=== PATIENT | female | born 1955 | race Caucasian/White ===

== ENCOUNTER 2020-08-28 09:48 | Outpatient (CLI) | payer MEDICARE, OTHER, SELFPAY ==
--- NOTE | ~2020-08-28 | MM_ITS ---
EXAMINATION: MM screening jodie BI w mary HISTORY: Screening mammogram TECHNIQUE: Craniocaudal and mediolateral oblique 3-D tomosynthesis images were obtained and synthetic 2-D images were generated. CAD analysis was submitted and interpreted. COMPARISON: 08/08/2019, 04/26/2018, 01/25/2017, 10/18/2015 BREAST PARENCHYMAL COMPOSITION: There are scattered areas of fibroglandular density. FINDINGS: RIGHT BREAST: There is possible architectural distortion in the middle third of the breast best appre ciated 4.5 cm from the nipple on the mediolateral oblique view. LEFT BREAST: There is no evidence of suspicious mass, calcification, or architectural distortion to s uggest malignancy. There has been no significant interval change. IMPRESSION: 1. Possible right breast architectural distortion. 2. Additional mammographic views and possible breast ultrasound are recommended. BI-RADS Category 0: Incomplete: Needs additional imaging evaluation. Reviewed, dictated and finalized at location A. VOLTAGE ELECTRICIAN IMPRESSION: 1. Possible right breast architectural distortion. 2. Additional mammographic views and possible breast ultrasound are recommended . BI-RADS Category 0: Incomplete: Needs additional imaging evaluation.
== END 2020-08-28 09:49 | disposition home or self-care (01) ==
LOC: ANHIMG 09:56
PROVIDERS: PCP Family Medicine; Visit Provider Obstetrics & Gynecology Gynecology
DX: Z12.31 Encounter for screening mammogram for malignant neoplasm of breast (principal); R92.8 Other abnormal and inconclusive findings on diagnostic imaging of breast
CPT/HCPCS: 77063; 77067

== ENCOUNTER → 2020-09-30 14:22 | Outpatient (CLI) | payer MEDICARE, OTHER, SELFPAY ==
--- NOTE | ~2020-09-30 | MMUS_ITS ---
EXAMINATION: MM diagnostic jodie RT w mary, US breast RT complete HISTORY: Possible right breast architectural distortion reported on 08/28/2020 screening mammogram TECHNIQUE: Additional 3-D tomosynthesis images of the right breast were performed and synthetic 2-D i mages were generated. CAD analysis was submitted and interpreted. Complete right breast ultrasound ex amination was performed. COMPARISON: 08/28/2020 bilateral digital screening mammogram FINDINGS: Diagnostic right mammogram: No reproducible mass or architectural distortion is evident. Occasional b enign calcifications are noted. Complete right breast ultrasound: No suspicious mass, architectural distortion or other significant s onographic abnormality is noted. IMPRESSION: 1. No mammographic or sonographic evidence of malignancy 2. Routine annual mammographic screening is recommended. BI-RADS Category 1: Negative Reviewed, dictated and finalized at location A. O ACCOMPANIST IMPRESSION: 1. No mammographic or sonographic evidence of malignancy 2. Routine annual mammographic screening is recommended. BI-RADS Category 1: Negative
== END ==
PROVIDERS: PCP Family Medicine; Visit Provider Obstetrics & Gynecology
DX: R92.8 Other abnormal and inconclusive findings on diagnostic imaging of breast (principal)
CPT/HCPCS: 76641; 77061; 77065; G0279

== ENCOUNTER 2020-11-18 17:04 | Outpatient (CLI) | payer MEDICARE, SELFPAY | END 2020-11-18 17:05 | disposition home or self-care (01) | LOC: CHSLAB 17:08 | PROVIDERS: PCP Family Medicine; Visit Provider Nurse Practitioner Family | DX: R19.7 Diarrhea, unspecified (principal) | CPT/HCPCS: 87324 ==

== ENCOUNTER → 2021-10-21 10:08 | Outpatient (CLI) | payer MEDICARE, SELFPAY ==
--- NOTE | ~2021-10-21 | MMUS_ITS ---
EXAMINATION: MM diagnostic jodie BI w mary, US breast RT limited HISTORY: Palpable right breast abnormality. TECHNIQUE: Additional 3-D tomosynthesis images of the breasts were performed and synthetic 2-D images were generated. CAD analysis was submitted and interpreted. High resolution Limited right breast ult rasound was performed. COMPARISON: Comparison to multiple prior studies sequentially, with oldest reviewed study dated 01/2016. BREAST PARENCHYMAL COMPOSITION: Breast composed of scattered areas of fibroglandular density. FINDINGS: MAMMOGRAPHIC FINDINGS: The breasts are stable. No new masses, calcifications or architectural distortion in either breast to suggest malignancy. ULTRASOUND: Limited right breast ultrasound: Normal heterogeneous echotexture without focal solid or cystic mass. IMPRESSION: 1. No evidence for malignancy in either breast. 2. Routine yearly screening mammogram and regular clinical breast examination are recommended. BI-RADS Category 1: Negative Reviewed, dictated and finalized at location A. CTOR OF ACCREDITATION IMPRESSION: 1. No evidence for malignancy in either breast. 2. Routine yearly screening mammogram and regular clinical breast examination a re recommended. BI-RADS Category 1: Negative
== END ==
PROVIDERS: PCP Family Medicine; Visit Provider Nurse Practitioner
DX: N64.4 Mastodynia (principal)
CPT/HCPCS: 76642; 77062; 77066; G0279

== ENCOUNTER 2022-03-11 11:17 | Outpatient (CLI) | payer MEDICARE, SELFPAY ==
--- NOTE | ~2022-03-11 | XR_ITS ---
EXAMINATION: XR chest 2V 03/11/2022 12:12 INDICATION: Shortness of breath. PROCEDURE: 2 view chest COMPARISON: No prior studies for comparison. FINDINGS: The lungs are clear. The cardiomediastinal silhouette is within normal limits. There are no pleural effusions. There is no pneumothorax suspected. IMPRESSION: 1: NO ACUTE CARDIOPULMONARY DISEASE. Reviewed, dictated and finalized at location A.
--- NOTE | ~2022-03-11 | DEXA_ITS ---
Bone Density Report Name: ALLAN SCHULZ Age: 66 Sex: Female Ethnicity: White Date of : 1955 Indication: postmenopausal; screening for osteoporosis; height loss; prior fracture; cancer; Referring Provider: BILLY CONDE Study: Bone densitometry was performed. Exam Date: March 11, 2022 Accession number: [id number] Bone Density: Region BMD T-score Z-score Classification AP Spine(L1-L4) 1.256 1.9 3.7 Normal Femoral Neck (Right) 0.918 0.6 2.2 Normal Total Hip (Right) 1.010 0.6 1.8 Normal World Health Organization criteria for BMD impression classify patients as: Normal (T-score at or above -1.0), Osteopenia (T-score between -1.0 and -2.5), or Osteoporosis (T-score at or below -2.5). 10-year Fracture Risk: FRAX not reported because: All T-scores for Spine Total, Hip Total, Femoral Neck at or above -1.0 Prior hip or vertebral fracture Clinical Information Provided by Patient: Have had a previous hip or vertebral fracture Has had a low trauma fracture Has used the following medications: Vitamin D, Calcium Has the following medical conditions: Cancer Patient maximum height was 67 Menopause Age: 51 No regular weight bearing exercise Drinks caffeinated beverages Onset of menses at age 12 Number of children 1 Impression: The patient has normal bone mass. The patient has risk factors, including: previous fracture. Discussion: INCREASED RISK OF FRACTURE DUE TO HISTORY OF FRACTURE. The patient's previous fracture puts the patient at high risk of a future fracture. In untreated patients, the risk of osteoporotic fracture increases approximately two-fold for each 1.0 SD decrease in T-score. Low bone density is not the only risk factor for fracture; also consider factors such as patient's age, frailty or poor health, risk of falling, risk of injury, previous osteoporotic fracture, family history of osteoporosis, cigarette smoking, low body weight, etc. Not everyone with a low trauma fracture has osteoporosis; osteomalacia and other metabolic bone disorders should also be considered. Patients who have osteoporosis should be evaluated for specific diseases and conditions (secondary causes) that may cause or contribute to bone loss and fracture risk. National Osteoporosis Foundation (NOF) recommends pharmacologic intervention for patients with a prior hip or vertebral fracture regardless of BMD T-score. The patient should follow a healthful lifestyle (good nutrition with adequate calcium and vitamin D, and appropriate weight-bearing exercise). Follow-Up: Consider a repeat BMD and Vertebral Fracture Assessment (VFA) exam in 2 years or sooner if medically necessary, to reassess this patient's status. Reported by: Dr. Hitesh Kent on 03/11/2022 12:11:00 PM. Reviewed, dictated and finalized at [facility]
[2022-03-11 11:47] LABS: Basophils Absolute Auto 0.04 K/mm3 (0.00-0.10); Basophils Percent Auto 0.9 % (0.0-1.0); Eosinophils Absolute Auto 0.17 K/mm3 (0.02-0.50); Eosinophils Percent Auto 3.7 % (1.0-6.0); Hemoglobin 12.2 g/dL (11.7-13.8); Immature Granulocyte Absolute 0.01 K/mm3 (0.00-0.00); Immature Granulocyte Percent A 0.2 % (0.0-0.0); Lymphocytes Absolute Auto 2.05 K/mm3 (1.10-4.50); Lymphocytes Percent Auto 44.4 % (18.0-42.0); Mean Corpuscular Hemoglobin 30.2 pg (27.0-31.0); Mean Corpuscular Volume 91.6 fL (78.0-102.0); Mean Platelet Volume 10.1 fl (9.2-11.8); Monocytes Absolute Auto 0.36 K/mm3 (0.10-0.90); Monocytes Percent Auto 7.8 % (2.0-11.0); Platelet Count Result 227 K/mm3 (150-420); Red Blood Count 4.04 M/mm3 (4.20-5.40); Red Cell Distribution Width 12.8 % (11.6-14.4); White Blood Count 4.6 K/mm3 (4.8-10.8)
--- NOTE | 2022-03-11 12:20 | ECG_ITS ---
Measurements Intervals [place] Rate: 66 P: 14 LA: 170 QRS: 61 QRSD: 94 T: 51 QT: 405 QTc: 425 Interpretive Statements SINUS RHYTHM NO PREVIOUS ECG AVAILABLE FOR COMPARISON Electronically Signed On 03-11-2022 12:55:17 CDT by Jennifer Patel M.D.
[2022-03-11 12:25] LABS: Alanine Aminotransferase 23 U/L (14-59); Albumin Level 3.8 g/dL (3.4-5.0); Alkaline Phosphatase 106 U/L (46-116); Anion Gap 5 mmol/L (8-16); Aspartate Amino Transferase 23 U/L (15-37); Bilirubin,Total 0.4 mg/dL (0.00-1.00); Blood Urea Nitrogen 10 mg/dL (7-18); Calcium 9.1 mg/dL (8.5-10.1); Carbon Dioxide 29 mmol/L (21-32); Chloride 109 mmol/L (98-108); Cholesterol 185 mg/dL (0-200); Estimated Glomerular Filt Rate > 60; Glucose 104 mg/dL (70-99); HDL Direct 82 mg/dL (40-60); LDL Cholesterol Calculated 87 mg/dL (<130); Osmolality Calculated 295 mOsm/kg (285-295); Potassium 4.1 mmol/L (3.5-5.1); Sodium 143 mmol/L (136-145); Thyroid Stimulating Hormone 2.35 uIU/mL (0.36-3.74); Total Protein 6.9 g/dL (6.4-8.2); Triglycerides 79 mg/dL (0-150)
[2022-03-15 14:16] LABS: Vitamin D 25 Hydroxy 60 ng/mL (30-100)
== END 2022-03-11 11:18 | disposition home or self-care (01) ==
LOC: CHSIMG 11:19
PROVIDERS: PCP Family Medicine; Visit Provider Nurse Practitioner Family
DX: E55.9 Vitamin D deficiency, unspecified (principal); R10.9 Unspecified abdominal pain; Z13.1 Encounter for screening for diabetes mellitus; Z13.220 Encounter for screening for lipoid disorders; Z13.29 Encounter for screening for other suspected endocrine disorder; Z68.30 Body mass index [BMI] 30.0-30.9, adult; Z78.0 Asymptomatic menopausal state; Z91.89 Other specified personal risk factors, not elsewhere classified; Z77.090 Contact with and (suspected) exposure to asbestos; R07.9 Chest pain, unspecified; L65.9 Nonscarring hair loss, unspecified; Z13.6 Encounter for screening for cardiovascular disorders
CPT/HCPCS: 36415; 71046; 77080; 80053; 80061; 82306; 84443; 85025; 93005

== ENCOUNTER 2022-05-13 00:51 | Day surgery (SDC) | payer MEDICARE, SELFPAY ==
[2022-05-01 13:52] VITALS: BMI 29.9
--- NOTE | 2022-05-13 07:52 | P.PNAN_ITS ---
Anes - Initial Pre Proc Eval Procedure: Operation Date: 05/13/22 09:15 Proposed Procedures p Screening Colonoscopy - Saman Blanca MD Date/Time: 05/13/22 07:52 Surgeon: Saman Blanca MD Pre Op Diagnosis: neoplasm screening Patient Data Age: 67 Gender: F Height: 1.68 m Weight: 84.2 kg Allergies Allergy/AdvReac Type Severity Reaction Status Date / Time No Known Allergies Allergy Verified 05/13/22 08:06 Home Medications Medication Instructions Recorded Confirmed Type ibuprofen 200 mg capsule 200 mg PO BID 05/01/22 05/01/22 History multivitamin 1 tablet PO DAILY 05/01/22 05/01/22 History Patient hx anesthesia problems: none Family hx anesthesia problems: none Results Review: All pre-operative results and documents have been reviewed as part of the pre- operative evaluation. FORMERLY [facility], [facility] Past Medical History Medical History Bilateral leg cramps BMI 29.0-29.9,adult BMI 30.0-30.9,adult Dietary counseling and surveillance (02/28/18) Dizziness Ear itching Encounter for screening for lipoid disorders Neck fullness Palpitations Poison herminio Surgical History Surgical History History of knee surgery Family History Family History Father No problems noted. Mother Diabetes mellitus Sibling Diabetes mellitus Other Carcinoma of colon Family history of lung cancer Social History Social History Smoking status: Never smoker Second hand tobacco smoke exposure: Yes Alcohol intake: current Alcohol use details: seldom Substance use: current Substance use type: marijuana Other substance usage details: once monthly Living arrangements: with friend(s) Additional occupation/education comments: [employer] Gender identity (if verbalized by the patient): Female Spiritual care concerns: No Anes - Eval Final PreProcedure Day of Procedure 05/13/22 07:52 Patient weight: obese Heart: regular rate and rhythm Lungs: clear to auscultation and normal air movement Airway: Mallampati scale class II Neurological: alert and oriented Last oral intake: >/= 8 hours ASA classification: II Emergent: no Anesthetic plan: proceed Anesthesia type and monitoring: general GIVS Results Review: All pre-operative results and documents have been reviewed as part of the pre-operative evaluation. Informed Consent: The patient's anesthetic plan and its attendant risks and benefits were discussed with the patient/family/POA. Questions were solicited and answers provided to the satisfaction of the patient/family/POA.
[2022-05-13 08:07] VITALS: BP 142/78; PULSE 74; RESP 18; TEMP 36.6; O2SAT 100; BMI 28.8
[2022-05-13] MEDS: LACTATED RINGERS 1,000 ML 150 ML IV CONT (08:19)
--- NOTE | 2022-05-13 08:53 | PM.HPGS ---
History of Present Illness History of Present Illness Consent: Risks, benefits, and alternatives have been discussed and questions answered. Patient agrees to proceed with procedure. Chief complaint: neoplasm screening Narrative: Lori Godoy is a 67 year old female here for screening colonoscopy, last one over 10 years ago Review of Systems Constitutional: Constitutional: Denies headache(s) and Denies weakness Eyes: Eyes: Denies blurry vision ENT: Reports Normal hearing present, Denies headache(s) and Denies neck pain Cardiovascular: Cardiovascular: Denies chest pain and Denies dyspnea Respiratory: Respiratory: Denies dyspnea Gastrointestinal: Gastrointestinal: Reports no additional gastrointestinal complaints Genitourinary: Genitourinary: Denies dysuria Musculoskeletal: Musculoskeletal: Denies neck pain Integumentary/Breasts: Skin/Breast: Denies dry skin Neurologic: Reports Normal hearing present, Denies headache(s) and Denies weakness Psychiatric: Psychiatric: Denies anxiety Endocrine: Endocrine: Denies change in body appearance Hematologic/Lymphatic: Hematologic/Lymphatic: Denies easy bleeding Allergic/Immunologic: Allergic/Immunologic: Denies urticaria PMFSH Past Medical History Medical History Bilateral leg cramps BMI 29.0-29.9,adult BMI 30.0-30.9,adult Dietary counseling and surveillance (02/28/18) Dizziness Ear itching Encounter for screening for lipoid disorders Neck fullness Palpitations Poison herminio Surgical History Surgical History History of knee surgery Family History Family History Father No problems noted. Mother Diabetes mellitus Sibling Diabetes mellitus Other Carcinoma of colon Family history of lung cancer Social History Social History Smoking status: Never smoker Second hand tobacco smoke exposure: Yes Alcohol intake: current Alcohol use details: seldom Substance use: current Substance use type: marijuana Other substance usage details: once monthly Living arrangements: with friend(s) Additional occupation/education comments: [email or web address] Gender identity (if verbalized by the patient): Female Spiritual care concerns: No Meds Home Medications and Allergies Home Medications Medication Instructions Recorded Confirmed Type ibuprofen 200 mg capsule 200 mg PO BID 05/01/22 05/01/22 History multivitamin 1 tablet PO DAILY 05/01/22 05/01/22 History Allergies Allergy/AdvReac Type Severity Reaction Status Date / Time No Known Allergies Allergy Verified 05/13/22 08:06 Vital Signs Vital Signs - 24 hr 05/13/22 08:07 Temperature 97.9 F Pulse Rate 74 Respiratory Rate 18 Blood Pressure 142/78 H Pulse Oximetry 100 Oxygen Delivery Room Air Exam Const: General: comfortable and no acute distress HENMT: General nose exam: Normal nares present Eyes: General: appearance normal, both eyes and all related structures Neck: Neck: no JVD Resp: Auscultation: clear to auscultation bilaterally Cardio: Rate: regular rate Rhythm: regular rhythm GI: Inspection: non-distended GI Palp: Yes Soft to palpation Skin: General skin exam: normal color Neuro: General: gait normal Speech: normal speech Extrem: General: normal to inspection Psych: Mental Status: mental status grossly normal Assessment and Plan Assessment and plan (1) Screening for malignant neoplasm of colon: Code(s): Z12.11 - Encounter for screening for malignant neoplasm of colon Status: Acute Assessment and Plan: colonoscopy
[2022-05-13 09:14] VITALS: BP 106/61; PULSE 68; RESP 16; O2SAT 100
[2022-05-13 09:24] VITALS: BP 109/66; PULSE 61; RESP 14; O2SAT 100
[2022-05-13 09:34] VITALS: BP 111/69; PULSE 61; RESP 20; O2SAT 100
== END 2022-05-13 09:47 | disposition home or self-care (01) ==
PROVIDERS: PCP Family Medicine; Visit Provider Internal Medicine Gastroenterology
PROC: 0DJD8ZZ Inspection of Lower Intestinal Tract, Via Natural or Artificial Opening Endoscopic (ICD-10-PCS; CPT 45378; principal; 2022-05-13 09:15)
DX: Z12.11 Encounter for screening for malignant neoplasm of colon (principal); K57.30 Diverticulosis of large intestine without perforation or abscess without bleeding; K64.8 Other hemorrhoids; R00.2 Palpitations; F12.90 Cannabis use, unspecified, uncomplicated
CPT/HCPCS: G0121; J2704; J7120

== ENCOUNTER 2022-08-04 12:42 | Outpatient (CLI) | payer MEDICARE, SELFPAY ==
--- NOTE | ~2022-08-04 | XR_ITS ---
XR_[id number]_CR DATE: 08/04/2022 13:13 INDICATION: Right arm pain, numbness. Facial flushing, tingling. TECHNIQUE: AP, open-mouth, lateral views COMPARISON: None FINDINGS: There is extensive postoperative change of the cervical spine including interbody spinal fu tanya at C3-4, C5 anterior column bone graft, interbody spinal fusion at C6-7 and anterior plates and screws extending from C4-C7. C1 and C2 are normally aligned. C2-3 interspace is well preserved. There is approximately 3-4 mm anterolisthesis at C7-T1 and approximately 3 mm anterolisthesis at T1-2 . No fracture or dislocation or locked facet or prevertebral soft tissue swelling is detected. IMPRESSION: Extensive postoperative changes from anterior cervical spine fusion from C2-C7 Anterolisthesis at C7-T1 and T1-T2 Reviewed, dictated and finalized at [facility]. Reviewed, dictated and finalized at [facility]. TH NURSE
--- NOTE | ~2022-08-04 | US_ITS ---
EXAMINATION: US carotid duplex BI DATE: 08/04/2022 14:02 INDICATION: Paresthesias. Headaches. TECHNIQUE: Grayscale, color Doppler, and pulsed Doppler images of the cervical carotid arteries were obtained. The degree of vessel stenosis is placed in one of the following categories: normal, <50%, 5 0-69%, >=70% but less than near-occlusion, near-occlusion, or total occlusion. Note that percent sten osis relative to normal distal artery lumen diameter is indirectly measured from velocity measurement s as described by Joe, et al. Radiology 2003; [id number]. Notes: Normal: Peak systolic velocity <125 centimeters/sec and no plaque <50%. Peak systolic velocity <125 ( EDV <40; ICA/CCA PSV ratio <2.0; used these factors only a tandem lesions or low cardiac output or co ntralateral disease) 50-69 %: PSV 125-230 (EDV 40-100; ratio 2-4) >= 70% but less than near occlusion: PSV greater than 230 (EDV > 100; ratio> 4.0) Near Occlusion: PSV that is variable; markedly narrowed lumen Occlusion: Absent flow on color/spectral Doppler and no lumen on singer scale. COMPARISON: None. FINDINGS: RIGHT: The right common carotid artery (CCA) peak systolic velocity (PSV) is 89 cm/s. The right internal car otid artery (ICA) PSV is 74 cm/s. The right ICA end-diastolic velocity (EDV) is 33 cm/s. The right IC A/CCA PSV ratio is 0.8. The external carotid artery (ECA) PSV is 85 cm/s. There is antegrade flow in the right vertebral artery. LEFT: The left CCA PSV is 83 cm/s. The left ICA PSV is 79 cm/s. The left ICA EDV is 32 cm/s. The left ICA/C CA PSV ratio is 1.0. The ECA PSV is 72 cm/s. There is antegrade flow in the left vertebral artery. IMPRESSION: 1. Less than 50% stenosis in the right internal carotid artery by sonographic criteria. 2. Less than 50% stenosis in the left internal carotid artery by sonographic criteria. Reviewed, dictated and finalized at [facility]. [employer]OUNTANT IMPRESSION: 1. Less than 50% stenosis in the right internal carotid artery by sonographic c bobby. 2. Less than 50% stenosis in the left internal carotid artery by sonographic irineo wynn.
== END 2022-08-04 12:43 | disposition home or self-care (01) ==
LOC: CHSIMG 12:43
PROVIDERS: PCP Family Medicine; Visit Provider Family Medicine
DX: R51.9 Headache, unspecified (principal); R20.2 Paresthesia of skin; Z98.890 Other specified postprocedural states
CPT/HCPCS: 72040; 93880

== ENCOUNTER 2022-10-12 10:56 | Outpatient (RCR) | payer MEDICARE, SELFPAY ==
--- NOTE | 2022-10-12 13:17 | PTOPEVAL1 ---
Assessment and note entered by Sp Moore Evaluation Information Assessment Status Evaluation Diagnosis right partial knee replacement Onset 08/14/22 Subjective Information Pt. reports she underwent right partial knee replacment of 08/14/22. She reports that she has been doing HH therapy until last week. She states that she is currently using a cane. She has recently returned to driving. She reports that getting on/off the toilet is still difficult. She reports she also notices difficulty with walking. She reports that she cannot shop. She reports that if she walks any signficant difference she gets pain into the knee, buttock and negron. She reports that she has not noticed any relief since surgery. She reports that her goal for therapy is to walk pain free and ride her bike, like she did prior to surgery. Reported Pain Level Pain Score 5,4: Self Report Assessment PT Clinical Summary Pt. is a 67 year old female who enters the clinic 8 weeks post right partial knee replacement. She presents with pain, impaired strength, impaired right knee ROM and impaired gait. Continued PT is indicated in order to improve these areas to allow the pt. to be able to return to normal activity without limitation and improved comfort. Plan of Care Interventions Electrical Stimulation,Gait Training,Hot Pack/Cold Pack,Manual Therapy,Neuro Re-education, Therapeutic Activities,Therapeutic Exercise PT Services Indicated Yes Treatment Frequency and 3x/week x 12 visits Duration These treatments will address the objective and functional deficits as defined above. The patient will be advanced safely and appropriately in order for the patient to progress towards his/her prior level of function. Additional exercises will be introduced and as well as a comprehensive home exercise program upon discharge, if needed, ?to ensure carryover of functional gains achieved in the clinic. This treatment plan has been reviewed and agreement upon by the patient.
--- NOTE | 2022-10-30 13:03 | PTOPPROG ---
Assessment and note entered by Carole Nicolas DPT Evaluation Information Assessment Status Progress Diagnosis right partial knee replacement Onset 08/14/22 Subjective Information patient reports she has been able to walk better and navigate stairs with less pain. She is able to ambulate house hold and short distances without AD but if she is ambulating longer distances she uses a STC. She reports cotninued difficulty with getting up off the toilet. Her R hip has also been causing her discomfort. RTMD 11/05 Assessment PT Clinical Summary Patient has been seen from 10/12/22-10/30/22 and is making good progress towards goals. She demonstrates improved strength and ROM as well as improved ambulation. She continues to have difficulty with getting off of the toilet and has hip pain with prolonged ambulation. She would benefit from continued skilled PT to address impairments and return to PLOF. Plan of Care Interventions Electrical Stimulation,Gait Training,Hot Pack/Cold Pack,Manual Therapy,Neuro Re-education, Therapeutic Activities,Therapeutic Exercise PT Services Indicated Yes Treatment Frequency and continue with current POC Duration These treatments will address the objective and functional deficits as defined above. The patient will be advanced safely and appropriately in order for the patient to progress towards his/her prior level of function. Additional exercises will be introduced and as well as a comprehensive home exercise program upon discharge, if needed, ?to ensure carryover of functional gains achieved in the clinic. This treatment plan has been reviewed and agreement upon by the patient.
--- NOTE | 2022-11-17 08:46 | BUPTOPEVAL1 ---
Assessment and note entered by JT File, PT Evaluation Information Assessment Status Re-evaluation Diagnosis right partial knee replacement Onset 08/14/22 Subjective Information patient reports she continues to have pain in the buttock of the R hip. she reports she has increased pain in the R buttock with walking. she reports this pain is reduced with sitting. she reports she feels the R LE does not want to get stronger. she reports she has difficulty getting up and down off the toilet, and going up steps. Assessment PT Clinical Summary patient presents to skilled PT services for her 12th skilled PT visit for post op care of the R partial knee replacement. she presents this date with improved rom of the R knee and improved strength of the R LE. however, she continues to ambulate with antalgia, display a lack of normal R knee rom, and displays weakness of the R LE. she presents with signs and symptoms of possivel R hip OA in addition to her post op care of the R knee. she would benefit from continued skilled PT to address her remaining goals not met (only met got for HEP completely), and to work on improved strength and stability of the R hip to improve gait mechanics. Plan of Care Interventions Gait Training,Manual Therapy,Neuro Re-education, Therapeutic Activities,Therapeutic Exercise PT Services Indicated Yes Treatment Frequency and 2x weekly for 6 more visits Duration These treatments will address the objective and functional deficits as defined above. The patient will be advanced safely and appropriately in order for the patient to progress towards his/her prior level of function. Additional exercises will be introduced and as well as a comprehensive home exercise program upon discharge, if needed, ?to ensure carryover of functional gains achieved in the clinic. This treatment plan has been reviewed and agreement upon by the patient.
--- NOTE | 2022-12-09 14:06 | PTOPDC ---
Assessment and note entered by JT File, PT Evaluation Information Assessment Status Discharge Diagnosis right partial knee replacement Onset 08/14/22 Subjective Information patient report she is doing much better overall. she reports she is up to riding her bike 3 miles per day. she reports she has been compliant with her hip and knee stretching 2x daily. Reported Pain Level Pain Score 1,1: Self Report Assessment PT Clinical Summary mrs. hernandez presents to skilled PT services for her 18th skilled therapy visit. as of this date, she has met all goals for skilled PT except for R knee flexion rom. she is back to riding her bike daily and is compliant with her HEP at home daily. she is ready to DC therapy at this time, and continue with exercises/HEP independently. Plan of Care Interventions Gait Training,Manual Therapy,Neuro Re-education, Therapeutic Activities,Therapeutic Exercise PT Services Indicated Yes Treatment Frequency and DC to independent HEP Duration
== END 2022-12-09 16:25 | disposition home or self-care (01) ==
LOC: CHSPT 10:56
PROVIDERS: PCP Family Medicine
DX: Z47.1 Aftercare following joint replacement surgery (principal); Z96.651 Presence of right artificial knee joint
CPT/HCPCS: 97014; 97016; 97110; 97140; 97161; G0283

== ENCOUNTER → 2023-01-13 13:23 | Outpatient (CLI) | payer MEDICARE, SELFPAY ==
--- NOTE | ~2023-01-13 | MM_ITS ---
EXAMINATION: MM screening [facility] BI w mary HISTORY: Screening mammogram TECHNIQUE: Craniocaudal and mediolateral oblique 3-D tomosynthesis images were obtained and synthetic 2-D images were generated. CAD analysis was submitted and interpreted. COMPARISON: 10/21/2021, 09/30/2020, 08/28/2020 BREAST PARENCHYMAL COMPOSITION: There are scattered areas of fibroglandular density. FINDINGS: No suspicious mass, calcification, or architectural distortion are identified in either heather ast to suggest malignancy. There has been no suspicious interval change. IMPRESSION: 1. No mammographic evidence of malignancy. 2. Recommend routine screening mammography in one year. BI-RADS Category 1: Negative Reviewed, dictated and finalized at location A.
== END ==
PROVIDERS: PCP Obstetrics & Gynecology Gynecology; Visit Provider Obstetrics & Gynecology Gynecology
DX: Z12.31 Encounter for screening mammogram for malignant neoplasm of breast (principal)
CPT/HCPCS: 77063; 77067

== ENCOUNTER → 2023-02-02 14:33 | Outpatient (CLI) | payer MEDICARE, SELFPAY ==
--- NOTE | ~2023-02-02 | XR_ITS ---
XR hip BI 2V w AP pelvis 02/02/2023 15:13 Indication: Right hip pain Procedure: AP pelvis and 2 views each hip Comparison: No prior studies for comparison. Findings: Pelvic rings are intact. There is left total hip arthroplasty. Sacral foramen are symmetric . There is mild osteoarthritis of the right hip. There is heterotopic ossification surrounding the le ft hip. Left hip arthroplasty is well seated. Impression: 1: Mild osteoarthritis of the right hip. Reviewed, dictated and finalized at location B. Impression: 1: Mild osteoarthritis of the right hip.
--- NOTE | ~2023-02-02 | XR_ITS ---
XR lumbar spine 2-3V 02/02/2023 15:13 Indication: Low back pain Procedure: 3 views lumbar spine Comparison: No prior studies for comparison. Findings: There is mild multilevel disc narrowing. Prominent ventral osteophytes at most lumbar level s. There is moderate multilevel facet hypertrophy with grade 1 degenerative spondylolisthesis at L4-5 . No fracture or traumatic malalignment. Pedicles intact. Sacral foramen are symmetric. There is mild dextrocurvature of the lumbar spine. Impression: 1: Moderate-severe lumbar spondylosis. Reviewed, dictated and finalized at location B. Impression: 1: Moderate-severe lumbar spondylosis.
== END ==
PROVIDERS: PCP Family Medicine; Visit Provider Physician Assistant Medical
DX: M25.552 Pain in left hip (principal); M47.896 Other spondylosis, lumbar region; M16.11 Unilateral primary osteoarthritis, right hip
CPT/HCPCS: 72100; 73521

== ENCOUNTER 2023-09-14 12:27 | Outpatient (CLI) | payer MEDICARE, SELFPAY ==
[2023-09-14 12:49] LABS: Basophils Absolute Auto 0.03 K/mm3 (0.00-0.10); Basophils Percent Auto 0.5 % (0.0-1.0); Eosinophils Absolute Auto 0.09 K/mm3 (0.02-0.50); Eosinophils Percent Auto 1.6 % (1.0-6.0); Hematocrit 35.7 % (35.0-42.0); Hemoglobin 11.7 g/dL (11.7-13.8); Immature Granulocyte Absolute 0.01 K/mm3 (0.00-0.00); Immature Granulocyte Percent A 0.2 % (0.0-0.0); Lymphocytes Absolute Auto 2.44 K/mm3 (1.10-4.50); Lymphocytes Percent Auto 42.6 % (18.0-42.0); Mean Corpuscular HGB Conc 32.8 g/dL (32.0-36.0); Mean Corpuscular Hemoglobin 30.2 pg (27.0-31.0); Mean Corpuscular Volume 92.2 fL (78.0-102.0); Mean Platelet Volume 9.2 fl (9.2-11.8); Monocytes Absolute Auto 0.47 K/mm3 (0.10-0.90); Monocytes Percent Auto 8.2 % (2.0-11.0); Neutrophils Absolute Auto 2.7 K/mm3 (1.7-7.2); Neutrophils Percent Auto 46.9 % (50.0-70.0); Platelet Count Result 223 K/mm3 (150-420); Red Blood Count 3.87 M/mm3 (4.20-5.40); Red Cell Distribution Width 12.6 % (11.6-14.4); White Blood Count 5.7 K/mm3 (4.8-10.8)
[2023-09-14 13:54] LABS: Alanine Aminotransferase 25 U/L (14-59); Albumin Level 3.8 g/dL (3.4-5.0); Alkaline Phosphatase 107 U/L (46-116); Anion Gap 5 mmol/L (8-16); Aspartate Amino Transferase 20 U/L (15-37); Bilirubin,Total 0.4 mg/dL (0.00-1.00); Blood Urea Nitrogen 15 mg/dL (7-18); Calcium 9.4 mg/dL (8.5-10.1); Carbon Dioxide 32 mmol/L (21-32); Chloride 105 mmol/L (98-108); Cholesterol 230 mg/dL (0-200); Estimated Glomerular Filt Rate > 60; Glucose 92 mg/dL (70-99); HDL Direct 81 mg/dL (40-60); LDL Cholesterol Calculated 118 mg/dL (<130); Osmolality Calculated 294 mOsm/kg (285-295); Sodium 142 mmol/L (136-145); Thyroid Stimulating Hormone 2.04 uIU/mL (0.36-3.74); Total Protein 6.7 g/dL (6.4-8.2); Triglycerides 155 mg/dL (0-150)
[2023-09-14 14:32] LABS: Vitamin B12 1284 pg/mL (193-986)
[2023-09-17 12:25] LABS: Vitamin D 25 Hydroxy 44 ng/mL (30-100)
== END 2023-09-14 12:28 | disposition home or self-care (01) ==
LOC: CHSLAB 12:29
PROVIDERS: PCP Family Medicine; Visit Provider Physician Assistant Medical
DX: E78.5 Hyperlipidemia, unspecified (principal); Z13.220 Encounter for screening for lipoid disorders; R51.9 Headache, unspecified; E55.9 Vitamin D deficiency, unspecified; R42 Dizziness and giddiness
CPT/HCPCS: 36415; 80053; 80061; 82306; 82607; 83735; 84443; 85025

== ENCOUNTER 2023-09-16 12:36 | Outpatient (CLI) | payer MEDICARE, SELFPAY ==
--- NOTE | ~2023-09-16 | US_ITS ---
EXAMINATION: US thyroid DATE: 09/16/2023 12:54 INDICATION: Localized swelling, mass and lump, neck. TECHNIQUE: Multiple ultrasound images of the thyroid were obtained. COMPARISON: None. FINDINGS: The right thyroid lobe measures 4.0 x 1.6 x 1.2 cm. The left thyroid lobe measures 3.4 x 1.4 x 1.0 c m. There is normal echotexture and echogenicity throughout the thyroid gland. No discrete nodules id entified. Normal vascular flow is present. IMPRESSION: 1. Normal thyroid. Reviewed, dictated and finalized at location E. 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 Normal thyroid.
== END 2023-09-16 12:37 | disposition home or self-care (01) ==
PROVIDERS: PCP Family Medicine; Visit Provider Physician Assistant Medical
DX: R22.1 Localized swelling, mass and lump, neck (principal)
CPT/HCPCS: 76536

== ENCOUNTER 2023-09-20 14:13 | Outpatient (RCR) | payer MEDICARE, SELFPAY ==
--- NOTE | 2023-09-20 16:03 | PTOPEVAL1 ---
Assessment and note entered by Sp Moore Evaluation Information Assessment Status Evaluation Diagnosis dizziness, giddiness Onset 06/20/23 Subjective Information Pt. reports that she developed some dizziness and light headiness several months ago. She reports that she has hx of neck fusion and neck pain. She states that that she is experinecing pain in her neck at night. She reports having pain also radiating down the shoulder blades. She states that the dizziness sometimes will associate with her neck pain. She reports that the light headiness and dizziness used to be a dailiy occurance, but has recently decreased to about 4x/ week. She reports that she continual has a sense of her ears feeling full. She states that she has occasional ear ringing. She reports that her goal is to reduce her neck pain and reduce her dizziness. Reported Pain Level Pain Score 4: Self Report Assessment PT Clinical Summary Pt. is a 68 year old female who enters the clinic with dizziness. She demonstrates no indication of BPPV, and does present with impaired postural awareness, neck pain, impaired cervical ROM, impaired proximal u.e. strength. Dizziness is likely the result of desensitization resulting from impaired cervical spine mobility and impareid postural awareness. Continued skilled PT is indicated in order to improve these areas to allow for improve comfort and efficiency with all IADL' s. Plan of Care Interventions Electrical Stimulation,Hot Pack/Cold Pack,Manual Therapy,Neuro Re-education,Patient/Caregiver Educati,Therapeutic Activities,Therapeutic Exercise PT Services Indicated Yes Treatment Frequency and 2x/week x 12 visits Duration These treatments will address the objective and functional deficits as defined above. The patient will be advanced safely and appropriately in order for the patient to progress towards his/her prior level of function. Additional exercises will be introduced and as well as a comprehensive home exercise program upon discharge, if needed, ?to ensure carryover of functional gains achieved in the clinic. This treatment plan has been reviewed and agreement upon by the patient.
--- NOTE | 2023-09-20 16:04 | OPREHPOC ---
Outpatient Therapy Plan of Care This is a Multidisciplinary Plan of Care that may contain components documented by all disciplines (PT, OT, and ST.) PT Problem 1 PT Problem #1 Knowledge Deficit PT Goal 1 Goal Independent with a HEP addressing postural awareness and c-spine mobility Target Visit 2 PT Problem 2 PT Problem #2 Impaired Range of Motion PT Goal 1 Goal Pt. will demonstrates 65 degrees bilateral c-spine rotation or greater. Target Visit 12 PT Problem 3 PT Problem #3 Impaired Strength PT Goal 1 Goal Pt. will improve gross proximal u.e. strength to 4 +/5 to assist with improved postural awareness Target Visit 12 PT Problem 4 PT Problem #4 Impaired Functional Mobil PT Goal 1 Goal Pt. will report less than 10% limitation on the DHI indicating improved overall function. Target Visit 12
--- NOTE | 2023-10-21 14:45 | OPREHPOC ---
Outpatient Therapy Plan of Care This is a Multidisciplinary Plan of Care that may contain components documented by all disciplines (PT, OT, and ST.) PT Problem 1 PT Problem #1 Knowledge Deficit PT Goal 1 Goal Independent with a HEP addressing postural awareness and c-spine mobility Target Visit 2 Progress Met PT Problem 2 PT Problem #2 Impaired Range of Motion PT Goal 1 Goal Pt. will demonstrates 65 degrees bilateral c-spine rotation or greater. Target Visit 12 Comment continue PT Problem 3 PT Problem #3 Impaired Strength PT Goal 1 Goal Pt. will improve gross proximal u.e. strength to 4 +/5 to assist with improved postural awareness Target Visit 12 Progress Partially Met PT Problem 4 PT Problem #4 Impaired Functional Mobil PT Goal 1 Goal Pt. will report less than 10% limitation on the DHI indicating improved overall function. Target Visit 12 Comment continue
--- NOTE | 2023-10-21 14:45 | PTOPPROG ---
Assessment and note entered by Carole Nicolas DPT Evaluation Information Assessment Status Progress Diagnosis dizziness, giddiness Onset 06/20/23 Subjective Information patient reports her dizziness is 80-90% improved. she reports she continues to have fullness of the ears but has not seen an ENT yet. she reports sleeping has improved as well. she reports she is compliant with HEP Assessment PT Clinical Summary Lori Godoy has been seen for 10 visits of PT with good improvements towards goals. She demonstrates improved UE strength and has reports of significant decrease in dizziness. She has improved sleeping as well. She continues to report pain with prolonged positioning and postural limitations leading to increased tightness of the back and paraspinals. She would benefit from continued skilled PT to address impairments and return to PLOF. Plan of Care Interventions Electrical Stimulation,Hot Pack/Cold Pack,Manual Therapy,Neuro Re-education,Patient/Caregiver Educati,Therapeutic Activities,Therapeutic Exercise PT Services Indicated Yes Treatment Frequency and continue with remaining 2 visits Duration These treatments will address the objective and functional deficits as defined above. The patient will be advanced safely and appropriately in order for the patient to progress towards his/her prior level of function. Additional exercises will be introduced and as well as a comprehensive home exercise program upon discharge, if needed, ?to ensure carryover of functional gains achieved in the clinic. This treatment plan has been reviewed and agreement upon by the patient.
--- NOTE | 2023-10-28 15:36 | OPREHPOC ---
Outpatient Therapy Plan of Care This is a Multidisciplinary Plan of Care that may contain components documented by all disciplines (PT, OT, and ST.) PT Problem 1 PT Problem #1 Knowledge Deficit PT Goal 1 Goal Independent with a HEP addressing postural awareness and c-spine mobility Target Visit 2 Progress Met PT Problem 2 PT Problem #2 Impaired Range of Motion PT Goal 1 Goal Pt. will demonstrates 65 degrees bilateral c-spine rotation or greater. Target Visit 12 Progress Not Met Comment continue PT Problem 3 PT Problem #3 Impaired Strength PT Goal 1 Goal Pt. will improve gross proximal u.e. strength to 4 +/5 to assist with improved postural awareness Target Visit 12 Progress Met PT Problem 4 PT Problem #4 Impaired Functional Mobil PT Goal 1 Goal Pt. will report less than 10% limitation on the DHI indicating improved overall function. Target Visit 12 Progress Met
--- NOTE | 2023-10-28 15:36 | PTOPDC ---
Assessment and note entered by Carole Nicolas DPT Evaluation Information Assessment Status Discharge Diagnosis dizziness, giddiness Onset 06/20/23 Subjective Information patient reports her dizziness has resolved. she does reports she has some difficulty with laying on her back to sleep. she reports she is independent with HEP and is ready for DC. Reported Pain Level Pain Score 1: Self Report Assessment PT Clinical Summary Ms. Godoy has been seen for 12 visits of skilled PT with great progress towards goals. She met all goals besides cervical rotation. She demonstrates 5/5 strength of B UE's, independence with HEP and resolvement of dizziness. She is independent with HEP and is appropriate for DC at this time. Plan of Care PT Services Indicated No
== END 2023-10-28 15:48 | disposition home or self-care (01) ==
LOC: CHSPT 14:13
PROVIDERS: PCP Physician Assistant Medical; Visit Provider Physician Assistant Medical
DX: R42 Dizziness and giddiness (principal); M54.2 Cervicalgia
CPT/HCPCS: 97014; 97110; 97140; 97161; G0283

== ENCOUNTER 2024-01-17 13:06 | Outpatient (CLI) | payer MEDICARE, SELFPAY ==
--- NOTE | ~2024-01-17 | MM_ITS ---
EXAMINATION: MM screening jodie BI w mary HISTORY: Screening mammogram TECHNIQUE: Craniocaudal and mediolateral oblique 3-D tomosynthesis images were obtained and synthetic 2-D images were generated. CAD analysis was submitted and interpreted. COMPARISON: 01/13/2023 bilateral screening mammogram 10/21/2021 bilateral diagnostic mammogram and Limited right breast ultrasound, reported negative BREAST PARENCHYMAL COMPOSITION: There are scattered areas of fibroglandular density. FINDINGS: There is no evidence of suspicious mass, calcification, or architectural distortion to sugg est malignancy in either breast. There has been no suspicious interval change. IMPRESSION: 1. No mammographic evidence of malignancy. 2. Recommend routine screening mammography in one year. BI-RADS Category 1: Negative Reviewed, dictated and finalized at location B.
== END 2024-01-17 13:07 | disposition home or self-care (01) ==
LOC: CHSIMG 13:07
PROVIDERS: Visit Provider Obstetrics & Gynecology Gynecology
DX: Z12.31 Encounter for screening mammogram for malignant neoplasm of breast (principal)
CPT/HCPCS: 77063; 77067

== ENCOUNTER 2024-08-23 13:58 | Outpatient (CLI) | payer MEDICARE, SELFPAY ==
--- NOTE | ~2024-08-23 | US_ITS ---
EXAMINATION: US transvaginal DATE: 08/23/2024 14:32 INDICATION: Pelvic pain. TECHNIQUE: Multiple transvaginal sonographic images of the pelvis were obtained. COMPARISON: Ultrasound 02/26/2016 FINDINGS: The uterus measures 5.7 x 4.0 x 2.6 cm. There is no free fluid in the pelvis. The endometrial complex measures 1 mm in thickness. There is a 16 mm intramural fibroid. There is 9 mm intramural fibroid. T he ovaries are not visualized. IMPRESSION: 1. Uterine fibroids. 2. Ovaries not visualized. Reviewed, dictated and finalized at location A. TALLOGRAPHER
--- NOTE | ~2024-08-23 | DEXA_ITS ---
Bone Density Report Name: ALLAN SCHULZ Age: 69 Sex: Female Ethnicity: White Date of : 1955 Indication: postmenopausal; screening for osteoporosis; height loss; prior fracture; cancer; Referring Provider: Penny Thayer Study: Bone densitometry was performed. Exam Date: August 23, 2024 Accession number: [id number] Bone Density: Region BMD T-score Z-score Classification AP Spine(L1-L4) 1.248 1.8 3.8 Normal Femoral Neck (Right) 0.905 0.5 2.2 Normal Total Hip (Right) 0.982 0.3 1.7 Normal World Health Organization criteria for BMD impression classify patients as: Normal (T-score at or above -1.0), Osteopenia (T-score between -1.0 and -2.5), or Osteoporosis (T-score at or below -2.5). 10-year Fracture Risk: FRAX not reported because: All T-scores for Spine Total, Hip Total, Femoral Neck at or above -1.0 Prior hip or vertebral fracture Clinical Information Provided by Patient: Have had a previous hip or vertebral fracture Has had a low trauma fracture Has used the following medications: Vitamin D, Calcium Has the following medical conditions: Cancer Patient maximum height was 66 Menopause Age: 58 No regular weight bearing exercise Does not regularly consume dairy products Drinks caffeinated beverages Onset of menses at age 13 Number of children 1 Impression: The patient has normal bone mass. The patient has risk factors, including: previous fracture. Discussion: INCREASED RISK OF FRACTURE DUE TO HISTORY OF FRACTURE. The patient's previous fracture puts the patient at high risk of a future fracture. In untreated patients, the risk of osteoporotic fracture increases approximately two-fold for each 1.0 SD decrease in T-score. Low bone density is not the only risk factor for fracture; also consider factors such as patient's age, frailty or poor health, risk of falling, risk of injury, previous osteoporotic fracture, family history of osteoporosis, cigarette smoking, low body weight, etc. Not everyone with a low trauma fracture has osteoporosis; osteomalacia and other metabolic bone disorders should also be considered. Patients who have osteoporosis should be evaluated for specific diseases and conditions (secondary causes) that may cause or contribute to bone loss and fracture risk. National Osteoporosis Foundation (NOF) recommends pharmacologic intervention for patients with a prior hip or vertebral fracture regardless of BMD T-score. The patient should follow a healthful lifestyle (good nutrition with adequate calcium and vitamin D, and appropriate weight-bearing exercise). Follow-Up: Consider a repeat BMD and Vertebral Fracture Assessment (VFA) exam in 2 years or sooner if medically necessary, to reassess this patient's status. Reported by: BALWINDER on 08/23/2024 2:35:00 PM. Reviewed, dictated and finalized at location A.
== END 2024-08-23 13:59 | disposition home or self-care (01) ==
LOC: CHSIMG 14:00
PROVIDERS: PCP Family Medicine; Visit Provider Obstetrics & Gynecology Gynecology
DX: R10.2 Pelvic and perineal pain (principal); Z78.0 Asymptomatic menopausal state; D25.9 Leiomyoma of uterus, unspecified
CPT/HCPCS: 76830; 77080

== ENCOUNTER 2024-10-24 13:03 | Outpatient (CLI) | payer MEDICARE, SELFPAY ==
[2024-10-24 13:33] LABS: Basophils Absolute Auto 0.03 K/mm3 (0.00-0.10); Basophils Percent Auto 0.6 % (0.0-1.0); Eosinophils Absolute Auto 0.14 K/mm3 (0.02-0.50); Eosinophils Percent Auto 2.7 % (1.0-6.0); Hematocrit 37.2 % (35.0-42.0); Hemoglobin 12.2 g/dL (11.7-13.8); Immature Granulocyte Absolute 0.01 K/mm3 (0.00-0.00); Immature Granulocyte Percent A 0.2 % (0.0-0.0); Lymphocytes Absolute Auto 2.47 K/mm3 (1.10-4.50); Lymphocytes Percent Auto 47.2 % (18.0-42.0); Mean Corpuscular HGB Conc 32.8 g/dL (32-36); Mean Corpuscular Hemoglobin 29.8 pg (27.0-31.0); Mean Corpuscular Volume 90.7 fL (78.0-102.0); Mean Platelet Volume 9.5 fl (9.2-11.8); Monocytes Absolute Auto 0.37 K/mm3 (0.10-0.90); Monocytes Percent Auto 7.1 % (2.0-11.0); Neutrophils Absolute Auto 2.21 K/mm3 (1.70-7.20); Neutrophils Percent Auto 42.2 % (50.0-70.0); Platelet Count Result 226 K/mm3 (150-420); Red Cell Distribution Width 12.4 % (11.6-14.4); White Blood Count 5.2 K/mm3 (4.8-10.8)
--- OUTSIDE RECORDS SUMMARY | 2024-10-24 13:53 | XMS_ITS | Encounter Summary ---
Author Organization [facility] Address [address] [place] [address] Care Team Providers Care Gasket Inspector Name Role Phone Unavailable Primary Care Provider Unavailabl e Encounter Details Date Type Department Care Team (Late st Contact Info) Description 06/09/2018 Lab Requisition [facility] DermPath Lab [address] [facility] [address] [facility] [place] [id number] Liseth Mckeon MD [address] [place] [address] Social History Tobacco Use Types Packs/Day Years Used Date Smoking Tobacco: Never Assessed Sex and Gender Information Value Date Recorded Sex Assigned at Not on file Gender Identity Not on file Sexual Orientation Not on file documented as of this encounter Plan of Treatment Not on file documented as of this encounter Procedures Procedure Name Priority Date/Time Associated Diagnosis Comments DERMATOPATH TECHNICAL REPORT Routine 06/08/2018 12:00 AM CDT documented in this encounter Results * DERMATOPATH TECHNICAL REPORT (06/08/2018 12:00 AM CDT) Case Report Dermatopathology Report Case: [id number] Authorizing Provider: Liseth Mckeon MD Collected: 06/08/2018 12:00 AM Pathologist: Wil Garcia MD Received: 06/09/2018 06:34 AM Specimen: Skin, right lower eyelid 10:14 AM CDT DERMATOPATHOLOGY LABORATORY Clinical History R/O atypia. Non-healing. 10:14 AM CDT DERMATOPATHOLOGY LABORATORY Gross Description Specimen A: Received is one formalin filled container labeled with the patient's name and designated right lower eyelid. The specimen consists of a shave measuring 3h4w1in. Jar 0. [facility] Dermatopathology Laboratory performed the technical component only. 10:14 AM CDT DERMATOPATHOLOGY LABORATORY Embedded Images 10:14 AM T DERMATOPATHOLOGY LABORATORY DISCLAIMER An external and internal positive and negative controls are appropriate for the histochemical, immunohistochemical and immunofluorescence stain(s) in this case (if any), except where stated explicitly. The performance characteristics of the stain(s) cited in this report were developed and its performance characteristic determined by the Dermatopathology Laboratory at [facility]. These tests need not be, and therefore are not, approved by the [place] Food and Drug Administration. The tests are used for clinical purposes. 10:14 AM [facility] DERMATOPATHOLOGY LABORATORY Pathology/Cytolog y TISSUE SPECIMEN FROM SKIN / Unknown 06/08/2018 06/09/2018 6:34 AM CDT Liseth Mckeon MD LAB - PATHOLOGY/CYTO LOGY ORDERABLES DERMATOPATHOLOGY LABORATORY [facility] - Department of Dermatology [address] [place] [address], [address] [place] [address], [facility] [phone] documented in this encounter Visit Diagnoses Not on filedocumented in this encounter
--- OUTSIDE RECORDS SUMMARY | 2024-10-24 13:53 | XMS_ITS | Encounter Summary ---
Author Organization [facility] Healthcare Address [address] [place] [address] Care Team Providers Care Creative Developer Name Role Phone Unavailable Primary Care Provider Unavailabl e Reason for Visit * Diagnostic Imaging (Routine) - Closed Specialty Diagnoses / Procedures Referred By Neil t Referred To Contact Procedures Breast Imaging Diagnostic Outside Reference Jing Cain NP Phone: tel: fax: Referral ID Status Reason Start Date Expiration Date Visits Re quested Visits Authorized [id number] Closed 11/20/2021 12/20/2022 1 1 Encounter Details Date Type Department Care Team (Late st Contact Info) Description 09/30/2020 12:05 AM COLLAR CUTTER Hospital Encounter [facility] [address] [place] [id number] Social History Tobacco Use Types Packs/Day Years [...] on file Legal Sex Female 4:17 AM COLLAR CUTTER Gender Identity Not on file Sexual Orientation Not on file documented as of this encounter Plan of Treatment Not on file documented as of this encounter Procedures Procedure Name Priority Date/Time Associated Diagnosis Comments BREAST IMAGING MG DIAGNOSTIC OUTSIDE REFERENCE Routine 09/30/2020 12:05 AM COLLAR CUTTER documented in this encounter Results * Breast Imaging Diagnostic Outside Reference (09/30/2020 12:05 AM COLLAR CUTTER) Impressions [facility] - 11/20/2021 2:32 PM COLLAR CUTTER These images are for Reference purposes only and have not been reviewed by [facility]iology. There will be no report generated by a [facility] Radiologist. Narrative RAD_MAMMO[facility] - 11/20/2021 2:32 PM COLLAR CUTTER EXAMINATION: Images For Reference Purposes Only us Jing Cain NP IMG MAMMO PROCEDURES Fin al Result [facility] documented in this encounter Visit Diagnoses Not on filedocumented in this encounter
--- OUTSIDE RECORDS SUMMARY | 2024-10-24 13:53 | XMS_ITS | Encounter Summary ---
Author Organization [facility] Address [address] [facility] [place] [address] Care Team Providers Care Dat Instructor Name Role Phone Unavailable Primary Care Provider Unavailabl e Encounter Details Date Type Department Care Team (Late st Contact Info) Description 02/29/2024 Lab Requisition [facility] - DermPath Lab [address] [place] [address] Liseth Mckeon MD [address] [facility] [address] [place] [address] Social History Tobacco Use Types Packs/Day Years Used Date Smoking Tobacco: Never Assessed Sex and Gender Information Value Date Recorded Sex Assigned at Not on file Gender Identity Not on file Sexual Orientation Not on file documented as of this encounter Plan of Treatment Not on file documented as of this encounter Procedures Procedure Name Priority Date/Time Associated Diagnosis Comments DERMATOPATHOLOGY Routine 02/29/2024 1:23 PM CDT documented in this encounter Results * DERMATOPATHOLOGY (02/29/2024 1:23 PM CDT) Case Report Dermatopathology Report Case: [id number] Authorizing Provider: Liseth Mckeon MD Collected: 02/29/2024 01:23 PM Ordering Location: [facility]ician [facility] - Received: 03/02/2024 05:38 AM DermPath Lab Pathologist: Belem Yao MD Specimen: Skin, lower back 4 2:18 PM CDT DERMATOPATHOLOGY LABORATORY Final Diagnosis Specimen A. SKIN, lower back: BASAL CELL CARCINOMA, NODULAR TYPE, WITH INFUNDIBULOCYSTIC FEATURES (C44.519) LICHEN PLANUS-LIKE KERATOSIS (BENIGN LICHENOID KERATOSIS) (L82.1) TRANSIENT ACANTHOLYTIC DERMATOSIS, CONSISTENT WITH (L11.1) (see microscopic description) 4 2:18 PM T DERMATOPATHOLOGY LABORATORY Clinical History Nevus vs BCC; Corcoran Papule 4 2:18 PM CDT DERMATOPATHOLOGY LABORATORY Gross Description Specimen A: Received is one formalin filled container labeled with the patient's name and designated lower back. The specimen consists of a shave biopsy measuring 6x5x1 mm. Jar 0. 4 2:18 PM T DERMATOPATHOLOGY LABORATORY Microscopic Description Specimen A. SKIN, lower back: Sections show a proliferation of basaloid and squamous keratinocytes that extends into the superficial dermis. There are interanastomosing cords of squamous keratinocytes, some of which terminate in larger rounded masses that contain small cornifying cysts. Some aggregates of peripherally palisaded basaloid cells are present at the ends of the aggregates as well. Additionally, there is a lichenoid infiltrate with vacuolar changes of basilar keratinocytes and scattered necrotic keratinocytes. Lastly, there is a focus of acantholysis, dyskeratosis, and an inflammatory cell infiltrate. 4 2:18 PM CDT DERMATOPATHOLOGY LABORATORY Disclaimer An external and internal positive and negative controls are appropriate for the histochemical, immunohistochemical and immunofluorescence stain(s) in this case (if any), except where stated explicitly. The performance characteristics of the stain(s) cited in this report were developed and its performance characteristic determined by the Dermatopathology Laboratory at [facility], directed by Dr. Linda Garcia. These tests need not be, and therefore are not, approved by the [place] Food and Drug Administration. The tests are used for clinical purposes. Billing Codes Specimen Charges Stain Charges 63557 1 4 2:18 PM CDT DERMATOPATHOLOGY LABORATORY Embedded Images 4 2:18 PM CDT DERMATOPATHOLOGY LABORATORY Pathology/Cytolo gy TISSUE SPECIMEN FROM SKIN / Unknown 02/29/2024 1:23 PM CDT 03/02/2024 5:38 AM CDT Liseth Mckeon MD LAB - PATHOLOGY/CYTO LOGY ORDERABLES DERMATOPATHOLOGY LABORATORY [facility] - Department of Dermatology [address] Floor [place], [place] [address] [place] [address] documented in this encounter Visit Diagnoses Not on filedocumented in this encounter
--- OUTSIDE RECORDS SUMMARY | 2024-10-24 13:53 | XMS_ITS | Encounter Summary ---
Author Organization [facility] Healthcare Address [address] [place] [address] Care Team Providers Care Gate Person Name Role Phone Unavailable Primary Care Provider Unavailabl e Reason for Visit * Diagnostic Imaging (Routine) - Closed Specialty Diagnoses / Procedures Referred By Neil t Referred To Contact Procedures Breast Imaging Screening Outside Reference Jing Cain NP Phone: tel: fax: Referral ID Status Reason Start Date Expiration Date Visits Re quested Visits Authorized [id number] Closed 11/20/2021 12/20/2022 1 1 Encounter Details Date Type Department Care Team (Late st Contact Info) Description 04/26/2018 Hospital Encounter [facility]) [address] [place] [address] Social History Tobacco Use Types Packs/Day Years [...] on file Legal Sex Female 4:17 AM HEATING OPERATORS ENGINEER Gender Identity Not on file Sexual Orientation [...] CDT) Impressions [facility] - 11/20/2021 2:34 PM HEATING OPERATORS ENGINEER These images are for Reference purposes only and have not been reviewed by [facility] Radiology. There will be no report generated by a [facility] Radiologist. Narrative [facility] - 11/20/2021 2:34 PM HEATING OPERATORS ENGINEER EXAMINATION: Images For Reference Purposes Only us Jing Cain NP IMG MAMMO PROCEDURES Fin al Result [facility] documented in this encounter Visit Diagnoses Not on filedocumented in this encounter
--- OUTSIDE RECORDS SUMMARY | 2024-10-24 13:53 | XMS_ITS | Clinical Summary ---
Author Organization [facility] Address [facility] [place] [address] Care Team Providers Care Traffic Counter Name Role Phone Unavailable Primary Care Provider Unavailabl e Social History Tobacco Use Types Packs/Day Years Used Date Smoking Tobacco: Never Assessed Comments Unknown Sex and Gender Information Value Date Recorded Sex Assigned at Not on file Legal Sex Female 7:42 AM CDT Gender Identity Not on file Sexual Orientation Not on file Plan of Treatment Health Maintenance Due Date Last Done Comments Colorectal Cancer Screening Colonoscopy (10 Years) 1955 Hepatitis C 1974 DTaP, Tdap and Td Vaccines ( 1 - Tdap) 1975 Mammogram Screening 1996 Zoster Vaccines (1 of 2) 2006 Dexa Scan (General) 2021 Pneumococcal Vaccine: 65+ Ye ars (1 of 1 - PCV) 2021 COVID-19 Vaccine (2023-2 5 season) 2024 Influenza Adult (#1) 2024 RSV Immunization or 60+ Years (1 - 1-dose 75+ series) 2031 Meningococcal B Vaccine Aged Out No l onger eligible based on patient's age to complete this topic Meningococcal Vaccine Aged Out No amy susan eligible based on patient's age to complete this topic RSV Immunizations Under 20 Months Aged Out No longer eligible based on patient's age to complete this topic
--- OUTSIDE RECORDS SUMMARY | 2024-10-24 13:53 | XMS_ITS | Encounter Summary ---
Author Organization [facility] Healthcare Address [address] [place] [address] Care Team Providers Care Senior Hris Analyst Name Role Phone Unavailable Primary Care Provider Unavailabl e Reason for Visit * Diagnostic Imaging (Routine) - Closed Specialty Diagnoses / Procedures Referred By Neil t Referred To Contact Procedures Breast Imaging Screening Outside Reference Jing Cain NP Phone: tel: fax: Referral ID Status Reason Start Date Expiration Date Visits Re quested Visits Authorized [id number] Closed 11/20/2021 12/20/2022 1 1 Encounter Details Date Type Department Care Team (Late st Contact Info) Description 10/18/2015 Hospital Encounter [facility] [place] [address] Social History Tobacco Use Types Packs/Day Years [...] on file Legal Sex Female 4:17 AM PHP SOFTWARE ENGINEER Gender Identity Not on file Sexual Orientation Not on file documented as of this encounter Plan of Treatment Not on file documented as of this encounter Procedures Procedure Name Priority Date/Time Associated Diagnosis Comments BREAST IMAGING MG SCREENING OUTSIDE REFERENCE Routine 10/18/2015 12:00 AM PHP SOFTWARE ENGINEER documented in this encounter Results * Breast Imaging Screening Outside Reference (10/18/2015 12:00 AM PHP SOFTWARE ENGINEER) Impressions [facility] - 11/20/2021 2:35 PM PHP SOFTWARE ENGINEER These images are for Reference purposes only and have not been reviewed by [facility] Radiology. There will be no report generated by a [facility] Radiologist. Narrative RAD_MAMMO[facility] - 11/20/2021 2:35 PM PHP SOFTWARE ENGINEER EXAMINATION: Images For Reference Purposes Only us Jing Cain NP IMG MAMMO PROCEDURES Fin al Result [facility] documented in this encounter Visit Diagnoses Not on filedocumented in this encounter
--- OUTSIDE RECORDS SUMMARY | 2024-10-24 13:53 | XMS_ITS | Encounter Summary ---
Author Organization [facility] Healthcare Address [address] [place] [address] Care Team Providers Care Food Service Aide Name Role Phone Unavailable Primary Care Provider Unavailabl e Reason for Visit * Diagnostic Imaging (Routine) - Closed Specialty Diagnoses / Procedures Referred By Neil t Referred To Contact Procedures Breast Imaging Diagnostic Outside Reference Jing Cain NP Phone: tel: fax: Referral ID Status Reason Start Date Expiration Date Visits Re quested Visits Authorized [id number] Closed 11/20/2021 12/20/2022 1 1 Encounter Details Date Type Department Care Team (Late st Contact Info) Description 01/25/2017 12:05 AM CDT Hospital Encounter [facility] [address] [place] [id number] Social History Tobacco Use Types Packs/Day [...] on file Legal Sex Female 4:17 AM ION EXCHANGE OPERATOR Gender Identity Not on file Sexual Orientation [...] CDT) Impressions [facility] - 11/20/2021 2:53 PM ION EXCHANGE OPERATOR These images are for Reference purposes only and have not been reviewed by [facility]iology. There will be no report generated by a [facility] Radiologist. Narrative RAD_MAMMO[facility] - 11/20/2021 2:53 PM ION EXCHANGE OPERATOR EXAMINATION: Images For Reference Purposes Only us Jing Cain HOSPITAL CHIEF FINANCIAL OFFICER IMG MAMMO PROCEDURES Fin al Result [facility] documented in this encounter Visit Diagnoses Not on filedocumented in this encounter
--- OUTSIDE RECORDS SUMMARY | 2024-10-24 13:53 | XMS_ITS | Encounter Summary ---
Author Organization [facility] Address [address] [place] [id number] Care Team Providers Care Permit Agent Name Role Phone Unavailable Primary Care Provider Unavailabl e Encounter Details Date Type Department Care Team (Late st Contact Info) Description 02/18/2019 Abstract [facility] CONVERSION [address] [place] [address] , Generic Conversion, Social History Tobacco Use Types Packs/Day Years Used Date Smoking Tobacco: Never Assessed Comments Unknown Sex and Gender Information Value Date Recorded Sex Assigned at Not on file Legal Sex Female 7:42 AM CDT Gender Identity Not on file Sexual Orientation Not on file documented as of this encounter Plan of Treatment Not on file documented as of this encounter Visit Diagnoses Not on filedocumented in this encounter
--- OUTSIDE RECORDS SUMMARY | 2024-10-24 13:53 | XMS_ITS | Continuity of Care Document ---
Author Organization [employer] Address [address] [place] [address] Phone Care Team Providers Care Machine Bobbin Winder Name Role Phone Elidia Lam MD Unavailable [...] AND PLATEAU; MEDIAL OR LATERAL COMP OFFICE [id number] X-RAY EXAM OF KNEE, A/P & LAT 2 KENALOG 10 MG ASP/INJ MAJOR JOINTOR BURSA, SHOULDER, H IP,KNEE W/O US GUIDANCE POSTOPERATIVE FOLLOW-UP VISIT, INCLUDED IN GLOBAL SERVICE POSTOPERATIVE FOLLOW-UP VISIT, INCLUDED IN GLOBAL SERVICE POSTOPERATIVE FOLLOW-UP VISIT, INCLUDED IN GLOBAL SERVICE POSTOPERATIVE FOLLOW-UP VISIT, INCLUDED IN GLOBAL SERVICE KNEE ARTHROSCOPY/SURGERY OFFICE ZHDOH-BMN-OGDCXMAH X-RAY EXAM OF KNEE, A/P & LAT OFFICE [id number]-NIB-CSCFZXZS KENALOG 10 MG ASP/INJ MAJOR JOINTOR BURSA, SHOULDER, H IP,KNEE W/O US GUIDANCE OFFICE [id number]-NOD-IIUEJBAK Xray Exam, Hip, Unilat, Two Or Three Vie ws OFFICE [id number] Advance Directives Directive Yes / No Effective Date File Name No Information Encounters Encounter Description Practice Location Reason(s) For Visit Diagnoses Date Provider Providers Copied on Encounter [facility], [address], [place], [place], [address], tel:[phone] [facility] No Information [address] [facility]. [address], [place], [place], [address] , [place]. tel:[phone] [facility], [address], [place], [place], [address], tel:[phone] [facility] knee (chief complaint) Status post right partial knee replacement [address] [facility]. [address], [place], [place], [address] , [place]. tel:[phone] Referring Provider: Tyree Peña [address], [place], [address] . tel:[phone] [facility], [address], [place], [place], [address], tel:[phone] [facility] knee (chief complaint) Status post right partial knee replacement [address] [facility]. [address], [place], [place], [address] , [place]. [phone] Referring Provider: Tyree Peña [address], [place], [address] . tel:[phone] [facility], [address], [place], [place], [address], tel:[phone] [facility] knee (chief complaint) Status post right partial knee replacement [facility]. [address], [place], [place], [address] , [place]. tel:[phone] Referring Provider: Elidia Lam, [address], [place], [address] . tel:[phone] [facility], [address], [place], [place], [address], [place] tel:[phone] [facility] [place] No Information [facility]. [address], [place], [place], [address] , [place]. [phone] Referring Provider: Tyree Peña [address], [place], [address] . tel:[phone] OFFICE XBFDA-ISR-BIL DARLING [facility], [address], [place], [place], [address], tel:[phone] [facility] knee (chief complaint) Primary osteoarthritis of right knee [facility]. [address], [place], [place], [address] , [place]. [phone] Referring Provider: Tyree Peña [address], [place], [address] . tel:[phone] [facility], [address], [place], [place], [address], [place] tel:[phone] [facility] RIGHT KNEE (chief complaint) S/P right knee arthroscopy [facility]. [address], [place], [place], [address] , [place]. tel:[phone] Referring Provider: Tyree Peña [address], [place], [address] . tel:[phone] [facility], [address], [place], [place], [address], tel:[phone] [facility] LEFT HIP (chief complaint) RIGHT KNEE (chief complaint) Status post arthroscopic surgery of right knee [facility]. [address], [place], [place], [address] , [place]. tel:[phone] Referring Provider: Tyree Peña [address], [place], [address] . tel:[phone] [facility], [address], [place], [place], [address], tel:[phone] [facility] No Information [address] [facility]. [address], [place], [place], [address] , . [phone] Referring Provider: Tyree Peña [address], [place], [address] . tel:[phone] [facility], [address], [place], [place], [address], tel:[phone] [facility] RIGHT KNEE (chief complaint) Complex tear of medial meniscus of right knee as current injury, initial encounterLoose body of right knee [address] [facility]. [address], [place], [place], [address] , [place]. [phone] Referring Provider: Tyree Peña [address], [place], [address] . tel:[phone] OFFICE MFLRU-QGI-HVF ANDED [facility], [address], [place], [place], [address], tel:[phone] [facility] Right Knee (chief complaint) Injury of meniscus of right knee, initial encounter [address] [facility]. [address], [place], [place], [address] , [place]. tel: [phone] Referring Provider: Tyree Peña [address], [place], [address] . tel:[phone] OFFICE XTIQP-MHU-MOC ANDED [facility], [address], [place], [place], [address], [place] tel:[phone] [facility] Right Knee (chief complaint) Right Great Toe (chief complaint) Primary osteoarthritis of left hipPrimary osteoarthritis of right kneeDegenerative joint disease of toe [address] [facility]. [address], [place], [place], [address] , [place]. tel:[phone] Referring Provider: Tyree Peña [address], [place], [address] . tel:[phone] OFFICE UKSYS-VJC-XDX ANDED [facility], [address], [place], [place], [address], [place] tel:[phone] [facility] Left Hip (chief complaint) Primary osteoarthritis of left hip [address] [facility]. [address], [place], [place], [address] , [place]. tel: [phone] Referring Provider: Tyree Peña [address], [place], [address] . tel:[phone] [facility], [address], [place], [place], [address], [place] tel:[phone] [facility] right knee (chief complaint) Primary osteoarthritis of right knee [address] [facility], [place], [place], [address] , [place]. tel:[phone] Referring Provider: Tyree Peña [address], [place], [address] . tel:[phone] [facility], [address], [place], [place], [address], [place] tel:[phone] [facility] Contusion of left knee, initial encounter [address] [facility]. [address], [place], [place], [address] , [place]. tel:[phone] Referring Provider: Elidia Gayatrijudith, [address], [place], [address] . tel:[phone] [facility], [address], [place], [place], [address], [place] tel:[phone] [facility] Acute pain of left knee [address] [facility]. [address], [address], [place], [place], [address] , [place]. tel:[phone] Family History Family Member Type Diagnosis Age At Onset No Information Payers Payer name Insurance type Covered republican ID Authoriza tibolivar(s) [employer] PPO PLANS [id number] Social History Type Description Quantity Date Captured Comments Alcohol Use Details Unknown Caffeine Use Details Unknown Tobacco Use Status No Information Smoking Status No Information Sex Female Chief Complaint And Reason For Visit No Information Reason For Referral Reason For Referral No Information Plan Of Treatment Date Type Action Status Referral Referred To: Physical Therapy Ordered: Referrals: Physical Therapy. Location: [facility]. Evaluate and treat - Level 2 [...] I, LOWER JOINT EXTREMITY W/O CONTRAST Right (02516), Sent on: Sent History Of Present Illness [...]
--- OUTSIDE RECORDS SUMMARY | 2024-10-24 13:53 | XMS_ITS | Encounter Summary ---
Author Organization [facility] Health Address [address] [facility] [place] [address] Care Team Providers Care Brim Setter Name Role Phone Unavailable Primary Care Provider Unavailabl e Encounter Details Date Type Department Care Team (Late st Contact Info) Description 09/01/2019 Lab Requisition [facility] DermPath Lab [address] [facility], [place] [address] Liseth Mckeon MD [address] [facility] 3 DE[place] [address] Social History Tobacco Use Types Packs/Day Years Used Date Smoking Tobacco: Never Assessed Sex and Gender Information Value Date Recorded Sex Assigned at Not on file Gender Identity Not on file Sexual Orientation Not on file documented as of this encounter Plan of Treatment Not on file documented as of this encounter Procedures Procedure Name Priority Date/Time Associated Diagnosis Comments DERMATOPATHOLOGY Routine 08/31/2019 12:0 0 AM BRIDGE IRONWORKER documented in this encounter Results * DERMATOPATHOLOGY (08/31/2019 12:00 AM BRIDGE IRONWORKER) Case Report Dermatopathology Report Case: [id number] Authorizing Provider: Liseth Mckeon MD Collected: 08/31/2019 12:00 AM Ordering Location: [facility] DermPath Lab Received: 09/01/2019 06:10 AM Pathologist: Akua Shah MD Specimen: Skin, left thigh 9 11:39 AM BRIDGE IRONWORKER DERMATOPATHOLOGY LABORATORY Final Diagnosis Specimen A. SKIN, left thigh: SEBORRHEIC KERATOSIS, MACULAR (L82.1) 9 11:39 AM BRIDGE IRONWORKER DERMATOPATHOLOGY LABORATORY Clinical History MM,SK,Lentigo 9 11:39 AM BRIDGE IRONWORKER DERMATOPATHOLOGY LABORATORY Gross Description Specimen A: Received is one formalin filled container labeled with the patient's name and designated left thigh. The specimen consists of a shave biopsy measuring 10x8x1 mm. Jar 0. 11:39 AM [facility] [[email or web address]] DERMATOPATHOLOGY LABORATORY Microscopic Description Specimen A. SKIN, left thigh: Sections show a relatively broad, flat proliferation of small keratinocytes. The surface is gently papillated, and there is increased basilar pigmentation. 11:39 AM [facility] [[email or web address]] DERMATOPATHOLOGY LABORATORY Disclaimer An external and internal positive and negative controls are appropriate for the histochemical, immunohistochemical and immunofluorescence stain(s) in this case (if any), except where stated explicitly. The performance characteristics of the stain(s) cited in this report were developed and its performance characteristic determined by the Dermatopathology Laboratory at [facility], directed by Dr. Linda Garcia. These tests need not be, and therefore are not, approved by the [place] Food and Drug Administration. The tests are used for clinical purposes. Billing Codes Specimen Charges Stain Charges 20716 1 11:39 AM [facility] [[email or web address]] DERMATOPATHOLOGY LABORATORY Embedded Images 11:39 AM [facility] [[email or web address]] DERMATOPATHOLOGY LABORATORY Pathology/Cytolog y TISSUE SPECIMEN FROM SKIN / Unknown 08/31/2019 09/01/2019 6:10 AM [facility] [[email or web address]] Liseth Mckeon MD LAB - PATHOLOGY/CYTO LOGY ORDERABLES DERMATOPATHOLOGY LABORATORY [facility] - Department of Dermatology [address] [place] [address], 5th Floor Lab [address] [phone] documented in this encounter Visit Diagnoses Not on filedocumented in this encounter
--- OUTSIDE RECORDS SUMMARY | 2024-10-24 13:53 | XMS_ITS | Encounter Summary ---
Author Organization [facility] Address [address] [facility] [place] [address] Care Team Providers Care Supervisor Type Disk Quality Control Name Role Phone Unavailable Primary Care Provider Unavailabl e Encounter Details Date Type Department Care Team (Late st Contact Info) Description 10/10/2024 Lab Requisition [facility] - DermPath Lab [address] [facility], [place] [address] Adelaida Parra MD [address] [facility] [address] [place] [address] Social History Tobacco Use Types Packs/Day Years Used Date Smoking Tobacco: Never Assessed Sex and Gender Information Value Date Recorded Sex Assigned at Not on file Gender Identity Not on file Sexual Orientation Not on file documented as of this encounter Plan of Treatment Not on file documented as of this encounter Procedures Procedure Name Priority Date/Time Associated Diagnosis Comments DERMATOPATHOLOGY Routine 10/10/2024 11:1 0 AM PER DIEM INTERPRETER documented in this encounter Results * DERMATOPATHOLOGY (10/10/2024 11:10 AM PER DIEM INTERPRETER) Case Report Dermatopathology Report Case: [id number] Authorizing Provider: Adelaida Parra MD Collected: 10/10/2024 11:10 AM Ordering Location: [facility] Physician [facility] - Received: 10/11/2024 12:47 PM DermPath Lab Pathologist: Marly Yao MD Specimen: Skin, left mid back 2:12 PM PER DIEM INTERPRETER DERMATOPATHOLOGY LABORATORY Final Diagnosis Specimen A. SKIN, left mid back: LICHEN PLANUS-LIKE KERATOSIS (BENIGN LICHENOID KERATOSIS) (L82.1) 2:12 PM PER DIEM INTERPRETER DERMATOPATHOLOGY LABORATORY Clinical History R/O NMSC; Irritated 2:12 PM [facility] DERMATOPATHOLOGY LABORATORY Gross Description Specimen A: Received is one formalin filled container labeled with the patient's name and designated left mid back. The specimen consists of a shave biopsy measuring 8x8x1 mm. Jar 0. 2:12 PM [facility] DERMATOPATHOLOGY LABORATORY Microscopic Description Specimen A. SKIN, left mid back: The epidermis is mildly acanthotic. There is a lichenoid infiltrate with vacuolar changes of basilar keratinocytes and scattered necrotic keratinocytes. 2:12 PM [facility] DERMATOPATHOLOGY LABORATORY Disclaimer An external and internal positive and negative controls are appropriate for the histochemical, immunohistochemical and immunofluorescence stain(s) in this case (if any), except where stated explicitly. The performance characteristics of the stain(s) cited in this report were developed and its performance characteristic determined by the Dermatopathology Laboratory at [facility], directed by Dr. Linda Garcia. These tests need not be, and therefore are not, approved by the [place] Food and Drug Administration. The tests are used for clinical purposes. Billing Codes Specimen Charges Stain Charges 78753 1 2:12 PM [facility] DERMATOPATHOLOGY LABORATORY Embedded Images 2:12 PM [facility] DERMATOPATHOLOGY LABORATORY Pathology/Cytolo gy TISSUE SPECIMEN FROM SKIN / Unknown 10/10/2024 11:10 AM PER DIEM INTERPRETER 10/11/2024 12:47 PM PER DIEM INTERPRETER Adelaida Parra MD LAB - PATHOLOGY/CYT OLOGY ORDERABLES DERMATOPATHOLOGY LABORATORY [facility] - Department of Dermatology [facility] Medicine [address] [place] [address], [address] [phone] documented in this encounter Visit Diagnoses Not on filedocumented in this encounter
--- OUTSIDE RECORDS SUMMARY | 2024-10-24 13:53 | XMS_ITS | Referral Summary ---
Author Organization [facility] Address [address] [place] [address] Care Team Providers Care Kiln Tender Name Role Phone Dominguez Pena MD Primary Care Provider [phone] Allergies Active Allergy Reactions Criticality Noted Date Comments Amoxicillin-Pot Clavulanate Unknown 11/26/19 22 Pt reports it caused C-Diff Codeine Nausea only Low Vancomycin Unknown 11/25/2021 Medications No known medications Active Problems Problem Noted Date Diagnosed Date Osteoarthritis of cervical spine 03/07/2013 Arthralgia of shoulder 02/03/2013 Pain in extremity 09/01/2012 Degeneration of intervertebral disc of cervical region 09/01/2012 Surgical follow-up care 04/21/2012 Cervicalgia 01/28/2012 Cervical radiculopathy 01/28/2012 Osteoarthritis of cervical spine with myelopathy 01/28/2012 Social History Tobacco Use Types Packs/Day Years [...] on file Legal Sex 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 Gender Identity Not on file Sexual Orientation Not on file Last Filed Vital Signs Vital Sign Reading Time Taken Comments Blood Pressure 130/71 03/10/2012 2:02 PM CDT Pulse 69 03/10/2012 2:02 PM CDT Temperature - - Respiratory Rate - - Oxygen Saturation 99% 03/10/2012 2:02 PM CDT Inhaled Oxygen Concentration - - Weight 83.9 kg (185 lb) 11/25/2021 1:14 PM CDT Height 167.6 cm (5' 6 ) 11/25/2021 1:14 PM CDT Body Mass Index 29.86 11/25/2021 1:14 PM CDT Plan of Treatment Not on file Insurance [facility] PPO Care Teams Kiln Tender Relationship Specialty Start Date End Date Dominguez Pena MD PCP - General Family Medicine 10/23/21
--- OUTSIDE RECORDS SUMMARY | 2024-10-24 13:53 | XMS_ITS | Encounter Summary ---
Author Organization [facility] Healthcare Address [address] [place] [address] Care Team Providers Care Marketing Operations Assistant Name Role Phone Unavailable Primary Care Provider Unavailabl e Reason for Visit * Diagnostic Imaging (Routine) - Closed Specialty Diagnoses / Procedures Referred By Neil soliman Referred To Contact Procedures Breast Imaging US Outside Reference Jing Cain NP Phone: tel: fax: Referral ID Status Reason Start Date Expiration Date Visits Re quested Visits Authorized [id number] Closed 11/20/2021 12/20/2022 1 1 Encounter Details Date Type Department Care Team (Late st Contact Info) Description 09/30/2020 Hospital Encounter [facility] [place] [address] Social History Tobacco Use Types Packs/Day Years [...] on file Legal 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 Female 4:17 AM FIRE 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 There will be no report generated by a [facility] Radiologist. Narrative [facility] - 11/20/2021 2:32 PM FIRE PATROLLER EXAMINATION: Images For Reference Purposes Only us Jing Cain NP IMG MAMMO PROCEDURES Fin al Result [facility] documented in this encounter Visit Diagnoses Not on filedocumented in this encounter
--- OUTSIDE RECORDS SUMMARY | 2024-10-24 13:53 | XMS_ITS | Clinical Summary ---
Author Organization [facility] Address [address] [place] [address] Care Team Providers Care Tipple Greaser Name Role Phone Dominguez Pena MD Primary Care Provider [phone] Allergies Active Allergy Reactions Criticality Noted Date [...] Osteoarthritis of cervical spine with myelopathy 01/28/2012 Surgical History Surgery Date Site/Laterality Comments APPENDECTOMY TONSILECTOMY, ADENOIDECTOMY, BILATERAL MYRINGOTOMY AND TUBES KNEE SURGERY CARPAL TUNNEL RELEASE ROTATOR CUFF REPAIR NECK SURGERY OTHER SURGICAL HISTORY Hip Replacement Medical History Medical History Date Comments Generalized headaches Osteoporosis Arthritis Family History Medical History Relation Name Comments Colon cancer Father's Sister Lung cancer Maternal Grandfather Throat cancer Mother's Brother Lung cancer Mother's Sister Relation Name Status Comments Father's Sister Maternal Grandfather Mother's Brother Mother's Sister Social History Tobacco Use Types Packs/Day Years [...] on file 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 Gender Identity Not on file Sexual Orientation Not on file Obstetrics History Last Filed Vital Signs Vital Sign Reading [...] 11/25/2021 1:14 PM CDT Plan of Treatment Health Maintenance Due Date Last Done Comments Breast Cancer Screening-Mammogram 1955 Colon Cancer Screening-Colonoscopy 1955 Depression Screening 1956 Fall Risk Assessment 1955 Hepatitis C Screening 1955 Osteoporosis Screening-Bone Density Scan 1956 DTaP/Tdap/Td Vaccine (1 - Tdap) 1967 Hepatitis B Screening 1974 Zoster Vaccine (1 of 2) 2006 Well Visit 65+ 2021 Pneumococcal vaccine 65+ (2 of 2 - PPSV23 or PCV20) 07/04/2021 Influenza Vaccine (#1) 2024 06/21/2019 Insurance [employer] PPO Care Teams Tipple Greaser Relationship Specialty Start Date End Date Dominguez Pena MD PCP - General Family Medicine 10/23/21
--- OUTSIDE RECORDS SUMMARY | 2024-10-24 13:53 | XMS_ITS | Encounter Summary ---
Author Organization [facility] Health Address [address] [facility] [place] [address] Care Team Providers Care Service Control Operator Name Role Phone Unavailable Primary Care Provider Unavailabl e Encounter Details Date Type Department Care Team (Late st Contact Info) Description 07/05/2023 Lab Requisition [facility] - DermPath Lab [address] [facility] [place] [address] Liseth Mckeon MD [address] [facility] [address] DE[place] [address] Social History Tobacco Use Types Packs/Day Years Used Date Smoking Tobacco: Never Assessed Sex and Gender Information Value Date Recorded Sex Assigned at Not on file Gender Identity Not on file Sexual Orientation Not on file documented as of this encounter Plan of Treatment Not on file documented as of this encounter Procedures Procedure Name Priority Date/Time Associated Diagnosis Comments DERMATOPATHOLOGY Routine 07/05/2023 2:50 PM CDT documented in this encounter Results * DERMATOPATHOLOGY (07/05/2023 2:50 PM CDT) Case Report Dermatopathology Report Case: [id number] Authorizing Provider: Liseth Mckeon MD Collected: 07/05/2023 02:50 PM Ordering Location: [facility] DermPath Lab Received: 07/06/2023 11:13 AM Pathologist: Kalie Chu MD Specimen: Skin, left upper lip 3 4:18 PM CDT DERMATOPATHOLOGY LABORATORY Final Diagnosis Specimen A. 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 The specimen consists of a shave biopsy measuring 4x3x1 mm. Jar 0. 4:18 PM CDT DERMATOPATHOLOGY LABORATORY Microscopic Description Specimen A. SKIN, left upper lip: The epidermis shows parakeratosis, full thickness disorderly maturation of keratinocytes, mitoses at different levels, and dyskeratotic cells. 3 4:18 PM CDT DERMATOPATHOLOGY LABORATORY Disclaimer An external and internal positive and negative controls are appropriate for the histochemical, immunohistochemical and immunofluorescence stain(s) in this case (if any), except where stated explicitly. The performance characteristics of the stain(s) cited in this report were developed and its performance characteristic determined by the Dermatopathology Laboratory at [facility], directed by Dr. Linda Garcia. These tests need not be, and therefore are not, approved by the [place] Food and Drug Administration. The tests are used for clinical purposes. Billing Codes Specimen Charges Stain Charges 01367 1 4:18 PM CDT DERMATOPATHOLOGY LABORATORY Embedded Images 4:18 PM CDT DERMATOPATHOLOGY LABORATORY Pathology/Cytolo gy TISSUE SPECIMEN FROM SKIN / Unknown 07/05/2023 2:50 PM CDT 07/06/2023 11:13 AM CDT Liseth Mckeon MD LAB - PATHOLOGY/CYTO LOGY ORDERABLES DERMATOPATHOLOGY LABORATORY [facility] - Department of Dermatology [address], [address] [phone] documented in this encounter Visit Diagnoses Not on filedocumented in this encounter
--- OUTSIDE RECORDS SUMMARY | 2024-10-24 13:53 | XMS_ITS | Encounter Summary ---
Author Organization [facility] Healthcare Address [address] [place] [address] Care Team Providers Care Lumpia Wrapper Maker Name Role Phone Unavailable Primary Care Provider Unavailabl e Reason for Visit * Diagnostic Imaging (Routine) - Closed Specialty Diagnoses / Procedures Referred By Neil t Referred To Contact Procedures Breast Imaging Screening Outside Reference Jing Cain NP Phone: tel: fax: Referral ID Status Reason Start Date Expiration Date Visits Re quested Visits Authorized [id number] Closed 11/20/2021 12/20/2022 1 1 Encounter Details Date Type Department Care Team (Late st Contact Info) Description 08/08/2019 12:05 AM WELL POINT PUMPING SUPERVISOR Hospital Encounter [facility] Radiology [facility]) [address] [place] [address] [id number] Social History Tobacco Use Types Packs/Day Years [...] on file Legal Sex Female 4:17 AM WELL POINT PUMPING SUPERVISOR Gender Identity Not on file Sexual Orientation Not on file documented as of this encounter Plan of Treatment Not on file documented as of this encounter Procedures Procedure Name Priority Date/Time Associated Diagnosis Comments BREAST IMAGING MG SCREENING OUTSIDE REFERENCE Routine 08/08/2019 12:05 AM WELL POINT PUMPING SUPERVISOR documented in this encounter Results * Breast Imaging Screening Outside Reference (08/08/2019 12:05 AM WELL POINT PUMPING SUPERVISOR) Impressions RAD_MAMMO_[facility] - 11/20/2021 2:35 PM WELL POINT PUMPING SUPERVISOR These images are for Reference purposes only and have not been reviewed by [facility] Radiology. There will be no report generated by a [facility] Radiologist. Narrative RAD_MAMMO_[facility] - 11/20/2021 2:35 PM WELL POINT PUMPING SUPERVISOR EXAMINATION: Images For Reference Purposes Only us Jing Cain NP IMG MAMMO PROCEDURES Fin al Result RAD_MAMMO[facility] documented in this encounter Visit Diagnoses Not on filedocumented in this encounter
--- OUTSIDE RECORDS SUMMARY | 2024-10-24 13:53 | XMS_ITS | Clinical Summary ---
Author Organization [facility] Address [address] [facility] [place] [address] Care Team Providers Care Weight Clerk Name Role Phone Unavailable Primary Care Provider Unavailabl e Source Comments [facility],non-owned Affiliates and Associated Physician Practices is amultiple site organization consisting of ambulatory clinics and hospital sitesin [place], [place], [place] and [place]. This disclosure is being madepursuant to the Care Everywhere program and may not contain all information available regarding this patient. Last updated 18.[facility] Encounters Date Type Department Care Team Description 10/10/2024 Lab Requisition [facility] - DermPath Lab [address] [place] [address] Adelaida Parra MD from Last 3 Months Social History Tobacco Use Types Packs/Day Years Used Date Smoking Tobacco: Never Assessed Sex and Gender Information Value Date Recorded Sex Assigned at Not on file Gender Identity Not on file Sexual Orientation Not on file Plan of Treatment Health Maintenance Due Date Last Done Comments BONE DENSITY TESTING 1955 COLOGUARD (AGES 45-75) - COL ON CA SCREENING 1956 COLON MONITORING 1956 COLONOSCOPY - COLON CA SCREENING 1956 CT COLONOGRAPHY - COLON CA SCREENING 1956 Colorectal Cancer Screening 1956 FIT - COLON CA SCREENING 1956 FLEX SIG - COLON CA SCREENING 1956 LIPID TESTING 1956 MAMMOGRAM 1956 HEPATITIS C SCREENING 04/23/1974 DTAP/TDAP/TD VACCINES (1 - Tdap) 1975 PNEUMOCOCCAL VACCINE 50+ (1 of 1 - PCV) 2006 ZOSTER VACCINE (1 of 2) 2006 COVID-19 VACCINE ( - 2023-2 5 season) 2024 INFLUENZA VACCINE (#1) 2024 DEPRESSION SCREENING 09/13/2024 MEDICARE AWV CALENDAR YEAR 2024 Respiratory Syncytial Virus (RSV) Vaccine Pt: or over 60 yrs (1 - 1-dose 75+ series) 2031 HEPATITIS B VACCINE Aged Out No longe r eligible based on patient's age to complete this topic HIB VACCINE Aged Out No longer eligi ble based on patient's age to complete this topic HPV VACCINE Aged Out No longer eligi ble based on patient's age to complete this topic MENINGOCOCCAL (Group B) VACCINE Aged Out No longer eligible based on patient's age to complete this topic MENINGOCOCCAL VACCINE Aged Out No amy susan eligible based on patient's age to complete this topic Procedures Procedure Name Priority Date/Time Associated Diagnosis Comments DERMATOPATHOLOGY Routine 10/10/2024 11:1 0 AM SLUMBER ROOM ATTENDANT from Last 3 Months Results * DERMATOPATHOLOGY (10/10/2024 11:10 AM SLUMBER ROOM ATTENDANT) Case Report Dermatopathology Report Case: [id number] Authorizing Provider: Adelaida Parra MD Collected: 10/10/2024 11:10 AM Ordering Location: [facility] - Received: 10/11/2024 12:47 PM DermPath Lab Pathologist: Marly Yao MD Specimen: Skin, left mid back 2:12 PM SLUMBER ROOM ATTENDANT DERMATOPATHOLOGY LABORATORY Final Diagnosis Specimen A. SKIN, left mid back: LICHEN PLANUS-LIKE KERATOSIS (BENIGN LICHENOID KERATOSIS) (L82.1) 2:12 PM SLUMBER ROOM ATTENDANT DERMATOPATHOLOGY LABORATORY Clinical History R/O NMSC; Irritated 2:12 PM SLUMBER ROOM ATTENDANT DERMATOPATHOLOGY LABORATORY Gross Description Specimen A: Received is one formalin filled container labeled with the patient's name and designated left mid back. The specimen consists of a shave biopsy measuring 8x8x1 mm. Jar 0. 2:12 PM SLUMBER ROOM ATTENDANT DERMATOPATHOLOGY LABORATORY Microscopic Description Specimen A. SKIN, left mid back: The epidermis is mildly acanthotic. There is a lichenoid infiltrate with vacuolar changes of basilar keratinocytes and scattered necrotic keratinocytes. 5 2:12 PM SLUMBER ROOM ATTENDANT DERMATOPATHOLOGY LABORATORY Disclaimer An external and internal positive and negative controls are appropriate for the histochemical, immunohistochemical and immunofluorescence stain(s) in this case (if any), except where stated explicitly. The performance characteristics of the stain(s) cited in this report were developed and its performance characteristic determined by the Dermatopathology Laboratory at [facility], directed by Dr. Linda Garcia. These tests need not be, and therefore are not, approved by the [place] Food and Drug Administration. The tests are used for clinical purposes. Billing Codes Specimen Charges Stain Charges 05593 1 5 2:12 PM SLUMBER ROOM ATTENDANT DERMATOPATHOLOGY LABORATORY Embedded Images 5 2:12 PM SLUMBER ROOM ATTENDANT DERMATOPATHOLOGY LABORATORY Pathology/Cytolo gy TISSUE SPECIMEN FROM SKIN / Unknown 10/10/2024 11:10 AM SLUMBER ROOM ATTENDANT 10/11/2024 12:47 PM SLUMBER ROOM ATTENDANT Adelaida Parra MD LAB - PATHOLOGY/CYT OLOGY ORDERABLES DERMATOPATHOLOGY LABORATORY [facility] - Department of Dermatology [facility] Medicine [address] [place] [address], [address] [phone] from Last 3 Months
--- OUTSIDE RECORDS SUMMARY | 2024-10-24 13:53 | XMS_ITS | Encounter Summary ---
Author Organization [facility] Healthcare Address [address] [place] [address] Care Team Providers Care Industrial Relations Specialist Name Role Phone Unavailable Primary Care Provider Unavailabl e Reason for Visit * Diagnostic Imaging (Routine) - Closed Specialty Diagnoses / Procedures Referred By Neil soliman Referred To Contact Procedures Breast Imaging US Outside Reference Jing Cain NP Phone: tel: fax: Referral ID Status Reason Start Date Expiration Date Visits Re quested Visits Authorized [id number] Closed 11/20/2021 12/20/2022 1 1 Encounter Details Date Type Department Care Team (Late st Contact Info) Description 01/26/2017 Hospital Encounter [facility] Radiology [facility] [place] [address] Social History Tobacco Use Types Packs/Day Years [...] on file Legal Sex Female 4:17 AM SUGAR REPROCESS OPERATOR HEAD Gender Identity Not on file Sexual Orientation [...] CDT) Impressions [facility]_M[facility]MO[facility] - 11/20/2021 2:34 PM SUGAR REPROCESS OPERATOR HEAD These images are for Reference purposes only and have not been reviewed by [facility] Radiology. There will be no report generated by a [facility] Radiologist. Narrative RAD_MAMMO_[facility] - 11/20/2021 2:34 PM SUGAR REPROCESS OPERATOR HEAD EXAMINATION: Images For Reference Purposes Only us Jing Cain NP IMG MAMMO PROCEDURES Fin al Result [facility]_MAMMO[facility] documented in this encounter Visit Diagnoses Not on filedocumented in this encounter
--- OUTSIDE RECORDS SUMMARY | 2024-10-24 13:53 | XMS_ITS | Referral Summary ---
Author Organization [facility] Address [address] [place] [address] Care Team Providers Care Respiratory Care Technician Name Role Phone Unavailable Primary Care Provider Unavailabl e Source Comments [facility],non-owned Affiliates and Associated Physician Practices is amultiple site organization consisting of ambulatory clinics and hospital sitesin [place], [place], [place] and [place]. This disclosure is being madepursuant to the Care Everywhere program and may not contain all information available regarding this patient. Last updated 18.[facility] Encounters Date Type Department Care Team Description 10/10/2024 Lab Requisition [facility] - DermPath Lab [address] [place] [address] Adelaida Parra MD from Last 3 Months Social History Tobacco Use Types Packs/Day Years Used Date Smoking Tobacco: Never Assessed Sex and Gender Information Value Date Recorded Sex Assigned at Not on file Gender Identity Not on file Sexual Orientation Not on file Plan of Treatment Not on file Procedures Procedure Name Priority Date/Time Associated Diagnosis Comments DERMATOPATHOLOGY Routine 10/10/2024 11:1 0 AM SHIPPING LEAD from Last 3 Months Results * DERMATOPATHOLOGY (10/10/2024 11:10 AM SHIPPING LEAD) Case Report Dermatopathology Report Case: [id number] Authorizing Provider: Adelaida Parra MD Collected: 10/10/2024 11:10 AM Ordering Location: [facility] - Received: 10/11/2024 12:47 PM DermPath Lab Pathologist: Marly Yao MD Specimen: Skin, left mid back 2:12 PM SHIPPING LEAD DERMATOPATHOLOGY LABORATORY Final Diagnosis Specimen A. SKIN, left mid back: LICHEN PLANUS-LIKE KERATOSIS (BENIGN LICHENOID KERATOSIS) (L82.1) 2:12 PM [facility] DERMATOPATHOLOGY LABORATORY Clinical History R/O NMSC; Irritated 2:12 PM [facility] DERMATOPATHOLOGY LABORATORY Gross Description Specimen A: Received is one formalin filled container labeled with the patient's name and designated left mid back. The specimen consists of a shave biopsy measuring 8x8x1 mm. Jar 0. 2:12 PM [facility] DERMATOPATHOLOGY LABORATORY Microscopic Description Specimen A. SKIN, left mid back: The epidermis is mildly acanthotic. There is a lichenoid infiltrate with vacuolar changes of basilar keratinocytes and scattered necrotic keratinocytes. 2:12 PM [facility] DERMATOPATHOLOGY LABORATORY Disclaimer An external and internal positive and negative controls are appropriate for the histochemical, immunohistochemical and immunofluorescence stain(s) in this case (if any), except where stated explicitly. The performance characteristics of the stain(s) cited in this report were developed and its performance characteristic determined by the Dermatopathology Laboratory at [facility], directed by Dr. Linda Garcia. These tests need not be, and therefore are not, approved by the [place] Food and Drug Administration. The tests are used for clinical purposes. Billing Codes Specimen Charges Stain Charges 43717 1 2:12 PM [facility] DERMATOPATHOLOGY LABORATORY Embedded Images 2:12 PM [facility] DERMATOPATHOLOGY LABORATORY Pathology/Cytolo gy TISSUE SPECIMEN FROM SKIN / Unknown 10/10/2024 11:10 AM SHIPPING LEAD 10/11/2024 12:47 PM SHIPPING LEAD Adelaida Parra MD LAB - PATHOLOGY/CYT OLOGY ORDERABLES DERMATOPATHOLOGY LABORATORY [facility] - Department of Dermatology [address], [address] [phone] from Last 3 Months
--- OUTSIDE RECORDS SUMMARY | 2024-10-24 13:53 | XMS_ITS | Encounter Summary ---
Author Organization [facility] Address [address] [facility] [place] [address] Care Team Providers Care Utilization Review Specialist Name Role Phone Unavailable Primary Care Provider Unavailabl e Encounter Details Date Type Department Care Team (Late st Contact Info) Description 08/16/2020 Lab Requisition [facility] DermPath Lab [address] [facility] [place] [place] [phone] Liseth Mckeon MD [address] [facility] [address] [place] [address] Social History Tobacco Use Types Packs/Day Years Used Date Smoking Tobacco: Never Assessed Sex and Gender Information Value Date Recorded Sex Assigned at Not on file Gender Identity Not on file Sexual Orientation Not on file documented as of this encounter Plan of Treatment Not on file documented as of this encounter Procedures Procedure Name Priority Date/Time Associated Diagnosis Comments DERMATOPATHOLOGY Routine 08/15/2020 12:0 0 AM ASSISTANT PROFESSOR OF BIOCHEMISTRY documented in this encounter Results * DERMATOPATHOLOGY (08/15/2020 12:00 AM ASSISTANT PROFESSOR OF BIOCHEMISTRY) Case Report Dermatopathology Report Case: [id number] Authorizing Provider: Liseth Mckeon MD Collected: 08/15/2020 12:00 AM Ordering Location: [facility] DermPath Lab Received: 08/16/2020 09:00 AM Pathologist: Akua Shah MD Specimen: Skin, left medial canthus 0 1:44 PM ASSISTANT PROFESSOR OF BIOCHEMISTRY DERMATOPATHOLOGY LABORATORY Final Diagnosis Specimen A. SKIN, left medial canthus: HYPERPLASTIC (HYPERTROPHIC) ACTINIC KERATOSIS (L57.0) (see microscopic description) 0 1:44 PM ASSISTANT PROFESSOR OF BIOCHEMISTRY DERMATOPATHOLOGY LABORATORY Clinical History [employer] papule, [place], BCC, ISK. 0 1:44 PM [facility] DERMATOPATHOLOGY LABORATORY Gross Description Specimen A: Received is one formalin filled container labeled with the patient's name and designated left medial canthus. The specimen consists of a shave measuring [id number]. Jar 0. 0 1:44 PM [facility] DERMATOPATHOLOGY LABORATORY Microscopic Description Specimen A. SKIN, left medial canthus: There is hyperkeratosis alternating with parakeratosis. There is epidermal hyperplasia with disorderly maturation of keratinocytes with nuclear pleomorphism confined to the lower half of the epidermis. Additional deeper sections were obtained and reviewed. 0 1:44 PM [facility] DERMATOPATHOLOGY LABORATORY Disclaimer An external and internal [...] purposes. Billing Codes Specimen Charges Stain Charges 15002 1 0 1:44 PM [facility] DERMATOPATHOLOGY LABORATORY Embedded Images 0 1:44 PM [facility] DERMATOPATH[facility]Y LABORATORY Pathology/Cytolog y TISSUE SPECIMEN FROM SKIN / Unknown 08/15/2020 08/16/2020 9:00 AM ASSISTANT PROFESSOR OF BIOCHEMISTRY Liseth Mckeon MD LAB - PATHOLOGY/CYTO LOGY ORDERABLES DERMATOPATHOLOGY LABORATORY [facility] - Department of Dermatology [address], [address] [phone] documented in this encounter Visit Diagnoses Not on filedocumented in this encounter
--- OUTSIDE RECORDS SUMMARY | 2024-10-24 13:53 | XMS_ITS | Encounter Summary ---
Author Organization [facility] Healthcare Address [address] [place] [address] Care Team Providers Care Gridcap Machine Operator Name Role Phone Unavailable Primary Care Provider Unavailabl e Reason for Visit * Diagnostic Imaging (Routine) - Closed Specialty Diagnoses / Procedures Referred By Neil t Referred To Contact Procedures Breast Imaging Diagnostic Outside Reference Jing Cain NP Phone: tel: fax: Referral ID Status Reason Start Date Expiration Date Visits Re quested Visits Authorized [id number] Closed 11/20/2021 12/20/2022 1 1 Encounter Details Date Type Department Care Team (Late st Contact Info) Description 08/08/2019 Hospital Encounter [facility] Radiology [facility] [place] [address] Social History Tobacco Use Types Packs/Day Years [...] on file Legal Sex Female 4:17 AM METAL 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 MACHINE OPERATOR Gender Identity Not on file Sexual Orientation Not on file documented as of this encounter Plan of Treatment Not on file documented as of this encounter Procedures Procedure Name Priority Date/Time Associated Diagnosis Comments BREAST IMAGING MG DIAGNOSTIC OUTSIDE REFERENCE Routine 08/08/2019 12:00 AM METAL RIVET MACHINE OPERATOR documented in this encounter Results * Breast Imaging Diagnostic Outside Reference (08/08/2019 12:00 AM METAL RIVET MACHINE OPERATOR) Impressions RAD_MAMMO[facility] - 11/20/2021 2:33 PM METAL RIVET MACHINE OPERATOR These images are for Reference purposes only and have not been reviewed by [facility] Radiology. There will be no report generated by a [facility] Radiologist. Narrative RAD_MAMMO_BJ - 11/20/2021 2:33 PM METAL RIVET MACHINE OPERATOR EXAMINATION: Images For Reference Purposes Only us Jing Cain NP IMG MAMMO PROCEDURES Fin al Result RAD_MAMMO[facility] documented in this encounter Visit Diagnoses Not on filedocumented in this encounter
--- OUTSIDE RECORDS SUMMARY | 2024-10-24 13:53 | XMS_ITS | Encounter Summary ---
Author Organization [facility] Healthcare Address [address] [place] [address] Care Team Providers Care Waiver Analyst Name Role Phone Unavailable Primary Care Provider Unavailabl e Reason for Visit * Diagnostic Imaging (Routine) - Closed Specialty Diagnoses / Procedures Referred By Neil soliman Referred To Contact Procedures Breast Imaging US Outside Reference Jing Cain NP Phone: tel: fax: Referral ID Status Reason Start Date Expiration Date Visits Re quested Visits Authorized [id number] Closed 11/20/2021 12/20/2022 1 1 Encounter Details Date Type Department Care Team (Late st Contact Info) Description 02/17/2017 Hospital Encounter [facility] Radiology [facility] [place] [address] Social History Tobacco Use Types Packs/Day Years [...] on file Legal Sex Female 4:17 AM CORRECTIONAL PROGRAM OFFICER Gender Identity Not on file Sexual Orientation [...] CDT) Impressions RAD_M[facility]MO[facility] - 11/20/2021 2:34 PM CORRECTIONAL PROGRAM OFFICER These images are for Reference purposes only and have not been reviewed by [facility] Radiology. There will be no report generated by a [facility] Radiologist. Narrative RAD_MAMMO_[facility] - 11/20/2021 2:34 PM CORRECTIONAL PROGRAM OFFICER EXAMINATION: Images For Reference Purposes Only us Jing Cain NP IMG MAMMO PROCEDURES Fin al Result [facility]_M[facility]MO[facility] documented in this encounter Visit Diagnoses Not on filedocumented in this encounter
--- OUTSIDE RECORDS SUMMARY | 2024-10-24 13:53 | XMS_ITS | Patient Health Summary ---
Author Organization [facility] Address [address] [place] [address] Care Team Providers Care Farm Equipment Mechanic Apprentice Name Role Phone Unavailable Primary Care Provider Unavailabl e Note from [facility],non-owned Affiliates and Associated Physician Practices is amultiple site organization consisting of ambulatory clinics and hospital sitesin [place], [place], [place] and [place]. This disclosure is being madepursuant to the Care Everywhere program and may not contain all information available regarding this patient. Last updated 18.[facility] [employer] Social History Tobacco Use Types Packs/Day Years Used Date Smoking Tobacco: Never Assessed Sex and Gender Information Value Date Recorded Sex Assigned at Not on file Gender Identity Not on file Sexual Orientation Not on file Procedures * DERMATOPATHOLOGY(Performed 10/10/2024) * DERMATOPATHOLOGY(Performed 02/29/2024) * DERMATOPATHOLOGY(Performed 07/05/2023) * DERMATOPATHOLOGY(Performed 10/13/2022) * DERMATOPATHOLOGY(Performed 08/25/2021) * DERMATOPATHOLOGY(Performed 08/15/2020) * DERMATOPATHOLOGY(Performed 08/31/2019) * DERMATOPATH TECHNICAL REPORT(Performed 06/08/2018) * DERMATOPATHOLOGY(Performed 06/12/2011) Results * DERMATOPATHOLOGY (10/10/2024 11:10 AM BROADCAST ENGINEER) Only the most recent of8 resultswithin the time period is included. Case Report Dermatopathology Report Case: [id number] Authorizing Provider: Adelaida Parra MD Collected: 10/10/2024 11:10 AM Ordering Location: [facility] - Received: 10/11/2024 12:47 PM DermPath Lab Pathologist: Marly Yao MD Specimen: Skin, left mid back 2:12 PM BROADCAST ENGINEER DERMATOPATHOLOGY LABORATORY Final Diagnosis Specimen A. SKIN, left mid back: LICHEN PLANUS-LIKE KERATOSIS (BENIGN LICHENOID KERATOSIS) (L82.1) 2:12 PM [facility] DERMATOPATHOLOGY LABORATORY Clinical History R/O NMSC; Irritated 2:12 PM [facility] DERMATOPATHOLOGY LABORATORY Gross Description Specimen A: Received is one formalin filled container labeled with the patient's name and designated left mid back. The specimen consists of a shave biopsy measuring 8x8x1 mm. Jar 0. 2:12 PM [facility] DERMATOPATHOLOGY LABORATORY Microscopic Description Specimen A. SKIN, left mid back: The epidermis is mildly acanthotic. There is a lichenoid infiltrate with vacuolar changes of basilar keratinocytes and scattered necrotic keratinocytes. 2:12 PM [facility] DERMATOPATHOLOGY LABORATORY Disclaimer An external and internal positive and negative controls are appropriate for the histochemical, immunohistochemical and immunofluorescence stain(s) in this case (if any), except where stated explicitly. The performance characteristics of the stain(s) cited in this report were developed and its performance characteristic determined by the Dermatopathology Laboratory at [facility], directed by Dr. Linda Garcia. These tests need not be, and therefore are not, approved by the [place] Food and Drug Administration. The tests are used for clinical purposes. Billing Codes Specimen Charges Stain Charges 25512 1 2:12 PM BROADCAST ENGINEER DERMATOPATHOLOGY LABORATORY Embedded Images 2:12 PM BROADCAST ENGINEER DERMATOPATHOLOGY LABORATORY Pathology/Cytolo gy TISSUE SPECIMEN FROM SKIN / Unknown 10/10/2024 11:10 AM BROADCAST ENGINEER 10/11/2024 12:47 PM BROADCAST ENGINEER Adelaida Parra MD LAB - PATHOLOGY/CYT OLOGY ORDERABLES DERMATOPATHOLOGY LABORATORY [facility] - Department of Dermatology [address], [address] [phone] * DERMATOPATH TECHNICAL REPORT (06/08/2018 12:00 AM CDT) Case Report Dermatopathology Report Case: [id number] Authorizing Provider: Liseth Mckeon MD Collected: 06/08/2018 [...] The specimen consists of a shave measuring [id number]. Jar 0. [facility] Dermatopathology Laboratory performed the technical component only. [...] characteristic determined by the Dermatopathology Laboratory at [facility]. These tests need not be, and therefore are not, approved by the [place] Food and Drug Administration. The tests are used for clinical purposes. 10:[address] [facility] DERMATOPATHOLOGY LABORATORY Pathology/Cytolog y TISSUE SPECIMEN FROM SKIN / Unknown 06/08/2018 06/09/2018 6:34 AM CDT Liseth Mckeon MD LAB - PATHOLOGY/CYTO LOGY ORDERABLES DERMATOPATHOLOGY LABORATORY [facility] - Department of Dermatology [address] [place] [address], [address] [place] [address], [facility] [phone]
--- OUTSIDE RECORDS SUMMARY | 2024-10-24 13:53 | XMS_ITS | Encounter Summary ---
Author Organization [facility] Healthcare Address [address] [place] [address] Care Team Providers Care Top Dyeing Machine Loader Name Role Phone Unavailable Primary Care Provider Unavailabl e Reason for Visit * Diagnostic Imaging (Routine) - Closed Specialty Diagnoses / Procedures Referred By Neil t Referred To Contact Procedures Breast Imaging Screening Outside Reference Jing Cain NP Phone: tel: fax: Referral ID Status Reason Start Date Expiration Date Visits Re quested Visits Authorized [id number] Closed 11/20/2021 12/20/2022 1 1 Encounter Details Date Type Department Care Team (Late st Contact Info) Description 08/28/2020 Hospital Encounter [facility] [address] [place] [address] Social History Tobacco Use Types Packs/Day Years [...] on file Legal Sex Female 4:17 AM OFFICE ANALYST Gender Identity Not on file Sexual Orientation Not on file documented as of this encounter Plan of Treatment Not on file documented as of this encounter Procedures Procedure Name Priority Date/Time Associated Diagnosis Comments BREAST IMAGING MG SCREENING OUTSIDE REFERENCE Routine 08/28/2020 12:00 AM OFFICE ANALYST documented in this encounter Results * Breast Imaging Screening Outside Reference (08/28/2020 12:00 AM OFFICE ANALYST) Impressions RAD_MAMMO_[facility] - 11/20/2021 2:33 PM OFFICE ANALYST These images are for Reference purposes only and have not been reviewed by [facility] Radiology. There will be no report generated by a [facility] Radiologist. Narrative RAD_MAMMO_[facility] - 11/20/2021 2:33 PM OFFICE ANALYST EXAMINATION: Images For Reference Purposes Only us Jing Cain NP IMG MAMMO PROCEDURES Fin al Result RAD_MAMMO_[facility] documented in this encounter Visit Diagnoses Not on filedocumented in this encounter
[2024-10-24 14:14] LABS: Alanine Aminotransferase 25 U/L (14-59); Albumin Level 3.8 g/dL (3.4-5.0); Alkaline Phosphatase 122 U/L (46-116); Anion Gap 8 mmol/L (4-12); Aspartate Amino Transferase 21 U/L (15-37); Bilirubin,Total 0.5 mg/dL (0.00-1.00); Blood Urea Nitrogen 10 mg/dL (7-18); Calcium 8.9 mg/dL (8.5-10.1); Carbon Dioxide 29 mmol/L (21-32); Chloride 104 mmol/L (98-108); Cholesterol 238 mg/dL (0-200); Estimated Glomerular Filt Rate > 60; Glucose 91 mg/dL (70-99); HDL Direct 82 mg/dL (40-60); LDL Cholesterol Calculated 132 mg/dL (<130); Osmolality Calculated 291 mOsm/kg (285-295); Potassium 4.1 mmol/L (3.5-5.1); Sodium 141 mmol/L (136-145); Thyroid Stimulating Hormone 2.54 uIU/mL (0.36-3.74); Total Protein 6.8 g/dL (6.4-8.2); Triglycerides 120 mg/dL (0-150)
[2024-10-26 03:48] LABS: Vitamin D 25 Hydroxy 37 ng/mL (30-100)
== END 2024-10-24 13:04 | disposition home or self-care (01) ==
LOC: CHSLAB 13:05
PROVIDERS: PCP Family Medicine; Visit Provider Nurse Practitioner Family
DX: R53.83 Other fatigue (principal); Z13.0 Encounter for screening for diseases of the blood and blood-forming organs and certain disorders involving the immune mechanism; Z13.1 Encounter for screening for diabetes mellitus; Z13.220 Encounter for screening for lipoid disorders; Z13.29 Encounter for screening for other suspected endocrine disorder; E55.9 Vitamin D deficiency, unspecified; D64.9 Anemia, unspecified; E78.5 Hyperlipidemia, unspecified
CPT/HCPCS: 36415; 80053; 80061; 82306; 84443; 85025

== ENCOUNTER 2024-11-28 07:02 | Emergency (ER) | payer MEDICARE, SELFPAY ==
[2024-11-28] VITALS (7 sets, daily range): BP systolic 126–186; BP diastolic 69–98; PULSE 61–72; RESP 14–16; TEMP 36.4–36.6; O2SAT 97–100
--- NOTE | ~2024-11-28 | CT_ITS ---
CTA brain carotid Ordering provider: Radha Manzano MD History: . rosado . Comparison: None. Technique: CT angiogram head was performed following timed intravenous injection of contrast. Thin sl ice axial images and reformatted coronal images were obtained. Three dimensional reformatted images o f the brain were also obtained using a Vitrea workstation. Radiation reduction technique utilized.The dose-length product was 1630.81 mGy-cm. 100 mL Omnipaque 3 50 was given IV. FINDINGS: --ANTERIOR AND MIDDLE CEREBRAL ARTERIES AND BRANCHES: Normal caliber and contour. --INTERNAL CAROTID ARTERIES: no significant stenosis. No occlusion. --BASILAR ARTERY AND BRANCHES: Normal caliber and contour. No atheromatous disease. Small caliber of the right intracranial vertebral artery. --POSTERIOR CEREBRAL ARTERIES: Normal caliber and contour --POSTERIOR COMMUNICATING ARTERIES: Not visualized which is probably related to congenital absence or small size. --ANEURYSM: None visualized. --BRAIN: Normal. --BONES AND SUPERFICIAL SOFT TISSUES: Normal. --PARANASAL SINUSES AND MASTOIDS: Normal. IMPRESSION: Normal CTA head. CTA brain carotid Ordering provider: Radha Manzano MD History: . rosado . Comparison: None. Technique: CT angiogram neck was performed following timed intravenous injection of contrast. Thin sl ice axial images and reformatted coronal images were obtained. Three dimensional reformatted images o f the neck were also obtained using a MuseStorma workstation. Automated exposure control and iterative re construction technique were employed. The dose-length product was 1082.81 mGy-cm. 100 mL Omnipaque 35 0 was given IV. FINDINGS: RIGHT CERVICAL CAROTID ARTERY: Normal caliber and contour. Percent stenosis per NASCET criteria is 0 %. No carotid dissection. Otherwise, no significant atheromatous disease or stenosis of the cervical carotid system. LEFT CERVICAL CAROTID ARTERY: Normal caliber and contour. Percent stenosis per NASCET criteria is 0% . No carotid dissection. Otherwise, no significant atheromatous disease or stenosis of the cervical c arotid system. VISUALIZED BILATERAL INTRACRANIAL CAROTID ARTERIES: Normal. VERTEBRAL BASILAR SYSTEM: Small caliber of the right vertebral artery. Otherwise, Normal caliber and contour VISUALIZED AORTIC ARCH AND BRANCHING VESSELS: Normal caliber and contour. No significant atheromatous disease. SOFT TISSUES: Normal. CERVICAL SPINE: Age appropriate degenerative changes. Postoperative changes IMPRESSION: Normal CTA head and neck. Percent stenosis per NASCET criteria is 0%. Reviewed, dictated and finalized at location A. IMPRESSION: Normal CTA head. CTA brain carotid Ordering provider: Radha Manzano MD History: . rosado . Comparison: None. Technique: CT angiogram neck was performed following timed intravenous injectio n of contrast. Thin slice axial images and reformatted coronal images were obta ined. Three dimensional reformatted images of the neck were also obtained using a Sevcon workstation. Automated exposure control and iterative reconstruction technique were employed. The dose-length product was 1082.81 mGy-cm. 100 mL Omn ipaque 350 was given IV. FINDINGS: RIGHT CERVICAL CAROTID ARTERY: Normal caliber and contour. Percent stenosis per NASCET criteria is 0%. No carotid dissection. Otherwise, no significant ather omatous disease or stenosis of the cervical carotid system. LEFT CERVICAL CAROTID ARTERY: Normal caliber and contour. Percent stenosis per NASCET criteria is 0%. No carotid dissection. Otherwise, no significant athero matous disease or stenosis of the cervical carotid system. VISUALIZED BILATERAL INTRACRANIAL CAROTID ARTERIES: Normal. VERTEBRAL BASILAR SYSTEM: Small caliber of the right vertebral artery. Otherwis e, Normal caliber and contour VISUALIZED AORTIC ARCH AND BRANCHING VESSELS: Normal caliber and contour. No si gnificant atheromatous disease. SOFT TISSUES: Normal. CERVICAL SPINE: Age appropriate degenerative changes. Postoperative changes
--- NOTE | ~2024-11-28 | XR_ITS ---
XR chest 1V Ordering provider: Radha Manzano MD History: 69 years Female with . VAUGHN, cva w/u, mid chest pressure . Comparison: None. FINDINGS: MEDIASTINUM: The cardiac silhouette is not enlarged. LUNGS: No infiltrates, effusions or pneumothorax. OTHER: No free air under the diaphragm. Degenerative changes of the spine. IMPRESSION: No acute cardiopulmonary pathology. Reviewed, dictated and finalized at location A.
--- OUTSIDE RECORDS SUMMARY | 2024-11-28 07:05 | XMS_ITS | Referral Summary ---
Author Organization [facility] Address [address] [place] [address] Care Team Providers Care Sheet Metal Shop Supervisor Name Role Phone Dominguez Pena MD Primary Care Provider [phone] Allergies Active Allergy Reactions Criticality Noted Date [...] file Legal Sex Female 4:17 AM MANAGER SITE Gender Identity Not on file Sexual Orientation [...] Plan of Treatment Not on file Insurance [facility] PPO Care Teams Sheet Metal Shop Supervisor Relationship Specialty Start Date End Date Dominguez Pena MD PCP - General Family Medicine 10/23/21
--- OUTSIDE RECORDS SUMMARY | 2024-11-28 07:05 | XMS_ITS | Encounter Summary ---
Author Organization [facility] Healthcare Address [address] [place] [address] Care Team Providers Care Dictaphone Operator Name Role Phone Unavailable Primary Care Provider Unavailabl e Reason for Visit * Diagnostic Imaging (Routine) - Closed Specialty Diagnoses / Procedures Referred By Neil soliman Referred To Contact Procedures Breast Imaging Screening Outside Reference Jing Cain NP Phone: tel: fax: Referral ID Status Reason Start Date Expiration Date Visits Re quested Visits Authorized [id number] Closed 11/20/2021 12/20/2022 1 1 Encounter Details Date Type Department Care Team (Late st Contact Info) Description 04/26/2018 Hospital Encounter [facility] [address] [place] [address] Social History Tobacco Use Types Packs/Day Years [...] on file Legal Sex Female 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 There will be no report generated by a [facility] Radiologist. Narrative RAD_MAMMO_[facility] - 11/20/2021 2:34 PM ELECTRONIC ENGRAVER EXAMINATION: Images For Reference Purposes Only us Jing Cain NP IMG MAMMO PROCEDURES Fin al Result RAD_MAMMO[facility] documented in this encounter Visit Diagnoses Not on filedocumented in this encounter
--- OUTSIDE RECORDS SUMMARY | 2024-11-28 07:05 | XMS_ITS | Encounter Summary ---
Author Organization [facility] Address [address] [facility] [place] [address] Care Team Providers Care Metal Fabricator Name Role Phone Unavailable Primary Care Provider Unavailabl e Encounter Details Date Type Department Care Team (Late st Contact Info) Description 08/16/2020 Lab Requisition [facility] [address] [facility], [place] [address] Liseth Mckeon MD [address] [facility] 3 [place] [address] Social History Tobacco Use Types Packs/Day Years [...] Comments DERMATOPATHOLOGY Routine 08/15/2020 12:0 0 AM MAGNETIC OBSERVER documented in this encounter Results * DERMATOPATHOLOGY (08/15/2020 12:00 AM MAGNETIC OBSERVER) Case Report Dermatopathology Report Case: [id number] Authorizing Provider: Liseth Mckeon MD Collected: 08/15/2020 12:00 AM Ordering Location: [facility] Received: 08/16/2020 09:00 AM Pathologist: Akua Shah MD Specimen: Skin, left medial canthus 0 1:44 PM MAGNETIC OBSERVER DERMATOPATHOLOGY LABORATORY Final Diagnosis Specimen A. SKIN, left medial canthus: HYPERPLASTIC (HYPERTROPHIC) ACTINIC KERATOSIS (L57.0) (see microscopic description) 0 1:44 PM MAGNETIC OBSERVER DERMATOPATHOLOGY LABORATORY Clinical History [place] papule, [place], BCC, ISK. 0 1:44 PM [facility] DERMATOPATHOLOGY LABORATORY Gross Description Specimen A: Received is one formalin filled container labeled with the patient's name and designated left medial canthus. The specimen consists of a shave measuring [id number]. Jar 0. 0 1:44 PM [facility] DERMATOPATHOLOGY LABORATORY Microscopic Description Specimen A. SKIN, left medial canthus: There is hyperkeratosis alternating with parakeratosis. There is epidermal hyperplasia with disorderly maturation of keratinocytes with nuclear pleomorphism confined to the lower half of the epidermis. Additional deeper sections were obtained and reviewed. 0 1:44 PM [facility] DERMATOPATHOLOGY LABORATORY Disclaimer An external and internal positive and negative controls are appropriate for the histochemical, immunohistochemical and immunofluorescence stain(s) in this case (if any), except where stated explicitly. The performance characteristics of the stain(s) cited in this report were developed and its performance characteristic determined by the Dermatopathology Laboratory at [facility], directed by Dr. Linda Garcia. These tests need not be, and therefore are not, approved by the [place] Food and Drug Administration. The tests are used for clinical purposes. Billing Codes Specimen Charges Stain Charges 12396 1 0 1:44 PM [facility] DERMATOPATHOLOGY LABORATORY Embedded Images 0 1:44 PM [facility] DERMATOPATHOLOGY LABORATORY Pathology/Cytolog y TISSUE SPECIMEN FROM SKIN / Unknown 08/15/2020 08/16/2020 9:00 AM MAGNETIC OBSERVER Liseth Mckeon MD LAB - PATHOLOGY/CYTO LOGY ORDERABLES DERMATOPATHOLOGY LABORATORY [facility] - Department of Dermatology [address], [address] [phone] documented in this encounter Visit Diagnoses Not on filedocumented in this encounter
--- OUTSIDE RECORDS SUMMARY | 2024-11-28 07:05 | XMS_ITS | Continuity of Care Document ---
Author Organization [facility] Address [address] [place] [address] Phone Care Team Providers Care Natural History Collections Curator Name Role Phone Elidia Lam MD Unavailable [...] AND PLATEAU; MEDIAL OR LATERAL COMP OFFICE [id number] X-RAY EXAM OF KNEE, A/P & LAT 2 KENALOG 10 MG ASP/INJ MAJOR JOINTOR BURSA, SHOULDER, H IP,KNEE W/O US GUIDANCE POSTOPERATIVE FOLLOW-UP VISIT, INCLUDED IN GLOBAL SERVICE POSTOPERATIVE FOLLOW-UP VISIT, INCLUDED IN GLOBAL SERVICE POSTOPERATIVE FOLLOW-UP VISIT, INCLUDED IN GLOBAL SERVICE POSTOPERATIVE FOLLOW-UP VISIT, INCLUDED IN GLOBAL SERVICE KNEE ARTHROSCOPY/SURGERY OFFICE [id number] X-RAY EXAM OF KNEE, A/P & LAT OFFICE [id number] KENALOG 10 MG ASP/INJ MAJOR JOINTOR BURSA, SHOULDER, H IP,KNEE W/O US GUIDANCE OFFICE [id number] Xray Exam, Hip, Unilat, Two Or Three Vie ws OFFICE [id number] Advance Directives Directive Yes / No Effective Date File Name No Information Encounters Encounter Description Practice Location Reason(s) For Visit Diagnoses Date Provider Providers Copied on Encounter [facility], [address], [place], [place], [address], tel:[phone] [facility] No Information 3 [facility]. [address], [place], [place], [address] , [place]. tel:[phone] [facility], [address], [place], [place], [address], tel:[phone] [facility] knee (chief complaint) Status post right partial knee replacement 3 [facility]. [address], [place], [place], [address] , [place]. tel:[phone] Referring Provider: Tyree Pe[address], [place], [address] . tel:[phone] [facility], [address], [place], [place], [address], tel:[phone] [facility] knee (chief complaint) Status post right partial knee replacement 3 [facility]. [address], [place], [place], [address] , [place]. [phone] Referring Provider: Tyree Peña [address], [place], [address] . tel:[phone] [facility], [address], [place], [place], [address], tel:[phone] [facility] knee (chief complaint) Status post right partial knee replacement [facility]. [address], [place], [place], [address] , [place]. tel:[phone] Referring Provider: Elidia Lam, [address], [place], [address] . tel:[phone] [facility], [address], [place], [place], [address], [place] tel:[phone] [facility] No Information [facility]. [address], [place], [place], [address] , [place]. [phone] Referring Provider: Tyree Peña [address], [place], [address] . tel:[phone] OFFICE NQVHU-MRA-HTH DARLING [facility], [address], [place], [place], [address], tel:[phone] [facility] knee (chief complaint) Primary osteoarthritis of right knee [facility]. [address], [place], [place], [address] , [place]. [phone] Referring Provider: Tyree Peña [address], [place], [address] . tel:[phone] [facility], [address], [place], [place], [address], [place] tel:[phone] [facility] RIGHT KNEE (chief complaint) S/P right knee arthroscopy [facility]. [address], [place], [place], [address] , [place]. [phone] Referring Provider: Tyree Peña [address], [place], [address] . tel:[phone] [facility], [address], [place], [place], [address], tel:[phone] [facility] LEFT HIP (chief complaint) RIGHT KNEE (chief complaint) Status post arthroscopic surgery of right knee [facility]. [address], [place], [place], [address] , [place]. tel:[phone] Referring Provider: Tyree Peña [address], [place], [address] . tel:[phone] [facility], [address], [place], [place], [address], tel:[phone] [facility] No Information 2 [facility]. [address], [place], [place], [address] , . [phone] Referring Provider: Tyree Peña [address], [place], [address] . tel:[phone] OFFICE NUWHK-ZWP-NVC DARLING, [address], [place], [place], [address], tel:[phone] [facility] RIGHT KNEE (chief complaint) Complex tear of medial meniscus of right knee as current injury, initial encounterLoose body of right knee 2 [facility]. [address], [place], [place], [address] , [place]. [phone] Referring Provider: Tyree Peña [address], [place], [address] . tel:[phone] OFFICE VTMVJ-MYZ-QKK ANDED [facility], [address], [place], [place], [address], tel:[phone] [facility] Right Knee (chief complaint) Injury of meniscus of right knee, initial encounter 2 [facility]. [address], [place], [place], [address] , [place]. tel: [phone] Referring Provider: Tyree Pe[address], [place], [address] . tel:[phone] OFFICE XEXIX-VJM-WNH ANDED [facility], [address], [place], [place], [address], [place] tel:[phone] [facility] Right Knee (chief complaint) Right Great Toe (chief complaint) Primary osteoarthritis of left hipPrimary osteoarthritis of right kneeDegenerative joint disease of toe 1 [facility]. [address], [place], [place], [address] , [place]. tel:[phone] Referring Provider: Tyree Peña [address], [place], [address] . tel:[phone] OFFICE OAFLG-MGZ-PAM ANDED [facility], [address], [place], [place], [address], [place] tel:[phone] [facility] Left Hip (chief complaint) Primary osteoarthritis of left hip 1 [facility]. [address], [place], [place], [address] , [place]. tel: [phone] Referring Provider: Tyree Peña [address], [place], [address] . tel:[phone] [facility], [address], [place], [place], [address], [place] tel:[phone] [facility] right knee (chief complaint) Primary osteoarthritis of right knee 9 [facility]. [address], [place], [place], [address] , [place]. tel:[phone] Referring Provider: Tyree Peña [address], [place], [address] . tel:[phone] [facility], [address], [place], [place], [address], [place] tel:[phone] [facility] Contusion of left knee, initial encounter 7 [facility]. [address], [place], [place], [address] , [place]. [phone] Referring Provider: Elidia Gayatirjudith, [address], [place], [address] . tel:[phone] [facility], [address], [place], [place], [address], [place] tel:[phone] [facility] Acute pain of left knee 7 [facility]. [address], [place], [place], [address] , [place]. tel:[phone] Family History Family Member Type Diagnosis Age At Onset No Information Payers Payer name Insurance type Covered alliance party ID Authoriza tibolivar(s) [employer] MDCR PPO PLANS [id number] Social History Type Description Quantity Date Captured Comments Alcohol Use Details Unknown Caffeine Use Details Unknown Tobacco Use Status No Information Smoking Status No Information Sex Female Chief Complaint And Reason For Visit No Information Reason For Referral Reason For Referral No Information Plan Of Treatment Date Type Action Status Referral Referred To: Physical Therapy Ordered: Referrals: Physical Therapy. Location: [place] [facility]. Evaluate and treat - Level 2 [...] I, LOWER JOINT EXTREMITY W/O CONTRAST Right (98755), Sent on: Sent History Of Present Illness [...]
--- OUTSIDE RECORDS SUMMARY | 2024-11-28 07:05 | XMS_ITS | Encounter Summary ---
Author Organization [facility] Address [address] [place] [address] Care Team Providers Care Spring Former Hand Name Role Phone Unavailable Primary Care Provider Unavailabl e Encounter Details Date Type Department Care Team (Late st Contact Info) Description 02/29/2024 Lab Requisition [facility] - [facility] Lab [address] [facility], [place] [address] Liseth Mckeon MD [address] [facility] 3 [place] [address] Social History Tobacco Use Types Packs/Day Years [...] PM CDT) Case Report Dermatopathology Report Case: [id number] Authorizing Provider: Liseth Mckeon MD Collected: 02/29/2024 01:23 PM Ordering Location: [facility] Physician [facility] - Received: 03/02/2024 05:38 AM DermPath Lab [...] DERMATOPATHOLOGY LABORATORY Clinical History Nevus vs BCC; [place] Papule 4 2:18 PM CDT DERMATOPATHOLOGY LABORATORY [...] characteristic determined by the Dermatopathology Laboratory at [facility], directed by Dr. Linda Garcia. These tests need not be, and therefore are not, approved by the [place] Food and Drug Administration. The tests are used for clinical purposes. Billing Codes Specimen Charges Stain Charges 29490 1 4 2:18 PM CDT DERMATOPATHOLOGY LABORATORY Embedded Images 4 2:18 PM CDT DERMATOPATHOLOGY LABORATORY Pathology/Cytolo gy TISSUE SPECIMEN FROM SKIN / Unknown 02/29/2024 1:23 PM CDT 03/02/2024 5:38 AM CDT Liseth Mckeon MD LAB - PATHOLOGY/CYTO LOGY ORDERABLES DERMATOPATHOLOGY LABORATORY [facility] - Department of Dermatology [address], [address] Floor [place], [place] [address] [place] [address] documented in this encounter Visit Diagnoses Not on filedocumented in this encounter
--- OUTSIDE RECORDS SUMMARY | 2024-11-28 07:05 | XMS_ITS | Clinical Summary ---
Author Organization [facility] Address [facility]ly [facility], [facility] [place] [address] Care Team Providers Care Babbitt Spinner Name Role Phone Unavailable Primary Care Provider [...]
--- OUTSIDE RECORDS SUMMARY | 2024-11-28 07:05 | XMS_ITS | Encounter Summary ---
Author Organization [facility] Healthcare Address [address] [place] [address] Care Team Providers Care Component Lab Tech Name Role Phone Unavailable Primary Care Provider Unavailabl e Reason for Visit * Diagnostic Imaging (Routine) - Closed Specialty Diagnoses / Procedures Referred By Neil soliman Referred To Contact Procedures Breast Imaging Screening Outside Reference Jing Cain NP Phone: tel: fax: Referral ID Status Reason Start Date Expiration Date Visits Re quested Visits Authorized [id number] Closed 11/20/2021 12/20/2022 1 1 Encounter Details Date Type Department Care Team (Late st Contact Info) Description 08/28/2020 Hospital Encounter [facility] [place] [address] Social History Tobacco Use Types Packs/Day Years [...] on file Legal Sex Female 4:17 AM BLANK DRILLER Gender Identity Not on file Sexual Orientation Not on file documented as of this encounter Functional Status documented as of this encounter Plan of Treatment Not on file documented as of this encounter Procedures Procedure Name Priority Date/Time Associated Diagnosis Comments BREAST IMAGING MG SCREENING OUTSIDE REFERENCE Routine 08/28/2020 12:00 AM BLANK DRILLER documented in this encounter Results * Breast Imaging Screening Outside Reference (08/28/2020 12:00 AM BLANK DRILLER) Impressions RAD_MAMMO_[facility] - 11/20/2021 2:33 PM BLANK DRILLER These images are for Reference purposes only and have not been reviewed by [facility] Radiology. There will be no report generated by a [facility] Radiologist. Narrative RAD_MAMMO_BJ - 11/20/2021 2:33 PM BLANK DRILLER EXAMINATION: Images For Reference Purposes Only us Jing Cain NP IMG MAMMO PROCEDURES Fin al Result RAD_M[facility]MO[facility] documented in this encounter Visit Diagnoses Not on filedocumented in this encounter
--- OUTSIDE RECORDS SUMMARY | 2024-11-28 07:05 | XMS_ITS | Encounter Summary ---
Author Organization [facility] Healthcare Address [address] [place] [address] Care Team Providers Care Senior Payroll Manager Name Role Phone Unavailable Primary Care Provider Unavailabl e Reason for Visit * Diagnostic Imaging (Routine) - Closed Specialty Diagnoses / Procedures Referred By Neil t Referred To Contact Procedures Breast Imaging US Outside Reference Jing Cain NP Phone: tel: fax: Referral ID Status Reason Start Date Expiration Date Visits Re quested Visits Authorized [id number] Closed 11/20/2021 12/20/2022 1 1 Encounter Details Date Type Department Care Team (Late st Contact Info) Description 01/26/2017 Hospital Encounter [facility] [address] [place] [address] Social History Tobacco Use Types Packs/Day Years [...] on file Legal Sex Female 4:17 AM BAND SAW OPERATOR CAKE CUTTING Gender Identity Not on file Sexual Orientation [...] CDT) Impressions RAD_MAMMO[facility] - 11/20/2021 2:34 PM BAND SAW OPERATOR CAKE CUTTING These images are for Reference purposes only and have not been reviewed by [facility] Radiology. There will be no report generated by a [facility] Radiologist. Narrative RAD_MAMMO_BJ - 11/20/2021 2:34 PM BAND SAW OPERATOR CAKE CUTTING EXAMINATION: Images For Reference Purposes Only us Jing Cain SLUMBER ROOM ATTENDANT IMG MAMMO PROCEDURES Fin al Result RAD_MAMMO_[facility] documented in this encounter Visit Diagnoses Not on filedocumented in this encounter
--- OUTSIDE RECORDS SUMMARY | 2024-11-28 07:05 | XMS_ITS | Encounter Summary ---
Author Organization [facility] Healthcare Address [address] [place] [address] Care Team Providers Care Surface Miner Name Role Phone Unavailable Primary Care Provider Unavailabl e Reason for Visit * Diagnostic Imaging (Routine) - Closed Specialty Diagnoses / Procedures Referred By Neil soliman Referred To Contact Procedures Breast Imaging Diagnostic Outside Reference Jing Cain NP Phone: tel: fax: Referral ID Status Reason Start Date Expiration Date Visits Re quested Visits Authorized [id number] Closed 11/20/2021 12/20/2022 1 1 Encounter Details Date Type Department Care Team (Late st Contact Info) Description 01/25/2017 12:05 AM CDT Hospital Encounter [facility] Radiology [facility] [address] [place] [id number] Social History Tobacco Use Types Packs/Day Years [...] on file Legal Sex Female 4:17 AM SENIOR TELECOMMUNICATIONS CONSULTANT Gender Identity Not on file Sexual Orientation [...] CDT) Impressions RAD_MAMMO_[facility] - 11/20/2021 2:53 PM SENIOR TELECOMMUNICATIONS CONSULTANT These images are for Reference purposes only and have not been reviewed by [facility] Radiology. There will be no report generated by a [facility] Radiologist. Narrative RAD_MAMMO_[facility] - 11/20/2021 2:53 PM SENIOR TELECOMMUNICATIONS CONSULTANT EXAMINATION: Images For Reference Purposes Only us Jing Cain NP IMG MAMMO PROCEDURES Fin al Result RAD_M[facility]MO[facility] documented in this encounter Visit Diagnoses Not on filedocumented in this encounter
--- OUTSIDE RECORDS SUMMARY | 2024-11-28 07:05 | XMS_ITS | Encounter Summary ---
Author Organization [facility] Health Address [address] [facility] [place] [address] Care Team Providers Care Facilities Operator Name Role Phone Unavailable Primary Care Provider Unavailabl e Encounter Details Date Type Department Care Team (Late st Contact Info) Description 09/01/2019 Lab Requisition [facility] DermPath Lab [address] [facility], [place] [id number] Liseth Mckeon MD [address] [place] [address] Social History Tobacco Use Types Packs/Day Years [...] Comments DERMATOPATHOLOGY Routine 08/31/2019 12:0 0 AM ELEMENTARY TUTOR documented in this encounter Results * DERMATOPATHOLOGY (08/31/2019 12:00 AM ELEMENTARY TUTOR) Case Report Dermatopathology Report Case: [id number] Authorizing Provider: Liseth Mckeon MD Collected: 08/31/2019 12:00 AM Ordering Location: [facility] DermPath Lab Received: 09/01/2019 06:10 AM Pathologist: Akua Shah MD Specimen: Skin, left thigh 9 11:39 AM ELEMENTARY TUTOR DERMATOPATHOLOGY LABORATORY Final Diagnosis Specimen A. SKIN, left thigh: SEBORRHEIC KERATOSIS, MACULAR (L82.1) 9 11:39 AM ELEMENTARY TUTOR DERMATOPATHOLOGY LABORATORY Clinical History MM,SK,Lentigo 9 11:39 AM ELEMENTARY TUTOR DERMATOPATHOLOGY LABORATORY Gross Description Specimen A: Received is one formalin filled container labeled with the patient's name and designated left thigh. The specimen consists of a shave biopsy measuring 10x8x1 mm. Jar 0. 11:39 AM [facility] DERMATOPATHOLOGY LABORATORY Microscopic Description Specimen A. SKIN, left thigh: Sections show a relatively broad, flat proliferation of small keratinocytes. The surface is gently papillated, and there is increased basilar pigmentation. 11:39 AM [facility] DERMATOPATHOLOGY LABORATORY Disclaimer An external and internal positive and negative controls are appropriate for the histochemical, immunohistochemical and immunofluorescence stain(s) in this case (if any), except where stated explicitly. The performance characteristics of the stain(s) cited in this report were developed and its performance characteristic determined by the Dermatopathology Laboratory at [facility], directed by Dr. Linda Garcia. These tests need not be, and therefore are not, approved by the [place] Food and Drug Administration. The tests are used for clinical purposes. Billing Codes Specimen Charges Stain Charges 29770 1 11:39 AM [facility] DERMATOPATHOLOGY LABORATORY Embedded Images 11:39 AM [facility] DERMATOPATHOLOGY LABORATORY Pathology/Cytolog y TISSUE SPECIMEN FROM SKIN / Unknown 08/31/2019 09/01/2019 6:10 AM [facility] Liseth Mckeon MD LAB - PATHOLOGY/CYTO LOGY ORDERABLES DERMATOPATHOLOGY LABORATORY [facility] - Department of Dermatology [address] [place] [address], 5th Floor Lab [address] [phone] documented in this encounter Visit Diagnoses Not on filedocumented in this encounter
--- OUTSIDE RECORDS SUMMARY | 2024-11-28 07:05 | XMS_ITS | Encounter Summary ---
Author Organization [facility] Healthcare Address [address] [place] [address] Care Team Providers Care Medical Transcription Editor Name Role Phone Unavailable Primary Care Provider Unavailabl e Reason for Visit * Diagnostic Imaging (Routine) - Closed Specialty Diagnoses / Procedures Referred By Neil soliman Referred To Contact Procedures Breast Imaging Diagnostic Outside Reference Jing Cain NP Phone: tel: fax: Referral ID Status Reason Start Date Expiration Date Visits Re quested Visits Authorized [id number] Closed 11/20/2021 12/20/2022 1 1 Encounter Details Date Type Department Care Team (Late st Contact Info) Description 08/08/2019 Hospital Encounter [facility] Radiology [facility] On license of [facility] [place] [address] Social History Tobacco Use Types Packs/Day Years [...] on file Legal Sex Female 4:17 AM PLATING TANK OPERATOR Gender Identity Not on file Sexual Orientation Not on file documented as of this encounter Functional Status documented as of this encounter Plan of Treatment Not on file documented as of this encounter Procedures Procedure Name Priority Date/Time Associated Diagnosis Comments BREAST IMAGING MG DIAGNOSTIC OUTSIDE REFERENCE Routine 08/08/2019 12:00 AM PLATING TANK OPERATOR documented in this encounter Results * Breast Imaging Diagnostic Outside Reference (08/08/2019 12:00 AM PLATING TANK OPERATOR) Impressions RAD_MAMMO_[facility] - 11/20/2021 2:33 PM PLATING TANK OPERATOR These images are for Reference purposes only and have not been reviewed by [facility] Radiology. There will be no report generated by a [facility] Radiologist. Narrative RAD_MAMMO_[facility] - 11/20/2021 2:33 PM PLATING TANK OPERATOR EXAMINATION: Images For Reference Purposes Only us Jing Cain NP IMG MAMMO PROCEDURES Fin al Result RAD_MAMMO[facility] documented in this encounter Visit Diagnoses Not on filedocumented in this encounter
--- OUTSIDE RECORDS SUMMARY | 2024-11-28 07:05 | XMS_ITS | Encounter Summary ---
Author Organization [facility] Healthcare Address [address] [place] [address] Care Team Providers Care Gauger Chief Name Role Phone Unavailable Primary Care Provider Unavailabl e Reason for Visit * Diagnostic Imaging (Routine) - Closed Specialty Diagnoses / Procedures Referred By Neil soliman Referred To Contact Procedures Breast Imaging Diagnostic Outside Reference Jing Cain NP Phone: tel: fax: Referral ID Status Reason Start Date Expiration Date Visits Re quested Visits Authorized [id number] Closed 11/20/2021 12/20/2022 1 1 Encounter Details Date Type Department Care Team (Late st Contact Info) Description 09/30/2020 12:05 AM WARP HANGER Hospital Encounter [facility] Radiology [facility] [address] [place] [phone] Social History Tobacco Use Types Packs/Day Years [...] on file Legal Sex Female 4:17 AM WARP HANGER Gender Identity Not on file Sexual Orientation Not on file documented as of this encounter Functional Status documented as of this encounter Plan of Treatment Not on file documented as of this encounter Procedures Procedure Name Priority Date/Time Associated Diagnosis Comments BREAST IMAGING MG DIAGNOSTIC OUTSIDE REFERENCE Routine 09/30/2020 12:05 AM WARP HANGER documented in this encounter Results * Breast Imaging Diagnostic Outside Reference (09/30/2020 12:05 AM WARP HANGER) Impressions [facility]MO[facility] - 11/20/2021 2:32 PM WARP HANGER These images are for Reference purposes only and have not been reviewed by [facility] Radiology. There will be no report generated by a [facility] Radiologist. Narrative RAD_MAMMO[facility] - 11/20/2021 2:32 PM WARP HANGER EXAMINATION: Images For Reference Purposes Only us Jing Cain NP IMG MAMMO PROCEDURES Fin al Result [facility] documented in this encounter Visit Diagnoses Not on filedocumented in this encounter
--- OUTSIDE RECORDS SUMMARY | 2024-11-28 07:05 | XMS_ITS | Encounter Summary ---
Author Organization [facility] Healthcare Address [address] [place] [address] Care Team Providers Care Hotel Maintenance Engineer Name Role Phone Unavailable Primary Care Provider Unavailabl e Reason for Visit * Diagnostic Imaging (Routine) - Closed Specialty Diagnoses / Procedures Referred By Neil t Referred To Contact Procedures Breast Imaging Screening Outside Reference Jing Cain NP Phone: tel: fax: Referral ID Status Reason Start Date Expiration Date Visits Re quested Visits Authorized [id number] Closed 11/20/2021 12/20/2022 1 1 Encounter Details Date Type Department Care Team (Late st Contact Info) Description 08/08/2019 12:05 AM HYBRID TECHNOLOGIST Hospital Encounter [facility] Radiology [facility] [address] [place] [phone] Social History Tobacco Use Types Packs/Day Years [...] on file Legal Sex Female 4:17 AM HYBRID TECHNOLOGIST Gender Identity Not on file Sexual Orientation Not on file documented as of this encounter Functional Status documented as of this encounter Plan of Treatment Not on file documented as of this encounter Procedures Procedure Name Priority Date/Time Associated Diagnosis Comments BREAST IMAGING MG SCREENING OUTSIDE REFERENCE Routine 08/08/2019 12:05 AM HYBRID TECHNOLOGIST documented in this encounter Results * Breast Imaging Screening Outside Reference (08/08/2019 12:05 AM HYBRID TECHNOLOGIST) Impressions RAD_MAMMO[facility] - 11/20/2021 2:35 PM HYBRID TECHNOLOGIST These images are for Reference purposes only and have not been reviewed by [facility] Radiology. There will be no report generated by a [facility] Radiologist. Narrative RAD_MAMMO[facility] - 11/20/2021 2:35 PM HYBRID TECHNOLOGIST EXAMINATION: Images For Reference Purposes Only us Jing Cain NP IMG MAMMO PROCEDURES Fin al Result [facility]MO[facility] documented in this encounter Visit Diagnoses Not on filedocumented in this encounter
--- OUTSIDE RECORDS SUMMARY | 2024-11-28 07:05 | XMS_ITS | Encounter Summary ---
Author Organization [facility] Healthcare Address [address] [place] [address] Care Team Providers Care Rehabilitation Coordinator Name Role Phone Unavailable Primary Care Provider Unavailabl e Reason for Visit * Diagnostic Imaging (Routine) - Closed Specialty Diagnoses / Procedures Referred By Neil soliman Referred To Contact Procedures Breast Imaging US Outside Reference Jing Cain NP Phone: tel: fax: Referral ID Status Reason Start Date Expiration Date Visits Re quested Visits Authorized [id number] Closed 11/20/2021 12/20/2022 1 1 Encounter Details Date Type Department Care Team (Late st Contact Info) Description 09/30/2020 Hospital Encounter [facility] Radiology [facility] [place] [address] Social History Tobacco Use Types Packs/Day Years [...] file Legal Sex Female 4:17 AM OFFICE MANAGER RECEPTIONIST Gender Identity Not on file Sexual Orientation Not on file documented as of this encounter Functional Status documented as of this encounter Plan of Treatment Not on file documented as of this encounter Procedures Procedure Name Priority Date/Time Associated Diagnosis Comments BREAST IMAGING US OUTSIDE REFERENCE Routine 09/30/2020 12:00 AM OFFICE MANAGER RECEPTIONIST documented in this encounter Results * Breast Imaging US Outside Reference (09/30/2020 12:00 AM OFFICE MANAGER RECEPTIONIST) Impressions RAD_M[facility]MO[facility] - 11/20/2021 2:32 PM OFFICE MANAGER RECEPTIONIST These images are for Reference purposes only and have not been reviewed by [facility] Radiology. There will be no report generated by a [facility] Radiologist. Narrative RAD_MAMMO_[facility] - 11/20/2021 2:32 PM OFFICE MANAGER RECEPTIONIST EXAMINATION: Images For Reference Purposes Only us Jing Cain APARTMENT LEASING AGENT IMG MAMMO PROCEDURES Fin al Result [facility]MO[facility] documented in this encounter Visit Diagnoses Not on filedocumented in this encounter
--- OUTSIDE RECORDS SUMMARY | 2024-11-28 07:05 | XMS_ITS | Encounter Summary ---
Author Organization [facility] Address [address] [facility] [place] [address] Care Team Providers Care Supply Clerk Name Role Phone Unavailable Primary Care Provider Unavailabl e Encounter Details Date Type Department Care Team (Late st Contact Info) Description 10/10/2024 Lab Requisition [facility] - DermPath Lab [address] [facility] [place] [address] Adelaida Parra MD [address] [facility] [address] [place] [address] Social History Tobacco Use Types Packs/Day Years [...] Comments DERMATOPATHOLOGY Routine 10/10/2024 11:1 0 AM BANJO REPAIRER documented in this encounter Results * DERMATOPATHOLOGY (10/10/2024 11:10 AM BANJO REPAIRER) Case Report Dermatopathology Report Case: [id number] Authorizing Provider: Adelaida Parra MD Collected: 10/10/2024 11:10 AM Ordering Location: [facility] Physician [facility] - Received: 10/11/2024 12:47 PM DermPath Lab Pathologist: Marly Yao MD Specimen: Skin, left mid back 2:12 PM BANJO REPAIRER DERMATOPATHOLOGY LABORATORY Final Diagnosis Specimen A. SKIN, left mid back: LICHEN PLANUS-LIKE KERATOSIS (BENIGN LICHENOID KERATOSIS) (L82.1) 2:12 PM BANJO REPAIRER DERMATOPATHOLOGY LABORATORY Clinical History R/O NMSC; Irritated 2:12 PM [facility] DERMATOPATHOLOGY LABORATORY Gross Description Specimen A: Received is one formalin filled container labeled with the patient's name and designated left mid back. The specimen consists of a shave biopsy measuring 8x8x1 mm. Jar 0. 2:12 PM [facility] DERMATOPATHOLOGY LABORATORY Microscopic Description Specimen A. SKIN, left mid back: The epidermis is mildly acanthotic. There is a lichenoid infiltrate with vacuolar changes of basilar keratinocytes and scattered necrotic keratinocytes. 2:12 PM [facility] DERMATOPATHOLOGY LABORATORY Disclaimer An external and internal positive and negative controls are appropriate for the histochemical, immunohistochemical and immunofluorescence stain(s) in this case (if any), except where stated explicitly. The performance characteristics of the stain(s) cited in this report were developed and its performance characteristic determined by the Dermatopathology Laboratory at [facility], directed by Dr. Linda Garcia. These tests need not be, and therefore are not, approved by the [place] Food and Drug Administration. The tests are used for clinical purposes. Billing Codes Specimen Charges Stain Charges 18301 1 2:12 PM [facility] DERMATOPATHOLOGY LABORATORY Embedded Images 2:12 PM [facility] DERMATOPATHOLOGY LABORATORY Pathology/Cytolo gy TISSUE SPECIMEN FROM SKIN / Unknown 10/10/2024 11:10 AM BANJO REPAIRER 10/11/2024 12:47 PM BANJO REPAIRER Adelaida Parra MD LAB - PATHOLOGY/CYT OLOGY ORDERABLES DERMATOPATHOLOGY LABORATORY [facility] - Department of Dermatology [facility] [address] [place] [address], [address]rd [address] [phone] documented in this encounter Visit Diagnoses Not on filedocumented in this encounter
--- OUTSIDE RECORDS SUMMARY | 2024-11-28 07:05 | XMS_ITS | Encounter Summary ---
Author Organization [facility] Address [address] [facility] [place] [address] Care Team Providers Care Qa Lead Name Role Phone Unavailable Primary Care Provider Unavailabl e Encounter Details Date Type Department Care Team (Late st Contact Info) Description 06/09/2018 Lab Requisition [facility] DermPath Lab [address] [facility], [place] [phone] Liseth Mckeon MD [address] [facility] [address]L [place] [address] Social History Tobacco Use Types Packs/Day Years [...] AM CDT) Case Report Dermatopathology Report Case: [id number] Authorizing Provider: Liseth Mckeon MD Collected: 06/08/2018 [...] The specimen consists of a shave measuring [id number]. Jar 0. [facility] Dermatopathology Laboratory performed the technical component only. [...] characteristic determined by the Dermatopathology Laboratory at [facility]. These tests need not be, and therefore are not, approved by the [place] Food and Drug Administration. The tests are used for clinical purposes. 10:14 AM [facility] DERMATOPATHOLOGY LABORATORY Pathology/Cytolog y TISSUE SPECIMEN FROM SKIN / Unknown 06/08/2018 06/09/2018 6:34 AM CDT Liseth Mckeon MD LAB - PATHOLOGY/CYTO LOGY ORDERABLES DERMATOPATHOLOGY LABORATORY [facility] - Department of Dermatology [address] [place] [address], [address] [place] [address], [facility] [phone] documented in this encounter Visit Diagnoses Not on filedocumented in this encounter
--- OUTSIDE RECORDS SUMMARY | 2024-11-28 07:05 | XMS_ITS | Encounter Summary ---
Author Organization [facility] Address [address] [place] [address] Care Team Providers Care Tractor Crane Engineer Name Role Phone Unavailable Primary Care Provider Unavailabl e Encounter Details Date Type Department Care Team (Late st Contact Info) Description 02/18/2019 Abstract SFL CONVERSION [address] [place] [address] , Generic Conversion, Social History [...]
--- OUTSIDE RECORDS SUMMARY | 2024-11-28 07:05 | XMS_ITS | Patient Health Summary ---
Author Organization [facility] Address [address] [place] [address] Care Team Providers Care Manager Product Name Role Phone Unavailable Primary Care Provider Unavailabl e Note from [facility],non-owned Affiliates and Associated Physician Practices is amultiple site organization consisting of ambulatory clinics and hospital sitesin [place], [place], [place] and [place]. This disclosure is being madepursuant to the Care Everywhere program and may not contain all information available regarding this patient. Last updated 18.[facility] Molecular Imaging Social History Tobacco Use Types Packs/Day Years [...] 06/12/2011) Results * DERMATOPATHOLOGY (10/10/2024 11:10 AM LANDFILL GAS TECHNICIAN) Only the most recent of8 resultswithin the time period is included. Case Report Dermatopathology Report Case: [id number] Authorizing Provider: Adelaida Parra MD Collected: 10/10/2024 11:10 AM Ordering Location: [facility] - Received: 10/11/2024 12:47 PM DermPath Lab Pathologist: Marly Yao MD Specimen: Skin, left mid back 2:12 PM LANDFILL GAS TECHNICIAN DERMATOPATHOLOGY LABORATORY Final Diagnosis Specimen A. SKIN, left mid back: LICHEN PLANUS-LIKE KERATOSIS (BENIGN LICHENOID KERATOSIS) (L82.1) 2:12 PM [facility] DERMATOPATHOLOGY LABORATORY Clinical History R/O NMSC; Irritated 2:12 PM [facility] DERMATOPATHOLOGY LABORATORY Gross Description Specimen A: Received is one formalin filled container labeled with the patient's name and designated left mid back. The specimen consists of a shave biopsy measuring 8x8x1 mm. Jar 0. 2:12 PM [facility] DERMATOPATHOLOGY LABORATORY Microscopic Description Specimen A. SKIN, left mid back: The epidermis is mildly acanthotic. There is a lichenoid infiltrate with vacuolar changes of basilar keratinocytes and scattered necrotic keratinocytes. 2:12 PM [facility] DERMATOPATHOLOGY LABORATORY Disclaimer An external and internal positive and negative controls are appropriate for the histochemical, immunohistochemical and immunofluorescence stain(s) in this case (if any), except where stated explicitly. The performance characteristics of the stain(s) cited in this report were developed and its performance characteristic determined by the Dermatopathology Laboratory at [facility], directed by Dr. Linda Garcia. These tests need not be, and therefore are not, approved by the [place] Food and Drug Administration. The tests are used for clinical purposes. Billing Codes Specimen Charges Stain Charges 20267 1 2:12 PM LANDFILL GAS TECHNICIAN DERMATOPATHOLOGY LABORATORY Embedded Images 2:12 PM LANDFILL GAS TECHNICIAN DERMATOPATHOLOGY LABORATORY Pathology/Cytolo gy TISSUE SPECIMEN FROM SKIN / Unknown 10/10/2024 11:10 AM LANDFILL GAS TECHNICIAN 10/11/2024 12:47 PM LANDFILL GAS TECHNICIAN Adelaida Parra MD LAB - PATHOLOGY/CYT OLOGY ORDERABLES DERMATOPATHOLOGY LABORATORY [facility] - Department of Dermatology [address], [address] [phone] * DERMATOPATH TECHNICAL REPORT (06/08/2018 12:00 AM CDT) Case Report Dermatopathology Report [id number]: [id number] Authorizing Provider: Liseth Mckeon MD Collected: 06/08/2018 [...] The specimen consists of a shave measuring [id number]. Jar 0. [facility] Dermatopathology Laboratory performed the technical component [...] determined by the Dermatopathology Laboratory at [facility]. These tests need not be, and therefore are not, approved by the [place] Food and Drug Administration. The tests are used for clinical purposes. 10:[address] [facility] DERMATOPATHOLOGY LABORATORY Pathology/Cytolog y TISSUE SPECIMEN FROM SKIN / Unknown 06/08/2018 06/09/2018 6:34 AM CDT Liseth Mckeon MD LAB - PATHOLOGY/CYTO LOGY ORDERABLES DERMATOPATHOLOGY LABORATORY [facility] - Department of Dermatology [address] [place] [address], 5th [place] [address], [facility] [phone]
--- OUTSIDE RECORDS SUMMARY | 2024-11-28 07:05 | XMS_ITS | Referral Summary ---
Author Organization [facility] Address [address] [place] [address] Care Team Providers Care Direct Marketing Coordinator Name Role Phone Unavailable Primary Care Provider Unavailabl e Source Comments [facility],non-owned Affiliates and Associated Physician Practices is amultiple site organization consisting of ambulatory clinics and hospital sitesin [place], [place], [place] and [place]. This disclosure is being madepursuant to the Care Everywhere program and may not contain all information available regarding this patient. Last updated 18.[facility] Encounters Date Type Department Care Team Description 10/10/2024 Lab Requisition [facility] - DermPath Lab [address] [facility] [place] [address] Adelaida Parra MD from Last 3 Months Social History Tobacco Use Types Packs/Day Years Used Date Smoking Tobacco: Never Assessed Sex and Gender Information Value Date Recorded Sex Assigned at Not on file Gender Identity Not on file Sexual Orientation Not on file Plan of Treatment Not on file Procedures Procedure Name Priority Date/Time Associated Diagnosis Comments DERMATOPATHOLOGY Routine 10/10/2024 11:1 0 AM BRIDGE CONSTRUCTION INSPECTOR from Last 3 Months Results * DERMATOPATHOLOGY (10/10/2024 11:10 AM BRIDGE CONSTRUCTION INSPECTOR) Case Report Dermatopathology Report Case: [id number] Authorizing Provider: Adelaida Parra MD Collected: 10/10/2024 11:10 AM Ordering Location: [facility] - Received: 10/11/2024 12:47 PM DermPath Lab Pathologist: Marly Yao MD Specimen: Skin, left mid back 2:12 PM BRIDGE CONSTRUCTION INSPECTOR DERMATOPATHOLOGY LABORATORY Final Diagnosis Specimen A. SKIN, left mid back: LICHEN PLANUS-LIKE KERATOSIS (BENIGN LICHENOID KERATOSIS) (L82.1) 2:12 PM [facility] DERMATOPATHOLOGY LABORATORY Clinical History R/O NMSC; Irritated 2:12 PM [facility] DERMATOPATHOLOGY LABORATORY Gross Description Specimen A: Received is one formalin filled container labeled with the patient's name and designated left mid back. The specimen consists of a shave biopsy measuring 8x8x1 mm. Jar 0. 2:12 PM [facility] DERMATOPATHOLOGY LABORATORY Microscopic Description Specimen A. SKIN, left mid back: The epidermis is mildly acanthotic. There is a lichenoid infiltrate with vacuolar changes of basilar keratinocytes and scattered necrotic keratinocytes. 2:12 PM [facility] DERMATOPATHOLOGY LABORATORY Disclaimer An external and internal positive and negative controls are appropriate for the histochemical, immunohistochemical and immunofluorescence stain(s) in this case (if any), except where stated explicitly. The performance characteristics of the stain(s) cited in this report were developed and its performance characteristic determined by the Dermatopathology Laboratory at [facility], directed by Dr. Linda Garcia. These tests need not be, and therefore are not, approved by the [place] Food and Drug Administration. The tests are used for clinical purposes. Billing Codes Specimen Charges Stain Charges 19429 1 2:12 PM [facility] DERMATOPATHOLOGY LABORATORY Embedded Images 2:12 PM [facility] DERMATOPATHOLOGY LABORATORY Pathology/Cytolo gy TISSUE SPECIMEN FROM SKIN / Unknown 10/10/2024 11:10 AM BRIDGE CONSTRUCTION INSPECTOR 10/11/2024 12:47 PM BRIDGE CONSTRUCTION INSPECTOR Adelaida Parra MD LAB - PATHOLOGY/CYT OLOGY ORDERABLES DERMATOPATHOLOGY LABORATORY [facility] - Department of Dermatology [address], [address] [phone] from Last 3 Months
--- OUTSIDE RECORDS SUMMARY | 2024-11-28 07:05 | XMS_ITS | Clinical Summary ---
Author Organization [facility] Address [address] [place] [address] Care Team Prov[address] Care Court Registry Officer Name Role Phone Dominguez Pena MD Primary Care Provider + [phone] Allergies Active Allergy Reactions Criticality Noted Date [...] on file Legal Sex Female 4:17 AM QUARRY PLUG AND FEATHER DRILLER Gender Identity Not on file Sexual [...] Plan of Treatment Not on file [facility] Care Teams Court Registry Officer Relationship Specialty Start Date End Date Dominguez Pena MD PCP - General Family Medicine 10/23/21
--- OUTSIDE RECORDS SUMMARY | 2024-11-28 07:05 | XMS_ITS | Encounter Summary ---
Author Organization [facility] Address [address] [place] [address] Care Team Providers Care Waterworks Supervisor Name Role Phone Unavailable Primary Care Provider Unavailabl e Reason for Visit * Diagnostic Imaging (Routine) - Closed Specialty Diagnoses / Procedures Referred By Neil soliman Referred To Contact Procedures Breast Imaging US Outside Reference Jing Cain NP Phone: tel: fax: Referral ID Status Reason Start Date Expiration Date Visits Re quested Visits Authorized [id number] Closed 11/20/2021 12/20/2022 1 1 Encounter Details Date Type Department Care Team (Late st Contact Info) Description 02/17/2017 Hospital Encounter [facility] Radiology [facility] [address] [place] [address] Social History Tobacco Use Types Packs/Day Years [...] on file Legal Sex Female 4:17 AM RN CLINICAL RESEARCH Gender Identity Not on file Sexual Orientation [...] CDT) Impressions [facility] - 11/20/2021 2:34 PM RN CLINICAL RESEARCH These images are for Reference purposes only and have not been reviewed by [facility] Radiology. There will be no report generated by a [facility] Radiologist. Narrative RAD_MAMMO[facility] - 11/20/2021 2:34 PM RN CLINICAL RESEARCH EXAMINATION: Images For Reference Purposes Only us Jing Cain INKER MACHINE IMG MAMMO PROCEDURES Fin al Result [facility] documented in this encounter Visit Diagnoses Not on filedocumented in this encounter
--- OUTSIDE RECORDS SUMMARY | 2024-11-28 07:05 | XMS_ITS | Encounter Summary ---
Author Organization [facility] Address [address] [place] [address] Care Team Providers Care Marriage Counselor Minister Name Role Phone Unavailable Primary Care Provider Unavailabl e Reason for Visit * Diagnostic Imaging (Routine) - Closed Specialty Diagnoses / Procedures Referred By Neil soliman Referred To Contact Procedures Breast Imaging Screening Outside Reference Jing Cain NP Phone: tel: fax: Referral ID Status Reason Start Date Expiration Date Visits Re quested Visits Authorized [id number] Closed 11/20/2021 12/20/2022 1 1 Encounter Details Date Type Department Care Team (Late st Contact Info) Description 10/18/2015 Hospital Encounter [facility] Radiology [facility] [address] [place] [address] Social History Tobacco Use Types Packs/Day Years [...] on file Legal Sex Female 4:17 AM SEPTIC TANK SERVICER Gender Identity Not on file Sexual Orientation Not on file documented as of this encounter Functional Status documented as of this encounter Plan of Treatment Not on file documented as of this encounter Procedures Procedure Name Priority Date/Time Associated Diagnosis Comments BREAST IMAGING MG SCREENING OUTSIDE REFERENCE Routine 10/18/2015 12:00 AM SEPTIC TANK SERVICER documented in this encounter Results * Breast Imaging Screening Outside Reference (10/18/2015 12:00 AM SEPTIC TANK SERVICER) Impressions [facility] - 11/20/2021 2:35 PM SEPTIC TANK SERVICER These images are for Reference purposes only and have not been reviewed by [facility] Radiology. There will be no report generated by a [facility] Radiologist. Narrative RAD_MAMMO[facility] - 11/20/2021 2:35 PM SEPTIC TANK SERVICER EXAMINATION: Images For Reference Purposes Only us Jing Cain NP IMG MAMMO PROCEDURES Fin al Result [facility] documented in this encounter Visit Diagnoses Not on filedocumented in this encounter
--- OUTSIDE RECORDS SUMMARY | 2024-11-28 07:05 | XMS_ITS | Encounter Summary ---
Author Organization [facility] Address [address] [place] [place] [address] Care Team Providers Care Spray Painting Machine Operator Name Role Phone Unavailable Primary Care Provider Unavailabl e Encounter Details Date Type Department Care Team (Late st Contact Info) Description 07/05/[address] [facility] - DermPath Lab [address] [facility] [facility] [place] [address] Liseth Mckeon MD [address] [facility] [address] [place] [address] Social History Tobacco Use Types Packs/Day Years [...] PM CDT) Case Report Dermatopathology Report Case: [id number] Authorizing Provider: Liseth Mckeon MD Collected: 07/05/2023 02:50 PM Ordering Location: [facility] DermPath Lab Received: 07/06/2023 11:13 AM Pathologist: Kalie Chu MD Specimen: Skin, left upper lip 3 4:18 PM CDT DERMATOPATHOLOGY LABORATORY Final Diagnosis Specimen A. 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 Linda Garcia. These tests need not be, and therefore are not, approved by the [place] Food and Drug Administration. The tests are used for clinical purposes. Billing Codes Specimen Charges Stain Charges 80863 1 4:18 PM CDT DERMATOPATHOLOGY LABORATORY Embedded Images 4:18 PM CDT DERMATOPATHOLOGY LABORATORY Pathology/Cytolo gy TISSUE SPECIMEN FROM SKIN / Unknown 07/05/2023 2:50 PM CDT 07/06/2023 11:13 AM CDT Liseth Mckeon MD LAB - PATHOLOGY/CYTO LOGY ORDERABLES DERMATOPATHOLOGY LABORATORY [facility] - Department of Dermatology [address] [phone] documented in this encounter Visit Diagnoses Not on filedocumented in this encounter
--- OUTSIDE RECORDS SUMMARY | 2024-11-28 07:05 | XMS_ITS | Clinical Summary ---
Author Organization [facility] Address [address] [facility] [place] [address] Care Team Providers Care Health Services Rn Name Role Phone Unavailable Primary Care Provider Unavailabl e Source Comments [facility],non-owned Affiliates and Associated Physician Practices is amultiple site organization consisting of ambulatory clinics and hospital sitesin [place], [place], [place] and [place]. This disclosure is being madepursuant to the Care Everywhere program and may not contain all information available regarding this patient. Last updated 18.[facility] Encounters Date Type Department Care Team Description 10/10/2024 Lab Requisition [facility] - DermPath Lab [address] [place] [address] Adelaida Parra MD from Last 3 Months [...] to complete this topic MENINGOCOCCAL (Group B) VACC INE SHARED DECISION-MAKING Aged Out No longer eligibl e based on patient's age to complete this topic MENINGOCOCCAL GROUPS A/C/Y/W VACCINE Aged Out No longer eligible b ased on patient's age to complete this topic Procedures Procedure Name Priority Date/Time Associated Diagnosis Comments DERMATOPATHOLOGY Routine 10/10/2024 11:1 0 AM BRASS MOLDER from Last 3 Months Results * DERMATOPATHOLOGY (10/10/2024 11:10 AM BRASS MOLDER) Case Report Dermatopathology Report Case: [id number] Authorizing Provider: Adelaida Parra MD Collected: 10/10/2024 11:10 AM Ordering Location: [facility] - Received: 10/11/2024 12:47 PM DermPath Lab Pathologist: Marly Yao MD Specimen: Skin, left mid back 2:12 PM BRASS MOLDER DERMATOPATHOLOGY LABORATORY Final Diagnosis Specimen A. SKIN, left mid back: LICHEN PLANUS-LIKE KERATOSIS (BENIGN LICHENOID KERATOSIS) (L82.1) 2:12 PM BRASS MOLDER DERMATOPATHOLOGY LABORATORY Clinical History R/O NMSC; Irritated 2:12 PM BRASS MOLDER DERMATOPATHOLOGY LABORATORY Gross Description Specimen A: Received is one formalin filled container labeled with the patient's name and designated left mid back. The specimen consists of a shave biopsy measuring 8x8x1 mm. Jar 0. 2:12 PM BRASS MOLDER DERMATOPATHOLOGY LABORATORY Microscopic Description Specimen A. SKIN, left mid back: The epidermis is mildly acanthotic. There is a lichenoid infiltrate with vacuolar changes of basilar keratinocytes and scattered necrotic keratinocytes. 5 2:12 PM BRASS MOLDER DERMATOPATHOLOGY LABORATORY Disclaimer An external and internal positive and negative controls are appropriate for the histochemical, immunohistochemical and immunofluorescence stain(s) in this case (if any), except where stated explicitly. The performance characteristics of the stain(s) cited in this report were developed and its performance characteristic determined by the Dermatopathology Laboratory at [facility], directed by Dr. Linda Garcia. These tests need not be, and therefore are not, approved by the [place] Food and Drug Administration. The tests are used for clinical purposes. Billing Codes Specimen Charges Stain Charges 43182 1 5 2:12 PM BRASS MOLDER DERMATOPATHOLOGY LABORATORY Embedded Images 2:12 PM BRASS MOLDER DERMATOPATHOLOGY LABORATORY Pathology/Cytolo gy TISSUE SPECIMEN FROM SKIN / Unknown 10/10/2024 11:10 AM BRASS MOLDER 10/11/2024 12:47 PM BRASS MOLDER Adelaida Parra MD LAB - PATHOLOGY/CYT OLOGY ORDERABLES DERMATOPATHOLOGY LABORATORY [facility] - Department of Dermatology [facility] [address] [place] [address], [address] [phone] from Last 3 Months
--- NOTE | 2024-11-28 08:20 | ED_ITS ---
HPI - Headache General Chief Complaint: Headache Stated Complaint: headache Time Seen by Provider: 11/28/24 08:02 Source: patient Mode of arrival: ambulatory Limitations: no limitations History of Present Illness HPI Narrative: Patient has had a headache for 6 days, left sided and worse in the morning. Radiates to the top her head. She had a history of migraines when she was younger but they were associated with her menstruation ( menstrual migraines) and resolved after menopause, none since. She started taking omeprazole and that's when her symptoms started; discontinued this medication yesterday. Patient lives with her boyfriend who does not have symptoms. She has nauseated. Reports blurred vision but states mild; denies diplopia. She was concerned and wanted to rule out a stroke; friend recently of an anerysm. She is having some generalized weakness, no unilateral symptoms. No trauma. Not on anticoagulation. Had numbness in her left hand, not now. No trauma. Not on anticoagulation. No photophobia but some phonophobia. She was having a sharp pain behind her bilateral eyes a few days ago. Not the worst headache of her life. Related Data Allergies Allergy/AdvReac Type Severity Reaction Status Date / Time amoxicillin (From Augmentin) Allergy Intermediate Paleness Verified 11/28/24 07:33 clavulanic acid (From Allergy Intermediate Paleness Verified 11/28/24 07:33 Augmentin) PMFSH Past Medical History Medical History Nonintractable menstrual migraine resolved after menopause Asbestos exposure Dizziness Swelling of wrist Hip pain, bilateral Low back pain Abdominal discomfort Diarrhea Otitis media Positional vertigo Fullness of neck Intermittent chest pain BMI 30.0-30.9,adult BMI 29.0-29.9,adult Bilateral leg cramps Dietary counseling and surveillance (02/28/18) Dizziness Ear itching Encounter for screening for lipoid disorders Neck fullness Palpitations Poison herminio Surgical History Surgical History (Updated 11/20/24 @ 13:49 by RANGEL Mckay) Hx of cervical spine surgery History of knee surgery Family History Family History Father No problems noted. Mother Diabetes mellitus Sibling Diabetes mellitus Other Carcinoma of colon Family history of lung cancer Social History Social History (Updated 11/30/24 @ 12:19 by Radha Manzano MD) Smoking status: Never smoker Second hand tobacco smoke exposure: Yes Alcohol intake: current Alcohol use details: seldom Substance use: current Substance use type: marijuana Other substance usage details: once monthly Living arrangements: with friend(s) Additional living arrangements comments: with boyfriend Occupation/Education: retired Additional occupation/education comments: [employer] Gender identity (if verbalized by the patient): Female Spiritual care concerns: No Exam 2 Narrative: GENERAL: Well-appearing, well-nourished, and in no acute distress. HEAD: Normocephalic, atraumatic. EYES: Non injected, non icteric. EOMI . Peripheral cochran without deficit. PERRL ENT: Nares clear, no rhinorrhea or epistaxis. NECK: Supple. No meningismus, full ROM. CHEST: Speaking in full sentences. No respiratory distress. HEART: Regular rate and rhythm. ABDOMEN: Soft, nondistended. EXTREMITIES: Normal range of motion. No lower extremity edema. SKIN: Warm, dry, no rash. NEURO: No focal deficits. Alert and oriented x3. Answers all questions appropriately. NO slurred speech; no aphasia. No extinction. Normal FNF w/o ataxia. No motor drift x4 extremities. No loss of nasolabial fold. PSYCH: Normal mood and affect. Course Vital Signs Vital signs: Vital Signs Temperature 97.9 F 11/28/24 07:03 Pulse Rate 64 11/28/24 07:03 Respiratory Rate 16 11/28/24 07:03 Blood Pressure 186/98 H 11/28/24 07:03 Pulse Oximetry 100 11/28/24 07:03 Oxygen Delivery Room Air 11/28/24 07:03 Temperature 97.6 F 11/28/24 13:07 Pulse Rate 72 11/28/24 13:07 Respiratory Rate 15 11/28/24 13:07 Blood Pressure 145/85 H 11/28/24 13:07 Pulse Oximetry 97 11/28/24 13:07 Oxygen Delivery Room Air 11/28/24 07:03 MDM - Headache MDM Narrative Medical decision making narrative: Patient presents with a headache of 6 days duration. In the emergency department she is afebrile with vital signs notable for hypertension. NIHSS 0 After obtaining the patient's history and performing a physical exam, the headache is most likely due to benign etiology. The extensive neurological examination is non-focal, there are no high-risk features on history, vital signs are stable (although hypertensive), and the patient is non-toxic appearing. The Ddx for the patient's headache is tension headache, migraine, or other headache of non-emergent etiology. Of these, migraine is favored given unilateral nature of headache which is associated with nausea and phonophobia and history of migraines (although at that time menstrual migraines - but does mean patient predisposed). Possible medication side effect. Unlikely SAH: headache is non-thunderclap. Headache is not worst of life and similar to headaches in the past. Unlikely subdural/epidural hematoma: no history of trauma, no anticoagulation Unlikely meningitis: afebrile, no meningismus, no photophobia Unlikely acute angle glaucoma: PERRL, no eye pain (pain was behind b/l eyes earlier) Unlikely carbon monoxide poisoning: no other house members with similar symptoms Unlikely CVA: Had generalized weakness and transient bilateral pain behind eyes. Only unilateral symptom was some numbness in left hand earlier Considered hypertensive emergency including PRES. Patient not encephalopathic and blurred vision is mild. The patient's headache was treated symptomatically with ketorolac, benadryl (partial dose given patient's age), 5mg compazine Headache resolved upon reassessment by medical student. Visual acuity 20 /40 and 20 /50 Hypertension resolved. Feeling better. Will be discharged with strict return precautions and instructions to follow up with their PCP in the next 1-2 days. Also advised optometry/opthalmology follow up. Lab Data Attestation: I reviewed the patient's lab results. 11/28/24 08:57 11/28/24 09:16 Labs: Lab Results 11/28/24 11/28/24 11/28/24 Range/Units 08:57 09:16 09:43 WBC 5.2 (4.5-10.0) K/mm3 RBC 4.14 L (4.2-5.4) M/mm3 Hgb 12.5 (12.0-15.0) g/dL Hct 37.9 (37.0-47.0) % MCV 91.5 (80-100) fl MCH 30.2 (26-34) pg MCHC 33.0 (32-36) g/dl RDW 12.7 (11.5-14.5) % Plt Count 221 (150-375) k/mm3 MPV 9.6 (7.4-10.4) fl Immature Gran % (Auto) 0.2 (0-0.5) % Neut % (Auto) 45.7 (45.5-73.1) % Lymph % (Auto) 43.4 (18.3-44.2) % [place] % (Auto) 8.4 (2.6-8.5) % Eos % (Auto) 1.7 (0-4.4) % Baso % (Auto) 0.6 (0.2-1.2) % Lymph # (Auto) 2.27 (0.9-3.2) K/mm3 [place] # (Auto) 0.4 (0.1-0.6) K/mm3 Eos # (Auto) 0.1 (0-0.3) K/mm3 Baso # (Auto) 0.0 (0.0-0.1) K/mm3 Abs Immat Gran (auto) 0.01 (0.00-0.031) K/mm3 Absolute Neuts (auto) 2.4 (1.3-6.7) K/mm3 Absolute Nucleated RBC 0.000 (0.0-0.012) K/mm3 Nucleated RBC % 0.0 (0.0-0.2) % Sodium 141 (137-145) mmol/L Potassium 3.9 (3.4-5.0) mmol/L Chloride 103 (98-107) mmol/L Carbon Dioxide 31 H (22-30) mmol/L Anion Gap 7 (4-12) mmol/L BUN 12 (7-17) mg/dL Creatinine 0.84 1.00 (0.7-1.0) mg/dL Estim Creat Clear Calc 61 52 ml/min Estimated GFR > 60 55 L (59 - ) Glucose 115 H (65-110) mg/dL Calcium 9.4 (8.4-10.2) mg/dL Magnesium 1.9 (1.6-2.3) mg/dL Total Bilirubin 0.4 (0.2-1.3) mg/dL AST 32 (14-36) U/L ALT 20 (6-35) U/L Alkaline Phosphatase 120 (38-126) U/L Troponin I < 0.012 (0.000-0.034) ng/mL Total Protein 7.0 (6.3-8.2) g/dL Albumin 4.4 (3.5-5.1) g/dL Urine Color Yellow (Yellow) Urine Appearance Clear (Clear) Urine pH 7.0 (5.0-9.0) Ur Specific [place] 1.008 (1.001-1.035) Urine Protein Negative (Negative) mg/dL Urine Glucose (UA) Negative (Negative) mg/dL Urine Ketones Negative (Negative) mg/dL Ur Blood (Man) Negative (Negative) Urine Nitrate Negative (Negative) Urine Bilirubin Negative (Negative) Urine Urobilinogen 0.2 (<2.0) mg/dL Leukocyte Esterase Rfl 2+ H (Negative) YANETH/UL Urine RBC 0-2 (0-2) /hpf Urine WBC 0-5 (0-3) /hpf Ur Squamous Epith Cells None seen (Few) /hpf Urine Bacteria None seen /hpf Urine Casts 0-2 Influenza A (RT-PCR) Negative (Negative) Influenza B (RT-PCR) Negative (Negative) RSV (RT-PCR) Negative (Negative) SARS-CoV-2 RNA (RT-PCR) Negative (Negative) Imaging Data Radiologist's impression: IMPRESSION: No acute cardiopulmonary pathology. IMPRESSION: Normal CTA head and neck. Percent stenosis per NASCET criteria is 0%. ECG Data EKG #1: Attestation: I personally reviewed and interpreted this ECG as follows: ECG completion date: 11/28/24 ECG completion time: 08:42 Interpretation: Normal sinus rhythm at a rate of 65 beats per minute. MS 162. QRS 94. QT/QTC 399/410. Good R-wave progression across the precordial leads. No T-wave inversions. Slightly low QRS voltage in precordial leads though suspect this is due to body habitus. Discharge Plan Discharge Clinical Impression: Migraine, Blurred vision Patient Disposition: Home, Self-Care Condition: Stable Instructions: Antibiotic Form, Migraine Headache (ED) Additional Instructions: Your CT scan was reassuring and your headache resolved with the medications given here. I do recommend you follow-up with your primary care physician given this. This may explain your blurred vision but it is also reasonable to follow- up with optometry/opthalmology for an assessment. Acetaminophen/Tylenol (maximum 4000 mg per day) is safe to take with NSAIDs (ibuprofen/Motrin) for pain relief. Return to the emergency department with any new or worsening symptoms Patient Language: Greek Prescriptions: New ibuprofen 600 mg tablet 600 mg PO TID PRN (Reason: pain) Qty: 30 0RF acetaminophen 500 mg capsule 1,000 mg PO Q6H PRN (Reason: pain) Qty: 30 0RF No Action omeprazole 40 mg capsule,delayed release(DR/EC) 40 mg PO DAILY Qty: 30 0RF tizanidine 2 mg tablet 2 mg PO TID PRN (Reason: muscle spasticity) Qty: 30 1RF ibuprofen 800 mg tablet 800 mg PO TID PRN (Reason: pain) Qty: 60 3RF Follow-up/Referrals: Dominguez Pena MD [Primary Care Provider] - Stand Alone Forms: Work/School Release IP Time of Disposition: 12:25
--- NOTE | 2024-11-28 08:23 | ECG_ITS ---
Test Date: 2024-11-28 08:42:37 Measurements Intervals [place] Rate: 65 P: -10 IA: 162 QRS: 31 QRSD: 94 T: 48 QT: 399 QTc: 416 Interpretive Statements SINUS RHYTHM LOW QRS VOLTAGE IN PRECORDIAL LEADS [QRS DEFLECTION < 1.0 mV IN CHEST LEADS] No previous ECG available for comparison Electronically Signed On 11-28-2024 16:56:06 CDT by Ariel Whitlock M.D.
--- OUTSIDE RECORDS SUMMARY | 2024-11-28 08:27 | XMS_ITS | Encounter Summary ---
Author Organization [facility] Address [address] [place] [address] Care Team Providers Care Computer Trainer Name Role Phone Unavailable Primary Care Provider Unavailabl e Encounter Details Date Type Department Care Team (Late st Contact Info) Description 06/09/2018 Lab Requisition [facility] DermPath Lab [address] [facility], [place] [phone] Liseth Mckeon MD [address] [facility] 3L [place] [address] Social History Tobacco Use Types Packs/Day Years [...] AM CDT) Case Report Dermatopathology Report Case: [id number] Authorizing Provider: Liseth Mckeon MD Collected: 06/08/2018 [...] The specimen consists of a shave measuring [id number]. Jar 0. [facility] Dermatopathology Laboratory performed the technical component [...] characteristic determined by the Dermatopathology Laboratory at [facility]. These tests need not be, and therefore are not, approved by the [place] Food and Drug Administration. The tests are used for clinical purposes. 10:14 AM [facility] DERMATOPATHOLOGY LABORATORY Pathology/Cytolog y TISSUE SPECIMEN FROM SKIN / Unknown 06/08/2018 06/09/2018 6:34 AM CDT Liseth Mckeon MD LAB - PATHOLOGY/CYTO LOGY ORDERABLES DERMATOPATHOLOGY LABORATORY [facility] - Department of Dermatology [address] [place] [address], 5th [place] [address], [facility] [phone] documented in this encounter Visit Diagnoses Not on filedocumented in this encounter
--- OUTSIDE RECORDS SUMMARY | 2024-11-28 08:27 | XMS_ITS | Encounter Summary ---
Author Organization [facility] Address [address] [place] [address] Care Team Providers Care Sas Programmer Name Role Phone Unavailable Primary Care Provider Unavailabl e Reason for Visit * Diagnostic Imaging (Routine) - Closed Specialty Diagnoses / Procedures Referred By Neil soliman Referred To Contact Procedures Breast Imaging Diagnostic Outside Reference Jing Cain NP Phone: tel: fax: Referral ID Status Reason Start Date Expiration Date Visits Re quested Visits Authorized [id number] Closed 11/20/2021 12/20/2022 1 1 Encounter Details Date Type Department Care Team (Late st Contact Info) Description 01/25/2017 12:05 AM CDT Hospital Encounter [facility] Rad[facility]) [address] [place] [id number] Social History Tobacco Use Types Packs/Day Years [...] on file Legal Sex Female 4:17 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 There will be no report generated by a [facility] Radiologist. Narrative [facility]_M[facility]MO[facility] - 11/20/2021 2:53 PM IT SOLUTIONS ARCHITECT EXAMINATION: Images For Reference Purposes Only us Jing Cain NP IMG MAMMO PROCEDURES Fin al Result [facility] documented in this encounter Visit Diagnoses Not on filedocumented in this encounter
--- OUTSIDE RECORDS SUMMARY | 2024-11-28 08:27 | XMS_ITS | Encounter Summary ---
Author Organization [facility] Address [address] [place] [address] Care Team Providers Care Riveting Machine Operator Automatic Name Role Phone Unavailable Primary Care Provider Unavailabl e Encounter Details Date Type Department Care Team (Late st Contact Info) Description 08/16/2020 Lab Requisition [facility] DermPath Lab [address] [facility], [place] [phone] Liseth Mckeon MD [address] [facility] 3 [place] [address] Social History Tobacco Use Types Packs/Day Years [...] Comments DERMATOPATHOLOGY Routine 08/15/2020 12:0 0 AM CHEMICAL LABORATORY SCIENTIST documented in this encounter Results * DERMATOPATHOLOGY (08/15/2020 12:00 AM CHEMICAL LABORATORY SCIENTIST) Case Report Dermatopathology Report Case: [id number] Authorizing Provider: Liseth Mckeon MD Collected: 08/15/2020 12:00 AM Ordering Location: [facility] DermPath Lab Received: 08/16/2020 09:00 AM Pathologist: Akua Shah MD Specimen: Skin, left medial canthus 0 1:44 PM CHEMICAL LABORATORY SCIENTIST DERMATOPATHOLOGY LABORATORY Final Diagnosis Specimen A. SKIN, left medial canthus: HYPERPLASTIC (HYPERTROPHIC) ACTINIC KERATOSIS (L57.0) (see microscopic description) 0 1:44 PM CHEMICAL LABORATORY SCIENTIST DERMATOPATHOLOGY LABORATORY Clinical History [place] papule, [place], BCC, ISK. 0 1:44 PM [facility] DERMATOPATHOLOGY LABORATORY Gross Description Specimen A: Received is one formalin filled container labeled with the patient's name and designated left medial canthus. The specimen consists of a shave measuring [id number]. Jar 0. 0 1:44 PM [facility] DERMATOPATHOLOGY LABORATORY Microscopic Description Specimen A. SKIN, left medial canthus: There is hyperkeratosis alternating with parakeratosis. There is epidermal hyperplasia with disorderly maturation of keratinocytes with nuclear pleomorphism confined to the lower half of the epidermis. Additional deeper sections were obtained and reviewed. 0 1:44 PM [facility] DERMATOPATHOLOGY LABORATORY Disclaimer An external and internal positive and negative controls are appropriate for the histochemical, immunohistochemical and immunofluorescence stain(s) in this case (if any), except where stated explicitly. The performance characteristics of the stain(s) cited in this report were developed and its performance characteristic determined by the Dermatopathology Laboratory at [facility], directed by Dr. Linda Garcia. These tests need not be, and therefore are not, approved by the [place] Food and Drug Administration. The tests are used for clinical purposes. Billing Codes Specimen Charges Stain Charges 31270 1 0 1:44 PM [facility] DERMATOPATHOLOGY LABORATORY Embedded Images 0 1:44 PM [facility] DERMATOPATHOLOGY LABORATORY Pathology/Cytolog y TISSUE SPECIMEN FROM SKIN / Unknown 08/15/2020 08/16/2020 9:00 AM CHEMICAL LABORATORY SCIENTIST Liseth Mckeon MD LAB - PATHOLOGY/CYTO LOGY ORDERABLES DERMATOPATHOLOGY LABORATORY [facility] - Department of Dermatology [address], [address] Floor [address] [phone] documented in this encounter Visit Diagnoses Not on filedocumented in this encounter
--- OUTSIDE RECORDS SUMMARY | 2024-11-28 08:27 | XMS_ITS | Encounter Summary ---
Author Organization [facility] Healthcare Address [address] [place] [address] Care Team Providers Care Camera Assembler Name Role Phone Unavailable Primary Care Provider Unavailabl e Reason for Visit * Diagnostic Imaging (Routine) - Closed Specialty Diagnoses / Procedures Referred By Neil soliman Referred To Contact Procedures Breast Imaging Screening Outside Reference Jing Cain NP Phone: tel: fax: Referral ID Status Reason Start Date Expiration Date Visits Re quested Visits Authorized [id number] Closed 11/20/2021 12/20/2022 1 1 Encounter Details Date Type Department Care Team (Late st Contact Info) Description 08/28/2020 Hospital Encounter [facility] Radiology [facility]) [facility] [place] [address] Social History Tobacco Use Types Packs/Day Years [...] on file Legal Sex Female 4:17 AM SUPERVISOR INSTANT POTATO PROCESSING Gender Identity Not on file Sexual Orientation Not on file documented as of this encounter Functional Status documented as of this encounter Plan of Treatment Not on file documented as of this encounter Procedures Procedure Name Priority Date/Time Associated Diagnosis Comments BREAST IMAGING MG SCREENING OUTSIDE REFERENCE Routine 08/28/2020 12:00 AM SUPERVISOR INSTANT POTATO PROCESSING documented in this encounter Results * Breast Imaging Screening Outside Reference (08/28/2020 12:00 AM SUPERVISOR INSTANT POTATO PROCESSING) Impressions RAD_M[facility]MO[facility] - 11/20/2021 2:33 PM SUPERVISOR INSTANT POTATO PROCESSING These images are for Reference purposes only and have not been reviewed by [facility] Radiology. There will be no report generated by a [facility] Radiologist. Narrative RAD_MAMMO_[facility] - 11/20/2021 2:33 PM SUPERVISOR INSTANT POTATO PROCESSING EXAMINATION: Images For Reference Purposes Only us Jing Cain NP IMG MAMMO PROCEDURES Fin al Result [facility] documented in this encounter Visit Diagnoses Not on filedocumented in this encounter
--- OUTSIDE RECORDS SUMMARY | 2024-11-28 08:27 | XMS_ITS | Encounter Summary ---
Author Organization [facility] Healthcare Address [address] [place] [address] Care Team Providers Care Compensation Supervisor Name Role Phone Unavailable Primary Care Provider Unavailabl e Reason for Visit * Diagnostic Imaging (Routine) - Closed Specialty Diagnoses / Procedures Referred By Neil soliman Referred To Contact Procedures Breast Imaging Diagnostic Outside Reference Jing Cain NP Phone: tel: fax: Referral ID Status Reason Start Date Expiration Date Visits Re quested Visits Authorized [id number] Closed 11/20/2021 12/20/2022 1 1 Encounter Details Date Type Department Care Team (Late st Contact Info) Description 08/08/2019 Hospital Encounter [facility] Radiology [facility]) [facility] [place] [address] Social History Tobacco Use Types Packs/Day Years [...] file Legal Sex Female 4:17 AM SENIOR ADVISOR Gender Identity Not on file Sexual Orientation Not on file documented as of this encounter Functional Status documented as of this encounter Plan of Treatment Not on file documented as of this encounter Procedures Procedure Name Priority Date/Time Associated Diagnosis Comments BREAST IMAGING MG DIAGNOSTIC OUTSIDE REFERENCE Routine 08/08/2019 12:00 AM SENIOR ADVISOR documented in this encounter Results * Breast Imaging Diagnostic Outside Reference (08/08/2019 12:00 AM SENIOR ADVISOR) Impressions RAD[facility]MO[facility] - 11/20/2021 2:33 PM SENIOR ADVISOR These images are for Reference purposes only and have not been reviewed by [facility] Radiology. There will be no report generated by a [facility] Radiologist. Narrative RAD_MAMMO_[facility] - 11/20/2021 2:33 PM SENIOR ADVISOR EXAMINATION: Images For Reference Purposes Only us Jing Cain NP IMG MAMMO PROCEDURES Fin al Result [facility] documented in this encounter Visit Diagnoses Not on filedocumented in this encounter
--- OUTSIDE RECORDS SUMMARY | 2024-11-28 08:27 | XMS_ITS | Encounter Summary ---
Author Organization [facility] Healthcare Address [address] [place] [address] Care Team Providers Care Performance Consultant Name Role Phone Unavailable Primary Care Provider Unavailabl e Reason for Visit * Diagnostic Imaging (Routine) - Closed Specialty Diagnoses / Procedures Referred By Neil t Referred To Contact Procedures Breast Imaging US Outside Reference Jing Cain NP Phone: tel: fax: Referral ID Status Reason Start Date Expiration Date Visits Re quested Visits Authorized [id number] Closed 11/20/2021 12/20/2022 1 1 Encounter Details Date Type Department Care Team (Late st Contact Info) Description 01/26/2017 Hospital Encounter [facility] Radiology [facility] [address] [place] [address] Social History Tobacco Use Types Packs/Day Years [...] on file Legal Sex Female 4:17 AM SILK SPOOLER Gender Identity Not on file Sexual Orientation [...] CDT) Impressions [facility] - 11/20/2021 2:34 PM SILK SPOOLER These images are for Reference purposes only and have not been reviewed by [facility] Radiology. There will be no report generated by a [facility] Radiologist. Narrative RAD_MAMMO_[facility] - 11/20/2021 2:34 PM SILK SPOOLER EXAMINATION: Images For Reference Purposes Only us Jing Cain ETL INFORMATICA DEVELOPER IMG MAMMO PROCEDURES Fin al Result [facility] documented in this encounter Visit Diagnoses Not on filedocumented in this encounter
--- OUTSIDE RECORDS SUMMARY | 2024-11-28 08:27 | XMS_ITS | Clinical Summary ---
Author Organization [facility] Address [facility] [place] [address] Care Team Providers Care Steel Detailer Name Role Phone Unavailable Primary Care Provider [...]
--- OUTSIDE RECORDS SUMMARY | 2024-11-28 08:27 | XMS_ITS | Encounter Summary ---
Author Organization [facility] Address [address] [place] [address] Care Team Providers Care Hybrid Powertrain Development Engineer Name Role Phone Unavailable Primary Care Provider Unavailabl e Encounter Details Date Type Department Care Team (Late st Contact Info) Description 10/10/2024 Lab Requisition [facility] - DermPath Lab [address] [facility], [facility] [place] [address] Adelaida Parra MD [address] [facility] 3 [place] [address] Social History Tobacco Use Types Packs/Day Years [...] Comments DERMATOPATHOLOGY Routine 10/10/2024 11:1 0 AM DRYING MACHINE RECEIVER documented in this encounter Results * DERMATOPATHOLOGY (10/10/2024 11:10 AM DRYING MACHINE RECEIVER) Case Report Dermatopathology Report Case: [id number] Authorizing Provider: Adelaida Parra MD Collected: 10/10/2024 11:10 AM Ordering Location: [facility] - Received: 10/11/2024 12:47 PM DermPath Lab Pathologist: Marly Yao MD Specimen: Skin, left mid back 2:12 PM DRYING MACHINE RECEIVER DERMATOPATHOLOGY LABORATORY Final Diagnosis Specimen A. SKIN, left mid back: LICHEN PLANUS-LIKE KERATOSIS (BENIGN LICHENOID KERATOSIS) (L82.1) 2:12 PM DRYING MACHINE RECEIVER DERMATOPATHOLOGY LABORATORY Clinical History R/O NMSC; Irritated 2:12 PM [facility] DERMATOPATHOLOGY LABORATORY Gross Description Specimen A: Received is one formalin filled container labeled with the patient's name and designated left mid back. The specimen consists of a shave biopsy measuring 8x8x1 mm. Jar 0. 2:12 PM [facility] DERMATOPATHOLOGY LABORATORY Microscopic Description Specimen A. SKIN, left mid back: The epidermis is mildly acanthotic. There is a lichenoid infiltrate with vacuolar changes of basilar keratinocytes and scattered necrotic keratinocytes. 2:12 PM [facility] DERMATOPATHOLOGY LABORATORY Disclaimer An external and internal positive and negative controls are appropriate for the histochemical, immunohistochemical and immunofluorescence stain(s) in this case (if any), except where stated explicitly. The performance characteristics of the stain(s) cited in this report were developed and its performance characteristic determined by the Dermatopathology Laboratory at [facility], directed by Dr. Linda Garcia. These tests need not be, and therefore are not, approved by the [place] Food and Drug Administration. The tests are used for clinical purposes. Billing Codes Specimen Charges Stain Charges 94483 1 2:12 PM [facility] DERMATOPATHOLOGY LABORATORY Embedded Images 2:12 PM [facility] DERMATOPATHOLOGY LABORATORY Pathology/Cytolo gy TISSUE SPECIMEN FROM SKIN / Unknown 10/10/2024 11:10 AM DRYING MACHINE RECEIVER 10/11/2024 12:47 PM DRYING MACHINE RECEIVER Adelaida Parra MD LAB - PATHOLOGY/CYT OLOGY ORDERABLES DERMATOPATHOLOGY LABORATORY [facility] - Department of Dermatology [facility] [address] [place] [address], [address] [phone] documented in this encounter Visit Diagnoses Not on filedocumented in this encounter
--- OUTSIDE RECORDS SUMMARY | 2024-11-28 08:27 | XMS_ITS | Encounter Summary ---
Author Organization [facility] Health Address [address] [place] [address] Care Team Providers Care Secretary Bookkeeper Name Role Phone Unavailable Primary Care Provider Unavailabl e Encounter Details Date Type Department Care Team (Late st Contact Info) Description 09/01/2019 Lab Requisition [facility] DermPath Lab [address] [facility] [place] [address] Liseth Mckeon MD [address] [facility] 3 [place] [address] Social History Tobacco Use Types Packs/Day Years [...] Comments DERMATOPATHOLOGY Routine 08/31/2019 12:0 0 AM INSURANCE SALES MANAGER documented in this encounter Results * DERMATOPATHOLOGY (08/31/2019 12:00 AM INSURANCE SALES MANAGER) Case Report Dermatopathology Report Case: [id number] Authorizing Provider: Liseth Mckeon MD Collected: 08/31/2019 12:00 AM Ordering Location: [facility] DermPath Lab Received: 09/01/2019 06:10 AM Pathologist: Akua Shah MD Specimen: Skin, left thigh 9 11:39 AM INSURANCE SALES MANAGER DERMATOPATHOLOGY LABORATORY Final Diagnosis Specimen A. SKIN, left thigh: SEBORRHEIC KERATOSIS, MACULAR (L82.1) 9 11:39 AM INSURANCE SALES MANAGER DERMATOPATHOLOGY LABORATORY Clinical History MM,SK,Lentigo 9 11:39 AM INSURANCE SALES MANAGER DERMATOPATHOLOGY LABORATORY Gross Description Specimen A: Received is one formalin filled container labeled with the patient's name and designated left thigh. The specimen consists of a shave biopsy measuring 10x8x1 mm. Jar 0. 11:39 AM [facility] DERMATOPATHOLOGY LABORATORY Microscopic Description Specimen A. SKIN, left thigh: Sections show a relatively broad, flat proliferation of small keratinocytes. The surface is gently papillated, and there is increased basilar pigmentation. 11:39 AM [facility] DERMATOPATHOLOGY LABORATORY Disclaimer An external [...] purposes. Billing Codes Specimen Charges Stain Charges 98563 1 11:39 AM [facility] DERMATOPATHOLOGY LABORATORY Embedded Images 11:39 AM [facility] DERMATOPATHOLOGY LABORATORY Pathology/Cytolog y TISSUE SPECIMEN FROM SKIN / Unknown 08/31/2019 09/01/2019 6:10 AM [facility] Liseth Mckeon MD LAB - PATHOLOGY/CYTO LOGY ORDERABLES DERMATOPATHOLOGY LABORATORY [facility] - Department of Dermatology [address] [place] [address], 5th Floor Lab [address] [phone] documented in this encounter Visit Diagnoses Not on filedocumented in this encounter
--- OUTSIDE RECORDS SUMMARY | 2024-11-28 08:27 | XMS_ITS | Encounter Summary ---
Author Organization [facility] Healthcare Address [address] [place] [address] Care Team Providers Care Medical Affairs Leader Name Role Phone Unavailable Primary Care Provider Unavailabl e Reason for Visit * Diagnostic Imaging (Routine) - Closed Specialty Diagnoses / Procedures Referred By Neil soliman Referred To Contact Procedures Breast Imaging Screening Outside Reference Jing Cain NP Phone: tel: fax: Referral ID Status Reason Start Date Expiration Date Visits Re quested Visits Authorized [id number] Closed 11/20/2021 12/20/2022 1 1 Encounter Details Date Type Department Care Team (Late st Contact Info) Description 10/18/2015 Hospital Encounter [facility] [address] [place] [address] Social History Tobacco Use Types Packs/Day Years [...] on file Legal Sex Female 4:[address] RESEARCHER Gender Identity Not on file Sexual Orientation Not on file documented as of this encounter Functional Status documented as of this encounter Plan of Treatment Not on file documented as of this encounter Procedures Procedure Name Priority Date/Time Associated Diagnosis Comments BREAST IMAGING MG SCREENING OUTSIDE REFERENCE Routine 10/18/2015 12:[address] RESEARCHER documented in this encounter Results * Breast Imaging Screening Outside Reference (10/18/2015 12:[address] RESEARCHER) Impressions RAD_M[facility]MO[facility] - 11/20/2021 2:[address] RESEARCHER These images are for Reference purposes only and have not been reviewed by [facility] Radiology. There will be no report generated by a [facility] Radiologist. Narrative RAD_MAMMO_[facility] - 11/20/2021 2:[address] RESEARCHER EXAMINATION: Images For Reference Purposes Only us Jing Cain NP IMG MAMMO PROCEDURES Fin al Result [facility]_M[facility]MO[facility] documented in this encounter Visit Diagnoses Not on filedocumented in this encounter
--- OUTSIDE RECORDS SUMMARY | 2024-11-28 08:27 | XMS_ITS | Encounter Summary ---
Author Organization [facility] Address [address] [place] [address] Care Team Providers Care Bench Assembler Operator Name Role Phone Unavailable Primary Care Provider Unavailabl e Encounter Details Date Type Department Care Team (Late st Contact Info) Description 02/18/2019 Abstract SFL CONVERSION [address] [place] [address] , Generic Conversion, Social History [...]
--- OUTSIDE RECORDS SUMMARY | 2024-11-28 08:27 | XMS_ITS | Encounter Summary ---
Author Organization [facility] Healthcare Address [address] [place] [address] Care Team Providers Care Pad Making Machine Operator Name Role Phone Unavailable Primary Care Provider Unavailabl e Reason for Visit * Diagnostic Imaging (Routine) - Closed Specialty Diagnoses / Procedures Referred By Neil soliman Referred To Contact Procedures Breast Imaging US Outside Reference Jing Cain NP Phone: tel: fax: Referral ID Status Reason Start Date Expiration Date Visits Re quested Visits Authorized [id number] Closed 11/20/2021 12/20/2022 1 1 Encounter Details Date Type Department Care Team (Late st Contact Info) Description 09/30/2020 Hospital Encounter [facility] Radiology [facility] [place] [address] Social History Tobacco Use Types Packs/Day Years [...] on file Legal Sex Female 4:17 AM BAR FINISH OPERATOR Gender Identity Not on file Sexual Orientation Not on file documented as of this encounter Functional Status documented as of this encounter Plan of Treatment Not on file documented as of this encounter Procedures Procedure Name Priority Date/Time Associated Diagnosis Comments BREAST IMAGING US OUTSIDE REFERENCE Routine 09/30/2020 12:00 AM BAR FINISH OPERATOR documented in this encounter Results * Breast Imaging US Outside Reference (09/30/2020 12:00 AM BAR FINISH OPERATOR) Impressions RAD_[facility]MO[facility] - 11/20/2021 2:32 PM BAR FINISH OPERATOR These images are for Reference purposes only and have not been reviewed by [facility] Radiology. There will be no report generated by a [facility] Radiologist. Narrative RAD_MAMMO_[facility]J - 11/20/2021 2:32 PM BAR FINISH OPERATOR EXAMINATION: Images For Reference Purposes Only us Jing Cain DIGITAL PRODUCT SPECIALIST IMG MAMMO PROCEDURES Fin al Result [facility] documented in this encounter Visit Diagnoses Not on filedocumented in this encounter
--- OUTSIDE RECORDS SUMMARY | 2024-11-28 08:27 | XMS_ITS | Encounter Summary ---
Author Organization [facility] Healthcare Address [address] [place] [address] Care Team Providers Care Junior Accounting Clerk Name Role Phone Unavailable Primary Care Provider Unavailabl e Reason for Visit * Diagnostic Imaging (Routine) - Closed Specialty Diagnoses / Procedures Referred By Neil soliman Referred To Contact Procedures Breast Imaging US Outside Reference Jing Cain NP Phone: tel: fax: Referral ID Status Reason Start Date Expiration Date Visits Re quested Visits Authorized [id number] Closed 11/20/2021 12/20/2022 1 1 Encounter Details Date Type Department Care Team (Late st Contact Info) Description 02/17/2017 Hospital Encounter [facility] Rad[facility] [address] [place] [address] Social History Tobacco Use Types Packs/Day Years [...] on file Legal Sex Female 4:17 AM PLISSE MACHINE OPERATOR HELPER Gender Identity Not on file Sexual Orientation [...] CDT) Impressions RAD_MAMMO_[facility] - 11/20/2021 2:34 PM PLISSE MACHINE OPERATOR HELPER These images are for Reference purposes only and have not been reviewed by [facility] Radiology. There will be no report generated by a [facility] Radiologist. Narrative RAD_MAMMO_[facility]J - 11/20/2021 2:34 PM PLISSE MACHINE OPERATOR HELPER EXAMINATION: Images For Reference Purposes Only us Jnig Cain BRICK CHIMNEY BUILDER IMG MAMMO PROCEDURES Fin al Result RAD_MAMMO_[facility] documented in this encounter Visit Diagnoses Not on filedocumented in this encounter
--- OUTSIDE RECORDS SUMMARY | 2024-11-28 08:27 | XMS_ITS | Clinical Summary ---
Author Organization [facility] Address [address] [place] [address] Care Team Providers Care Centrifugal Separator Name Role Phone Dominguez Pena MD Primary Care Provider + [phone] Allergies Active Allergy Reactions Criticality Noted Date [...] on file Legal Sex Female 4:17 AM CHICKEN CUTTER Gender Identity Not on file Sexual [...] Plan of Treatment Not on file [facility] Care Teams Centrifugal Separator Relationship Specialty Start Date End Date Dominguez Pena MD PCP - General Family Medicine 10/23/21
--- OUTSIDE RECORDS SUMMARY | 2024-11-28 08:27 | XMS_ITS | Encounter Summary ---
Author Organization [facility] Healthcare Address [address] [place] [address] Care Team Providers Care Processing Tech Name Role Phone Unavailable Primary Care Provider Unavailabl e Reason for Visit * Diagnostic Imaging (Routine) - Closed Specialty Diagnoses / Procedures Referred By Neil soliman Referred To Contact Procedures Breast Imaging Screening Outside Reference Jing Cain NP Phone: tel: fax: Referral ID Status Reason Start Date Expiration Date Visits Re quested Visits Authorized [id number] Closed 11/20/2021 12/20/2022 1 1 Encounter Details Date Type Department Care Team (Late st Contact Info) Description 04/26/2018 Hospital Encounter [facility] Radiology [facility] [address] [place] [address] Social History Tobacco Use Types Packs/Day Years [...] on file Legal Sex Female 4:17 AM FEATHERER Gender Identity Not on file Sexual Orientation [...] CDT) Impressions RAD_MAMMO[facility] - 11/20/2021 2:34 PM FEATHERER These images are for Reference purposes only and have not been reviewed by [facility] Radiology. There will be no report generated by a [facility] Radiologist. Narrative RAD_MAMMO_[facility] - 11/20/2021 2:34 PM FEATHERER EXAMINATION: Images For Reference Purposes Only us Jing Cain NP IMG MAMMO PROCEDURES Fin al Result RAD_MAMMO[facility] documented in this encounter Visit Diagnoses Not on filedocumented in this encounter
--- OUTSIDE RECORDS SUMMARY | 2024-11-28 08:27 | XMS_ITS | Encounter Summary ---
Author Organization [facility] Health Address [address] [place] [address] Care Team Providers Care Gm Video Name Role Phone Unavailable Primary Care Provider Unavailabl e Encounter Details Date Type Department Care Team (Late st Contact Info) Description 07/05/2023 Lab Requisition [facility] - DermPath Lab [address] [facility] [place] [address] Liseth Mckeon MD [address] [facility] 3 [place] [address] Social History Tobacco Use Types Packs/Day Years [...] PM CDT) Case Report Dermatopathology Report Case: [id number] Authorizing Provider: Liseth Mckeon MD Collected: 07/05/2023 02:50 PM Ordering Location: [facility] DermPath Lab Received: 07/06/2023 11:13 AM Pathologist: Kalie Chu MD Specimen: Skin, left upper lip 3 4:18 PM CDT DERMATOPATHOLOGY LABORATORY Final Diagnosis Specimen A. 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 Billing Codes Specimen Charges Stain Charges 44471 1 4:18 PM CDT DERMATOPATHOLOGY LABORATORY Embedded Images 4:18 PM CDT DERMATOPATHOLOGY LABORATORY Pathology/Cytolo gy TISSUE SPECIMEN FROM SKIN / Unknown 07/05/2023 2:50 PM CDT 07/06/2023 11:13 AM CDT Liseth Mckeon MD LAB - PATHOLOGY/CYTO LOGY ORDERABLES DERMATOPATHOLOGY LABORATORY [facility] - Department of Dermatology [address], [address] Floor [address] [phone] documented in this encounter Visit Diagnoses Not on filedocumented in this encounter
--- OUTSIDE RECORDS SUMMARY | 2024-11-28 08:27 | XMS_ITS | Clinical Summary ---
Author Organization [facility] Address [address] [place] [address] Care Team Providers Care Slot Operations Manager Name Role Phone Unavailable Primary Care Provider Unavailabl e Source Comments [facility],non-owned Affiliates and Associated Physician Practices is amultiple site organization consisting of ambulatory clinics and hospital sitesin [place], [place], [place] and [place]. This disclosure is being madepursuant to the Care Everywhere program and may not contain all information available regarding this patient. Last updated 18.[facility] Encounters Date Type Department Care Team Description 10/10/2024 Lab Requisition [facility] - DermPath Lab [address] [place] [address] Adelaida Parra MD from Last 3 Months [...] Comments DERMATOPATHOLOGY Routine 10/10/2024 11:1 0 AM SANITARY AIDE from Last 3 Months Results * DERMATOPATHOLOGY (10/10/2024 11:10 AM SANITARY AIDE) Case Report Dermatopathology Report Case: [id number] Authorizing Provider: Adelaida Parra MD Collected: 10/10/2024 11:10 AM Ordering Location: [facility] - Received: 10/11/2024 12:47 PM DermPath Lab Pathologist: Marly Yao MD Specimen: Skin, left mid back 2:12 PM SANITARY AIDE DERMATOPATHOLOGY LABORATORY Final Diagnosis Specimen A. SKIN, left mid back: LICHEN PLANUS-LIKE KERATOSIS (BENIGN LICHENOID KERATOSIS) (L82.1) 2:12 PM SANITARY AIDE DERMATOPATHOLOGY LABORATORY Clinical History R/O NMSC; Irritated 2:12 PM SANITARY AIDE DERMATOPATHOLOGY LABORATORY Gross Description Specimen A: Received is one formalin filled container labeled with the patient's name and designated left mid back. The specimen consists of a shave biopsy measuring 8x8x1 mm. Jar 0. 2:12 PM SANITARY AIDE DERMATOPATHOLOGY LABORATORY Microscopic Description Specimen A. SKIN, left mid back: The epidermis is mildly acanthotic. There is a lichenoid infiltrate with vacuolar changes of basilar keratinocytes and scattered necrotic keratinocytes. 5 2:12 PM SANITARY AIDE DERMATOPATHOLOGY LABORATORY Disclaimer An external and internal positive and negative controls are appropriate for the histochemical, immunohistochemical and immunofluorescence stain(s) in this case (if any), except where stated explicitly. The performance characteristics of the stain(s) cited in this report were developed and its performance characteristic determined by the Dermatopathology Laboratory at [facility], directed by Dr. Linda Garcia. These tests need not be, and therefore are not, approved by the [place] Food and Drug Administration. The tests are used for clinical purposes. Billing Codes Specimen Charges Stain Charges 67677 1 5 2:12 PM SANITARY AIDE DERMATOPATHOLOGY LABORATORY Embedded Images 2:12 PM SANITARY AIDE DERMATOPATHOLOGY LABORATORY Pathology/Cytolo gy TISSUE SPECIMEN FROM SKIN / Unknown 10/10/2024 11:10 AM SANITARY AIDE 10/11/2024 12:47 PM SANITARY AIDE Adelaida Parra MD LAB - PATHOLOGY/CYT OLOGY ORDERABLES DERMATOPATHOLOGY LABORATORY [facility] - Department of Dermatology [facility] [address] [place] [address], [address] Floor [address] [phone] from Last 3 Months
--- OUTSIDE RECORDS SUMMARY | 2024-11-28 08:27 | XMS_ITS | Encounter Summary ---
Author Organization [facility] Healthcare Address [address] [place] [address] Care Team Providers Care Replanting Machine Operator Name Role Phone Unavailable Primary Care Provider Unavailabl e Reason for Visit * Diagnostic Imaging (Routine) - Closed Specialty Diagnoses / Procedures Referred By Neil t Referred To Contact Procedures Breast Imaging Screening Outside Reference Jing Cain NP Phone: tel: fax: Referral ID Status Reason Start Date Expiration Date Visits Re quested Visits Authorized [id number] Closed 11/20/2021 12/20/2022 1 1 Encounter Details Date Type Department Care Team (Late st Contact Info) Description 08/08/2019 12:05 AM EQUIPMENT OPERAT0R Hospital Encounter [facility] Radiology [facility] [address] [place] [phone] Social History Tobacco Use Types Packs/Day Years [...] on file Legal Sex Female 4:17 AM EQUIPMENT OPERAT0R Gender Identity Not on file Sexual Orientation Not on file documented as of this encounter Functional Status documented as of this encounter Plan of Treatment Not on file documented as of this encounter Procedures Procedure Name Priority Date/Time Associated Diagnosis Comments BREAST IMAGING MG SCREENING OUTSIDE REFERENCE Routine 08/08/2019 12:05 AM EQUIPMENT OPERAT0R documented in this encounter Results * Breast Imaging Screening Outside Reference (08/08/2019 12:05 AM EQUIPMENT OPERAT0R) Impressions RAD_MAMMO_[facility] - 11/20/2021 2:35 PM EQUIPMENT OPERAT0R These images are for Reference purposes only and have not been reviewed by [facility] Radiology. There will be no report generated by a [facility] Radiologist. Narrative RAD_MAMMO_[facility] - 11/20/2021 2:35 PM EQUIPMENT OPERAT0R EXAMINATION: Images For Reference Purposes Only us Jing Cain NP IMG MAMMO PROCEDURES Fin al Result RAD_MAMMO_[facility] documented in this encounter Visit Diagnoses Not on filedocumented in this encounter
--- OUTSIDE RECORDS SUMMARY | 2024-11-28 08:27 | XMS_ITS | Encounter Summary ---
Author Organization [facility] Address [address] [place] [address] Care Team Providers Care Pinion Polisher Name Role Phone Unavailable Primary Care Provider Unavailabl e Encounter Details Date Type Department Care Team (Late st Contact Info) Description 02/29/2024 Lab Requisition [facility] - DermPath Lab [address] [facility] [place] [address] Liseth Mckeon MD [address] [facility] 3 [place] [address] Social History Tobacco Use Types Packs/Day Years [...] PM CDT) Case Report Dermatopathology Report Case: [id number] Authorizing Provider: Liseth Mckeon MD Collected: 02/29/2024 01:23 PM Ordering Location: [facility] Physician [facility] - Received: 03/02/2024 05:38 AM DermPath [...] DERMATOPATHOLOGY LABORATORY Clinical History Nevus vs BCC; Pierpoint Papule 4 2:18 PM CDT DERMATOPATHOLOGY LABORATORY [...] characteristic determined by the Dermatopathology Laboratory at [facility], directed by Dr. Linda Garcia. These tests need not be, and therefore are not, approved by the [place] Food and Drug Administration. The tests are used for clinical purposes. Billing Codes Specimen Charges Stain Charges 00025 1 4 2:18 PM CDT DERMATOPATHOLOGY LABORATORY Embedded Images 4 2:18 PM CDT DERMATOPATHOLOGY LABORATORY Pathology/Cytolo gy TISSUE SPECIMEN FROM SKIN / Unknown 02/29/2024 1:23 PM CDT 03/02/2024 5:38 AM CDT Liseth Mckeon MD LAB - PATHOLOGY/CYTO LOGY ORDERABLES DERMATOPATHOLOGY LABORATORY [facility] - Department of Dermatology [address], [address]rd Floor [place], [place] [address] [place] [address] documented in this encounter Visit Diagnoses Not on filedocumented in this encounter
--- OUTSIDE RECORDS SUMMARY | 2024-11-28 08:28 | XMS_ITS | Referral Summary ---
Author Organization [facility] Address [address] [place] [address] Care Team Providers Care Credit Rating Inspector Name Role Phone Dominguez Pena MD Primary Care Provider [phone] Allergies Active Allergy Reactions Criticality Noted Date [...] on file Legal Sex Female 4:17 AM INDUSTRIAL TRACTOR DRIVER Gender Identity Not on file Sexual Orientation [...] Plan of Treatment Not on file Insurance [facility] PPO Care Teams Credit Rating Inspector Relationship Specialty Start Date End Date Dominguez Pena MD PCP - General Family Medicine 10/23/21
--- OUTSIDE RECORDS SUMMARY | 2024-11-28 08:28 | XMS_ITS | Encounter Summary ---
Author Organization [facility] Healthcare Address [address] [place] [address] Care Team Providers Care Contact Lens Lathe Operator Name Role Phone Unavailable Primary Care Provider Unavailabl e Reason for Visit * Diagnostic Imaging (Routine) - Closed Specialty Diagnoses / Procedures Referred By Neil soliman Referred To Contact Procedures Breast Imaging Diagnostic Outside Reference Jing Cain NP Phone: tel: fax: Referral ID Status Reason Start Date Expiration Date Visits Re quested Visits Authorized [id number] Closed 11/20/2021 12/20/2022 1 1 Encounter Details Date Type Department Care Team (Late st Contact Info) Description 09/30/2020 12:05 AM FURNACE FILLER Hospital Encounter [facility] Radiology [facility] [address] [place] [phone] Social History Tobacco Use Types Packs/Day Years [...] on file Legal Sex Female 4:17 AM FURNACE FILLER Gender Identity Not on file Sexual Orientation Not on file documented as of this encounter Functional Status documented as of this encounter Plan of Treatment Not on file documented as of this encounter Procedures Procedure Name Priority Date/Time Associated Diagnosis Comments BREAST IMAGING MG DIAGNOSTIC OUTSIDE REFERENCE Routine 09/30/2020 12:05 AM FURNACE FILLER documented in this encounter Results * Breast Imaging Diagnostic Outside Reference (09/30/2020 12:05 AM FURNACE FILLER) Impressions RAD_MAMMO_[facility] - 11/20/2021 2:32 PM FURNACE FILLER These images are for Reference purposes only and have not been reviewed by [facility] Radiology. There will be no report generated by a [facility] Radiologist. Narrative RAD_MAMMO_[facility] - 11/20/2021 2:32 PM FURNACE FILLER EXAMINATION: Images For Reference Purposes Only us Jing Cain NP IMG MAMMO PROCEDURES Fin al Result RAD_MAMMO[facility] documented in this encounter Visit Diagnoses Not on filedocumented in this encounter
--- OUTSIDE RECORDS SUMMARY | 2024-11-28 08:28 | XMS_ITS | Continuity of Care Document ---
Author Organization [facility] Address [address] [place] [address] Phone Care Team Providers Care Truck Shop Mechanic Name Role Phone Elidia Lam MD Unavailable [...] AND PLATEAU; MEDIAL OR LATERAL COMP OFFICE [id number] X-RAY EXAM OF KNEE, A/P & LAT 2 KENALOG 10 MG ASP/INJ MAJOR JOINTOR BURSA, SHOULDER, H IP,KNEE W/O US GUIDANCE POSTOPERATIVE FOLLOW-UP VISIT, INCLUDED IN GLOBAL SERVICE POSTOPERATIVE FOLLOW-UP VISIT, INCLUDED IN GLOBAL SERVICE POSTOPERATIVE FOLLOW-UP VISIT, INCLUDED IN GLOBAL SERVICE POSTOPERATIVE FOLLOW-UP VISIT, INCLUDED IN GLOBAL SERVICE KNEE ARTHROSCOPY/SURGERY OFFICE [id number] X-RAY EXAM OF KNEE, A/P & LAT OFFICE [id number] KENALOG 10 MG ASP/INJ MAJOR JOINTOR BURSA, SHOULDER, H IP,KNEE W/O US GUIDANCE OFFICE [id number] Xray Exam, Hip, Unilat, Two Or Three Vie ws OFFICE [id number] Advance Directives Directive Yes / No Effective Date File Name No Information Encounters Encounter Description Practice Location Reason(s) For Visit Diagnoses Date Provider Providers Copied on Encounter [facility], [address], [place], [place], [address], tel:[phone] [facility] No Information 3 [facility]. [address], [place], [place], [address] , [place]. tel:[phone] [facility], [address], [place], [place], [address], tel:[phone] [facility] knee (chief complaint) Status post right partial knee replacement 3 [facility]. [address], [place], [place], [address] , [place]. tel:[phone] Referring Provider: Tyree Pe[address], [place], [address] . tel:[phone] [facility], [address], [place], [place], [address], tel:[phone] [facility] knee (chief complaint) Status post right partial knee replacement 3 [facility]. [address], [place], [place], [address] , [place]. [phone] Referring Provider: Tyree Peña [address], [place], [address] . tel:[phone] [facility], [address], [place], [place], [address], tel:[phone] [facility] knee (chief complaint) Status post right partial knee replacement [facility]. [address], [place], [place], [address] , [place]. tel:[phone] Referring Provider: Elidia Lam, [address], [place], [address] . tel:[phone] [facility], [address], [place], [place], [address], [place] tel:[phone] [facility] No Information [facility]. [address], [place], [place], [address] , [place]. [phone] Referring Provider: Tyree Peña [address], [place], [address] . tel:[phone] OFFICE ZUCDM-NPR-DHG DARLNIG [facility], [address], [place], [place], [address], tel:[phone] [facility] knee (chief complaint) Primary osteoarthritis of right knee [facility]. [address], [place], [place], [address] , [place]. [phone] Referring Provider: Tyree Peña [address], [place], [address] . tel:[phone] [facility], [address], [place], [place], [address], [place] tel:[phone] [facility] RIGHT KNEE (chief complaint) S/P right knee arthroscopy [facility]. [address], [place], [place], [address] , [place]. tel:[phone] Referring Provider: Tyree Peña [address], [place], [address] . tel:[phone] [facility], [address], [place], [place], [address], tel:[phone] [facility] LEFT HIP (chief complaint) RIGHT KNEE (chief complaint) Status post arthroscopic surgery of right knee [facility]. [address], [place], [place], [address] , [place]. tel:[phone] Referring Provider: Tyree Peña [address], [place], [address] . tel:[phone] [facility], [address], [place], [place], [address], tel:[phone] [facility] No Information 2 [facility]. [address], [place], [place], [address] , . [phone] Referring Provider: Tyree Peña [address], [place], [address] . tel:[phone] OFFICE [facility], [address], [place], [place], [address], tel:[phone] [facility] RIGHT KNEE (chief complaint) Complex tear of medial meniscus of right knee as current injury, initial encounterLoose body of right knee 2 [facility]. [address], [place], [place], [address] , [place]. [phone] Referring Provider: Tyree Peña [address], [place], [address] . tel:[phone] OFFICE EWGPU-QKR-DDS ANDED [facility], [address], [place], [place], [address], tel:[phone] [facility] Right Knee (chief complaint) Injury of meniscus of right knee, initial encounter 2 [facility]. [address], [place], [place], [address] , [place]. tel: [phone] Referring Provider: Tyree Pe[address], [place], [address] . tel:[phone] OFFICE BXKPC-FCU-GXF ANDED [facility], [address], [place], [place], [address], [place] tel:[phone] [facility] Right Knee (chief complaint) Right Great Toe (chief complaint) Primary osteoarthritis of left hipPrimary osteoarthritis of right kneeDegenerative joint disease of toe 1 [facility]. [address], [place], [place], [address] , [place]. tel:[phone] Referring Provider: Tyree Pe[address], [place], [address] . tel:[phone] OFFICE QHSWC-YFV-RSY ANDED [facility], [address], [place], [place], [address], [place] tel:[phone] [facility] Left Hip (chief complaint) Primary osteoarthritis of left hip 1 [facility]. [address], [place], [place], [address] , [place]. tel: [phone] Referring Provider: Tyree Peña [address], [place], [address] . tel:[phone] [facility], [address], [place], [place], [address], [place] tel:[phone] [facility] right knee (chief complaint) Primary osteoarthritis of right knee 9 [facility]. [address], [place], [place], [address] , [place]. tel:[phone] Referring Provider: Tyree Peña [address], [place], [address] . tel:[phone] [facility], [address], [place], [place], [address], [place] tel:[phone] [facility] Contusion of left knee, initial encounter 7 [facility]. [address], [place], [place], [address] , [place]. tel:[phone] Referring Provider: Elidia Gayatrijudith, [address], [place], [address] . tel:[phone] [facility], [address], [place], [place], [address], [place] tel:[phone] [facility] Acute pain of left knee 7 [facility]. [address], [address], [place], [place], [address] , [place]. tel:[phone] Family History Family Member Type Diagnosis Age At Onset No Information Payers Payer name Insurance type Covered republican ID Authoriza tibolivar(s) [employer] PPO PLANS [id number] Social History Type Description Quantity Date Captured Comments Alcohol Use Details Unknown Caffeine Use Details Unknown Tobacco Use Status No Information Smoking Status No Information Sex Female Chief Complaint And Reason For Visit No Information Reason For Referral Reason For Referral No Information Plan Of Treatment Date Type Action Status Referral Referred To: Physical Therapy Ordered: Referrals: Physical Therapy. Location: [facility]. Evaluate and treat - Level 2 ordered [...] I, LOWER JOINT EXTREMITY W/O CONTRAST Right (49280), Sent on: Sent History Of Present Illness [...]
[2024-11-28 09:02] LABS: Basophils Percent Auto 0.6 % (0.2-1.2); Eosinophils Absolute Auto 0.1 K/mm3 (0-0.3); Eosinophils Percent Auto 1.7 % (0-4.4); Hematocrit 37.9 % (37.0-47.0); Hemoglobin 12.5 g/dL (12.0-15.0); Immature Granulocyte Absolute 0.01 K/mm3 (0.00-0.031); Immature Granulocyte Percent A 0.2 % (0-0.5); Lymphocytes Absolute Auto 2.27 K/mm3 (0.9-3.2); Lymphocytes Percent Auto 43.4 % (18.3-44.2); Mean Corpuscular Hemoglobin 30.2 pg (26-34); Mean Corpuscular Volume 91.5 fl (80-100); Mean Platelet Volume 9.6 fl (7.4-10.4); Monocytes Absolute Auto 0.4 K/mm3 (0.1-0.6); Monocytes Percent Auto 8.4 % (2.6-8.5); Neutrophils Absolute Auto 2.4 K/mm3 (1.3-6.7); Neutrophils Percent Auto 45.7 % (45.5-73.1); Platelet Count Result 221 k/mm3 (150-375); Red Blood Count 4.14 M/mm3 (4.2-5.4); Red Cell Distribution Width 12.7 % (11.5-14.5); White Blood Count 5.2 K/mm3 (4.5-10.0)
[2024-11-28 09:12] LABS: Alanine Aminotransferase 20 U/L (6-35); Albumin Level 4.4 g/dL (3.5-5.1); Alkaline Phosphatase 120 U/L (38-126); Anion Gap 7 mmol/L (4-12); Aspartate Amino Transferase 32 U/L (14-36); Bilirubin,Total 0.4 mg/dL (0.2-1.3); Blood Urea Nitrogen 12 mg/dL (7-17); Calcium 9.4 mg/dL (8.4-10.2); Carbon Dioxide 31 mmol/L (22-30); Chloride 103 mmol/L (98-107); Estimated CRCL calculation 61 ml/min; Estimated Glomerular Filt Rate > 60; Glucose 115 mg/dL (65-110); Magnesium 1.9 mg/dL (1.6-2.3); Potassium 3.9 mmol/L (3.4-5.0); Sodium 141 mmol/L (137-145)
[2024-11-28 09:20] LABS: Estimated CRCL calculation 52 ml/min; Estimated Glomerular Filt Rate 55
[2024-11-28 09:24] LABS: Troponin I < 0.012 ng/mL (0.000-0.034)
[2024-11-28] MEDS: SODIUM CHLORIDE 0.9% IV 1,000 ML 999 ML IV CONT (09:58)
[2024-11-28 10:31] LABS: Influenza A QL RT-PCR Negative (Negative); Influenza B QL RT-PCR Negative (Negative); RSV RNA, RT-PCR Negative (Negative); SARS-CoV-2 RNA PCR Negative (Negative)
[2024-11-28 10:42] LABS: Add Urine Microscopic? YES; Appearance Urine Clear (Clear); Bacteria Urine None Seen /hpf; Bilirubin Urine Negative (Negative); Blood Urine Negative (Negative); Color Urine Yellow (Yellow); Glucose Urine UA Negative (Negative); Ketones Urine Negative (Negative); Leukocyte Esterase Ur 2+ LEU/UL (Negative); Nitrate Urine Negative (Negative); Non Pathogenic Casts 0-2; Protein Urine Negative (Negative); RBC Urine 0-2 /hpf (0-2); Specific Grav Ur 1.008 (1.001-1.035); Squamous Epithelial Cell Urine None Seen /hpf (Few); Urobilinogen Urine 0.2 mg/dL (<2.0); WBC Urine 0-5 /hpf (0-3)
[2024-11-28] MEDS: diphenhydrAMINE HCl INJ 50 MG/ML VIAL 12.5 MG IV PUSH (11:01)
[2024-11-28] MEDS: PROCHLORPERAZINE EDISYLATE 10 MG/2 ML VIAL 5 MG IV PUSH (11:03)
[2024-11-28] MEDS: KETOROLAC 15 MG/ML VIAL (*BKC) IV PUSH (11:07)
== END 2024-11-28 13:09 | disposition home or self-care (01) ==
PROVIDERS: Emergency Provider Student in an Organized Health Care Education/Training Program; PCP Family Medicine
DX: G43.909 Migraine, unspecified, not intractable, without status migrainosus (principal); H53.8 Other visual disturbances; R82.998 Other abnormal findings in urine; Z20.822 Contact with and (suspected) exposure to COVID-19; Z77.22 Contact with and (suspected) exposure to environmental tobacco smoke (acute) (chronic)
CPT/HCPCS: 36415; 70496; 70498; 71045; 80053; 81001; 83735; 84484; 85025; 87086; 87637; 93005; 96361; 96374; 96375; 99284; J0780; J1200; J1885; J7030; Q9967

== ENCOUNTER 2024-12-01 08:45 | Outpatient (CLI) | payer MEDICARE, SELFPAY ==
--- NOTE | ~2024-12-01 | CT_ITS ---
CT of the Abdomen and Pelvis: Indication: Abdominal pain Technique: 2.5 mm axial scans were obtained through the abdomen and pelvis following intravenous adm inistration of 100 cc of Omnipaque 350. Dose reduction technique was used on this scan by utilizing a utomated exposure control and iterative reconstruction technique. The dose-length product (DLP) was 7 18.36 mGy-cm. Findings: Scans through the lung bases are unremarkable. The liver, spleen, pancreas, gallbladder, adrenals and kidneys are within normal limits. No evidence of aortic aneurysm. No lymphadenopathy. No bowel obstruction or bowel wall thickening. There is no evidence to suggest acute appendicitis. Images through the pelvis were performed. Urinary bladder unremarkable. No pelvic mass. No ascites. Impression: No significant abnormalities seen. Reviewed, dictated and finalized at [facility]. Impression: No significant abnormalities seen.
== END 2024-12-01 08:46 | disposition home or self-care (01) ==
PROVIDERS: PCP Family Medicine; Visit Provider Physician Assistant Medical
DX: R10.11 Right upper quadrant pain (principal); R10.31 Right lower quadrant pain; G89.29 Other chronic pain
CPT/HCPCS: 74177; Q9967

== ENCOUNTER 2024-12-25 00:30 | Day surgery (SDC) | payer MEDICARE, SELFPAY ==
--- NOTE | 2024-12-18 13:01 | PC.NURSE ---
Report to the Outpatient Waiting Room, entrance under the green pavilion located off [facility], at time _1200 NOON on date _12/25/24 . Planned Procedure Time: 2 PM .? Time changes happen often and if your time is changed the preop area will call you the afternoon before. - You and your visitor will be asked to self-screen and do not enter if you have any COVID symptoms. Please call surgeon if you need to reschedule. - A mask is optional within the hospital at this time. Patients may have clear liquids (water, carbonated beverages, clear teas, apple juice) until 3 hours prior to surgery ( 11AM) with a maximum of 20 ounces. - No food from midnight until time of surgery and no smoking, or chewing tobacco (or any form of nicotine). No chewing gum, candy or mints. - Take only the following medications with a SIP of water on the morning of surgery: ___NONE DO NOT STOP ANY OF YOUR OTHER PRESCRIPTION MEDICATIONS PRIOR TO SURGERY EXCEPT THE FOLLOWING Hold all vitamins and supplements for 3 days per anesthesiologist. LAST DOSE 12/21/24 Medications to discontinue per physician IBUPROFEN PER DR MERLOS Date to take last dose Please no make-up, nail libyan, hairspray, perfume, deodorant, or body powder the day of surgery.? No jewelry (including any body piercings) or valuables the day of surgery, leave them at home.? Please take a shower or bath the night before, or the morning of, surgery with an antibacterial soap.? Wear comfortable, loose fitting clothing.? Children are encouraged to wear pajamas. - Jewelry must be removed prior to entering the operating room.? Rings and piercings that are not removed may be cut off. - The hospital will not accept responsibility for valuables.? - Please leave all valuables, including medications, at home the day of surgery. If you are going home after surgery, a licensed residential recycle driver must drive you home.? - NO public transportation without another adult if you receive anesthesia. - We recommend that an adult stay with you for 24 hours following discharge. - We also recommend that you do not drive, make important decision, drink alcoholic beverages, or take any drugs that were not prescribed by your health care provider for at least 24 hours after your discharge time. For Pediatric surgeries, we recommend two adults accompany the child home. Follow any additional instructions given to you from your surgeon. Telephone instructions given to __PATIENT and asked if any additional questions and then verbalized understanding. Patient advised to call surgeon office or pre surgery nurse liaison [phone] if any additional questions.
[2024-12-18 13:21] VITALS: BMI 30.7
--- OUTSIDE RECORDS SUMMARY | 2024-12-25 00:32 | XMS_ITS | Encounter Summary ---
Author Organization [facility] Healthcare Address [address] [place] [address] Care Team Providers Care National Coverage Specialist Name Role Phone Unavailable Primary Care Provider Unavailabl e Reason for Visit * Diagnostic Imaging (Routine) - Closed Specialty Diagnoses / Procedures Referred By Neil t Referred To Contact Procedures Breast Imaging US Outside Reference Jing Cain NP Phone: tel: fax: Referral ID Status Reason Start Date Expiration Date Visits Re quested Visits Authorized [id number] Closed 11/20/2021 12/20/2022 1 1 Encounter Details Date Type Department Care Team (Late st Contact Info) Description 01/26/2017 Hospital Encounter [facility] [address] [place] [address] Social History Tobacco Use Types Packs/Day Years [...] on file 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 There will be no report generated by a [facility] Radiologist. Narrative RAD_MAMMO_[facility] - 11/20/2021 2:34 PM CALCINER FEEDER EXAMINATION: Images For Reference Purposes Only us Jing Cain TRAILHEAD MAINTENANCE WORKER IMG MAMMO PROCEDURES Fin al Result [facility]MO[facility] documented in this encounter Visit Diagnoses Not on filedocumented in this encounter
--- OUTSIDE RECORDS SUMMARY | 2024-12-25 00:32 | XMS_ITS | Encounter Summary ---
Author Organization [facility] Address [address] [place] [address] Care Team Providers Care Head Of Design Name Role Phone Unavailable Primary Care Provider Unavailabl e Encounter Details Date Type Department Care Team (Late st Contact Info) Description 07/05/2023 Lab Requisition [facility] - DermPath Lab [address] [facility] [facility] [place] [address] Liseth Mckeon MD [address] [facility] [facility] [address] [place] [address] Social History Tobacco Use Types Packs/Day Years Used Date Smoking Tobacco: Never Assessed Comments Unknown Sex and Gender Information Value Date Recorded Sex Assigned at Not on file 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 Gender Identity Not on file Sexual Orientation Not on file documented as of this encounter Plan of Treatment Not on file documented as of this encounter Procedures Procedure Name Priority Date/Time Associated Diagnosis Comments DERMATOPATHOLOGY Routine 07/05/2023 2:50 PM CDT documented in this encounter Results * DERMATOPATHOLOGY (07/05/2023 2:50 PM CDT) Case Report Dermatopathology Report Case: [id number] Authorizing Provider: Liseth Mckeon MD Collected: 07/05/2023 02:50 PM Ordering Location: [facility] DermPath Lab Received: 07/06/2023 11:13 AM Pathologist: Kalie Chu MD Specimen: Skin, left upper lip 4:18 PM CDT DERMATOPATHOLOGY LABORATORY Final Diagnosis Specimen A. 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 4:18 PM CDT DERMATOPATHOLOGY LABORATORY Disclaimer An external and internal positive and negative controls are appropriate for the histochemical, immunohistochemical and immunofluorescence stain(s) in this case (if any), except where stated explicitly. The performance characteristics of the stain(s) cited in this report were developed and its performance characteristic determined by the Dermatopathology Laboratory at [facility], directed by Dr. Linda Garcia. These tests need not be, and therefore are not, approved by the [place] Food and Drug Administration. The tests are used for clinical purposes. Billing Codes Specimen Charges Stain Charges 85363 1 4:18 PM CDT DERMATOPATHOLOGY LABORATORY Embedded Images 4:18 PM CDT DERMATOPATHOLOGY LABORATORY Pathology/Cytolo gy TISSUE SPECIMEN FROM SKIN / Unknown 07/05/2023 2:50 PM CDT 07/06/2023 11:13 AM CDT us Liseth Mckeon MD LAB - PATHOLOGY/CYTOLOGY ORD ERABLES Final Result DERMATOPATHOLOGY LABORATORY [facility] - Department of Dermatology [address] [place] [address], [facility] [phone] documented in this encounter Visit Diagnoses Not on filedocumented in this encounter
--- OUTSIDE RECORDS SUMMARY | 2024-12-25 00:32 | XMS_ITS | Encounter Summary ---
Author Organization [facility] Healthcare Address [address] [place] [address] Care Team Providers Care Nerve Specialist Name Role Phone Unavailable Primary Care Provider Unavailabl e Reason for Visit * Diagnostic Imaging (Routine) - Closed Specialty Diagnoses / Procedures Referred By Neil t Referred To Contact Procedures Breast Imaging Screening Outside Reference Jing Cain NP Phone: tel: fax: Referral ID Status Reason Start Date Expiration Date Visits Re quested Visits Authorized [id number] Closed 11/20/2021 12/20/2022 1 1 Encounter Details Date Type Department Care Team (Late st Contact Info) Description 08/08/2019 12:05 AM SUBASSEMBLY ASSEMBLER Hospital Encounter [facility] [address] [place] [address] [id number] Social History Tobacco Use Types Packs/Day Years [...] on file Legal 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 Gender Identity Not on file Sexual Orientation Not on file documented as of this encounter Functional Status documented as of this encounter Plan of Treatment Not on file documented as of this encounter Procedures Procedure Name Priority Date/Time Associated Diagnosis Comments BREAST IMAGING MG SCREENING OUTSIDE REFERENCE Routine 08/08/2019 12:05 AM SUBASSEMBLY ASSEMBLER documented in this encounter Results * Breast Imaging Screening Outside Reference (08/08/2019 12:05 AM SUBASSEMBLY ASSEMBLER) Impressions [facility]MO[facility] - 11/20/2021 2:35 PM SUBASSEMBLY ASSEMBLER These images are for Reference purposes only and have not been reviewed by [facility] Radiology. There will be no report generated by a [facility] Radiologist. Narrative RAD_MAMMO[facility] - 11/20/2021 2:35 PM SUBASSEMBLY ASSEMBLER EXAMINATION: Images For Reference Purposes Only us Jing Cain NP IMG MAMMO PROCEDURES Fin al Result [facility]MO[facility] documented in this encounter Visit Diagnoses Not on filedocumented in this encounter
--- OUTSIDE RECORDS SUMMARY | 2024-12-25 00:32 | XMS_ITS | Continuity of Care Document ---
Author Organization [facility] Address [address] [place] [address] Phone Care Team Providers Care Mill Laborer Name Role Phone Elidia Lam MD Unavailable [...] AND PLATEAU; MEDIAL OR LATERAL COMP OFFICE [id number] X-RAY EXAM OF KNEE, A/P & LAT 2 KENALOG 10 MG ASP/INJ MAJOR JOINTOR BURSA, SHOULDER, H IP,KNEE W/O US GUIDANCE POSTOPERATIVE FOLLOW-UP VISIT, INCLUDED IN GLOBAL SERVICE POSTOPERATIVE FOLLOW-UP VISIT, INCLUDED IN GLOBAL SERVICE POSTOPERATIVE FOLLOW-UP VISIT, INCLUDED IN GLOBAL SERVICE POSTOPERATIVE FOLLOW-UP VISIT, INCLUDED IN GLOBAL SERVICE KNEE ARTHROSCOPY/SURGERY OFFICE [id number] X-RAY EXAM OF KNEE, A/P & LAT OFFICE [id number] KENALOG 10 MG ASP/INJ MAJOR JOINTOR BURSA, SHOULDER, H IP,KNEE W/O US GUIDANCE OFFICE [id number] Xray Exam, Hip, Unilat, Two Or Three Vie ws OFFICE [id number] Advance Directives Directive Yes / No Effective Date File Name No Information Encounters Encounter Description Practice Location Reason(s) For Visit Diagnoses Date Provider Providers Copied on Encounter [facility], [address], [place], [place], [address], tel:[phone] [facility] No Information 3 [facility]. [address], [place], [place], [address] , [place]. tel:[phone] [facility], [address], [place], [place], [address], tel:[phone] [facility] knee (chief complaint) Status post right partial knee replacement 3 [facility]. [address], [place], [place], [address] , [place]. tel:[phone] Referring Provider: Tyree Pe[address], [place], [address] . tel:[phone] [facility], [address], [place], [place], [address], tel:[phone] [facility] knee (chief complaint) Status post right partial knee replacement 3 [facility]. [address], [place], [place], [address] , [place]. [phone] Referring Provider: Tyree Peña [address], [place], [address] . tel:[phone] [facility], [address], [place], [place], [address], tel:[phone] [facility] knee (chief complaint) Status post right partial knee replacement [facility]. [address], [place], [place], [address] , [place]. tel:[phone] Referring Provider: Elidia Lam, [address], [place], [address] . tel:[phone] [facility], [address], [place], [place], [address], [place] tel:[phone] [facility] No Information [facility]. [address], [place], [place], [address] , [place]. [phone] Referring Provider: Tyree Peña [address], [place], [address] . tel:[phone] OFFICE [id number]-HHM DARLING [facility], [address], [place], [place], [address], tel:[phone] [facility] knee (chief complaint) Primary osteoarthritis of right knee [facility]. [address], [place], [place], [address] , [place]. [phone] Referring Provider: Tyree Peña [address], [place], [address] . tel:[phone] [facility], [address], [place], [place], [address], [place] tel:[phone] [facility] RIGHT KNEE (chief complaint) S/P right knee arthroscopy [facility]. [address], [place], [place], [address] , [place]. [phone] Referring Provider: Tyree Peña [address], [place], [address] . tel:[phone] [facility], [address], [place], [place], [address], tel:[phone] [facility] LEFT HIP (chief complaint) RIGHT KNEE (chief complaint) Status post arthroscopic surgery of right knee [facility]. [address], [place], [place], [address] , [place]. tel:[phone] Referring Provider: Tyree Peña [address], [place], [address] . tel:[phone] [facility], [address], [place], [place], [address], tel:[phone] [facility] No Information 2 [facility]. [address], [place], [place], [address] , . [phone] Referring Provider: Tyree Peña [address], [place], [address] . tel:[phone] OFFICE [id number], [address], [place], [place], [address], tel:[phone] [facility] RIGHT KNEE (chief complaint) Complex tear of medial meniscus of right knee as current injury, initial encounterLoose body of right knee 2 [facility]. [address], [place], [place], [address] , [place]. [phone] Referring Provider: Tyree Peña [address], [place], [address] . tel:[phone] OFFICE YYBHI-FBS-HUY ANDED [facility], [address], [place], [place], [address], tel:[phone] [facility] Right Knee (chief complaint) Injury of meniscus of right knee, initial encounter 2 [facility]. [address], [place], [place], [address] , [place]. tel: [phone] Referring Provider: Tyree Pe[address], [place], [address] . tel:[phone] OFFICE IPBBJ-WOQ-AIX ANDED [facility], [address], [place], [place], [address], [place] tel:[phone] [facility] Right Knee (chief complaint) Right Great Toe (chief complaint) Primary osteoarthritis of left hipPrimary osteoarthritis of right kneeDegenerative joint disease of toe 1 [facility]. [address], [place], [place], [address] , [place]. tel:[phone] Referring Provider: Tyree Peña [address], [place], [address] . tel:[phone] OFFICE JAGJD-SIL-EIN ANDED [facility], [address], [place], [place], [address], [place] tel:[phone] [facility] Left Hip (chief complaint) Primary osteoarthritis of left hip 1 [facility]. [address], [place], [place], [address] , [place]. tel: [phone] Referring Provider: Tyree Peña [address], [place], [address] . tel:[phone] [facility], [address], [place], [place], [address], [place] tel:[phone] [facility] right knee (chief complaint) Primary osteoarthritis of right knee 9 [facility]. [address], [place], [place], [address] , [place]. [phone] Referring Provider: Tyree Peña [address], [place], [address] . tel:[phone] [facility], [address], [place], [place], [address], [place] tel:[phone] [facility] Contusion of left knee, initial encounter 7 [facility]. [address], [place], [place], [address] , [place]. [phone] Referring Provider: Elidia Gayatrijudith, [address], [place], [address] . tel:[phone] [facility], [address], [place], [place], [address], [place] tel:[phone] [facility] Acute pain of left knee 7 [facility]. [address], [place], [place], [address] , [place]. tel:[phone] Family History Family Member Type Diagnosis Age At Onset No Information Payers Payer name Insurance type Covered libertarian ID Authoriza tibolivar(s) [employer] MDCR PPO PLANS [id number] Social History Type Description Quantity Date Captured Comments Alcohol Use Details Unknown Caffeine Use Details Unknown Tobacco Use Status No Information Smoking Status No Information Sex Female Chief Complaint And Reason For Visit No Information Reason For Referral Reason For Referral No Information Plan Of Treatment Date Type Action Status Referral Referred To: Physical Therapy Ordered: Referrals: Physical Therapy. Location: [facility]. Evaluate and treat - Level 2 ordered [...] I, LOWER JOINT EXTREMITY W/O CONTRAST Right (05676), Sent on: Sent History Of Present Illness [...]
--- OUTSIDE RECORDS SUMMARY | 2024-12-25 00:32 | XMS_ITS | Encounter Summary ---
Author Organization [facility] Address [address] [place] [address] Care Team Providers Care Architectural Engineer Name Role Phone Unavailable Primary Care Provider Unavailabl e Encounter Details Date Type Department Care Team (Late st Contact Info) Description 08/16/2020 Lab Requisition [facility] DermPath Lab [address] [facility], [place] [phone] Liseth Mckeon MD [address] [facility] 3 [place] [address] Social History Tobacco Use Types Packs/Day Years Used Date Smoking Tobacco: Never Assessed Comments Unknown Sex and Gender Information Value Date Recorded Sex Assigned at Not on file Legal Sex Female 7:13 PM LOG BUYER Gender Identity Not on file Sexual Orientation Not on file documented as of this encounter Plan of Treatment Not on file documented as of this encounter Procedures Procedure Name Priority Date/Time Associated Diagnosis Comments DERMATOPATHOLOGY Routine 08/15/2020 12:0 0 AM LOG BUYER documented in this encounter Results * DERMATOPATHOLOGY (08/15/2020 12:00 AM LOG BUYER) Case Report Dermatopathology Report Case: [id number] Authorizing Provider: Liseth Mckeon MD Collected: 08/15/2020 12:00 AM Ordering Location: [facility] DermPath Lab Received: 08/16/2020 09:00 AM Pathologist: Akua Shah MD Specimen: Skin, left medial canthus 0 1:44 PM LOG BUYER DERMATOPATHOLOGY LABORATORY Final Diagnosis Specimen A. SKIN, left medial canthus: HYPERPLASTIC (HYPERTROPHIC) ACTINIC KERATOSIS (L57.0) (see microscopic description) 0 1:44 PM LOG BUYER DERMATOPATHOLOGY LABORATORY Clinical History [place] papule, [place], BCC, ISK. 0 1:44 PM [facility] DERMATOPATHOLOGY LABORATORY Gross Description Specimen A: Received is one formalin filled container labeled with the patient's name and designated left medial canthus. The specimen consists of a shave measuring [id number]. Jar 0. 0 1:44 PM [facility] DERMATOPATHOLOGY LABORATORY Microscopic Description Specimen A. SKIN, left medial canthus: There is hyperkeratosis alternating with parakeratosis. There is epidermal hyperplasia with disorderly maturation of keratinocytes with nuclear pleomorphism confined to the lower half of the epidermis. Additional deeper sections were obtained and reviewed. 0 1:44 PM [facility] DERMATOPATHOLOGY LABORATORY Disclaimer An external and internal positive and negative controls are appropriate for the histochemical, immunohistochemical and immunofluorescence stain(s) in this case (if any), except where stated explicitly. The performance characteristics of the stain(s) cited in this report were developed and its performance characteristic determined by the Dermatopathology Laboratory at [facility], directed by Dr. Linda Garcia. These tests need not be, and therefore are not, approved by the [place] Food and Drug Administration. The tests are used for clinical purposes. Billing Codes Specimen Charges Stain Charges 99846 1 0 1:44 PM LOG BUYER DERMATOPATHOLOGY LABORATORY Embedded Images 0 1:44 PM [facility] DERMATOPATHOLOGY LABORATORY Pathology/Cytolog y TISSUE SPECIMEN FROM SKIN / Unknown 08/15/2020 08/16/2020 9:00 AM LOG BUYER us Liseth Mckeon MD LAB - PATHOLOGY/CYTOLOGY ORD ERABLES Final Result DERMATOPATHOLOGY LABORATORY [facility] - Department of Dermatology [address], [address] [phone] documented in this encounter Visit Diagnoses Not on filedocumented in this encounter
--- OUTSIDE RECORDS SUMMARY | 2024-12-25 00:32 | XMS_ITS | Encounter Summary ---
Author Organization [facility] Healthcare Address [address] [place] [address] Care Team Providers Care Agency Development Manager Name Role Phone Unavailable Primary Care Provider Unavailabl e Reason for Visit * Diagnostic Imaging (Routine) - Closed Specialty Diagnoses / Procedures Referred By Neil soliman Referred To Contact Procedures Breast Imaging Diagnostic Outside Reference Jing Cain NP Phone: tel: fax: Referral ID Status Reason Start Date Expiration Date Visits Re quested Visits Authorized [id number] Closed 11/20/2021 12/20/2022 1 1 Encounter Details Date Type Department Care Team (Late st Contact Info) Description 01/25/2017 12:05 AM CDT Hospital Encounter [facility] Rad[facility] [address] [place] [address] Social History Tobacco Use Types Packs/Day [...] on file Legal Sex Female 4:17 AM MARITIME OFFICER Gender Identity Not on file Sexual [...] CDT) Impressions RAD_MAMMO[facility] - 11/20/2021 2:53 PM MARITIME OFFICER These images are for Reference purposes only and have not been reviewed by [facility] Radiology. There will be no report generated by a [facility] Radiologist. Narrative RAD_MAMMO[facility] - 11/20/2021 2:53 PM MARITIME OFFICER EXAMINATION: Images For Reference Purposes Only us Jing Cain NP IMG MAMMO PROCEDURES Fin al Result RAD_MAMMO[facility] documented in this encounter Visit Diagnoses Not on filedocumented in this encounter
--- OUTSIDE RECORDS SUMMARY | 2024-12-25 00:32 | XMS_ITS | Encounter Summary ---
Author Organization [facility] Healthcare Address [address] [place] [address] Care Team Providers Care Accounting Clerks Supervisor Name Role Phone Unavailable Primary Care Provider Unavailabl e Reason for Visit * Diagnostic Imaging (Routine) - Closed Specialty Diagnoses / Procedures Referred By Neil soliman Referred To Contact Procedures Breast Imaging Screening Outside Reference Jing Cain NP Phone: tel: fax: Referral ID Status Reason Start Date Expiration Date Visits Re quested Visits Authorized [id number] Closed 11/20/2021 12/20/2022 1 1 Encounter Details Date Type Department Care Team (Late st Contact Info) Description 10/18/2015 Hospital Encounter [facility] Radiology [facility] [address] [place] [address] Social History Tobacco Use Types Packs/Day Years [...] on file Legal Sex Female 4:17 AM HANDLE FINISHER Gender Identity Not on file Sexual Orientation Not on file documented as of this encounter Functional Status documented as of this encounter Plan of Treatment Not on file documented as of this encounter Procedures Procedure Name Priority Date/Time Associated Diagnosis Comments BREAST IMAGING MG SCREENING OUTSIDE REFERENCE Routine 10/18/2015 12:00 AM HANDLE FINISHER documented in this encounter Results * Breast Imaging Screening Outside Reference (10/18/2015 12:00 AM HANDLE FINISHER) Impressions [facility]MO[facility] - 11/20/2021 2:35 PM HANDLE FINISHER These images are for Reference purposes only and have not been reviewed by [facility] Radiology. There will be no report generated by a [facility] Radiologist. Narrative RAD_MAMMO_[facility] - 11/20/2021 2:35 PM HANDLE FINISHER EXAMINATION: Images For Reference Purposes Only us Jing Cain NP IMG MAMMO PROCEDURES Fin al Result [facility]MO[facility] documented in this encounter Visit Diagnoses Not on filedocumented in this encounter
--- OUTSIDE RECORDS SUMMARY | 2024-12-25 00:32 | XMS_ITS | Encounter Summary ---
Author Organization [facility] Address [address] [place] [address] Care Team Providers Care Core Worker Name Role Phone Unavailable Primary Care Provider Unavailabl e Encounter Details Date Type Department Care Team (Late st Contact Info) Description 02/18/2019 Abstract SFL CONVERSION [address] [place] [address] , Generic Conversion, Social History [...]
--- OUTSIDE RECORDS SUMMARY | 2024-12-25 00:32 | XMS_ITS | Encounter Summary ---
Author Organization [facility] Healthcare Address [address] [place] [address] Care Team Providers Care Etl Data Architect Name Role Phone Unavailable Primary Care Provider Unavailabl e Reason for Visit * Diagnostic Imaging (Routine) - Closed Specialty Diagnoses / Procedures Referred By Neil soliman Referred To Contact Procedures Breast Imaging Screening Outside Reference Jing Cain NP Phone: tel: fax: Referral ID Status Reason Start Date Expiration Date Visits Re quested Visits Authorized [id number] Closed 11/20/2021 12/20/2022 1 1 Encounter Details Date Type Department Care Team (Late st Contact Info) Description 08/28/2020 Hospital Encounter [facility] Radiology [facility]) [facility] [place] [address] Social History Tobacco Use Types Packs/Day Years [...] on file Legal Sex Female 4:17 AM BUS MECHANIC Gender Identity Not on file Sexual Orientation Not on file documented as of this encounter Functional Status documented as of this encounter Plan of Treatment Not on file documented as of this encounter Procedures Procedure Name Priority Date/Time Associated Diagnosis Comments BREAST IMAGING MG SCREENING OUTSIDE REFERENCE Routine 08/28/2020 12:00 AM BUS MECHANIC documented in this encounter Results * Breast Imaging Screening Outside Reference (08/28/2020 12:00 AM BUS MECHANIC) Impressions RAD_M[facility]MO[facility] - 11/20/2021 2:33 PM BUS MECHANIC These images are for Reference purposes only and have not been reviewed by [facility] Radiology. There will be no report generated by a [facility] Radiologist. Narrative RAD_MAMMO_[facility] - 11/20/2021 2:33 PM BUS MECHANIC EXAMINATION: Images For Reference Purposes Only us Jing Cain NP IMG MAMMO PROCEDURES Fin al Result RAD_M[facility]MO[facility] documented in this encounter Visit Diagnoses Not on filedocumented in this encounter
--- OUTSIDE RECORDS SUMMARY | 2024-12-25 00:32 | XMS_ITS | Encounter Summary ---
Author Organization [facility] Healthcare Address [address] [place] [address] Care Team Providers Care Food Equipment Service Technician Name Role Phone Unavailable Primary Care Provider Unavailabl e Reason for Visit * Diagnostic Imaging (Routine) - Closed Specialty Diagnoses / Procedures Referred By Neil soliman Referred To Contact Procedures Breast Imaging Diagnostic Outside Reference Jing Cain NP Phone: tel: fax: Referral ID Status Reason Start Date Expiration Date Visits Re quested Visits Authorized [id number] Closed 11/20/2021 12/20/2022 1 1 Encounter Details Date Type Department Care Team (Late st Contact Info) Description 08/08/2019 Hospital Encounter [facility] Radiology [facility] [place] [address] Social History Tobacco Use Types Packs/Day Years [...] on file Legal Sex Female 4:17 AM CHILD CARE ATTENDANT SCHOOL Gender Identity Not on file Sexual Orientation Not on file documented as of this encounter Functional Status documented as of this encounter Plan of Treatment Not on file documented as of this encounter Procedures Procedure Name Priority Date/Time Associated Diagnosis Comments BREAST IMAGING MG DIAGNOSTIC OUTSIDE REFERENCE Routine 08/08/2019 12:00 AM CHILD CARE ATTENDANT SCHOOL documented in this encounter Results * Breast Imaging Diagnostic Outside Reference (08/08/2019 12:00 AM CHILD CARE ATTENDANT SCHOOL) Impressions RAD_M[facility]MO[facility] - 11/20/2021 2:33 PM CHILD CARE ATTENDANT SCHOOL These images are for Reference purposes only and have not been reviewed by [facility] Radiology. There will be no report generated by a [facility] Radiologist. Narrative RAD_MAMMO_[facility] - 11/20/2021 2:33 PM CHILD CARE ATTENDANT SCHOOL EXAMINATION: Images For Reference Purposes Only us Jing Cain NP IMG MAMMO PROCEDURES Fin al Result RAD[facility]MO[facility] documented in this encounter Visit Diagnoses Not on filedocumented in this encounter
--- OUTSIDE RECORDS SUMMARY | 2024-12-25 00:32 | XMS_ITS | Encounter Summary ---
Author Organization [facility] Healthcare Address [address] [place] [address] Care Team Providers Care Docking Saw Operator Name Role Phone Unavailable Primary Care Provider Unavailabl e Reason for Visit * Diagnostic Imaging (Routine) - Closed Specialty Diagnoses / Procedures Referred By Neil soliman Referred To Contact Procedures Breast Imaging US Outside Reference Jing Cain NP Phone: tel: fax: Referral ID Status Reason Start Date Expiration Date Visits Re quested Visits Authorized [id number] Closed 11/20/2021 12/20/2022 1 1 Encounter Details Date Type Department Care Team (Late st Contact Info) Description 09/30/2020 Hospital Encounter [facility] Radiology [facility] [place] [address] Social History Tobacco Use Types Packs/Day Years [...] file Legal Sex Female 4:17 AM IT OPERATIONS SPECIALIST Gender Identity Not on file Sexual Orientation Not on file documented as of this encounter Functional Status documented as of this encounter Plan of Treatment Not on file documented as of this encounter Procedures Procedure Name Priority Date/Time Associated Diagnosis Comments BREAST IMAGING US OUTSIDE REFERENCE Routine 09/30/2020 12:00 AM IT OPERATIONS SPECIALIST documented in this encounter Results * Breast Imaging US Outside Reference (09/30/2020 12:00 AM IT OPERATIONS SPECIALIST) Impressions RAD[facility]MO[facility] - 11/20/2021 2:32 PM IT OPERATIONS SPECIALIST These images are for Reference purposes only and have not been reviewed by [facility] Radiology. There will be no report generated by a [facility] Radiologist. Narrative RAD_MAMMO_[facility] - 11/20/2021 2:32 PM IT OPERATIONS SPECIALIST EXAMINATION: Images For Reference Purposes Only us Jing Cain MANAGER PRIVACY IMG MAMMO PROCEDURES Fin al Result [facility]MO[facility] documented in this encounter Visit Diagnoses Not on filedocumented in this encounter
--- OUTSIDE RECORDS SUMMARY | 2024-12-25 00:32 | XMS_ITS | Encounter Summary ---
Author Organization [facility] Address [address] [facility] [place] [address] Care Team Providers Care Dye Automation Operator Name Role Phone Unavailable Primary Care Provider Unavailabl e Encounter Details Date Type Department Care Team (Late st Contact Info) Description 02/29/2024 Lab Requisition [facility] - DermPath Lab [address] [facility] [place] [address] Liseth Mckeon MD [address] [facility] 3 [place] [address] Social History Tobacco Use Types Packs/Day Years Used Date Smoking Tobacco: Never Assessed Comments Unknown Sex and Gender Information Value Date Recorded Sex Assigned at Not on file Legal Sex Female 7:13 PM DISPENSER OPERATOR Gender Identity Not on file Sexual Orientation Not on file documented as of this encounter Plan of Treatment Not on file documented as of this encounter Procedures Procedure Name Priority Date/Time Associated Diagnosis Comments DERMATOPATHOLOGY Routine 02/29/2024 1:23 PM CDT documented in this encounter Results * DERMATOPATHOLOGY (02/29/2024 1:23 PM CDT) Case Report Dermatopathology Report Case: [id number] Authorizing Provider: Liseth Mckeon MD Collected: 02/29/2024 01:23 PM Ordering Location: [facility] Physician [facility] - Received: 03/02/2024 05:38 AM DermPath Lab Pathologist: Belem Yao MD Specimen: Skin, lower back 2:18 PM CDT DERMATOPATHOLOGY LABORATORY Final Diagnosis Specimen A. SKIN, lower back: BASAL CELL CARCINOMA, NODULAR TYPE, WITH INFUNDIBULOCYSTIC FEATURES (C44.519) LICHEN PLANUS-LIKE KERATOSIS (BENIGN LICHENOID KERATOSIS) (L82.1) TRANSIENT ACANTHOLYTIC DERMATOSIS, CONSISTENT WITH (L11.1) (see microscopic description) 4 2:18 PM CDT DERMATOPATHOLOGY LABORATORY Clinical History Nevus vs BCC; [place] Papule 4 2:18 PM CDT DERMATOPATHOLOGY LABORATORY Gross Description Specimen A: Received is one formalin filled container labeled with the patient's name and designated lower back. The specimen consists of a shave biopsy measuring 6x5x1 mm. Jar 0. 4 2:18 PM CDT DERMATOPATHOLOGY LABORATORY Microscopic Description Specimen [...] determined by the Dermatopathology Laboratory at [facility], directed by Dr. Linda Garcia. These tests need not be, and therefore are not, approved by the [place] Food and Drug Administration. The tests are used for clinical purposes. Billing Codes Specimen Charges Stain Charges 73461 1 4 2:18 PM CDT DERMATOPATHOLOGY LABORATORY Embedded Images 4 2:18 PM CDT DERMATOPATHOLOGY LABORATORY Pathology/Cytolo gy TISSUE SPECIMEN FROM SKIN / Unknown 02/29/2024 1:23 PM CDT 03/02/2024 5:38 AM CDT us Liseth Mckeon MD LAB - PATHOLOGY/CYTOLOGY ORD ERABLES Final Result DERMATOPATHOLOGY LABORATORY [facility] - Department of Dermatology [facility] Medicine [address] [facility], [address]rd Floor [address] [phone] documented in this encounter Visit Diagnoses Not on filedocumented in this encounter
--- OUTSIDE RECORDS SUMMARY | 2024-12-25 00:32 | XMS_ITS | Clinical Summary ---
Author Organization [facility] Address [facility] [place] [address] Care Team Providers Care Line Person Name Role Phone Unavailable Primary Care [...] 2006 Dexa Scan (General) 2021 Pneumococcal Vaccine: 50+ Ye ars (1 of 1 - PCV) 2021 COVID-19 Vaccine (2023-2 5 season) 2024 RSV Immunization or 60+ Years (1 [...]
--- OUTSIDE RECORDS SUMMARY | 2024-12-25 00:32 | XMS_ITS | Encounter Summary ---
Author Organization [facility] Healthcare Address [address] [place] [address] Care Team Providers Care Dog Walker Name Role Phone Unavailable Primary Care Provider Unavailabl e Reason for Visit * Diagnostic Imaging (Routine) - Closed Specialty Diagnoses / Procedures Referred By Neil soliman Referred To Contact Procedures Breast Imaging US Outside Reference Jing Cain NP Phone: tel: fax: Referral ID Status Reason Start Date Expiration Date Visits Re quested Visits Authorized [id number] Closed 11/20/2021 12/20/2022 1 1 Encounter Details Date Type Department Care Team (Late st Contact Info) Description 02/17/2017 Hospital Encounter [facility] Radiology [facility] [address] [place] [address] Social History Tobacco Use Types Packs/Day Years [...] file Legal Sex Female 4:17 AM RN NICU Gender Identity Not on file Sexual Orientation [...] Impressions RAD_MAMMO[facility] - 11/20/2021 2:34 PM RN NICU These images are for Reference purposes only and have not been reviewed by [facility] Radiology. There will be no report generated by a [facility] Radiologist. Narrative RAD_MAMMO_[facility] - 11/20/2021 2:34 PM RN NICU EXAMINATION: Images For Reference Purposes Only us Jing Cain SPECIAL EVENTS MANAGER IMG MAMMO PROCEDURES Fin al Result RAD_M[facility]MO[facility] documented in this encounter Visit Diagnoses Not on filedocumented in this encounter
--- OUTSIDE RECORDS SUMMARY | 2024-12-25 00:32 | XMS_ITS | Encounter Summary ---
Author Organization [facility] Healthcare Address [address] [place] [address] Care Team Providers Care Laboratory Technologist Name Role Phone Unavailable Primary Care Provider Unavailabl e Reason for Visit * Diagnostic Imaging (Routine) - Closed Specialty Diagnoses / Procedures Referred By Neil soliman Referred To Contact Procedures Breast Imaging Screening Outside Reference Jing Cani NP Phone: tel: fax: Referral ID Status Reason Start Date Expiration Date Visits Re quested Visits Authorized [id number] Closed 11/20/2021 12/20/2022 1 1 Encounter Details Date Type Department Care Team (Late st Contact Info) Description 04/26/2018 Hospital Encounter [facility] Radiology [facility] [address] [place] [address] Social History Tobacco Use Types Packs/Day Years [...] file Legal Sex Female 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 There will be no report generated by a [facility] Radiologist. Narrative RAD_MAMMO_[facility] - 11/20/2021 2:34 PM INDUSTRIAL NURSE EXAMINATION: Images For Reference Purposes Only us Jing Cain NP IMG MAMMO PROCEDURES Fin al Result RAD_M[facility]MO[facility] documented in this encounter Visit Diagnoses Not on filedocumented in this encounter
--- OUTSIDE RECORDS SUMMARY | 2024-12-25 00:33 | XMS_ITS | Encounter Summary ---
Author Organization [facility] Address [address] [facility] [place] [address] Care Team Providers Care National Account Director Name Role Phone Unavailable Primary Care Provider Unavailabl e Encounter Details Date Type Department Care Team (Late st Contact Info) Description 06/09/2018 Lab Requisition [facility] Care DermPath Lab [address] [facility], [place] [id number] Liseth Mckeon MD [address] [facility] [address] [place] [address] Social History Tobacco Use Types Packs/Day Years Used Date Smoking Tobacco: Never Assessed Comments Unknown Sex and Gender Information Value Date Recorded Sex Assigned at Not on file Legal 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 Gender Identity Not on file Sexual Orientation Not on file documented as of this encounter Plan of Treatment Not on file documented as of this encounter Procedures Procedure Name Priority Date/Time Associated Diagnosis Comments DERMATOPATH TECHNICAL REPORT Routine 06/08/2018 12:00 AM CDT documented in this encounter Results * DERMATOPATH TECHNICAL REPORT (06/08/2018 12:00 AM CDT) Case Report Dermatopathology Report Case: [id number] Authorizing Provider: Liseth Mckeon MD Collected: 06/08/2018 12:00 AM Pathologist: Wil Garcia MD Received: 06/09/2018 06:34 AM Specimen: Skin, right lower eyelid 8 10:14 AM CDT DERMATOPATHOLOGY LABORATORY Clinical History R/O atypia. Non-healing. 8 10:14 AM CDT DERMATOPATHOLOGY LABORATORY Gross Description Specimen A: Received is one formalin filled container labeled with the patient's name and designated right lower eyelid. The specimen consists of a shave measuring 5w1w0tf. Jar 0. [facility] Dermatopathology Laboratory performed the technical component only. 10:14 AM [facility] DERMATOPATHOLOGY LABORATORY Embedded Images 10:14 AM [facility] DERMATOPATHOLOGY LABORATORY DISCLAIMER An external and internal positive and negative controls are appropriate for the histochemical, immunohistochemical and immunofluorescence stain(s) in this case (if any), except where stated explicitly. The performance characteristics of the stain(s) cited in this report were developed and its performance characteristic determined by the Dermatopathology Laboratory at [facility]. These tests need not be, and therefore are not, approved by the [place] Food and Drug Administration. The tests are used for clinical purposes. 10:14 AM [facility] DERMATOPATHOLOGY LABORATORY Pathology/Cytolog y TISSUE SPECIMEN FROM SKIN / Unknown 06/08/2018 06/09/2018 6:34 AM CDT Liseth Mckeon MD LAB - PATHOLOGY/CYTOLOGY ORD ERABLES Final Result DERMATOPATHOLOGY LABORATORY [facility] - Department of Dermatology [address] [facility] [place] [address], [facility] [phone] documented in this encounter Visit Diagnoses Not on filedocumented in this encounter
--- OUTSIDE RECORDS SUMMARY | 2024-12-25 00:33 | XMS_ITS | Clinical Summary ---
Author Organization [facility] Address [address] [place] [address] Care Team Providers Care Lime Trimmer Name Role Phone Dominguez Pena MD Primary Care Provider + [phone] Allergies Active Allergy Reactions Criticality Noted Date [...] on file Legal Sex Female 4:17 AM VB NET DEVELOPER Gender Identity Not on file Sexual Orientation [...] Plan of Treatment Not on file [facility] Care Teams Lime Trimmer Relationship Specialty Start Date End Date Dominguez Pena MD PCP - General Family Medicine 10/23/21
--- OUTSIDE RECORDS SUMMARY | 2024-12-25 00:33 | XMS_ITS | Clinical Summary ---
Author Organization [facility] Address [address] [place] [address] Care Team Providers Care Residential Program Manager Name Role Phone Unavailable Primary Care Provider Unavailabl e Source Comments [facility],non-owned Affiliates and Associated Physician Practices is amultiple site organization consisting of ambulatory clinics and hospital sitesin [place], [place], [place]. This disclosure is being madepursuant to the Care Everywhere program and may not contain all information available regarding this patient. 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 Gender Identity Not on file Sexual [...] VACCINE (1 of 2) 2006 COVID-19 VACCINE (1 - 2024-2 5 season) 2024 DEPRESSION SCREENING 09/13/2024 MEDICARE AWV CALENDAR YEAR 2024 INFLUENZA VACCINE (Season Ended) 2025 Respiratory Syncytial Virus (RSV) Vaccine Pt: or [...] Comments DERMATOPATHOLOGY Routine 10/10/2024 11:1 0 AM MELT HOUSE CENTRIFUGAL OPERATOR from Last 3 Months Results * DERMATOPATHOLOGY (10/10/2024 11:10 AM MELT HOUSE CENTRIFUGAL OPERATOR) Case Report Dermatopathology Report Case: [id number] Authorizing Provider: Adelaida Parra MD Collected: 10/10/2024 11:10 AM Ordering Location: [facility] - Received: 10/11/2024 12:47 PM DermPath Lab Pathologist: Marly Yao MD Specimen: Skin, left mid back 2:12 PM MELT HOUSE CENTRIFUGAL OPERATOR DERMATOPATHOLOGY LABORATORY Final Diagnosis Specimen A. SKIN, left mid back: LICHEN PLANUS-LIKE KERATOSIS (BENIGN LICHENOID KERATOSIS) (L82.1) 2:12 PM MELT HOUSE CENTRIFUGAL OPERATOR DERMATOPATHOLOGY LABORATORY Clinical History R/O NMSC; Irritated 2:12 PM MELT HOUSE CENTRIFUGAL OPERATOR DERMATOPATHOLOGY LABORATORY Gross Description Specimen A: Received is one formalin filled container labeled with the patient's name and designated left mid back. The specimen consists of a shave biopsy measuring 8x8x1 mm. Jar 0. 2:12 PM MELT HOUSE CENTRIFUGAL OPERATOR DERMATOPATHOLOGY LABORATORY Microscopic Description Specimen A. SKIN, left mid back: The epidermis is mildly acanthotic. There is a lichenoid infiltrate with vacuolar changes of basilar keratinocytes and scattered necrotic keratinocytes. 2:12 PM [facility] DERMATOPATHOLOGY LABORATORY Disclaimer An external and internal positive and negative controls are appropriate for the histochemical, immunohistochemical and immunofluorescence stain(s) in this case (if any), except where stated explicitly. The performance characteristics of the stain(s) cited in this report were developed and its performance characteristic determined by the Dermatopathology Laboratory at [facility], directed by Dr. Linda Garcia. These tests need not be, and therefore are not, approved by the [place] Food and Drug Administration. The tests are used for clinical purposes. Billing Codes Specimen Charges Stain Charges 26064 1 2:12 PM [facility] DERMATOPATHOLOGY LABORATORY Embedded Images 2:12 PM [facility] DERMATOPATHOLOGY LABORATORY Pathology/Cytolo gy TISSUE SPECIMEN FROM SKIN / Unknown 10/10/2024 11:10 AM MELT HOUSE CENTRIFUGAL OPERATOR 10/11/2024 12:47 PM MELT HOUSE CENTRIFUGAL OPERATOR Adelaida Parra MD LAB - PATHOLOGY/CYTOLOGY OR DERABLES Final Result DERMATOPATHOLOGY LABORATORY [facility] - Department of Dermatology [facility] Medicine [address] [place] [address], [address] [place] [address], [facility] [phone] from Last 3 Months Insurance AETNA AETNA AETNA MEDICARE ADV
--- OUTSIDE RECORDS SUMMARY | 2024-12-25 00:33 | XMS_ITS | Encounter Summary ---
Author Organization [facility] Healthcare Address [address] [place] [address] Care Team Providers Care Night Time Babysitter Name Role Phone Unavailable Primary Care Provider Unavailabl e Reason for Visit * Diagnostic Imaging (Routine) - Closed Specialty Diagnoses / Procedures Referred By Neil soliman Referred To Contact Procedures Breast Imaging Diagnostic Outside Reference Jing Cain NP Phone: tel: fax: Referral ID Status Reason Start Date Expiration Date Visits Re quested Visits Authorized [id number] Closed 11/20/2021 12/20/2022 1 1 Encounter Details Date Type Department Care Team (Late st Contact Info) Description 09/30/2020 12:05 AM VALUER Hospital Encounter [facility] Radiology [facility] [address] [place] [address] [phone] Social History Tobacco Use Types Packs/Day Years [...] on file Legal Sex Female 4:17 AM VALUER Gender Identity Not on file Sexual Orientation Not on file documented as of this encounter Functional Status documented as of this encounter Plan of Treatment Not on file documented as of this encounter Procedures Procedure Name Priority Date/Time Associated Diagnosis Comments BREAST IMAGING MG DIAGNOSTIC OUTSIDE REFERENCE Routine 09/30/2020 12:05 AM VALUER documented in this encounter Results * Breast Imaging Diagnostic Outside Reference (09/30/2020 12:05 AM VALUER) Impressions [facility]MO[facility] - 11/20/2021 2:32 PM VALUER These images are for Reference purposes only and have not been reviewed by [facility] Radiology. There will be no report generated by a [facility] Radiologist. Narrative [facility]MAMMO[facility] - 11/20/2021 2:32 PM VALUER EXAMINATION: Images For Reference Purposes Only us Jing Cain NP IMG MAMMO PROCEDURES Fin al Result [facility] documented in this encounter Visit Diagnoses Not on filedocumented in this encounter
--- OUTSIDE RECORDS SUMMARY | 2024-12-25 00:33 | XMS_ITS | Encounter Summary ---
Author Organization [facility] Address [address] [place] [address] Care Team Providers Care National Sales Name Role Phone Unavailable Primary Care Provider Unavailabl e Encounter Details Date Type Department Care Team (Late st Contact Info) Description 10/10/2024 Lab Requisition [facility] - DermPath Lab [address] 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 Gender Identity Not on file Sexual Orientation Not on file documented as of this encounter Plan of Treatment Not on file documented as of this encounter Procedures Procedure Name Priority Date/Time Associated Diagnosis Comments DERMATOPATHOLOGY Routine 10/10/2024 11:1 0 AM FIREBOAT OPERATOR documented in this encounter Results * DERMATOPATHOLOGY (10/10/2024 11:10 AM FIREBOAT OPERATOR) Case Report Dermatopathology Report Case: [id number] Authorizing Provider: Adelaida Parra MD Collected: 10/10/2024 11:10 AM Ordering Location: [facility] - Received: 10/11/2024 12:47 PM DermPath Lab Pathologist: Marly Yao MD Specimen: Skin, left mid back 2:12 PM FIREBOAT OPERATOR DERMATOPATHOLOGY LABORATORY Final Diagnosis Specimen A. SKIN, left mid back: LICHEN PLANUS-LIKE KERATOSIS (BENIGN LICHENOID KERATOSIS) (L82.1) 2:12 PM FIREBOAT OPERATOR DERMATOPATHOLOGY LABORATORY Clinical History R/O NMSC; Irritated 2:12 PM [facility] DERMATOPATHOLOGY LABORATORY Gross Description Specimen A: Received is one formalin filled container labeled with the patient's name and designated left mid back. The specimen consists of a shave biopsy measuring 8x8x1 mm. Jar 0. 2:12 PM [facility] DERMATOPATHOLOGY LABORATORY Microscopic Description Specimen A. SKIN, left mid back: The epidermis is mildly acanthotic. There is a lichenoid infiltrate with vacuolar changes of basilar keratinocytes and scattered necrotic keratinocytes. 2:12 PM [facility] DERMATOPATHOLOGY LABORATORY Disclaimer An external and internal positive and negative controls are appropriate for the histochemical, immunohistochemical and immunofluorescence stain(s) in this case (if any), except where stated explicitly. The performance characteristics of the stain(s) cited in this report were developed and its performance characteristic determined by the Dermatopathology Laboratory at [facility], directed by Dr. Linda Garcia. These tests need not be, and therefore are not, approved by the [place] Food and Drug Administration. The tests are used for clinical purposes. Billing Codes Specimen Charges Stain Charges 98894 1 2:12 PM FIREBOAT OPERATOR DERMATOPATHOLOGY LABORATORY Embedded Images 2:12 PM [facility] DERMATOPATHOLOGY LABORATORY Pathology/Cytolo gy TISSUE SPECIMEN FROM SKIN / Unknown 10/10/2024 11:10 AM FIREBOAT OPERATOR 10/11/2024 12:47 PM FIREBOAT OPERATOR Adelaida Parra MD LAB - PATHOLOGY/CYTOLOGY OR DERABLES Final Result DERMATOPATHOLOGY LABORATORY [facility] - Department of Dermatology [address] [place] [address], [facility] [phone] documented in this encounter Visit Diagnoses Not on filedocumented in this encounter
--- OUTSIDE RECORDS SUMMARY | 2024-12-25 00:33 | XMS_ITS | Referral Summary ---
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
--- OUTSIDE RECORDS SUMMARY | 2024-12-25 00:33 | XMS_ITS | Encounter Summary ---
Author Organization [facility] Health Address [address] [place] [address] Care Team Providers Care Handbag Designer Name Role Phone Unavailable Primary Care Provider Unavailabl e Encounter Details Date Type Department Care Team (Late st Contact Info) Description 09/01/2019 Lab Requisition [facility] DermPath Lab [address] [facility] [place] [id number] Liseth Mckeon MD [address] [facility] [address] [place] [address] Social History Tobacco Use Types Packs/Day Years Used Date Smoking Tobacco: Never Assessed Comments Unknown Sex and Gender Information Value Date Recorded Sex Assigned at Not on file Legal Sex Female 7:13 PM CASINO FLOOR WALKER Gender Identity Not on file Sexual Orientation Not on file documented as of this encounter Plan of Treatment Not on file documented as of this encounter Procedures Procedure Name Priority Date/Time Associated Diagnosis Comments DERMATOPATHOLOGY Routine 08/31/2019 12:0 0 AM CASINO FLOOR WALKER documented in this encounter Results * DERMATOPATHOLOGY (08/31/2019 12:00 AM CASINO FLOOR WALKER) Case Report Dermatopathology Report Case: [id number] Authorizing Provider: Liseth Mckeon MD Collected: 08/31/2019 12:00 AM Ordering Location: [facility] DermPath Lab Received: 09/01/2019 06:10 AM Pathologist: Akua Shah MD Specimen: Skin, left thigh 9 11:39 AM CASINO FLOOR WALKER DERMATOPATHOLOGY LABORATORY Final Diagnosis Specimen A. SKIN, left thigh: SEBORRHEIC KERATOSIS, MACULAR (L82.1) 9 11:39 AM CASINO FLOOR WALKER DERMATOPATHOLOGY LABORATORY Clinical History MM,SK,Lentigo 11:39 AM [facility] DERMATOPATHOLOGY LABORATORY Gross Description Specimen A: Received is one formalin filled container labeled with the patient's name and designated left thigh. The specimen consists of a shave biopsy measuring 10x8x1 mm. Jar 0. 11:39 AM [facility] DERMATOPATHOLOGY LABORATORY Microscopic Description Specimen A. SKIN, left thigh: Sections show a relatively broad, flat proliferation of small keratinocytes. The surface is gently papillated, and there is increased basilar pigmentation. 11:39 AM [facility] DERMATOPATHOLOGY LABORATORY Disclaimer An external and internal positive and negative controls are appropriate for the histochemical, immunohistochemical and immunofluorescence stain(s) in this case (if any), except where stated explicitly. The performance characteristics of the stain(s) cited in this report were developed and its performance characteristic determined by the Dermatopathology Laboratory at [facility], directed by Dr. Linda Garcia. These tests need not be, and therefore are not, approved by the [place] Food and Drug Administration. The tests are used for clinical purposes. Billing Codes Specimen Charges Stain Charges 80430 1 11:39 AM [facility] DERMATOPATHOLOGY LABORATORY Embedded Images 11:39 AM [facility] DERMATOPATHOLOGY LABORATORY Pathology/Cytolog y TISSUE SPECIMEN FROM SKIN / Unknown 08/31/2019 09/01/2019 6:10 AM [facility] us Liseth Mckeon MD LAB - PATHOLOGY/CYTOLOGY ORD ERABLES Final Result DERMATOPATHOLOGY LABORATORY [facility] - Department of Dermatology [facility] [facility] [address] [place] [address], [facility] [phone] documented in this encounter Visit Diagnoses Not on filedocumented in this encounter
--- NOTE | 2024-12-25 08:39 | WPDHPUPDATE1 ---
History and Physical Update Update Date/Time: 12/25/24 08:39 History and Physical has been reviewed, including an updated exam of the patient. There are NO changes in the patient's condition. Risks, benefits, and alternatives have been discussed and questions answered. Patient agrees to proceed with procedure.
--- NOTE | 2024-12-25 08:39 | PM.HPGS ---
History of Present Illness History of Present Illness Consent: Risks, benefits, and alternatives have been discussed and questions answered. Patient agrees to proceed with procedure. Chief complaint: post menopausal bleeding Narrative: Lori Godoy is a 69 year old female with an episode of bright red blood December 12. Patient states it lasted for approximately 1 day. Patient also reports 1 year ago had 1 day of spotting that was very minimal that she did not mention before. It was recommended to proceed with D&C hysteroscopy. Risks of infection, bleeding, and perforation were reviewed. Possible pathology is discussed. Patient voices understanding and agrees to proceed. Review of Systems Review of Systems: not repeated day of surgery; patient states no changes in status PMFSH Past Medical History Medical History (Updated 12/25/24 @ 08:43 by Penny Thayer MD) Allergic rhinitis Nonintractable menstrual migraine resolved after menopause BMI 30.0-30.9,adult Palpitations Surgical History Surgical History (Updated 12/25/24 @ 08:43 by Penny Thayer MD) Status post shoulder surgery Status post hip replacement 1993 Status post tonsillectomy Status post appendectomy Hx of cervical spine surgery History of knee surgery Family History Family History Father No problems noted. Mother Diabetes mellitus Sibling Diabetes mellitus Other Carcinoma of colon Family history of lung cancer Social History Social History (Updated 11/30/24 @ 12:19 by Radha Manzano MD) Smoking status: Never smoker Second hand tobacco smoke exposure: Yes Alcohol intake: current Alcohol use details: seldom Substance use: current Substance use type: marijuana Other substance usage details: once monthly Last use: 11/17/24 Living arrangements: with family Additional living arrangements comments: with boyfriend Occupation/Education: retired Additional occupation/education comments: [employer] Gender identity (if verbalized by the patient): Female Spiritual care concerns: No Meds Home Medications and Allergies Home Medications ?Medication ?Instructions ?Recorded ?Confirmed ?Type tizanidine 2 mg tablet 2 mg PO TID PRN muscle spasticity 08/02/23 12/18/24 Rx #30 tabs omeprazole 40 mg capsule,delayed 40 mg PO DAILY #30 caps 11/20/24 12/18/24 Rx release acetaminophen 500 mg capsule 1,000 mg (2 x 500 mg) PO Q6H PRN 11/28/24 12/18/24 Rx pain #30 caps ibuprofen 600 mg tablet 600 mg PO TID PRN pain #30 tabs 11/28/24 12/18/24 Rx rzmuctq-jegahyvhr-reta 333 mg-133 1 tablet PO HS 12/18/24 12/18/24 History mg-5 mg tablet cholecalciferol (vitamin D3) 50 50 mcg PO DAILY 12/18/24 12/18/24 History mcg (2,000 unit) capsule coQ10 (ubiquinol) 100 mg capsule 100 mg PO DAILY 12/18/24 12/18/24 History folic acid 1 mg tablet 1,000 mcg PO DAILY 12/18/24 12/18/24 History lysine 600 mg tablet 600 mg PO DAILY 12/18/24 12/18/24 History magnesium gluconate 12.5 mg 250 mg PO DAILY 12/18/24 12/18/24 History magnesium (250 mg) tablet vitamin B complex 1 tablet PO DAILY 12/18/24 12/18/24 History vitamin E 268 mg (400 unit) capsule 268 mg PO DAILY 12/18/24 12/18/24 History ibuprofen 800 mg tablet 800 mg PO TID PRN pain #60 tabs 12/21/24 Rx Allergies Allergy/AdvReac Type Severity Reaction Status Date / Time amoxicillin (From Augmentin) Allergy Intermediate Paleness Verified 12/18/24 13:00 clavulanic acid (From Allergy Intermediate Paleness Verified 12/18/24 13:00 Augmentin) codeine AdvReac Nausea Verified 12/18/24 13:01 Exam Const: General: healthy appearing and alert Orientation/consciousness: patient oriented x3 Resp: Effort & Inspection: normal respiratory effort : External Female Exam: normal external appearance Speculum Exam - Vagina: normal appearance of the vagina and normal vaginal discharge Speculum Exam - Cervix: normal appearance of the cervix Bimanual exam- vagina & uterus: uterine size normal and consistency normal Bimanual Exam- Adnexa, other: normal adnexae and No adnexal tenderness Neuro: General: patient oriented x3 Assessment and Plan Assessment and plan (1) Post-menopausal bleeding: Code(s): N95.0 - Postmenopausal bleeding Status: Acute Assessment and Plan: Plan to proceed with D&C hysteroscopy
[2024-12-25 11:50] VITALS: BP 147/65; PULSE 71; RESP 16; TEMP 36.6; O2SAT 100; BMI 30.2
--- NOTE | 2024-12-25 12:24 | P.PNAN_ITS ---
Anes - Initial Pre Proc Eval Procedure: Operation Date: 12/25/24 13:15 Proposed Procedures p Hysteroscopy Dilation and Curettage - Penny Thayer MD Date/Time: 12/25/24 12:24 Surgeon: Penny Thayer MD Pre Op Diagnosis: post menopausal bleeding Patient Data Age: 69 Gender: F Height: 1.68 m Weight: 84.8 kg Last Vital Signs Temp 36.6 C 12/25/24 11:50 Pulse 71 12/25/24 11:50 Resp 16 12/25/24 11:50 BP 147/65 H 12/25/24 11:50 Pulse Ox 100 12/25/24 11:50 Allergies Allergy/AdvReac Type Severity Reaction Status Date / Time clavulanic acid (From Allergy Intermediate Other Verified 12/25/24 11:49 Augmentin) codeine AdvReac Mild Nausea Verified 12/25/24 11:49 Home Medications ?Medication ?Instructions ?Recorded ?Confirmed ?Type tizanidine 2 mg tablet 2 mg PO TID PRN muscle spasticity 08/02/23 12/18/24 Rx #30 tabs acetaminophen 500 mg capsule 1,000 mg (2 x 500 mg) PO Q6H PRN 11/28/24 12/25/24 Rx pain #30 caps jbwvhvt-uoepsqjnv-pphg 333 mg-133 1 tablet PO HS 12/18/24 12/25/24 History mg-5 mg tablet cholecalciferol (vitamin D3) 50 50 mcg PO DAILY 12/18/24 12/25/24 History mcg (2,000 unit) capsule coQ10 (ubiquinol) 100 mg capsule 100 mg PO DAILY 12/18/24 12/25/24 History folic acid 1 mg tablet 1,000 mcg PO DAILY 12/18/24 12/18/24 History lysine 600 mg tablet 600 mg PO DAILY 12/18/24 12/25/24 History magnesium gluconate 12.5 mg 250 mg PO DAILY 12/18/24 12/25/24 History magnesium (250 mg) tablet vitamin B complex 1 tablet PO DAILY 12/18/24 12/25/24 History vitamin E 268 mg (400 unit) capsule 268 mg PO DAILY 12/18/24 12/25/24 History ibuprofen 800 mg tablet 800 mg PO TID PRN pain #60 tabs 12/21/24 12/25/24 Rx Patient hx anesthesia problems: none Family hx anesthesia problems: none Results Review: All pre-operative results and documents have been reviewed as part of the pre- operative evaluation. [facility] Past Medical History Medical History (Updated 12/25/24 @ 12:25 by Shaan Dean MD) Post-menopausal bleeding Allergic rhinitis Nonintractable menstrual migraine resolved after menopause BMI 30.0-30.9,adult Palpitations Surgical History Surgical History Status post shoulder surgery Status post hip replacement 1993 Status post tonsillectomy Status post appendectomy Hx of cervical spine surgery History of knee surgery Family History Family History Father No problems noted. Mother Diabetes mellitus Sibling Diabetes mellitus Other Carcinoma of colon Family history of lung cancer Social History Social History Smoking status: Never smoker Second hand tobacco smoke exposure: Yes Alcohol intake: current Alcohol use details: seldom Substance use: current Substance use type: marijuana Other substance usage details: once monthly Last use: 11/17/24 Living arrangements: with family Additional living arrangements comments: with boyfriend Occupation/Education: retired Additional occupation/education comments: [employer] Gender identity (if verbalized by the patient): Female Spiritual care concerns: No Anes - Eval Final PreProcedure Day of Procedure 12/25/24 12:24 Patient weight: obese Heart: regular rate and rhythm Lungs: clear to auscultation Airway: Mallampati scale class II Neurological: alert and oriented Last oral intake: >/= 8 hours ASA classification: II Emergent: no Anesthetic plan: proceed Anesthesia type and monitoring: general GIVS and standard monitoring Results Review: All pre-operative results and documents have been reviewed as part of the pre- operative evaluation. Informed Consent: The patient's anesthetic plan and its attendant risks and benefits were discussed with the patient/family/POA. Questions were solicited and answers provided to the satisfaction of the patient/family/POA.
[2024-12-25 13:16] VITALS: BP 111/63; PULSE 66; RESP 16; O2SAT 95
[2024-12-25] MEDS: LACTATED RINGERS 1,000 ML 30 ML IV CONT (13:16)
--- NOTE | 2024-12-25 13:16 | W.PM.PROC2 ---
Procedure Note - Detailed Date of Procedure 12/25/24 Pre-op Diagnosis post menopausal bleeding Post-op Diagnosis Same Procedure Performed D&C hysteroscopy Surgeon Penny Thayer MD Anesthesia MAC Findings Very stenotic internal os. Uterus sounds to 7cm. Uterus appears scarred. Description of Procedure The patient is taken to the operating and placed under anesthesia in the dorsal lithotomy position. She was prepped and draped in the usual sterile fashion. [place] speculum was placed in the vagina and the cervix grasped on the anterior lip with a tenaculum. At 4cm there was very severe stenosis encountered. Have after trying the sound, dilators, and os Finders several times the os Finders finally passed the 4cm area. This was serially dilated to a 4 Hegar. The hysteroscope was then hydrodissected through this area into a cavity that appeared very scarred. I have not absolutely sure that we entered cavity. I did look very slowly for a secondary opening to the endometrium and I did not see anything that had any opening or divot that I could pursue. The hysteroscope was removed and the sharp curette used to curette the cavity that we entered. All instruments are removed. Sponge, needle, and instrument counts are correct per the OR staff. The patient was taken to recovery in stable condition. Estimated Blood Loss 5 Drains No Packing No Pathology Yes (Possible endometrial curetting) Complications No immediate complications Condition Stable Disposition PACU
[2024-12-25 13:45] VITALS: BP 131/60; PULSE 60; RESP 18; O2SAT 98
[2024-12-25 14:15] VITALS: BP 113/54; PULSE 62; RESP 18
[2024-12-25 14:25] VITALS: BP 128/57; PULSE 62; RESP 16
== END 2024-12-25 14:32 | disposition home or self-care (01) ==
PROVIDERS: PCP Family Medicine; Visit Provider Obstetrics & Gynecology Gynecology
PROC: 0U5B8ZZ Destruction of Endometrium, Via Natural or Artificial Opening Endoscopic (ICD-10-PCS; CPT 58563; principal; 2024-12-25 13:15)
DX: N88.2 Stricture and stenosis of cervix uteri (principal); G43.829 Menstrual migraine, not intractable, without status migrainosus; R00.2 Palpitations; F12.90 Cannabis use, unspecified, uncomplicated; E66.9 Obesity, unspecified; Z68.30 Body mass index [BMI] 30.0-30.9, adult; Z79.1 Long term (current) use of non-steroidal anti-inflammatories (NSAID); Z98.890 Other specified postprocedural states; Z98.1 Arthrodesis status; Z80.0 Family history of malignant neoplasm of digestive organs; Z80.1 Family history of malignant neoplasm of trachea, bronchus and lung
CPT/HCPCS: 58558; 88305; J1100; J2003; J2250; J2405; J2704; J3010; J7120

== ENCOUNTER 2025-03-23 00:37 | Day surgery (SDC) | payer MEDICARE, SELFPAY ==
[2025-01-08 12:03] VITALS: BMI 29.8
--- NOTE | 2025-03-06 11:32 | PC.NURSE ---
Pt. states that there are no changes to her health history or no medication changes since January 08, 2025 when she had to reschedule procedure.
--- OUTSIDE RECORDS SUMMARY | 2025-03-23 00:40 | XMS_ITS | Encounter Summary ---
Author Organization [facility] Address [address] [facility] [place] [address] Care Team Providers Care Long Distance Operator Name Role Phone Unavailable Primary Care Provider Unavailabl e Encounter Details Date Type Department Care Team (Late st Contact Info) Description 10/10/2024 Lab Requisition [facility] - DermPath Lab [address] [facility] [facility] [place] [address] Adelaida Parra MD [address] [facility] 3 [place] [address] Social History Tobacco Use Types Packs/Day Years Used Date Smoking Tobacco: Never Assessed Comments Unknown Sex and Gender Information Value Date Recorded Sex Assigned at Not on file Legal Sex Female 7:13 PM PERFORMANCE ARCHITECT Gender Identity Not on file Sexual Orientation Not on file documented as of this encounter Plan of Treatment Not on file documented as of this encounter Procedures Procedure Name Priority Date/Time Associated Diagnosis Comments DERMATOPATHOLOGY Routine 10/10/2024 11:1 0 AM PERFORMANCE ARCHITECT documented in this encounter Results * DERMATOPATHOLOGY (10/10/2024 11:10 AM PERFORMANCE ARCHITECT) Case Report Dermatopathology Report Case: [id number] Authorizing Provider: Adelaida Parra MD Collected: 10/10/2024 11:10 AM Ordering Location: [facility] - Received: 10/11/2024 12:47 PM DermPath Lab Pathologist: Marly Yao MD Specimen: Skin, left mid back 5 2:12 PM PERFORMANCE ARCHITECT DERMATOPATHOLOGY LABORATORY Final Diagnosis Specimen A. SKIN, left mid back: LICHEN PLANUS-LIKE KERATOSIS (BENIGN LICHENOID KERATOSIS) (L82.1) 5 2:12 PM PERFORMANCE ARCHITECT DERMATOPATHOLOGY LABORATORY at 1412 PERFORMANCE ARCHITECT Clinical History R/O NMSC; Irritated 2:12 PM PERFORMANCE ARCHITECT DERMATOPATHOLOGY LABORATORY Gross Description Specimen A: Received is one formalin filled container labeled with the patient's name and designated left mid back. The specimen consists of a shave biopsy measuring 8x8x1 mm. Jar 0. 2:12 PM [facility] DERMATOPATHOLOGY LABORATORY Microscopic Description Specimen A. SKIN, left mid back: The epidermis is mildly acanthotic. There is a lichenoid infiltrate with vacuolar changes of basilar keratinocytes and scattered necrotic keratinocytes. 2:12 PM [facility] DERMATOPATHOLOGY LABORATORY Disclaimer An external and internal positive and negative controls are appropriate for the histochemical, immunohistochemical and immunofluorescence stain(s) in this case (if any), except where stated explicitly. The performance characteristics of the stain(s) cited in this report were developed and its performance characteristic determined by the Dermatopathology Laboratory at [facility], directed by Dr. Linda Garcia. These tests need not be, and therefore are not, approved by the [place] Food and Drug Administration. The tests are used for clinical purposes. Billing Codes Specimen Charges Stain Charges 34998 1 2:12 PM PERFORMANCE ARCHITECT DERMATOPATHOLOGY LABORATORY Embedded Images 2:12 PM [facility] DERMATOPATHOLOGY LABORATORY Pathology/Cytolo gy TISSUE SPECIMEN FROM SKIN / Unknown 10/10/2024 11:10 AM PERFORMANCE ARCHITECT 10/11/2024 12:47 PM PERFORMANCE ARCHITECT Adelaida Parra MD LAB - PATHOLOGY/CYTOLOGY OR DERABLES Final Result DERMATOPATHOLOGY LABORATORY [facility] - Department of Dermatology [address] [place] [address], [facility] [phone] documented in this encounter Visit Diagnoses Not on filedocumented in this encounter
--- OUTSIDE RECORDS SUMMARY | 2025-03-23 00:40 | XMS_ITS | Encounter Summary ---
Author Organization [facility] Address [address] [place] [address] Care Team Providers Care Beekeeper Name Role Phone Unavailable Primary Care Provider Unavailabl e Encounter Details Date Type Department Care Team (Late st Contact Info) Description 02/18/2019 Abstract SFL CONVERSION [address] [place] [address] , Generic Conversion, Social History [...]
--- OUTSIDE RECORDS SUMMARY | 2025-03-23 00:40 | XMS_ITS | Encounter Summary ---
Author Organization [facility] Address [address] [place] [address] Care Team Providers Care Shearer Screen Measurer And Trimmer Name Role Phone Unavailable Primary Care Provider Unavailabl e Encounter Details Date Type Department Care Team (Late st Contact Info) Description 08/16/2020 Lab Requisition [facility] DermPath Lab [address] [facility] [place] [id number] Liseth Mckeon MD [address] [facility] 3 [place] [address] Social History Tobacco Use Types Packs/Day Years Used Date Smoking Tobacco: Never Assessed Comments Unknown Sex and Gender Information Value Date Recorded Sex Assigned at Not on file Legal Sex Female 7:13 PM PARCEL CONTRACTOR Gender Identity Not on file Sexual Orientation Not on file documented as of this encounter Plan of Treatment Not on file documented as of this encounter Procedures Procedure Name Priority Date/Time Associated Diagnosis Comments DERMATOPATHOLOGY Routine 08/15/2020 12:0 0 AM PARCEL CONTRACTOR documented in this encounter Results * DERMATOPATHOLOGY (08/15/2020 12:00 AM PARCEL CONTRACTOR) Case Report Dermatopathology Report Case: [id number] Authorizing Provider: Liseth Mckeon MD Collected: 08/15/2020 12:00 AM Ordering Location: [facility] DermPath Lab Received: 08/16/2020 09:00 AM Pathologist: Akua Shah MD Specimen: Skin, left medial canthus 0 1:44 PM PARCEL CONTRACTOR DERMATOPATHOLOGY LABORATORY Final Diagnosis Specimen A. SKIN, left medial canthus: HYPERPLASTIC (HYPERTROPHIC) ACTINIC KERATOSIS (L57.0) (see microscopic description) 0 1:44 PM PARCEL CONTRACTOR DERMATOPATHOLOGY LABORATORY at 1344 PARCEL CONTRACTOR Clinical History [place] papule, [place], BCC, ISK. 0 1:44 PM PARCEL CONTRACTOR DERMATOPATHOLOGY LABORATORY Gross Description Specimen A: Received is one formalin filled container labeled with the patient's name and designated left medial canthus. The specimen consists of a shave measuring [id number]. Jar 0. 0 1:44 PM [facility] DERMATOPATHOLOGY LABORATORY Microscopic Description Specimen A. SKIN, left medial canthus: There is hyperkeratosis alternating with parakeratosis. There is epidermal hyperplasia with disorderly maturation of keratinocytes with nuclear pleomorphism confined to the lower half of the epidermis. Additional deeper sections were obtained and reviewed. 0 1:44 PM [facility] DERMATOPATHOLOGY LABORATORY Disclaimer An external and internal positive and negative controls are appropriate for the histochemical, immunohistochemical and immunofluorescence stain(s) in this case (if any), except where stated explicitly. The performance characteristics of the stain(s) cited in this report were developed and its performance characteristic determined by the Dermatopathology Laboratory at [facility], directed by Dr. Linda Garcia. These tests need not be, and therefore are not, approved by the [place] Food and Drug Administration. The tests are used for clinical purposes. Billing Codes Specimen Charges Stain Charges 13327 1 0 1:44 PM PARCEL CONTRACTOR DERMATOPATHOLOGY LABORATORY Embedded Images 0 1:44 PM [facility] DERMATOPATHOLOGY LABORATORY Pathology/Cytolog y TISSUE SPECIMEN FROM SKIN / Unknown 08/15/2020 08/16/2020 9:00 AM PARCEL CONTRACTOR us Liseth Mckeon MD LAB - PATHOLOGY/CYTOLOGY ORD ERABLES Final Result DERMATOPATHOLOGY LABORATORY [facility] - Department of Dermatology [address] [place] [address], [facility] [phone] documented in this encounter Visit Diagnoses Not on filedocumented in this encounter
--- OUTSIDE RECORDS SUMMARY | 2025-03-23 00:40 | XMS_ITS | Encounter Summary ---
Author Organization [facility] Address [address] [place] [address] Care Team Providers Care Partner Name Role Phone Unavailable Primary Care Provider Unavailabl e Reason for Visit * Diagnostic Imaging (Routine) - Closed Specialty Diagnoses / Procedures Referred By Neil soliman Referred To Contact Procedures Breast Imaging Diagnostic Outside Reference Jing Cain NP Phone: tel: fax: Referral ID Status Reason Start Date Expiration Date Visits Re quested Visits Authorized [id number] Closed 11/20/2021 12/20/2022 1 1 Encounter Details Date Type Department Care Team (Late st Contact Info) Description 08/08/2019 Hospital Encounter [facility] [address] [place] [address] Social History Tobacco Use Types Packs/Day Years [...] on file Legal Sex Female 4:17 AM IRON PLASTIC BULLET MAKER Gender Identity Not on file Sexual Orientation Not on file documented as of this encounter Functional Status documented as of this encounter Plan of Treatment Not on file documented as of this encounter Procedures Procedure Name Priority Date/Time Associated Diagnosis Comments BREAST IMAGING MG DIAGNOSTIC OUTSIDE REFERENCE Routine 08/08/2019 12:00 AM IRON PLASTIC BULLET MAKER documented in this encounter Results * Breast Imaging Diagnostic Outside Reference (08/08/2019 12:00 AM IRON PLASTIC BULLET MAKER) Impressions [facility]MO[facility] - 11/20/2021 2:33 PM IRON PLASTIC BULLET MAKER These images are for Reference purposes only and have not been reviewed by [facility]. There will be no report generated by a [facility] Radiologist. Narrative RAD_MAMMO[facility] - 11/20/2021 2:33 PM IRON PLASTIC BULLET MAKER EXAMINATION: Images For Reference Purposes Only us Jing Cain NP IMG MAMMO PROCEDURES Fin al Result [facility] documented in this encounter Visit Diagnoses Not on filedocumented in this encounter
--- OUTSIDE RECORDS SUMMARY | 2025-03-23 00:40 | XMS_ITS | Clinical Summary ---
Author Organization [facility] Address [facility] [address] [place] [address] Care Team Providers Care Masonry Installer Name Role Phone Unavailable Primary Care Provider [...] 1 - Tdap) 1975 Mammogram Screening 1996 Pneumococcal Vaccine: 50+ Ye ars (1 of 1 - PCV) 2006 Zoster Vaccines (1 of 2) 2006 Dexa Scan (General) 2021 COVID-19 Vaccine ( - 2023-2 5 season) 2024 RSV Immunization or 60+ [...]
--- OUTSIDE RECORDS SUMMARY | 2025-03-23 00:40 | XMS_ITS | Encounter Summary ---
Author Organization [facility] Address [address] [facility] [place] [address] Care Team Providers Care Watch Inspector Name Role Phone Unavailable Primary Care Provider Unavailabl e Encounter Details Date Type Department Care Team (Late st Contact Info) Description 06/09/2018 Lab Requisition [facility] Care DermPath Lab [address] [facility] [place] [phone] Liseth Mckeon MD [address] [facility] 3 [place] [address] Social History Tobacco Use Types Packs/Day Years Used Date Smoking Tobacco: Never Assessed Comments Unknown Sex and Gender Information Value Date Recorded Sex Assigned at Not on file Legal Sex Female 7:13 PM INDUSTRIAL HEALTH AND SAFETY PROFESSOR Gender Identity Not on file Sexual Orientation Not on file documented as of this encounter Plan of Treatment Not on file documented as of this encounter Procedures Procedure Name Priority Date/Time Associated Diagnosis Comments DERMATOPATH TECHNICAL REPORT Routine 06/08/2018 12:00 AM CDT documented in this encounter Results * DERMATOPATH TECHNICAL REPORT (06/08/2018 12:00 AM CDT) Case Report Dermatopathology Report Case: [id number] Authorizing Provider: Liseth Mckeon MD Collected: 06/08/2018 [...] The specimen consists of a shave measuring [id number]. Jar 0. [facility] Dermatopathology Laboratory performed the technical component only. 8 10:14 AM T DERMATOPATHOLOGY LABORATORY Embedded Images 8 10:14 AM [facility] DERMATOPATHOLOGY LABORATORY DISCLAIMER An external and internal positive and negative controls are appropriate for the histochemical, immunohistochemical and immunofluorescence stain(s) in this case (if any), except where stated explicitly. The performance characteristics of the stain(s) cited in this report were developed and its performance characteristic determined by the Dermatopathology Laboratory at [facility]. These tests need not be, and therefore are not, approved by the [place] Food and Drug Administration. The tests are used for clinical purposes. 8 10:14 AM [facility] DERMATOPATHOLOGY LABORATORY at 1014 CDT Pathology/Cytolog y TISSUE SPECIMEN FROM SKIN / Unknown 06/08/2018 06/09/2018 6:34 AM CDT Liseth Mckeon MD LAB - PATHOLOGY/CYTOLOGY ORD ERABLES Final Result DERMATOPATHOLOGY LABORATORY [facility] - Department of Dermatology [facility] [facility], [address]th [place] [address], [facility] [phone] documented in this encounter Visit Diagnoses Not on filedocumented in this encounter
--- OUTSIDE RECORDS SUMMARY | 2025-03-23 00:40 | XMS_ITS | Encounter Summary ---
Author Organization [facility] Address [address] [place] [address] Care Team Providers Care Siebel Consultant Name Role Phone Unavailable Primary Care Provider Unavailabl e Reason for Visit * Diagnostic Imaging (Routine) - Closed Specialty Diagnoses / Procedures Referred By Neil soliman Referred To Contact Procedures Breast Imaging Diagnostic Outside Reference Jing Cain NP Phone: tel: fax: Referral ID Status Reason Start Date Expiration Date Visits Re quested Visits Authorized [id number] Closed 11/20/2021 12/20/2022 1 1 Encounter Details Date Type Department Care Team (Late st Contact Info) Description 09/30/2020 12:05 AM RECYCLABLE MATERIALS DISTRIBUTOR Hospital Encounter [facility] Radiology [facility]) [address] [place] [phone] Social History Tobacco Use Types Packs/Day Years [...] on file Legal Sex Female 4:17 AM RECYCLABLE MATERIALS DISTRIBUTOR Gender Identity Not on file Sexual Orientation Not on file documented as of this encounter Functional Status documented as of this encounter Plan of Treatment Not on file documented as of this encounter Procedures Procedure Name Priority Date/Time Associated Diagnosis Comments BREAST IMAGING MG DIAGNOSTIC OUTSIDE REFERENCE Routine 09/30/2020 12:05 AM RECYCLABLE MATERIALS DISTRIBUTOR documented in this encounter Results * Breast Imaging Diagnostic Outside Reference (09/30/2020 12:05 AM RECYCLABLE MATERIALS DISTRIBUTOR) Impressions [facility] - 11/20/2021 2:32 PM RECYCLABLE MATERIALS DISTRIBUTOR These images are for Reference purposes only and have not been reviewed by [facility] Radiology. There will be no report generated by a [facility] Radiologist. Narrative RAD_MAMMO[facility] - 11/20/2021 2:32 PM RECYCLABLE MATERIALS DISTRIBUTOR EXAMINATION: Images For Reference Purposes Only us Jing Cain NP IMG MAMMO PROCEDURES Fin al Result [facility]MO[facility] documented in this encounter Visit Diagnoses Not on filedocumented in this encounter
--- OUTSIDE RECORDS SUMMARY | 2025-03-23 00:40 | XMS_ITS | Encounter Summary ---
Author Organization [facility] Address [address] [facility] [place] [address] Care Team Providers Care Mud Analysis Supervisor Name Role Phone Unavailable Primary Care Provider Unavailabl e Encounter Details Date Type Department Care Team (Late st Contact Info) Description 09/01/2019 Lab Requisition [facility] DermPath Lab [address] [facility] [place] [phone] Liseth Mckeon MD [address] [facility] [address] [place] [address] Social History Tobacco Use Types Packs/Day Years Used Date Smoking Tobacco: Never Assessed Comments Unknown Sex and Gender Information Value Date Recorded Sex Assigned at Not on file Legal Sex Female 7:13 PM M1 ARMOR CREWMAN Gender Identity Not on file Sexual Orientation Not on file documented as of this encounter Plan of Treatment Not on file documented as of this encounter Procedures Procedure Name Priority Date/Time Associated Diagnosis Comments DERMATOPATHOLOGY Routine 08/31/2019 12:0 0 AM M1 ARMOR CREWMAN documented in this encounter Results * DERMATOPATHOLOGY (08/31/2019 12:00 AM M1 ARMOR CREWMAN) Case Report Dermatopathology Report Case: [id number] Authorizing Provider: Liseth Mckeon MD Collected: 08/31/2019 12:00 AM Ordering Location: [facility] DermPath Lab Received: 09/01/2019 06:10 AM Pathologist: Akua Shah MD Specimen: Skin, left thigh 9 11:39 AM M1 ARMOR CREWMAN DERMATOPATHOLOGY LABORATORY Final Diagnosis Specimen A. SKIN, left thigh: SEBORRHEIC KERATOSIS, MACULAR (L82.1) 9 11:39 AM M1 ARMOR CREWMAN DERMATOPATHOLOGY LABORATORY at 1139 M1 ARMOR CREWMAN Clinical History MM,SK,Lentigo 11:39 AM [facility] DERMATOPATHOLOGY LABORATORY Gross Description Specimen A: Received is one formalin filled container labeled with the patient's name and designated left thigh. The specimen consists of a shave biopsy measuring 10x8x1 mm. Jar 0. 11:39 AM [facility] DERMATOPATHOLOGY LABORATORY Microscopic Description Specimen A. SKIN, left thigh: Sections show a relatively broad, flat proliferation of small keratinocytes. The surface is gently papillated, and there is increased basilar pigmentation. 11:39 AM [facility] DERMATOPATHOLOGY LABORATORY Disclaimer An external and internal positive and negative controls are appropriate for the histochemical, immunohistochemical and immunofluorescence stain(s) in this case (if any), except where stated explicitly. The performance characteristics of the stain(s) cited in this report were developed and its performance characteristic determined by the Dermatopathology Laboratory at [facility], directed by Dr. Linda Garcia. These tests need not be, and therefore are not, approved by the [place] Food and Drug Administration. The tests are used for clinical purposes. Billing Codes Specimen Charges Stain Charges 32032 1 11:39 AM [facility] DERMATOPATHOLOGY LABORATORY Embedded Images 11:39 AM [facility] DERMATOPATHOLOGY LABORATORY Pathology/Cytolog y TISSUE SPECIMEN FROM SKIN / Unknown 08/31/2019 09/01/2019 6:10 AM [facility] us Liseth Mckeon MD LAB - PATHOLOGY/CYTOLOGY ORD ERABLES Final Result DERMATOPATHOLOGY LABORATORY [facility] - Department of Dermatology [facility] [facility] 5th Floor Lab [address] [place], [place] [address] [phone] documented in this encounter Visit Diagnoses Not on filedocumented in this encounter
--- OUTSIDE RECORDS SUMMARY | 2025-03-23 00:40 | XMS_ITS | Encounter Summary ---
Author Organization [facility] Healthcare Address [address] [place] [address] Care Team Providers Care Light Bulb Replacer Name Role Phone Unavailable Primary Care Provider Unavailabl e Reason for Visit * Diagnostic Imaging (Routine) - Closed Specialty Diagnoses / Procedures Referred By Neil soliman Referred To Contact Procedures Breast Imaging US Outside Reference Jing Cain NP Phone: tel: fax: Referral ID Status Reason Start Date Expiration Date Visits Re quested Visits Authorized [id number] Closed 11/20/2021 12/20/2022 1 1 Encounter Details Date Type Department Care Team (Late st Contact Info) Description 09/30/2020 Hospital Encounter [facility] Radiology [facility] [place] [address] Social History Tobacco Use Types Packs/Day Years [...] on file Legal Sex Female 4:17 AM PALLIATIVE CARE NURSE PRACTITIONER Gender Identity Not on file Sexual Orientation Not on file documented as of this encounter Functional Status documented as of this encounter Plan of Treatment Not on file documented as of this encounter Procedures Procedure Name Priority Date/Time Associated Diagnosis Comments BREAST IMAGING US OUTSIDE REFERENCE Routine 09/30/2020 12:00 AM PALLIATIVE CARE NURSE PRACTITIONER documented in this encounter Results * Breast Imaging US Outside Reference (09/30/2020 12:00 AM PALLIATIVE CARE NURSE PRACTITIONER) Impressions [facility] - 11/20/2021 2:32 PM PALLIATIVE CARE NURSE PRACTITIONER These images are for Reference purposes only and have not been reviewed by [facility]. There will be no report generated by a [facility] Radiologist. Narrative RAD_MAMMO_[facility] - 11/20/2021 2:32 PM PALLIATIVE CARE NURSE PRACTITIONER EXAMINATION: Images For Reference Purposes Only us Jing Cain TIP FINISHER IMG MAMMO PROCEDURES Fin al Result [facility] documented in this encounter Visit Diagnoses Not on filedocumented in this encounter
--- OUTSIDE RECORDS SUMMARY | 2025-03-23 00:40 | XMS_ITS | Encounter Summary ---
Author Organization [facility] Healthcare Address [address] [place] [address] Care Team Providers Care Machine Rigger Name Role Phone Unavailable Primary Care Provider Unavailabl e Reason for Visit * Diagnostic Imaging (Routine) - Closed Specialty Diagnoses / Procedures Referred By Neil soliman Referred To Contact Procedures Breast Imaging Screening Outside Reference Jing Cain NP Phone: tel: fax: Referral ID Status Reason Start Date Expiration Date Visits Re quested Visits Authorized [id number] Closed 11/20/2021 12/20/2022 1 1 Encounter Details Date Type Department Care Team (Late st Contact Info) Description 04/26/2018 Hospital Encounter [facility] [address] [place] [address] Social History Tobacco Use Types Packs/Day Years [...] on file Legal Sex Female 4:17 AM DETAIL DRAFTER Gender Identity Not on file Sexual Orientation [...] CDT) Impressions RAD_M[facility]MO[facility] - 11/20/2021 2:34 PM DETAIL DRAFTER These images are for Reference purposes only and have not been reviewed by [facility] Radiology. There will be no report generated by a [facility] Radiologist. Narrative RAD_MAMMO[facility] - 11/20/2021 2:34 PM DETAIL DRAFTER EXAMINATION: Images For Reference Purposes Only us Jing Cain NP IMG MAMMO PROCEDURES Fin al Result RAD_MAMMO[facility] documented in this encounter Visit Diagnoses Not on filedocumented in this encounter
--- OUTSIDE RECORDS SUMMARY | 2025-03-23 00:40 | XMS_ITS | Encounter Summary ---
Author Organization [facility] Healthcare Address [address] [place] [address] Care Team Providers Care Head Irrigator Name Role Phone Unavailable Primary Care Provider Unavailabl e Reason for Visit * Diagnostic Imaging (Routine) - Closed Specialty Diagnoses / Procedures Referred By Neil soliman Referred To Contact Procedures Breast Imaging Screening Outside Reference Jing Cain NP Phone: tel: fax: Referral ID Status Reason Start Date Expiration Date Visits Re quested Visits Authorized [id number] Closed 11/20/2021 12/20/2022 1 1 Encounter Details Date Type Department Care Team (Late st Contact Info) Description 10/18/2015 Hospital Encounter [facility] Radiology [facility] [address] [place] [address] Social History Tobacco Use Types Packs/Day Years [...] on file Legal 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 Female 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 Gender Identity Not on file Sexual Orientation Not on file documented as of this encounter Functional Status documented as of this encounter Plan of Treatment Not on file documented as of this encounter Procedures Procedure Name Priority Date/Time Associated Diagnosis Comments BREAST IMAGING MG SCREENING OUTSIDE REFERENCE Routine 10/18/2015 12:00 AM DIESEL MECHANIC HELPER documented in this encounter Results * Breast Imaging Screening Outside Reference (10/18/2015 12:00 AM DIESEL MECHANIC HELPER) Impressions RAD_MAMMO[facility] - 11/20/2021 2:35 PM DIESEL MECHANIC HELPER These images are for Reference purposes only and have not been reviewed by [facility] Radiology. There will be no report generated by a [facility] Radiologist. Narrative RAD_MAMMO_[facility] - 11/20/2021 2:35 PM DIESEL MECHANIC HELPER EXAMINATION: Images For Reference Purposes Only us Jing Cain NP IMG MAMMO PROCEDURES Fin al Result RAD_M[facility]MO[facility] documented in this encounter Visit Diagnoses Not on filedocumented in this encounter
--- OUTSIDE RECORDS SUMMARY | 2025-03-23 00:40 | XMS_ITS | Encounter Summary ---
Author Organization [facility] Healthcare Address [address] [place] [address] Care Team Providers Care Equal Opportunity Assistant Name Role Phone Unavailable Primary Care Provider Unavailabl e Reason for Visit * Diagnostic Imaging (Routine) - Closed Specialty Diagnoses / Procedures Referred By Neil soliman Referred To Contact Procedures Breast Imaging Diagnostic Outside Reference Jing Cain NP Phone: tel: fax: Referral ID Status Reason Start Date Expiration Date Visits Re quested Visits Authorized [id number] Closed 11/20/2021 12/20/2022 1 1 Encounter Details Date Type Department Care Team (Late st Contact Info) Description 01/25/2017 12:05 AM CDT Hospital Encounter [facility]iology [facility]) [address] [place] [address] [phone] Social History Tobacco Use Types Packs/Day Years [...] on file Legal Sex Female 4:17 AM CREATIVE LEAD Gender Identity Not on file Sexual Orientation [...] CDT) Impressions RAD[facility]MO[facility] - 11/20/2021 2:53 PM CREATIVE LEAD These images are for Reference purposes only and have not been reviewed by [facility] Radiology. There will be no report generated by a [facility] Radiologist. Narrative RAD_MAMMO_[facility] - 11/20/2021 2:53 PM CREATIVE LEAD EXAMINATION: Images For Reference Purposes Only us Jing Cain NP IMG MAMMO PROCEDURES Fin al Result RAD_MAMMO[facility] documented in this encounter Visit Diagnoses Not on filedocumented in this encounter
--- OUTSIDE RECORDS SUMMARY | 2025-03-23 00:40 | XMS_ITS | Encounter Summary ---
Author Organization [facility] Healthcare Address [address] [place] [address] Care Team Providers Care Livestock Counter Name Role Phone Unavailable Primary Care Provider Unavailabl e Reason for Visit * Diagnostic Imaging (Routine) - Closed Specialty Diagnoses / Procedures Referred By Neil soliman Referred To Contact Procedures Breast Imaging Screening Outside Reference Jing Cain NP Phone: tel: fax: Referral ID Status Reason Start Date Expiration Date Visits Re quested Visits Authorized [id number] Closed 11/20/2021 12/20/2022 1 1 Encounter Details Date Type Department Care Team (Late st Contact Info) Description 08/28/2020 Hospital Encounter [facility]iology [facility] [place] [address] Social History Tobacco Use Types Packs/Day Years [...] on file Legal 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 Female 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 BUS 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 Gender Identity Not on file Sexual Orientation Not on file documented as of this encounter Functional Status documented as of this encounter Plan of Treatment Not on file documented as of this encounter Procedures Procedure Name Priority Date/Time Associated Diagnosis Comments BREAST IMAGING MG SCREENING OUTSIDE REFERENCE Routine 08/28/2020 12:00 AM SPECIAL EDUCATION BUS DRIVER documented in this encounter Results * Breast Imaging Screening Outside Reference (08/28/2020 12:00 AM SPECIAL EDUCATION BUS DRIVER) Impressions RAD_MAMMO[facility] - 11/20/2021 2:33 PM SPECIAL EDUCATION BUS DRIVER These images are for Reference purposes only and have not been reviewed by [facility] Radiology. There will be no report generated by a [facility] Radiologist. Narrative RAD_MAMMO_[facility] - 11/20/2021 2:33 PM SPECIAL EDUCATION BUS DRIVER EXAMINATION: Images For Reference Purposes Only us Jing Cain NP IMG MAMMO PROCEDURES Fin al Result RAD_M[facility]MO[facility] documented in this encounter Visit Diagnoses Not on filedocumented in this encounter
--- OUTSIDE RECORDS SUMMARY | 2025-03-23 00:40 | XMS_ITS | Encounter Summary ---
Author Organization [facility] Healthcare Address [address] [place] [address] Care Team Providers Care Cashier Office Name Role Phone Unavailable Primary Care Provider Unavailabl e Reason for Visit * Diagnostic Imaging (Routine) - Closed Specialty Diagnoses / Procedures Referred By Neil t Referred To Contact Procedures Breast Imaging US Outside Reference Jing Cain NP Phone: tel: fax: Referral ID Status Reason Start Date Expiration Date Visits Re quested Visits Authorized [id number] Closed 11/20/2021 12/20/2022 1 1 Encounter Details Date Type Department Care Team (Late st Contact Info) Description 01/26/2017 Hospital Encounter [facility] Radiology [facility] [address] [place] [address] Social History Tobacco Use Types Packs/Day Years [...] on file Legal Sex Female 4:17 AM SPLUNK 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 There will be no report generated by a [facility] Radiologist. Narrative RAD_MAMMO_[facility] - 11/20/2021 2:34 PM SPLUNK ARCHITECT EXAMINATION: Images For Reference Purposes Only us Jing Cain INVESTMENT FUND MANAGER IMG MAMMO PROCEDURES Fin al Result RAD[facility]MAMMO[facility] documented in this encounter Visit Diagnoses Not on filedocumented in this encounter
--- OUTSIDE RECORDS SUMMARY | 2025-03-23 00:40 | XMS_ITS | Encounter Summary ---
Author Organization [facility] Healthcare Address [address] [place] [address] Care Team Providers Care Spud Sorter Name Role Phone Unavailable Primary Care Provider Unavailabl e Reason for Visit * Diagnostic Imaging (Routine) - Closed Specialty Diagnoses / Procedures Referred By Neil t Referred To Contact Procedures Breast Imaging Screening Outside Reference Jing Cain NP Phone: tel: fax: Referral ID Status Reason Start Date Expiration Date Visits Re quested Visits Authorized [id number] Closed 11/20/2021 12/20/2022 1 1 Encounter Details Date Type Department Care Team (Late st Contact Info) Description 08/08/2019 12:05 AM HEAD TRANSFER CLERK Hospital Encounter [facility] Radiology [facility] [address] [place] [address] [phone] Social History Tobacco Use Types Packs/Day Years [...] on file Legal Sex Female 4:17 AM HEAD TRANSFER CLERK Gender Identity Not on file Sexual Orientation Not on file documented as of this encounter Functional Status documented as of this encounter Plan of Treatment Not on file documented as of this encounter Procedures Procedure Name Priority Date/Time Associated Diagnosis Comments BREAST IMAGING MG SCREENING OUTSIDE REFERENCE Routine 08/08/2019 12:05 AM HEAD TRANSFER CLERK documented in this encounter Results * Breast Imaging Screening Outside Reference (08/08/2019 12:05 AM HEAD TRANSFER CLERK) Impressions RAD_MAMMO[facility] - 11/20/2021 2:35 PM HEAD TRANSFER CLERK These images are for Reference purposes only and have not been reviewed by [facility] Radiology. There will be no report generated by a [facility] Radiologist. Narrative RAD_MAMMO_[facility] - 11/20/2021 2:35 PM HEAD TRANSFER CLERK EXAMINATION: Images For Reference Purposes Only us Jing Cain NP IMG MAMMO PROCEDURES Fin al Result RAD_M[facility]MO[facility] documented in this encounter Visit Diagnoses Not on filedocumented in this encounter
--- OUTSIDE RECORDS SUMMARY | 2025-03-23 00:40 | XMS_ITS | Encounter Summary ---
Author Organization [facility] Address [address] [place] [address] Care Team Providers Care Dry Paste Supervisor Name Role Phone Unavailable Primary Care Provider Unavailabl e Encounter Details Date Type Department Care Team (Late st Contact Info) Description 07/05/2023 Lab Requisition [facility] - DermPath Lab [address] [facility] [place] [address] Liseth Mckeon MD [address] [facility] [address] [place] [address] Social History Tobacco Use Types Packs/Day Years Used Date Smoking Tobacco: Never Assessed Comments Unknown Sex and Gender Information Value Date Recorded Sex Assigned at Not on file Legal Sex Female 7:13 PM 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 Gender Identity Not on file Sexual Orientation Not on file documented as of this encounter Plan of Treatment Not on file documented as of this encounter Procedures Procedure Name Priority Date/Time Associated Diagnosis Comments DERMATOPATHOLOGY Routine 07/05/2023 2:50 PM CDT documented in this encounter Results * DERMATOPATHOLOGY (07/05/2023 2:50 PM CDT) Case Report Dermatopathology Report Case: [id number] Authorizing Provider: Liseth Mckeon MD Collected: 07/05/2023 02:50 PM Ordering Location: [facility] DermPath Lab Received: 07/06/2023 11:13 AM Pathologist: Kalie Chu MD Specimen: Skin, left upper lip 3 4:18 PM CDT DERMATOPATHOLOGY LABORATORY Final Diagnosis Specimen A. 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 The specimen consists of a shave biopsy measuring 4x3x1 mm. Jar 0. 3 4:18 PM CDT DERMATOPATHOLOGY LABORATORY Microscopic Description [...] characteristic determined by the Dermatopathology Laboratory at [facility], directed by Dr. Linda Garcia. These tests need not be, and therefore are not, approved by the [place] Food and Drug Administration. The tests are used for clinical purposes. Billing Codes Specimen Charges Stain Charges 28427 1 3 4:18 PM CDT DERMATOPATHOLOGY LABORATORY Embedded Images 3 4:18 PM CDT DERMATOPATHOLOGY LABORATORY Pathology/Cytolo gy TISSUE SPECIMEN FROM SKIN / Unknown 07/05/2023 2:50 PM CDT 07/06/2023 11:13 AM CDT us Liseth Mckeon MD LAB - PATHOLOGY/CYTOLOGY ORD ERABLES Final Result DERMATOPATHOLOGY LABORATORY [facility] - Department of Dermatology [address], [address] [phone] documented in this encounter Visit Diagnoses Not on filedocumented in this encounter
--- OUTSIDE RECORDS SUMMARY | 2025-03-23 00:40 | XMS_ITS | Clinical Summary ---
Author Organization [facility] Address [address] [address] Care Team Providers Care Bowl Attendant Name Role Phone Unavailable Primary Care Provider Unavailabl e Source Comments [facility] [employer],non-owned Affiliates and Associated Physician Practices is amultiple site organization consisting of ambulatory clinics and hospital sitesin [place], [place], [place] and [place]. This disclosure is being madepursuant to the Care Everywhere program and may not contain all information available regarding this patient. 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
--- OUTSIDE RECORDS SUMMARY | 2025-03-23 00:40 | XMS_ITS | Encounter Summary ---
Author Organization [facility] Address [address] [facility] [place] [address] Care Team Providers Care Physician Neonatology Name Role Phone Unavailable Primary Care Provider Unavailabl e Encounter Details Date Type Department Care Team (Late st Contact Info) Description 02/29/2024 Lab Requisition [facility] - DermPath Lab [address] [facility] [place] [address] Liseth Mckeon MD [address] [facility] [address] [place] [address] Social History Tobacco Use Types Packs/Day Years Used Date Smoking Tobacco: Never Assessed Comments Unknown Sex and Gender Information Value Date Recorded Sex Assigned at Not on file Legal Sex Female 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 Gender Identity Not on file Sexual Orientation Not on file documented as of this encounter Plan of Treatment Not on file documented as of this encounter Procedures Procedure Name Priority Date/Time Associated Diagnosis Comments DERMATOPATHOLOGY Routine 02/29/2024 1:23 PM CDT documented in this encounter Results * DERMATOPATHOLOGY (02/29/2024 1:23 PM CDT) Case Report Dermatopathology Report Case: [id number] Authorizing Provider: Liseth Mckeon MD Collected: 02/29/2024 01:23 PM Ordering Location: [facility] Physician [facility] - Received: 03/02/2024 05:38 AM DermPath Lab Pathologist: Belem Yao MD Specimen: Skin, lower back 2:18 PM CDT DERMATOPATHOLOGY LABORATORY Final Diagnosis Specimen A. SKIN, lower back: BASAL CELL CARCINOMA, NODULAR TYPE, WITH INFUNDIBULOCYSTIC FEATURES (C44.519) LICHEN PLANUS-LIKE KERATOSIS (BENIGN LICHENOID KERATOSIS) (L82.1) TRANSIENT ACANTHOLYTIC DERMATOSIS, CONSISTENT WITH (L11.1) (see microscopic description) 4 2:18 PM CDT DERMATOPATHOLOGY LABORATORY at 1418 CDT Clinical History [place] vs BCC; [place] Papule 4 2:18 PM CDT DERMATOPATHOLOGY LABORATORY [...] characteristic determined by the Dermatopathology Laboratory at [facility], directed by Dr. Linda Garcia. These tests need not be, and therefore are not, approved by the [place] Food and Drug Administration. The tests are used for clinical purposes. Billing Codes Specimen Charges Stain Charges 92086 1 4 2:18 PM CDT DERMATOPATHOLOGY LABORATORY Embedded Images 4 2:18 PM CDT DERMATOPATHOLOGY LABORATORY Pathology/Cytolo gy TISSUE SPECIMEN FROM SKIN / Unknown 02/29/2024 1:23 PM CDT 03/02/2024 5:38 AM CDT us Liseth Mckeon MD LAB - PATHOLOGY/CYTOLOGY ORD ERABLES Final Result DERMATOPATHOLOGY LABORATORY [facility] - Department of Dermatology [facility] Specialized Medicine [facility] [facility], [address] Floor [address] [phone] documented in this encounter Visit Diagnoses Not on filedocumented in this encounter
--- OUTSIDE RECORDS SUMMARY | 2025-03-23 00:40 | XMS_ITS | Clinical Summary ---
Author Organization 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
--- OUTSIDE RECORDS SUMMARY | 2025-03-23 00:40 | XMS_ITS | Referral Summary ---
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
--- OUTSIDE RECORDS SUMMARY | 2025-03-23 00:40 | XMS_ITS | Encounter Summary ---
Author Organization [facility] Healthcare Address [address] [place] [address] Care Team Providers Care Credit Control Assistant Name Role Phone Unavailable Primary Care Provider Unavailabl e Reason for Visit * Diagnostic Imaging (Routine) - Closed Specialty Diagnoses / Procedures Referred By Neil soliman Referred To Contact Procedures Breast Imaging US Outside Reference Jing Cain NP Phone: tel: fax: Referral ID Status Reason Start Date Expiration Date Visits Re quested Visits Authorized [id number] Closed 11/20/2021 12/20/2022 1 1 Encounter Details Date Type Department Care Team (Late st Contact Info) Description 02/17/2017 Hospital Encounter [facility] [address] [place] [address] Social History Tobacco Use Types Packs/Day Years [...] file Legal Sex Female 4:17 AM SUPERVISOR AUDIT CLERKS Gender Identity Not on file Sexual Orientation [...] CDT) Impressions RAD_M[facility]MO[facility] - 11/20/2021 2:34 PM SUPERVISOR AUDIT CLERKS These images are for Reference purposes only and have not been reviewed by [facility] Radiology. There will be no report generated by a [facility] Radiologist. Narrative RAD_MAMMO_[facility] - 11/20/2021 2:34 PM SUPERVISOR AUDIT CLERKS EXAMINATION: Images For Reference Purposes Only us Jing Cain MANAGER ENGINE IMG MAMMO PROCEDURES Fin al Result RAD_MAMMO[facility] documented in this encounter Visit Diagnoses Not on filedocumented in this encounter
[2025-03-23 14:12] VITALS: BP 146/81; PULSE 74; RESP 20; TEMP 36.3; O2SAT 100; BMI 29.8
[2025-03-23] MEDS: LACTATED RINGERS 1,000 ML 150 ML IV CONT (14:21)
--- NOTE | 2025-03-23 14:21 | WPDANESEPPF ---
Anes - Initial Pre Proc Eval Procedure: Operation Date: 03/23/25 14:45 Proposed Procedures p Esophagogastroduodenoscopy - Saman Blanca MD Date/Time: 03/23/25 14:21 Surgeon: Saman Blanca MD Pre Op Diagnosis: Dysphagia Patient Data Age: 69 Gender: F Height: 1.68 m Weight: 83.8 kg Last Vital Signs Temp 97.3 F L 03/23/25 14:12 Pulse 74 03/23/25 14:12 Resp 20 03/23/25 14:12 BP 146/81 H 03/23/25 14:12 Pulse Ox 100 03/23/25 14:12 O2 Del Method Room Air 03/23/25 14:12 Allergies Allergy/AdvReac Type Severity Reaction Status Date / Time clavulanic acid (From Allergy Intermediate Other Verified 03/23/25 14:10 Augmentin) codeine AdvReac Mild Nausea Verified 03/23/25 14:10 Home Medications ?Medication ?Instructions ?Recorded ?Confirmed ?Type tizanidine 2 mg tablet 2 mg PO TID PRN muscle spasticity 08/02/23 03/23/25 Rx #30 tabs acetaminophen 500 mg capsule 1,000 mg (2 x 500 mg) PO Q6H PRN 11/28/24 01/08/25 Rx pain #30 caps eatxkcj-ovwmgzzdb-nwue 333 mg-133 1 tablet PO HS 12/18/24 03/23/25 History mg-5 mg tablet cholecalciferol (vitamin D3) 50 50 mcg PO DAILY 12/18/24 03/23/25 History mcg (2,000 unit) capsule coQ10 (ubiquinol) 100 mg capsule 100 mg PO DAILY 12/18/24 03/23/25 History folic acid 1 mg tablet 1,000 mcg PO DAILY 12/18/24 03/23/25 History lysine 600 mg tablet 600 mg PO DAILY 12/18/24 03/23/25 History magnesium gluconate 12.5 mg 250 mg PO DAILY 12/18/24 03/23/25 History magnesium (250 mg) tablet vitamin B complex 1 tablet PO DAILY 12/18/24 03/23/25 History vitamin E 268 mg (400 unit) capsule 268 mg PO DAILY 12/18/24 03/23/25 History ibuprofen 800 mg tablet 800 mg PO TID PRN pain #60 tabs 12/21/24 01/08/25 Rx Patient hx anesthesia problems: none Family hx anesthesia problems: none Results Review: All pre-operative results and documents have been reviewed as part of the pre-operative evaluation. [facility] Past Medical History Medical History (Updated 12/25/24 @ 12:25 by Shaan Dean MD) Post-menopausal bleeding Allergic rhinitis Nonintractable menstrual migraine resolved after menopause BMI 30.0-30.9,adult Palpitations Surgical History Surgical History Status post shoulder surgery Status post hip replacement 1993 Status post tonsillectomy Status post appendectomy Hx of cervical spine surgery History of knee surgery Family History Family History Father No problems noted. Mother Diabetes mellitus Sibling Diabetes mellitus Other Carcinoma of colon Family history of lung cancer Social History Social History Smoking status: Never smoker Second hand tobacco smoke exposure: Yes Alcohol intake: current Alcohol use details: seldom Substance use: current Substance use type: marijuana Other substance usage details: once monthly Last use: 11/17/24 Living arrangements: with family Additional living arrangements comments: with boyfriend Occupation/Education: retired Additional occupation/education comments: [employer] Gender identity (if verbalized by the patient): Female Spiritual care concerns: No Anes - Eval Final PreProcedure Day of Procedure 03/23/25 14:21 Patient weight: normal Heart: regular rate and rhythm Lungs: clear to auscultation Airway: Mallampati scale class II Neurological: alert and oriented Last oral intake: >/= 8 hours ASA classification: II Emergent: no Anesthetic plan: proceed Anesthesia type and monitoring: general GIVS and standard monitoring Results Review: All pre-operative results and documents have been reviewed as part of the pre-operative evaluation. Informed Consent: The patient's anesthetic plan and its attendant risks and benefits were discussed with the patient/family/POA. Questions were solicited and answers provided to the satisfaction of the patient/family/POA.
--- NOTE | 2025-03-23 15:01 | PM.HPGS ---
History of Present Illness History of Present Illness Consent: Risks, benefits, and alternatives have been discussed and questions answered. Patient agrees to proceed with procedure. Chief complaint: Dysphagia Narrative: Lori Godoy is a 69 year old female with dysphagia, here for egd Review of Systems Review of Systems: All systems reviewed & are unremarkable except as noted in HPI and below PMFSH Past Medical History Medical History (Updated 12/25/24 @ 12:25 by Shaan Dean MD) Post-menopausal bleeding Allergic rhinitis Nonintractable menstrual migraine resolved after menopause BMI 30.0-30.9,adult Palpitations Surgical History Surgical History Status post shoulder surgery Status post hip replacement 1993 Status post tonsillectomy Status post appendectomy Hx of cervical spine surgery History of knee surgery Family History Family History Father No problems noted. Mother Diabetes mellitus Sibling Diabetes mellitus Other Carcinoma of colon Family history of lung cancer Social History Social History Smoking status: Never smoker Second hand tobacco smoke exposure: Yes Alcohol intake: current Alcohol use details: seldom Substance use: current Substance use type: marijuana Other substance usage details: once monthly Last use: 11/17/24 Living arrangements: with family Additional living arrangements comments: with boyfriend Occupation/Education: retired Additional occupation/education comments: [employer] Gender identity (if verbalized by the patient): Female Spiritual care concerns: No Meds Home Medications and Allergies Home Medications ?Medication ?Instructions ?Recorded ?Confirmed ?Type tizanidine 2 mg tablet 2 mg PO TID PRN muscle spasticity 08/02/23 03/23/25 Rx #30 tabs acetaminophen 500 mg capsule 1,000 mg (2 x 500 mg) PO Q6H PRN 11/28/24 01/08/25 Rx pain #30 caps ttpirsy-cbluibszl-qwxx 333 mg-133 1 tablet PO HS 12/18/24 03/23/25 History mg-5 mg tablet cholecalciferol (vitamin D3) 50 50 mcg PO DAILY 12/18/24 03/23/25 History mcg (2,000 unit) capsule coQ10 (ubiquinol) 100 mg capsule 100 mg PO DAILY 12/18/24 03/23/25 History folic acid 1 mg tablet 1,000 mcg PO DAILY 12/18/24 03/23/25 History lysine 600 mg tablet 600 mg PO DAILY 12/18/24 03/23/25 History magnesium gluconate 12.5 mg 250 mg PO DAILY 12/18/24 03/23/25 History magnesium (250 mg) tablet vitamin B complex 1 tablet PO DAILY 12/18/24 03/23/25 History vitamin E 268 mg (400 unit) capsule 268 mg PO DAILY 12/18/24 03/23/25 History ibuprofen 800 mg tablet 800 mg PO TID PRN pain #60 tabs 12/21/24 01/08/25 Rx Allergies Allergy/AdvReac Type Severity Reaction Status Date / Time clavulanic acid (From Allergy Intermediate Other Verified 03/23/25 14:10 Augmentin) codeine AdvReac Mild Nausea Verified 03/23/25 14:10 Vital Signs Vital Signs - 24 hr 03/23/25 14:12 Temperature 97.3 F L Pulse Rate 74 Respiratory Rate 20 Blood Pressure 146/81 H Pulse Oximetry 100 Oxygen Delivery Room Air Exam Const: General: comfortable and no acute distress HENMT: Face/Nose/Sinus: Normal nares present Eyes: General: appearance normal, both eyes and all related structures Neck: Neck: no JVD Resp: Auscultation: clear to auscultation bilaterally Cardio: Rate: regular rate Rhythm: regular rhythm GI: Inspection: non-distended GI Palp: Yes Soft to palpation Skin: General skin exam: normal color Neuro: Speech: normal speech Extrem: General: normal to inspection Psych: Mental Status: mental status grossly normal Assessment and Plan Assessment and plan (1) Dysphagia: Qualifiers: Dysphagia type: pharyngeal phase Qualified Code(s): R13.13 - Dysphagia, pharyngeal phase Code(s): R13.10 - Dysphagia, unspecified Status: Acute Assessment and Plan: egd
--- NOTE | 2025-03-23 15:05 | S_PTH ---
PATIENT: Lori Godoy LOC: [facility] Bass#:[id number] AGE/SX: 69/F ROOM: RE03/23/[address]: Saman Blanca MD : [id number] BED: DIS: 03/23/2025 SPEC #: [id number] RECD: 03/26/25 08:04 STATUS: RAFAEL NEUMANN #: [id number] HERMAN: 03/23/25 15:[address]: Saman Blanca DEPT: [facility] Surgical RECD BY: Kevin Coleman ENTERED: 03/26/25 08:04 SP TYPE: Surgical OTHR DR: Dominguez Pena MD Tissues: A - Gastric Biopsy B - Esophageal Biopsy Procedures: Hematoxylin and Eosin Stain Gross and Microscopic Level 4
[2025-03-23 15:11] VITALS: BP 146/81; PULSE 71; RESP 18; O2SAT 100
[2025-03-23 15:19] VITALS: BP 129/73; PULSE 68; RESP 20; O2SAT 100
[2025-03-23 15:27] VITALS: BP 118/75; PULSE 65; RESP 19; O2SAT 100
== END 2025-03-23 15:31 | disposition home or self-care (01) ==
PROVIDERS: PCP Family Medicine; Referring Provider Physician Assistant Medical; Visit Provider Internal Medicine Gastroenterology
PROC: 0DJ08ZZ Inspection of Upper Intestinal Tract, Via Natural or Artificial Opening Endoscopic (ICD-10-PCS; CPT 43239; principal; 2025-03-23 14:45)
DX: K29.50 Unspecified chronic gastritis without bleeding (principal); B96.81 Helicobacter pylori [H. pylori] as the cause of diseases classified elsewhere; R00.2 Palpitations; F12.90 Cannabis use, unspecified, uncomplicated; Z79.1 Long term (current) use of non-steroidal anti-inflammatories (NSAID); Z98.890 Other specified postprocedural states; Z98.1 Arthrodesis status; Z80.0 Family history of malignant neoplasm of digestive organs; Z80.1 Family history of malignant neoplasm of trachea, bronchus and lung
CPT/HCPCS: 43239; 88305; J2003; J2704; J7120

== ENCOUNTER 2025-05-02 12:29 | Outpatient (CLI) | payer MEDICARE, SELFPAY ==
--- OUTSIDE RECORDS SUMMARY | 2015-10-18 01:00 | XMS_ITS | Encounter Summary ---
Author Organization [facility] Healthcare Address [address] [place] [address] Care Team Providers Care Supervising Deputy Name Role Phone Unavailable Primary Care Provider Unavailabl e Reason for Visit * Diagnostic Imaging (Routine) - Closed Specialty Diagnoses / Procedures Referred By Neil soliman Referred To Contact Procedures Breast Imaging Screening Outside Reference Jing Cain NP Phone: tel: fax: Referral ID Status Reason Start Date Expiration Date Visits Re quested Visits Authorized [id number] Closed 11/20/2021 12/20/2022 1 1 Encounter Details Date Type Department Care Team (Late st Contact Info) Description 10/18/2015 Hospital Encounter [facility] [address] [place] [address] Social History Tobacco Use Types Packs/Day Years [...] on file Legal Sex Female 4:17 AM PIPE FITTINGS MOLDER Gender Identity Not on file Sexual Orientation Not on file documented as of this encounter Functional Status documented as of this encounter Plan of Treatment Not on file documented as of this encounter Procedures Procedure Name Priority Date/Time Associated Diagnosis Comments BREAST IMAGING MG SCREENING OUTSIDE REFERENCE Routine 10/18/2015 12:00 AM PIPE FITTINGS MOLDER documented in this encounter Results * Breast Imaging Screening Outside Reference (10/18/2015 12:00 AM PIPE FITTINGS MOLDER) Impressions RAD_MAMMO_[facility] - 11/20/2021 2:35 PM PIPE FITTINGS MOLDER These images are for Reference purposes only and have not been reviewed by [facility] Radiology. There will be no report generated by a [facility] Radiologist. Narrative RAD_MAMMO_BJ - 11/20/2021 2:35 PM PIPE FITTINGS MOLDER EXAMINATION: Images For Reference Purposes Only us Jing Cain NP IMG MAMMO PROCEDURES Fin al Result RAD_MAMMO_[facility] documented in this encounter Visit Diagnoses Not on filedocumented in this encounter
--- OUTSIDE RECORDS SUMMARY | 2017-01-25 00:05 | XMS_ITS | Encounter Summary ---
Author Organization [facility] Healthcare Address [address] [place] [address] Care Team Providers Care Machinist Set Up Name Role Phone Unavailable Primary Care Provider Unavailabl e Reason for Visit * Diagnostic Imaging (Routine) - Closed Specialty Diagnoses / Procedures Referred By Neil soliman Referred To Contact Procedures Breast Imaging Diagnostic Outside Reference Jing Cain NP Phone: tel: fax: Referral ID Status Reason Start Date Expiration Date Visits Re quested Visits Authorized [id number] Closed 11/20/2021 12/20/2022 1 1 Encounter Details Date Type Department Care Team (Late st Contact Info) Description 01/25/2017 12:05 AM CDT Hospital Encounter [facility] [address] [place] [id number] Social History Tobacco Use Types Packs/Day Years [...] on file Legal Sex Female 4:17 AM MANAGER BRANCH Gender Identity Not on file Sexual Orientation [...] CDT) Impressions RAD_MAMMO_[facility] - 11/20/2021 2:53 PM MANAGER BRANCH These images are for Reference purposes only and have not been reviewed by [facility] Radiology. There will be no report generated by a [facility] Radiologist. Narrative RAD_MAMMO_[facility] - 11/20/2021 2:53 PM MANAGER BRANCH EXAMINATION: Images For Reference Purposes Only us Jing Cain NP IMG MAMMO PROCEDURES Fin al Result RAD_MAMMO_[facility] documented in this encounter Visit Diagnoses Not on filedocumented in this encounter
--- OUTSIDE RECORDS SUMMARY | 2017-01-26 | XMS_ITS | Encounter Summary ---
Author Organization [facility] Healthcare Address [address] [place] [address] Care Team Providers Care Oral Hygienist Name Role Phone Unavailable Primary Care Provider Unavailabl e Reason for Visit * Diagnostic Imaging (Routine) - Closed Specialty Diagnoses / Procedures Referred By Neil t Referred To Contact Procedures Breast Imaging US Outside Reference Jing Cain NP Phone: tel: fax: Referral ID Status Reason Start Date Expiration Date Visits Re quested Visits Authorized [id number] Closed 11/20/2021 12/20/2022 1 1 Encounter Details Date Type Department Care Team (Late st Contact Info) Description 01/26/2017 Hospital Encounter [facility] [address] [place] [address] Social History Tobacco Use Types Packs/Day Years [...] on file Legal Sex Female 4:17 AM ADMINISTRATIVE ASSISTANT OFFICE MANAGER Gender Identity Not on file Sexual Orientation Not on file documented as of this encounter Functional Status documented as of this encounter Plan of Treatment Not on file documented as of this encounter Procedures Procedure Name Priority Date/Time Associated Diagnosis Comments BREAST IMAGING US OUTSIDE REFERENCE Routine 01/26/2017 12:00 AM CDT documented in this encounter Results * Breast Imaging US Outside Reference (01/26/2017 12:00 AM CDT) Impressions RAD_MAMMO_[facility] - 11/20/2021 2:34 PM ADMINISTRATIVE ASSISTANT OFFICE MANAGER These images are for Reference purposes only and have not been reviewed by [facility] Radiology. There will be no report generated by a [facility] Radiologist. Narrative RAD_MAMMO_BJ - 11/20/2021 2:34 PM ADMINISTRATIVE ASSISTANT OFFICE MANAGER EXAMINATION: Images For Reference Purposes Only us Jing Cain EMERGENCY SERVICES DISPATCHER IMG MAMMO PROCEDURES Fin al Result RAD_MAMMO[facility] documented in this encounter Visit Diagnoses Not on filedocumented in this encounter
--- OUTSIDE RECORDS SUMMARY | 2017-02-17 | XMS_ITS | Encounter Summary ---
Author Organization [facility] Healthcare Address [address] [place] [address] Care Team Providers Care Aircraft Landing Gear Inspector Name Role Phone Unavailable Primary Care Provider Unavailabl e Reason for Visit * Diagnostic Imaging (Routine) - Closed Specialty Diagnoses / Procedures Referred By Neil soliman Referred To Contact Procedures Breast Imaging US Outside Reference Jing Cain NP Phone: tel: fax: Referral ID Status Reason Start Date Expiration Date Visits Re quested Visits Authorized [id number] Closed 11/20/2021 12/20/2022 1 1 Encounter Details Date Type Department Care Team (Late st Contact Info) Description 02/17/2017 Hospital Encounter [facility] [address] [place] [address] Social History Tobacco Use Types Packs/Day Years [...] on file Legal Sex Female 4:17 AM TRAUMA COUNSELLOR Gender Identity Not on file Sexual Orientation [...] CDT) Impressions RAD_MAMMO_[facility] - 11/20/2021 2:34 PM TRAUMA COUNSELLOR These images are for Reference purposes only and have not been reviewed by [facility] Radiology. There will be no report generated by a [facility] Radiologist. Narrative RAD_MAMMO_BJ - 11/20/2021 2:34 PM TRAUMA COUNSELLOR EXAMINATION: Images For Reference Purposes Only us Jing Cain CHIEF DEVELOPMENT OFFICER IMG MAMMO PROCEDURES Fin al Result RAD_MAMMO_[facility] documented in this encounter Visit Diagnoses Not on filedocumented in this encounter
--- OUTSIDE RECORDS SUMMARY | 2018-04-26 | XMS_ITS | Encounter Summary ---
Author Organization [facility] Healthcare Address [address] [place] [address] Care Team Providers Care Postal Support Employee Name Role Phone Unavailable Primary Care Provider Unavailabl e Reason for Visit * Diagnostic Imaging (Routine) - Closed Specialty Diagnoses / Procedures Referred By Neil soliman Referred To Contact Procedures Breast Imaging Screening Outside Reference Jing Cain NP Phone: tel: fax: Referral ID Status Reason Start Date Expiration Date Visits Re quested Visits Authorized [id number] Closed 11/20/2021 12/20/2022 1 1 Encounter Details Date Type Department Care Team (Late st Contact Info) Description 04/26/2018 Hospital Encounter [facility] [address] [place] [address] Social History Tobacco Use Types Packs/Day Years [...] on file Legal Sex Female 4:17 AM ADVERTISER Gender Identity Not on file Sexual Orientation Not on file documented as of this encounter Functional Status documented as of this encounter Plan of Treatment Not on file documented as of this encounter Procedures Procedure Name Priority Date/Time Associated Diagnosis Comments BREAST IMAGING MG SCREENING OUTSIDE REFERENCE Routine 04/26/2018 12:00 AM CDT documented in this encounter Results * Breast Imaging Screening Outside Reference (04/26/2018 12:00 AM CDT) Impressions RAD_MAMMO_[facility] - 11/20/2021 2:34 PM ADVERTISER These images are for Reference purposes only and have not been reviewed by [facility] Radiology. There will be no report generated by a [facility] Radiologist. Narrative RAD_MAMMO_[facility] - 11/20/2021 2:34 PM ADVERTISER EXAMINATION: Images For Reference Purposes Only us Jing Cain NP IMG MAMMO PROCEDURES Fin al Result RAD_MAMMO_[facility] documented in this encounter Visit Diagnoses Not on filedocumented in this encounter
--- OUTSIDE RECORDS SUMMARY | 2019-08-08 01:00 | XMS_ITS | Encounter Summary ---
Author Organization [facility] Healthcare Address [address] [place] [address] Care Team Providers Care Nurse Discharge Name Role Phone Unavailable Primary Care Provider Unavailabl e Reason for Visit * Diagnostic Imaging (Routine) - Closed Specialty Diagnoses / Procedures Referred By Neil soliman Referred To Contact Procedures Breast Imaging Diagnostic Outside Reference Jing Cain NP Phone: tel: fax: Referral ID Status Reason Start Date Expiration Date Visits Re quested Visits Authorized [id number] Closed 11/20/2021 12/20/2022 1 1 Encounter Details Date Type Department Care Team (Late st Contact Info) Description 08/08/2019 Hospital Encounter [facility] [address] [place] [address] Social History Tobacco Use Types Packs/Day Years [...] on file Legal Sex Female 4:17 AM CORE STICKER Gender Identity Not on file Sexual Orientation Not on file documented as of this encounter Functional Status documented as of this encounter Plan of Treatment Not on file documented as of this encounter Procedures Procedure Name Priority Date/Time Associated Diagnosis Comments BREAST IMAGING MG DIAGNOSTIC OUTSIDE REFERENCE Routine 08/08/2019 12:00 AM CORE STICKER documented in this encounter Results * Breast Imaging Diagnostic Outside Reference (08/08/2019 12:00 AM CORE STICKER) Impressions RAD_MAMMO_[facility] - 11/20/2021 2:33 PM CORE STICKER These images are for Reference purposes only and have not been reviewed by [facility] Radiology. There will be no report generated by a [facility] Radiologist. Narrative RAD_MAMMO_BJ - 11/20/2021 2:33 PM CORE STICKER EXAMINATION: Images For Reference Purposes Only us Jing Cain NP IMG MAMMO PROCEDURES Fin al Result RAD_MAMMO_[facility] documented in this encounter Visit Diagnoses Not on filedocumented in this encounter
--- OUTSIDE RECORDS SUMMARY | 2019-08-08 01:05 | XMS_ITS | Encounter Summary ---
Author Organization [facility] Healthcare Address [address] [place] [address] Care Team Providers Care Goodwill Ambassador Name Role Phone Unavailable Primary Care Provider Unavailabl e Reason for Visit * Diagnostic Imaging (Routine) - Closed Specialty Diagnoses / Procedures Referred By Neil t Referred To Contact Procedures Breast Imaging Screening Outside Reference Jing Cain NP Phone: tel: fax: Referral ID Status Reason Start Date Expiration Date Visits Re quested Visits Authorized [id number] Closed 11/20/2021 12/20/2022 1 1 Encounter Details Date Type Department Care Team (Late st Contact Info) Description 08/08/2019 12:05 AM RESOURCE ROOM SPECIAL EDUCATION TEACHER Hospital Encounter [facility]) [address] [place] [address] [phone] Social History Tobacco Use Types Packs/Day Years [...] on file Legal Sex Female 4:17 AM RESOURCE ROOM SPECIAL EDUCATION TEACHER Gender Identity Not on file Sexual Orientation Not on file documented as of this encounter Functional Status documented as of this encounter Plan of Treatment Not on file documented as of this encounter Procedures Procedure Name Priority Date/Time Associated Diagnosis Comments BREAST IMAGING MG SCREENING OUTSIDE REFERENCE Routine 08/08/2019 12:05 AM RESOURCE ROOM SPECIAL EDUCATION TEACHER documented in this encounter Results * Breast Imaging Screening Outside Reference (08/08/2019 12:05 AM RESOURCE ROOM SPECIAL EDUCATION TEACHER) Impressions [facility] - 11/20/2021 2:35 PM RESOURCE ROOM SPECIAL EDUCATION TEACHER These images are for Reference purposes only and have not been reviewed by [facility]. There will be no report generated by a [facility] Radiologist. Narrative [facility]MO[facility] - 11/20/2021 2:35 PM RESOURCE ROOM SPECIAL EDUCATION TEACHER EXAMINATION: Images For Reference Purposes Only us Jing Cain NP IMG MAMMO PROCEDURES Fin al Result [facility] documented in this encounter Visit Diagnoses Not on filedocumented in this encounter
--- OUTSIDE RECORDS SUMMARY | 2020-08-28 01:00 | XMS_ITS | Encounter Summary ---
Author Organization [facility] Healthcare Address [address] [place] [address] Care Team Providers Care Fruit And Vegetable Parer Name Role Phone Unavailable Primary Care Provider Unavailabl e Reason for Visit * Diagnostic Imaging (Routine) - Closed Specialty Diagnoses / Procedures Referred By Neil soliman Referred To Contact Procedures Breast Imaging Screening Outside Reference Jing Cain NP Phone: tel: fax: Referral ID Status Reason Start Date Expiration Date Visits Re quested Visits Authorized [id number] Closed 11/20/2021 12/20/2022 1 1 Encounter Details Date Type Department Care Team (Late st Contact Info) Description 08/28/2020 Hospital Encounter [facility] [place] [address] Social History Tobacco Use Types Packs/Day Years [...] on file Legal Sex Female 4:17 AM GOODS LAYER Gender Identity Not on file Sexual Orientation Not on file documented as of this encounter Functional Status documented as of this encounter Plan of Treatment Not on file documented as of this encounter Procedures Procedure Name Priority Date/Time Associated Diagnosis Comments BREAST IMAGING MG SCREENING OUTSIDE REFERENCE Routine 08/28/2020 12:00 AM GOODS LAYER documented in this encounter Results * Breast Imaging Screening Outside Reference (08/28/2020 12:00 AM GOODS LAYER) Impressions [facility] - 11/20/2021 2:33 PM GOODS LAYER These images are for Reference purposes only and have not been reviewed by [facility]. There will be no report generated by a [facility] Radiologist. Narrative RAD_MAMMO_[facility] - 11/20/2021 2:33 PM GOODS LAYER EXAMINATION: Images For Reference Purposes Only us Jing Cain NP IMG MAMMO PROCEDURES Fin al Result [facility] documented in this encounter Visit Diagnoses Not on filedocumented in this encounter
--- OUTSIDE RECORDS SUMMARY | 2020-09-30 01:00 | XMS_ITS | Encounter Summary ---
Author Organization [facility] Healthcare Address [address] [place] [address] Care Team Providers Care Paster Operator Name Role Phone Unavailable Primary Care Provider Unavailabl e Reason for Visit * Diagnostic Imaging (Routine) - Closed Specialty Diagnoses / Procedures Referred By Neil soliman Referred To Contact Procedures Breast Imaging US Outside Reference Jing Cain NP Phone: tel: fax: Referral ID Status Reason Start Date Expiration Date Visits Re quested Visits Authorized [id number] Closed 11/20/2021 12/20/2022 1 1 Encounter Details Date Type Department Care Team (Late st Contact Info) Description 09/30/2020 Hospital Encounter [facility] [place] [address] Social History Tobacco Use Types Packs/Day Years [...] on file Legal Sex Female 4:17 AM NARCOTICS DETECTIVE Gender Identity Not on file Sexual Orientation Not on file documented as of this encounter Functional Status documented as of this encounter Plan of Treatment Not on file documented as of this encounter Procedures Procedure Name Priority Date/Time Associated Diagnosis Comments BREAST IMAGING US OUTSIDE REFERENCE Routine 09/30/2020 12:00 AM NARCOTICS DETECTIVE documented in this encounter Results * Breast Imaging US Outside Reference (09/30/2020 12:00 AM NARCOTICS DETECTIVE) Impressions [facility] - 11/20/2021 2:32 PM NARCOTICS DETECTIVE These images are for Reference purposes only and have not been reviewed by [facility]. There will be no report generated by a [facility] Radiologist. Narrative RAD_MAMMO_[facility] - 11/20/2021 2:32 PM NARCOTICS DETECTIVE EXAMINATION: Images For Reference Purposes Only us Jing Cain OFFICE MACHINE SERVICER APPRENTICE IMG MAMMO PROCEDURES Fin al Result [facility] documented in this encounter Visit Diagnoses Not on filedocumented in this encounter
--- OUTSIDE RECORDS SUMMARY | 2020-09-30 01:05 | XMS_ITS | Encounter Summary ---
Author Organization [facility] Healthcare Address [address] [place] [address] Care Team Providers Care Clinic Assistant Name Role Phone Unavailable Primary Care Provider Unavailabl e Reason for Visit * Diagnostic Imaging (Routine) - Closed Specialty Diagnoses / Procedures Referred By Neil soliman Referred To Contact Procedures Breast Imaging Diagnostic Outside Reference Jing Cain NP Phone: tel: fax: Referral ID Status Reason Start Date Expiration Date Visits Re quested Visits Authorized [id number] Closed 11/20/2021 12/20/2022 1 1 Encounter Details Date Type Department Care Team (Late st Contact Info) Description 09/30/2020 12:05 AM SURGICAL INSTRUMENT REPAIR SPECIALIST Hospital Encounter [facility]iology [facility]) [address] [place] [address] [phone] Social History Tobacco Use Types Packs/Day Years [...] on file Legal Sex Female 4:17 AM SURGICAL INSTRUMENT REPAIR SPECIALIST Gender Identity Not on file Sexual Orientation Not on file documented as of this encounter Functional Status documented as of this encounter Plan of Treatment Not on file documented as of this encounter Procedures Procedure Name Priority Date/Time Associated Diagnosis Comments BREAST IMAGING MG DIAGNOSTIC OUTSIDE REFERENCE Routine 09/30/2020 12:05 AM SURGICAL INSTRUMENT REPAIR SPECIALIST documented in this encounter Results * Breast Imaging Diagnostic Outside Reference (09/30/2020 12:05 AM SURGICAL INSTRUMENT REPAIR SPECIALIST) Impressions [facility] - 11/20/2021 2:32 PM SURGICAL INSTRUMENT REPAIR SPECIALIST These images are for Reference purposes only and have not been reviewed by [facility]. There will be no report generated by a [facility] Radiologist. Narrative RAD_MAMMO[facility] - 11/20/2021 2:32 PM SURGICAL INSTRUMENT REPAIR SPECIALIST EXAMINATION: Images For Reference Purposes Only us Jing Cain NP IMG MAMMO PROCEDURES Fin al Result [facility] documented in this encounter Visit Diagnoses Not on filedocumented in this encounter
--- OUTSIDE RECORDS SUMMARY | 2025-05-02 12:35 | XMS_ITS | Clinical Summary ---
Author Organization [facility] Address [address] [place] [address] Care Team Providers Care Drop Tester Name Role Phone Unavailable Primary Care Provider Unavailabl e Source Comments [facility] [employer],non-owned Affiliates and Associated Physician Practices is amultiple site organization consisting of ambulatory clinics and hospital sitesin [place], [place], [place] and [place]. This disclosure is being madepursuant to the Care Everywhere program and may not contain all information available regarding this patient. 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
--- OUTSIDE RECORDS SUMMARY | 2025-05-02 12:35 | XMS_ITS | Encounter Summary ---
Author Organization [facility] Address [address] [place] [address] Care Team Providers Care Butcher Meat Name Role Phone Unavailable Primary Care Provider Unavailabl e Encounter Details Date Type Department Care Team (Late st Contact Info) Description 10/10/2024 Lab Requisition [facility] - DermPath Lab [address] [facility] [place] [address] Adelaida Parra MD [address] [facility] [address] [place] [address] Social History Tobacco Use Types Packs/Day Years Used Date Smoking Tobacco: Never Assessed Comments Unknown Sex and Gender Information Value Date Recorded Sex Assigned at Not on file Legal Sex Female 7:13 PM RESP THER Gender Identity Not on file Sexual Orientation Not on file documented as of this encounter Plan of Treatment Not on file documented as of this encounter Procedures Procedure Name Priority Date/Time Associated Diagnosis Comments DERMATOPATHOLOGY Routine 10/10/2024 11:1 0 AM RESP THER documented in this encounter Results * DERMATOPATHOLOGY (10/10/2024 11:10 AM RESP THER) Case Report Dermatopathology Report Case: [id number] Authorizing Provider: Adelaida Parra MD Collected: 10/10/2024 11:10 AM Ordering Location: [facility] - Received: 10/11/2024 12:47 PM DermPath Lab Pathologist: Marly Yao MD Specimen: Skin, left mid back 5 2:12 PM RESP [facility]ER DERMATOPATHOLOGY LABORATORY Final Diagnosis Specimen A. SKIN, left mid back: LICHEN PLANUS-LIKE KERATOSIS (BENIGN LICHENOID KERATOSIS) (L82.1) 5 2:12 PM [facility] DERMATOPATHOLOGY LABORATORY at 1412 RESP THER Clinical History R/O NMSC; Irritated 2:12 PM [facility] DERMATOPATHOLOGY LABORATORY Gross Description Specimen A: Received is one formalin filled container labeled with the patient's name and designated left mid back. The specimen consists of a shave biopsy measuring 8x8x1 mm. Jar 0. 2:12 PM [facility] DERMATOPATHOLOGY LABORATORY Microscopic Description Specimen A. SKIN, left mid back: The epidermis is mildly acanthotic. There is a lichenoid infiltrate with vacuolar changes of basilar keratinocytes and scattered necrotic keratinocytes. 2:12 PM [facility] DERMATOPATHOLOGY LABORATORY Disclaimer An external and internal positive and negative controls are appropriate for the histochemical, immunohistochemical and immunofluorescence stain(s) in this case (if any), except where stated explicitly. The performance characteristics of the stain(s) cited in this report were developed and its performance characteristic determined by the Dermatopathology Laboratory at [facility], directed by Dr. Linda Garcia. These tests need not be, and therefore are not, approved by the [place] Food and Drug Administration. The tests are used for clinical purposes. Billing Codes Specimen Charges Stain Charges 30004 1 2:12 PM [facility] DERMATOPATHOLOGY LABORATORY Embedded Images 2:12 PM [facility] DERMATOPATHOLOGY LABORATORY Pathology/Cytolo gy TISSUE SPECIMEN FROM SKIN / Unknown 10/10/2024 11:10 AM RESP THER 10/11/2024 12:47 PM RESP THER Adelaida Parra MD LAB - PATHOLOGY/CYTOLOGY OR DERABLES Final Result DERMATOPATHOLOGY LABORATORY [facility] - Department of Dermatology [address] [place] [address], [facility] [phone] documented in this encounter Visit Diagnoses Not on filedocumented in this encounter
--- OUTSIDE RECORDS SUMMARY | 2025-05-02 12:35 | XMS_ITS | Encounter Summary ---
Author Organization [facility] Address [address] [place] [address] Care Team Providers Care Storage Garage Manager Name Role Phone Unavailable Primary Care Provider Unavailabl e Encounter Details Date Type Department Care Team (Late st Contact Info) Description 08/16/2020 Lab Requisition [facility] DermPath Lab [address] [place] [id number] Liseth Mckeon MD [address] [facility] [address] [place] [address] Social History Tobacco Use Types Packs/Day Years Used Date Smoking Tobacco: Never Assessed Comments Unknown Sex and Gender Information Value Date Recorded Sex Assigned at Not on file Legal Sex Female 7:13 PM OPERATIONS CONTROLLER Gender Identity Not on file Sexual Orientation Not on file documented as of this encounter Plan of Treatment Not on file documented as of this encounter Procedures Procedure Name Priority Date/Time Associated Diagnosis Comments DERMATOPATHOLOGY Routine 08/15/2020 12:0 0 AM OPERATIONS CONTROLLER documented in this encounter Results * DERMATOPATHOLOGY (08/15/2020 12:00 AM OPERATIONS CONTROLLER) Case Report Dermatopathology Report Case: [id number] Authorizing Provider: Liseth Mckeon MD Collected: 08/15/2020 12:00 AM Ordering Location: [facility] DermPath Lab Received: 08/16/2020 09:00 AM Pathologist: Akua Shah MD Specimen: Skin, left medial canthus 0 1:44 PM OPERATIONS CONTROLLER DERMATOPATHOLOGY LABORATORY Final Diagnosis Specimen A. SKIN, left medial canthus: HYPERPLASTIC (HYPERTROPHIC) ACTINIC KERATOSIS (L57.0) (see microscopic description) 0 1:44 PM OPERATIONS CONTROLLER DERMATOPATHOLOGY LABORATORY at 1344 OPERATIONS CONTROLLER Clinical History [place] papule, [place], BCC, ISK. 0 1:44 PM OPERATIONS CONTROLLER DERMATOPATHOLOGY LABORATORY Gross Description Specimen A: Received is one formalin filled container labeled with the patient's name and designated left medial canthus. The specimen consists of a shave measuring 9c0v9di. Jar 0. 0 1:44 PM [facility] DERMATOPATHOLOGY LABORATORY Microscopic Description Specimen A. SKIN, left medial canthus: There is hyperkeratosis alternating with parakeratosis. There is epidermal hyperplasia with disorderly maturation of keratinocytes with nuclear pleomorphism confined to the lower half of the epidermis. Additional deeper sections were obtained and reviewed. 0 1:44 PM [facility] DERMATOPATHOLOGY LABORATORY Disclaimer An external and internal [...] purposes. Billing Codes Specimen Charges Stain Charges 94843 1 0 1:44 PM OPERATIONS CONTROLLER DERMATOPATHOLOGY LABORATORY Embedded Images 0 1:44 PM [facility] DERMATOPATHOLOGY LABORATORY Pathology/Cytolog y TISSUE SPECIMEN FROM SKIN / Unknown 08/15/2020 08/16/2020 9:00 AM OPERATIONS CONTROLLER us Liseth Mckeon MD LAB - PATHOLOGY/CYTOLOGY ORD ERABLES Final Result DERMATOPATHOLOGY LABORATORY [facility] - Department of Dermatology [address] [place] [address], [facility] [phone] documented in this encounter Visit Diagnoses Not on filedocumented in this encounter
--- OUTSIDE RECORDS SUMMARY | 2025-05-02 12:35 | XMS_ITS | Encounter Summary ---
Author Organization [facility] Address [address] [place] [address] Care Team Providers Care Gasoline Finisher Name Role Phone Unavailable Primary Care Provider Unavailabl e Encounter Details Date Type Department Care Team (Late st Contact Info) Description 09/01/2019 Lab Requisition [facility] DermPath Lab [address] [facility] [place] [phone] Liseth Mckeon MD [address] [facility] [address] [place] [address] Social History Tobacco Use Types Packs/Day Years Used Date Smoking Tobacco: Never Assessed Comments Unknown Sex and Gender Information Value Date Recorded Sex Assigned at Not on file Legal Sex Female 7:13 PM DANCE DIRECTOR Gender Identity Not on file Sexual Orientation Not on file documented as of this encounter Plan of Treatment Not on file documented as of this encounter Procedures Procedure Name Priority Date/Time Associated Diagnosis Comments DERMATOPATHOLOGY Routine 08/31/2019 12:0 0 AM DANCE DIRECTOR documented in this encounter Results * DERMATOPATHOLOGY (08/31/2019 12:00 AM DANCE DIRECTOR) Case Report Dermatopathology Report Case: [id number] Authorizing Provider: Liseth Mckeon MD Collected: 08/31/2019 12:00 AM Ordering Location: [facility] DermPath Lab Received: 09/01/2019 06:10 AM Pathologist: Akua Shah MD Specimen: Skin, left thigh 9 11:39 AM DANCE DIRECTOR DERMATOPATHOLOGY LABORATORY Final Diagnosis Specimen A. SKIN, left thigh: SEBORRHEIC KERATOSIS, MACULAR (L82.1) 9 11:39 AM DANCE DIRECTOR DERMATOPATHOLOGY LABORATORY at 1139 DANCE DIRECTOR Clinical History MM,SK,Lentigo 11:39 AM [facility] DERMATOPATHOLOGY LABORATORY Gross Description Specimen A: Received is one formalin filled container labeled with the patient's name and designated left thigh. The specimen consists of a shave biopsy measuring 10x8x1 mm. Jar 0. 11:39 AM [facility] DERMATOPATHOLOGY LABORATORY Microscopic Description Specimen A. SKIN, left thigh: Sections show a relatively broad, flat proliferation of small keratinocytes. The surface is gently papillated, and there is increased basilar pigmentation. 11:39 AM [facility] DERMATOPATHOLOGY LABORATORY Disclaimer An external [...] purposes. Billing Codes Specimen Charges Stain Charges 96137 1 11:39 AM [facility] DERMATOPATHOLOGY LABORATORY Embedded Images 11:39 AM [facility] DERMATOPATHOLOGY LABORATORY Pathology/Cytolog y TISSUE SPECIMEN FROM SKIN / Unknown 08/31/2019 09/01/2019 6:10 AM [facility] us Liseth Mckeon MD LAB - PATHOLOGY/CYTOLOGY ORD ERABLES Final Result DERMATOPATHOLOGY LABORATORY [facility] - Department of Dermatology [facility] [facility] [address] Floor Lab [address] [place], [place] [address] [phone] documented in this encounter Visit Diagnoses Not on filedocumented in this encounter
--- OUTSIDE RECORDS SUMMARY | 2025-05-02 12:35 | XMS_ITS | Encounter Summary ---
Author Organization [facility] Address [address] [place] [address] Care Team Providers Care Combination Man Name Role Phone Unavailable Primary Care Provider Unavailabl e Encounter Details Date Type Department Care Team (Late st Contact Info) Description 02/29/2024 Lab Requisition [facility] - DermPath Lab [address] [facility] [place] [address] Liseth Mckeon MD [address] [facility] [address] [place] [address] Social History Tobacco Use Types Packs/Day Years Used Date Smoking Tobacco: Never Assessed Comments Unknown Sex and Gender Information Value Date Recorded Sex Assigned at Not on file Legal Sex Female 7:13 PM NEGATIVE TURNER Gender Identity Not on file Sexual Orientation Not on file documented as of this encounter Plan of Treatment Not on file documented as of this encounter Procedures Procedure Name Priority Date/Time Associated Diagnosis Comments DERMATOPATHOLOGY Routine 02/29/2024 1:23 PM CDT documented in this encounter Results * DERMATOPATHOLOGY (02/29/2024 1:23 PM CDT) Case Report Dermatopathology Report Case: [id number] Authorizing Provider: Liseth Mckeon MD Collected: 02/29/2024 01:23 PM Ordering Location: [facility] - Received: 03/02/2024 05:38 AM DermPath Lab [...] 1418 CDT Clinical History Nevus vs BCC; Ceiba Papule 4 2:18 PM CDT DERMATOPATHOLOGY LABORATORY [...] characteristic determined by the Dermatopathology Laboratory at [facility], directed by Dr. Linda Garcia. These tests need not be, and therefore are not, approved by the [place] Food and Drug Administration. The tests are used for clinical purposes. Billing Codes Specimen Charges Stain Charges 25198 1 4 2:18 PM CDT DERMATOPATHOLOGY LABORATORY Embedded Images 4 2:18 PM CDT DERMATOPATHOLOGY LABORATORY Pathology/Cytolo gy TISSUE SPECIMEN FROM SKIN / Unknown 02/29/2024 1:23 PM CDT 03/02/2024 5:38 AM CDT us Liseth Mckeon MD LAB - PATHOLOGY/CYTOLOGY ORD ERABLES Final Result DERMATOPATHOLOGY LABORATORY [facility] - Department of Dermatology [facility] [facility], 3[address] Floor [address] [phone] documented in this encounter Visit Diagnoses Not on filedocumented in this encounter
--- OUTSIDE RECORDS SUMMARY | 2025-05-02 12:35 | XMS_ITS | Clinical Summary ---
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
--- OUTSIDE RECORDS SUMMARY | 2025-05-02 12:35 | XMS_ITS | Encounter Summary ---
Author Organization [facility] Address [address] [facility] [place] [address] Care Team Providers Care Pit Clerk Name Role Phone Unavailable Primary Care Provider Unavailabl e Encounter Details Date Type Department Care Team (Late st Contact Info) Description 07/05/2023 Lab Requisition [facility] - DermPath Lab [address] [facility], [place] [address] Liseth Mckeon MD [address] [facility] 3 [place] [address] Social History Tobacco Use Types Packs/Day Years Used Date Smoking Tobacco: Never Assessed Comments Unknown Sex and Gender Information Value Date Recorded Sex Assigned at Not on file Legal Sex Female 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 Gender Identity Not on file Sexual Orientation Not on file documented as of this encounter Plan of Treatment Not on file documented as of this encounter Procedures Procedure Name Priority Date/Time Associated Diagnosis Comments DERMATOPATHOLOGY Routine 07/05/2023 2:50 PM CDT documented in this encounter Results * DERMATOPATHOLOGY (07/05/2023 2:50 PM CDT) Case Report Dermatopathology Report Case: [id number] Authorizing Provider: Liseth Mckeon MD Collected: 07/05/2023 02:50 PM Ordering Location: [facility] DermPath Lab Received: 07/06/2023 11:13 AM Pathologist: Kalie Chu MD Specimen: Skin, left upper lip 3 4:18 PM CDT DERMATOPATHOLOGY LABORATORY Final Diagnosis Specimen A. 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 Linda Garcia. These tests need not be, and therefore are not, approved by the [place] Food and Drug Administration. The tests are used for clinical purposes. Billing Codes Specimen Charges Stain Charges 75117 1 3 4:18 PM CDT DERMATOPATHOLOGY LABORATORY Embedded Images 3 4:18 PM CDT DERMATOPATHOLOGY LABORATORY Pathology/Cytolo gy TISSUE SPECIMEN FROM SKIN / Unknown 07/05/2023 2:50 PM CDT 07/06/2023 11:13 AM CDT us Liseth Mckeon MD LAB - PATHOLOGY/CYTOLOGY ORD ERABLES Final Result DERMATOPATHOLOGY LABORATORY [facility] - Department of Dermatology [address], [address] [phone] documented in this encounter Visit Diagnoses Not on filedocumented in this encounter
--- OUTSIDE RECORDS SUMMARY | 2025-05-02 12:35 | XMS_ITS | Encounter Summary ---
Author Organization [facility] Address [address] [place] [address] Care Team Providers Care Material Handler Loader Name Role Phone Unavailable Primary Care Provider Unavailabl e Encounter Details Date Type Department Care Team (Late st Contact Info) Description 06/09/2018 Lab Requisition [facility] DermPath Lab [address] [facility], [place] [phone] Liseth Mckeon MD [address] [facility] 3 [place] [address] Social History Tobacco Use Types Packs/Day Years Used Date Smoking Tobacco: Never Assessed Comments Unknown Sex and Gender Information Value Date Recorded Sex Assigned at Not on file Legal Sex Female 7:13 PM LOGISTICS 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 Jar 0. [facility] Dermatopathology Laboratory performed the technical component only. 8 10:14 AM T DERMATOPATHOLOGY LABORATORY Embedded Images 8 10:14 AM [facility] DERMATOPATHOLOGY LABORATORY DISCLAIMER An external and internal positive and negative controls are appropriate for the histochemical, immunohistochemical and immunofluorescence stain(s) in this case (if any), except where stated explicitly. The performance characteristics of the stain(s) cited in this report were developed and its performance characteristic determined by the Dermatopathology Laboratory at [facility]. These tests need not be, and therefore are not, approved by the [place] Food and Drug Administration. The tests are used for clinical purposes. 8 10:14 AM [facility] DERMATOPATHOLOGY LABORATORY at 1014 CDT Pathology/Cytolog y TISSUE SPECIMEN FROM SKIN / Unknown 06/08/2018 06/09/2018 6:34 AM CDT Liseth Mckeon MD LAB - PATHOLOGY/CYTOLOGY ORD ERABLES Final Result DERMATOPATHOLOGY LABORATORY [facility] - Department of Dermatology [facility] [facility], [address]th [place] [address], [facility] [phone] documented in this encounter Visit Diagnoses Not on filedocumented in this encounter
== END 2025-05-02 12:30 | disposition home or self-care (01) ==
LOC: CHSIMG 12:32
PROVIDERS: PCP Family Medicine; Visit Provider Obstetrics & Gynecology Gynecology
DX: Z12.31 Encounter for screening mammogram for malignant neoplasm of breast (principal)
CPT/HCPCS: 99199

== ENCOUNTER 2025-05-22 09:51 | Outpatient (CLI) | payer MEDICARE, SELFPAY ==
--- OUTSIDE RECORDS SUMMARY | 2015-10-18 01:00 | XMS_ITS | Encounter Summary ---
Author Organization [facility] Healthcare Address [address] [place] [address] Care Team Providers Care Health Care Law Specialist Name Role Phone Unavailable Primary Care Provider Unavailabl e Reason for Visit * Diagnostic Imaging (Routine) - Closed Specialty Diagnoses / Procedures Referred By Neil soliman Referred To Contact Procedures Breast Imaging Screening Outside Reference Jing Cain NP Phone: tel: fax: Referral ID Status Reason Start Date Expiration Date Visits Re quested Visits Authorized [id number] Closed 11/20/2021 12/20/2022 1 1 Encounter Details Date Type Department Care Team (Late st Contact Info) Description 10/18/2015 Hospital Encounter [facility] [address] [place] [address] Social History Tobacco Use Types Packs/Day Years Used Date Smoking Tobacco: Never AUDIT-C Answer Date Recorded Q1: How often do you have a drink containing alc ohol? Monthly or less 11/25/2021 Average Number of Drinks Not on file 022 Frequency of Binge Drinking Not on file 11/11 Personal Safety Answer Date Recorded Getting School Help Needed Not on file 09/14 Comments Unknown Sex and Gender Information Value Date Recorded Sex Assigned at Not on file Legal Sex Female 4:17 AM GAS TORCH SOLDERER Gender Identity Not on file Sexual Orientation Not on file documented as of this encounter Functional Status documented as of this encounter Plan of Treatment Not on file documented as of this encounter Procedures Procedure Name Priority Date/Time Associated Diagnosis Comments BREAST IMAGING MG SCREENING OUTSIDE REFERENCE Routine 10/18/2015 12:00 AM GAS TORCH SOLDERER documented in this encounter Results * Breast Imaging Screening Outside Reference (10/18/2015 12:00 AM GAS TORCH SOLDERER) Impressions RAD_MAMMO_[facility] - 11/20/2021 2:35 PM GAS TORCH SOLDERER These images are for Reference purposes only and have not been reviewed by [facility] Radiology. There will be no report generated by a [facility] Radiologist. Narrative RAD_MAMMO_BJ - 11/20/2021 2:35 PM GAS TORCH SOLDERER EXAMINATION: Images For Reference Purposes Only us Jing Cain NP IMG MAMMO PROCEDURES Fin al Result RAD_MAMMO_[facility] documented in this encounter Visit Diagnoses Not on filedocumented in this encounter
--- OUTSIDE RECORDS SUMMARY | 2017-01-25 00:05 | XMS_ITS | Encounter Summary ---
Author Organization [facility] Healthcare Address [address] [place] [address] Care Team Providers Care College Sports Assistant Name Role Phone Unavailable Primary Care Provider Unavailabl e Reason for Visit * Diagnostic Imaging (Routine) - Closed Specialty Diagnoses / Procedures Referred By Neil soliman Referred To Contact Procedures Breast Imaging Diagnostic Outside Reference Jing Cain NP Phone: tel: fax: Referral ID Status Reason Start Date Expiration Date Visits Re quested Visits Authorized [id number] Closed 11/20/2021 12/20/2022 1 1 Encounter Details Date Type Department Care Team (Late st Contact Info) Description 01/25/2017 12:05 AM CDT Hospital Encounter [facility] [address] [place] [id number] Social History Tobacco Use Types Packs/Day Years [...] file Legal Sex Female 4:17 AM PIPE STEM ALIGNER Gender Identity Not on file Sexual Orientation Not on file documented as of this encounter Functional Status documented as of this encounter Plan of Treatment Not on file documented as of this encounter Procedures Procedure Name Priority Date/Time Associated Diagnosis Comments BREAST IMAGING MG DIAGNOSTIC OUTSIDE REFERENCE Routine 01/25/2017 12:05 AM CDT documented in this encounter Results * Breast Imaging Diagnostic Outside Reference (01/25/2017 12:05 AM CDT) Impressions RAD_MAMMO_[facility] - 11/20/2021 2:53 PM PIPE STEM ALIGNER These images are for Reference purposes only and have not been reviewed by [facility] Radiology. There will be no report generated by a [facility] Radiologist. Narrative RAD_MAMMO_[facility] - 11/20/2021 2:53 PM PIPE STEM ALIGNER EXAMINATION: Images For Reference Purposes Only us Jing Cain NP IMG MAMMO PROCEDURES Fin al Result RAD_MAMMO[facility] documented in this encounter Visit Diagnoses Not on filedocumented in this encounter
--- OUTSIDE RECORDS SUMMARY | 2017-01-26 | XMS_ITS | Encounter Summary ---
Author Organization [facility] Healthcare Address [address] [place] [address] Care Team Providers Care Ear Specialist Name Role Phone Unavailable Primary Care Provider Unavailabl e Reason for Visit * Diagnostic Imaging (Routine) - Closed Specialty Diagnoses / Procedures Referred By Neil t Referred To Contact Procedures Breast Imaging US Outside Reference Jing Cain NP Phone: tel: fax: Referral ID Status Reason Start Date Expiration Date Visits Re quested Visits Authorized [id number] Closed 11/20/2021 12/20/2022 1 1 Encounter Details Date Type Department Care Team (Late st Contact Info) Description 01/26/2017 Hospital Encounter [facility] [address] [place] [address] Social History Tobacco Use Types Packs/Day Years [...] on file Legal Sex Female 4:17 AM MUSIC INTERN Gender Identity Not on file Sexual Orientation [...] CDT) Impressions RAD_MAMMO_[facility] - 11/20/2021 2:34 PM MUSIC INTERN These images are for Reference purposes only and have not been reviewed by [facility] Radiology. There will be no report generated by a [facility] Radiologist. Narrative RAD_MAMMO_BJ - 11/20/2021 2:34 PM MUSIC INTERN EXAMINATION: Images For Reference Purposes Only us Jing Cain CEREAL MILLER IMG MAMMO PROCEDURES Fin al Result RAD_MAMMO[facility] documented in this encounter Visit Diagnoses Not on filedocumented in this encounter
--- OUTSIDE RECORDS SUMMARY | 2017-02-17 | XMS_ITS | Encounter Summary ---
Author Organization [facility] Healthcare Address [address] [place] [address] Care Team Providers Care Frame Bander Name Role Phone Unavailable Primary Care Provider Unavailabl e Reason for Visit * Diagnostic Imaging (Routine) - Closed Specialty Diagnoses / Procedures Referred By Neil soliman Referred To Contact Procedures Breast Imaging US Outside Reference Jing Cain NP Phone: tel: fax: Referral ID Status Reason Start Date Expiration Date Visits Re quested Visits Authorized [id number] Closed 11/20/2021 12/20/2022 1 1 Encounter Details Date Type Department Care Team (Late st Contact Info) Description 02/17/2017 Hospital Encounter [facility] [address] [place] [address] Social History Tobacco Use Types Packs/Day Years [...] on file Legal Sex Female 4:17 AM PE MANAGER Gender Identity Not on file Sexual Orientation Not on file documented as of this encounter Functional Status documented as of this encounter Plan of Treatment Not on file documented as of this encounter Procedures Procedure Name Priority Date/Time Associated Diagnosis Comments BREAST IMAGING US OUTSIDE REFERENCE Routine 02/17/2017 12:00 AM CDT documented in this encounter Results * Breast Imaging US Outside Reference (02/17/2017 12:00 AM CDT) Impressions RAD_MAMMO_[facility] - 11/20/2021 2:34 PM PE MANAGER These images are for Reference purposes only and have not been reviewed by [facility] Radiology. There will be no report generated by a [facility] Radiologist. Narrative RAD_MAMMO_BJ - 11/20/2021 2:34 PM PE MANAGER EXAMINATION: Images For Reference Purposes Only us Jing Cain PARTRIDGE FARMER IMG MAMMO PROCEDURES Fin al Result RAD_MAMMO_[facility] documented in this encounter Visit Diagnoses Not on filedocumented in this encounter
--- OUTSIDE RECORDS SUMMARY | 2018-04-26 | XMS_ITS | Encounter Summary ---
Author Organization [facility] Healthcare Address [address] [place] [address] Care Team Providers Care Ammunition Assembly I Laborer Name Role Phone Unavailable Primary Care Provider Unavailabl e Reason for Visit * Diagnostic Imaging (Routine) - Closed Specialty Diagnoses / Procedures Referred By Neil soliman Referred To Contact Procedures Breast Imaging Screening Outside Reference Jing Cain NP Phone: tel: fax: Referral ID Status Reason Start Date Expiration Date Visits Re quested Visits Authorized [id number] Closed 11/20/2021 12/20/2022 1 1 Encounter Details Date Type Department Care Team (Late st Contact Info) Description 04/26/[address] [facility] [address] [place] [address] Social History Tobacco Use Types Packs/Day Years [...] on file Legal Sex Female 4:17 AM RADIOLOGY PRACTITIONER ASSISTANT Gender Identity Not on file Sexual Orientation [...] CDT) Impressions RAD_MAMMO_[facility] - 11/20/2021 2:34 PM RADIOLOGY PRACTITIONER ASSISTANT These images are for Reference purposes only and have not been reviewed by [facility] Radiology. There will be no report generated by a [facility] Radiologist. Narrative RAD_MAMMO_[facility] - 11/20/2021 2:34 PM RADIOLOGY PRACTITIONER ASSISTANT EXAMINATION: Images For Reference Purposes Only us Jing Cain NP IMG MAMMO PROCEDURES Fin al Result RAD_MAMMO_[facility] documented in this encounter Visit Diagnoses Not on filedocumented in this encounter
--- OUTSIDE RECORDS SUMMARY | 2019-08-08 01:00 | XMS_ITS | Encounter Summary ---
Author Organization [facility] Healthcare Address [address] [place] [address] Care Team Providers Care Senior Accounts Payable Specialist Name Role Phone Unavailable Primary Care Provider Unavailabl e Reason for Visit * Diagnostic Imaging (Routine) - Closed Specialty Diagnoses / Procedures Referred By Neil soliman Referred To Contact Procedures Breast Imaging Diagnostic Outside Reference Jing Cain NP Phone: tel: fax: Referral ID Status Reason Start Date Expiration Date Visits Re quested Visits Authorized [id number] Closed 11/20/2021 12/20/2022 1 1 Encounter Details Date Type Department Care Team (Late st Contact Info) Description 08/08/2019 Hospital Encounter [facility] [place] [address] Social History Tobacco Use Types Packs/Day Years [...] on file Legal Sex Female 4:17 AM PIPELINE CONTROLLER Gender Identity Not on file Sexual Orientation Not on file documented as of this encounter Functional Status documented as of this encounter Plan of Treatment Not on file documented as of this encounter Procedures Procedure Name Priority Date/Time Associated Diagnosis Comments BREAST IMAGING MG DIAGNOSTIC OUTSIDE REFERENCE Routine 08/08/2019 12:00 AM PIPELINE CONTROLLER documented in this encounter Results * Breast Imaging Diagnostic Outside Reference (08/08/2019 12:00 AM PIPELINE CONTROLLER) Impressions RAD_MAMMO_[facility] - 11/20/2021 2:33 PM PIPELINE CONTROLLER These images are for Reference purposes only and have not been reviewed by [facility] Radiology. There will be no report generated by a [facility] Radiologist. Narrative RAD_MAMMO_BJ - 11/20/2021 2:33 PM PIPELINE CONTROLLER EXAMINATION: Images For Reference Purposes Only us Jing Cain NP IMG MAMMO PROCEDURES Fin al Result RAD_MAMMO_[facility] documented in this encounter Visit Diagnoses Not on filedocumented in this encounter
--- OUTSIDE RECORDS SUMMARY | 2019-08-08 01:05 | XMS_ITS | Encounter Summary ---
Author Organization [facility] Healthcare Address [address] [place] [address] Care Team Providers Care Rubber Process Hand Name Role Phone Unavailable Primary Care Provider Unavailabl e Reason for Visit * Diagnostic Imaging (Routine) - Closed Specialty Diagnoses / Procedures Referred By Neil t Referred To Contact Procedures Breast Imaging Screening Outside Reference Jing Cain NP Phone: tel: fax: Referral ID Status Reason Start Date Expiration Date Visits Re quested Visits Authorized [id number] Closed 11/20/2021 12/20/2022 1 1 Encounter Details Date Type Department Care Team (Late st Contact Info) Description 08/08/2019 12:05 AM SAW HANDLE ASSEMBLER Hospital Encounter [facility]) [address] [place] [address] [phone] Social History Tobacco Use Types Packs/Day Years [...] on file Legal Sex Female 4:17 AM SAW HANDLE ASSEMBLER Gender Identity Not on file Sexual Orientation Not on file documented as of this encounter Functional Status documented as of this encounter Plan of Treatment Not on file documented as of this encounter Procedures Procedure Name Priority Date/Time Associated Diagnosis Comments BREAST IMAGING MG SCREENING OUTSIDE REFERENCE Routine 08/08/2019 12:05 AM SAW HANDLE ASSEMBLER documented in this encounter Results * Breast Imaging Screening Outside Reference (08/08/2019 12:05 AM SAW HANDLE ASSEMBLER) Impressions [facility] - 11/20/2021 2:35 PM SAW HANDLE ASSEMBLER These images are for Reference purposes only and have not been reviewed by [facility]. There will be no report generated by a [facility] Radiologist. Narrative [facility] - 11/20/2021 2:35 PM SAW HANDLE ASSEMBLER EXAMINATION: Images For Reference Purposes Only us Jing Cain NP IMG MAMMO PROCEDURES Fin al Result [facility] documented in this encounter Visit Diagnoses Not on filedocumented in this encounter
--- OUTSIDE RECORDS SUMMARY | 2020-08-28 01:00 | XMS_ITS | Encounter Summary ---
Author Organization [facility] Healthcare Address [address] [place] [address] Care Team Providers Care Rag Room Supervisor Name Role Phone Unavailable Primary Care Provider Unavailabl e Reason for Visit * Diagnostic Imaging (Routine) - Closed Specialty Diagnoses / Procedures Referred By Neil soliman Referred To Contact Procedures Breast Imaging Screening Outside Reference Jing Cain NP Phone: tel: fax: Referral ID Status Reason Start Date Expiration Date Visits Re quested Visits Authorized [id number] Closed 11/20/2021 12/20/2022 1 1 Encounter Details Date Type Department Care Team (Late st Contact Info) Description 08/28/2020 Hospital Encounter [facility]) [facility] [place] [address] Social History Tobacco Use Types Packs/Day Years [...] on file Legal Sex Female 4:17 AM OYSTER WASHER Gender Identity Not on file Sexual Orientation Not on file documented as of this encounter Functional Status documented as of this encounter Plan of Treatment Not on file documented as of this encounter Procedures Procedure Name Priority Date/Time Associated Diagnosis Comments BREAST IMAGING MG SCREENING OUTSIDE REFERENCE Routine 08/28/2020 12:00 AM OYSTER WASHER documented in this encounter Results * Breast Imaging Screening Outside Reference (08/28/2020 12:00 AM OYSTER WASHER) Impressions [facility] - 11/20/2021 2:33 PM OYSTER WASHER These images are for Reference purposes only and have not been reviewed by [facility]. There will be no report generated by a [facility] Radiologist. Narrative RAD_MAMMO[facility] - 11/20/2021 2:33 PM OYSTER WASHER EXAMINATION: Images For Reference Purposes Only us Jing Cain NP IMG MAMMO PROCEDURES Fin al Result [facility] documented in this encounter Visit Diagnoses Not on filedocumented in this encounter
--- OUTSIDE RECORDS SUMMARY | 2020-09-30 01:00 | XMS_ITS | Encounter Summary ---
Author Organization [facility] Healthcare Address [address] [place] [address] Care Team Providers Care Hand Clipper Name Role Phone Unavailable Primary Care Provider Unavailabl e Reason for Visit * Diagnostic Imaging (Routine) - Closed Specialty Diagnoses / Procedures Referred By Neil soliman Referred To Contact Procedures Breast Imaging US Outside Reference Jing Cain NP Phone: tel: fax: Referral ID Status Reason Start Date Expiration Date Visits Re quested Visits Authorized [id number] Closed 11/20/2021 12/20/2022 1 1 Encounter Details Date Type Department Care Team (Late st Contact Info) Description 09/30/[address] [facility] [place] [address] Social History Tobacco Use Types Packs/Day Years [...] on file Legal Sex Female 4:17 AM NEUROPHYSIOLOGIST Gender Identity Not on file Sexual Orientation Not on file documented as of this encounter Functional Status documented as of this encounter Plan of Treatment Not on file documented as of this encounter Procedures Procedure Name Priority Date/Time Associated Diagnosis Comments BREAST IMAGING US OUTSIDE REFERENCE Routine 09/30/2020 12:00 AM NEUROPHYSIOLOGIST documented in this encounter Results * Breast Imaging US Outside Reference (09/30/2020 12:00 AM NEUROPHYSIOLOGIST) Impressions [facility] - 11/20/2021 2:32 PM NEUROPHYSIOLOGIST These images are for Reference purposes only and have not been reviewed by [facility]. There will be no report generated by a [facility] Radiologist. Narrative RAD_MAMMO_[facility] - 11/20/2021 2:32 PM NEUROPHYSIOLOGIST EXAMINATION: Images For Reference Purposes Only us Jing Cain REMANUFACTURING TECHNICIAN IMG MAMMO PROCEDURES Fin al Result [facility] documented in this encounter Visit Diagnoses Not on filedocumented in this encounter
--- OUTSIDE RECORDS SUMMARY | 2020-09-30 01:05 | XMS_ITS | Encounter Summary ---
Author Organization [facility] Healthcare Address [address] [place] [address] Care Team Providers Care Gas Turbine Assembler Name Role Phone Unavailable Primary Care Provider Unavailabl e Reason for Visit * Diagnostic Imaging (Routine) - Closed Specialty Diagnoses / Procedures Referred By Neil soliman Referred To Contact Procedures Breast Imaging Diagnostic Outside Reference Jing Cain NP Phone: tel: fax: Referral ID Status Reason Start Date Expiration Date Visits Re quested Visits Authorized [id number] Closed 11/20/2021 12/20/2022 1 1 Encounter Details Date Type Department Care Team (Late st Contact Info) Description 09/30/2020 12:05 AM HERB COUNSELOR Hospital Encounter [facility]iology [facility] [address] [place] [address] [phone] Social History Tobacco Use Types Packs/Day Years [...] on file Legal Sex Female 4:17 AM HERB COUNSELOR Gender Identity Not on file Sexual Orientation Not on file documented as of this encounter Functional Status documented as of this encounter Plan of Treatment Not on file documented as of this encounter Procedures Procedure Name Priority Date/Time Associated Diagnosis Comments BREAST IMAGING MG DIAGNOSTIC OUTSIDE REFERENCE Routine 09/30/2020 12:05 AM HERB COUNSELOR documented in this encounter Results * Breast Imaging Diagnostic Outside Reference (09/30/2020 12:05 AM HERB COUNSELOR) Impressions [facility] - 11/20/2021 2:32 PM HERB COUNSELOR These images are for Reference purposes only and have not been reviewed by [facility]. There will be no report generated by a [facility] Radiologist. Narrative RAD_MAMMO[facility] - 11/20/2021 2:32 PM HERB COUNSELOR EXAMINATION: Images For Reference Purposes Only us Jing Cain NP IMG MAMMO PROCEDURES Fin al Result [facility] documented in this encounter Visit Diagnoses Not on filedocumented in this encounter
--- OUTSIDE RECORDS SUMMARY | 2022-11-09 08:53 | XMS_ITS | Continuity of Care Document ---
Author Organization [facility] Address [address] [place] [address] Phone Care Team Providers Care Legal Billing Clerk Name Role Phone Elidia Lam MD Unavailable Unavailable Allergies, Adverse Reactions, Alerts Substance Reaction Status Criticality No Known Allergies Active No Inform ation Medications Medication Instructions Dosage Effective Dates (start - stop) Status Comments hydrocodone 7.5 mg-acetaminophen 325 mg tablet take 1 tablet by oral route every 8 to 12 hours as needed for pain - Active Procedures Procedure Date POSTOPERATIVE FOLLOW-UP VISIT, INCLUDED IN GLOBAL SERVICE POSTOPERATIVE FOLLOW-UP VISIT, INCLUDED IN GLOBAL SERVICE POSTOPERATIVE FOLLOW-UP VISIT, INCLUDED IN GLOBAL SERVICE POSTOPERATIVE FOLLOW-UP VISIT, INCLUDED IN GLOBAL SERVICE X-RAY EXAM OF KNEE, A/P & LAT 2 POSTOPERATIVE FOLLOW-UP VISIT, INCLUDED IN GLOBAL SERVICE POSTOPERATIVE FOLLOW-UP VISIT, INCLUDED IN GLOBAL SERVICE ARTHROPLASTY, KNEE, CONDYLE AND PLATEAU; MEDIAL OR LATERAL COMP OFFICE [id number] X-RAY EXAM OF KNEE, A/P & LAT 2 KENALOG 10 MG ASP/INJ MAJOR JOINTOR BURSA, SHOULDER, H IP,KNEE W/O US GUIDANCE POSTOPERATIVE FOLLOW-UP VISIT, INCLUDED IN GLOBAL SERVICE POSTOPERATIVE FOLLOW-UP VISIT, INCLUDED IN GLOBAL SERVICE POSTOPERATIVE FOLLOW-UP VISIT, INCLUDED IN GLOBAL SERVICE POSTOPERATIVE FOLLOW-UP VISIT, INCLUDED IN GLOBAL SERVICE KNEE ARTHROSCOPY/SURGERY OFFICE [id number] X-RAY EXAM OF KNEE, A/P & LAT OFFICE [id number] KENALOG 10 MG ASP/INJ MAJOR JOINTOR BURSA, SHOULDER, H IP,KNEE W/O US GUIDANCE OFFICE [id number] Xray Exam, Hip, Unilat, Two Or Three Vie ws OFFICE [id number] Advance Directives Directive Yes / No Effective Date File Name No Information Encounters Encounter Description Practice Location Reason(s) For Visit Diagnoses Date Provider Providers Copied on Encounter [facility], [address], [place], [place], [address], tel:[phone] [facility] No Information 3 [facility]. [address], [place], [place], [address] , [place]. tel:[phone] [facility], [address], [place], [place], [address], tel:[phone] [facility] knee (chief complaint) Status post right partial knee replacement 3 [facility]. [address], [place], [place], [address] , [place]. tel:[phone] Referring Provider: Tyree Pe[address], [place], [address] . tel:[phone] [facility], [address], [place], [place], [address], tel:[phone] [facility] knee (chief complaint) Status post right partial knee replacement 3 [facility]. [address], [place], [place], [address] , [place]. [phone] Referring Provider: Tyree Peña [address], [place], [address] . tel:[phone] [facility], [address], [place], [place], [address], tel:[phone] [facility] knee (chief complaint) Status post right partial knee replacement [facility]. [address], [place], [place], [address] , [place]. tel:[phone] Referring Provider: Elidia Lam, [address], [place], [address] . tel:[phone] [facility], [address], [place], [place], [address], [place] tel:[phone] [facility] No Information [facility]. [address], [place], [place], [address] , [place]. [phone] Referring Provider: Tyree Peña [address], [place], [address] . tel:[phone] OFFICE [id number] DARLING [facility], [address], [place], [place], [address], tel:[phone] [facility] knee (chief complaint) Primary osteoarthritis of right knee [facility]. [address], [place], [place], [address] , [place]. [phone] Referring Provider: Tyree Peña [address], [place], [address] . tel:[phone] [facility], [address], [place], [place], [address], [place] tel:[phone] [facility] RIGHT KNEE (chief complaint) S/P right knee arthroscopy [facility]. [address], [place], [place], [address] , [place]. tel:[phone] Referring Provider: Tyree Pe[address], [place], [address] . tel:[phone] [facility], [address], [place], [place], [address], tel:[phone] [facility] LEFT HIP (chief complaint) RIGHT KNEE (chief complaint) Status post arthroscopic surgery of right knee [facility]. [address], [place], [place], [address] , [place]. tel:[phone] Referring Provider: Tyree Peña [address], [place], [address] . tel:[phone] [facility], [address], [place], [place], [address], tel:[phone] [facility] Surgical [facility] No Information 2 [facility]. [address], [place], [place], [address] , . [phone] Referring Provider: Tyree Pe[address], [place], [address] . tel:[phone] [id number], [address], [place], [place], [address], tel:[phone] [facility] RIGHT KNEE (chief complaint) Complex tear of medial meniscus of right knee as current injury, initial encounterLoose body of right knee 2 [facility]. [address], [place], [place], [address] , [place]. [phone] Referring Provider: Tyree Pe[address], [place], [address] . tel:[phone] OFFICE [id number]-SOA ANDED [facility], [address], [place], [place], [address], tel:[phone] [facility] Right Knee (chief complaint) Injury of meniscus of right knee, initial encounter 2 [facility]. [address], [place], [place], [address] , [place]. tel: [phone] Referring Provider: Tyree Pe[address], [place], [address] . tel:[phone] OFFICE [id number] ANDED [facility], [address], [place], [place], [address], [place] tel:[phone] [facility] Right Knee (chief complaint) Right Great Toe (chief complaint) Primary osteoarthritis of left hipPrimary osteoarthritis of right kneeDegenerative joint disease of toe 1 [facility]. [address], [place], [place], [address] , [place]. tel:[phone] Referring Provider: Tyree Pe[address], [place], [address] . tel:[phone] OFFICE [id number]-MEY ANDED [facility], [address], [place], [place], [address], [place] tel:[phone] [facility] Left Hip (chief complaint) Primary osteoarthritis of left hip 1 [facility]. [address], [place], [place], [address] , [place]. tel: [phone] Referring Provider: Tyree Peña [address], [place], [address] . tel:[phone] [facility], [address], [place], [place], [address], [place] tel:[phone] [facility] right knee (chief complaint) Primary osteoarthritis of right knee 9 [facility]. [address], [place], [place], [address] , [place]. tel:[phone] Referring Provider: Tyree Peña [address], [place], [address] . tel:[phone] [facility], [address], [place], [place], [address], [place] tel:[phone] [facility] Contusion of left knee, initial encounter 7 [facility]. [address], [place], [place], [address] , [place]. tel:[phone] Referring Provider: Elidia Gayatrijudith, [address], [place], [address] . tel:[phone] [facility], [address], [place], [place], [address], [place] tel:[phone] [facility] Acute pain of left knee 7 [facility]. [address], [place], [place], [address] , [place]. tel:[phone] Family History Family Member Type Diagnosis Age At Onset No Information Payers Payer name Insurance type Covered green party ID Authoriza tibolivar(s) [employer] MD[employer] PPO PLANS [id number] Social History Type Description Quantity Date Captured Comments Alcohol Use Details Unknown Caffeine Use Details Unknown Tobacco Use Status No Information Smoking Status No Information Sex Female Chief Complaint And Reason For Visit No Information Reason For Referral Reason For Referral No Information Plan Of Treatment Date Type Action Status Referral Referred To: Physical Therapy Ordered: Referrals: Physical Therapy. Location: [facility]. Evaluate and treat - Level 2 ordered Referral Ordered: X-RAY EXAM OF KNEE, ONE OR TWO VIEWS Right Right ordered Referral Ordered: MRI, LOWER JOINT EXTREMITY W/O CONTRAST Right ordered Referral Ordered: X-RAY EXAM OF KNEE, ONE OR TWO VIEWS Right ordered Referral Ordered: Xray Exam, Hip, Unilat, Two Or Three Views Left ordered Future Order: Radiology Order MR I, LOWER JOINT EXTREMITY W/O CONTRAST Right ([id number]), Sent on: Sent History Of Present Illness Encounter Date Complaint History Of Prese nt Illness knee 3 months postop right med uni knee and knee feeling great having occ right hamstring tightness and pain but no hip pain plan continue home exercises fu as needed knee 6 weeks postop r ight uni knee and sore but progressing well plan continue exercises and therapy fu 1 month knee first psotopo ri ght uni knee and doing very well plan continue exerciwses and ttherapy fu 3-4 weeks knee here for exam an d eval 5 years of progressive right knee medial daily 8.10 pain not helped by nsaids injections arthroscpoy or over 3 months of physician directed home exercises and with difficulty standing wlaking climbing and with fear o falling xrys advanced med djd right knee with lateral and patellar sparing plan reviewed otpions plan right med uni knee RIGHT KNEE 2 months postop right knee scope and with recent increase in righ tmed knee pain - rehabbing a house and moving multiple lawns xrys advanced med djd right knee plan inj givne todya uni knee in the fall . winter right knee RIGHT KNEE first postop rig h t knee scope and pain free and feeling good plan continue heat and exercises fu as needed LEFT HIP RIGHT KNEE persistent right knee daily swelling 7/10 pain and loss of rom not better wtih injecitons and exercise program xray mild/ mod djd right knee torn medial meniscus and lose body in knee plan right knee scope for meniscus tear and losse body PATIENT SCHEDULED FOR RIGHT KNEE SCOPE SX ON 11-07-21 PRE & POST OP INSTRUCTIONS GIVEN TO PATIENT. Right Knee persistent right knee daily swelling 7/10 pain and loss of rom not better wtih injecitons and exercise program xray mild djd right knee plan mri right knee r/o meniscal tear Right Great Toe Right Knee right knee and r ight great toe djd with daily 5/10 aching and sweling plan injeciton given right knee observation heat right great toe Left Hip here for check l eft thr now 27 years and without pain but occ feeling of popping while walking also with low back back recently xrays left hip - well fixed , poly wear of acetabulum plan observation fu 6-9 months for repeat xrya left hip back exercises given right knee hx thr doing gre at here with right knee djd and hoping for injection and conservative rx xrays reviewed - djd right knee Functional Status Date Functional Assessmen t No Information Instructions Date Instruction Additional Infor gay 3 months postop and progressing well continue full activity fu as needed Related to Status post right partial knee replacement Disease process 6 weeks and sore but progressing well continue heat and exercises fu 1 month Related to Status post right partial knee replacement Disease process painful medial djd r ight knee with failure of conservative rx plan right uni knee Related to Primary osteoarthritis of right knee Disease process postop and doing wel l continue exercises fu as needed Related to Status post arthroscopic surgery of right knee Disease process loose body right kne e by mri plan right knee scope - see above Related to Loose body of right knee painful complex medi al meniscus tear right knee reviewed options plan right knee scope Related to Complex tear of medial meniscus of right knee as current injury, initial encounter Disease process plan mri right knee Related to I njury of meniscus of right knee, initial encounter Disease process thr doing well painless Related to Primary osteoarthritis of left hip injeiton given right knee ok heat and exercise Related to Primary osteoarthritis of right knee djd right great toe heat comfortable shoes Related to Degenerative joint disease of toe Disease process 28 y./o total hip wi th ploy wear but not yet to failure ok observation and cointinue exercises fu 6-9 months back exercises given Related to Primary osteoarthritis of left hip Disease process inj given right knee fu as neede d Related to Primary osteoarthritis of right knee Disease process Assessments Type Assessment Date No Information Patient Care Teams Name Effective Dates (start - stop) Status Members No Information
--- NOTE | ~2025-05-22 | MMUS_ITS ---
EXAMINATION: MM diagnostic jodie BI w mary, US breast RT limited INDICATION: 70-year old female; felt a palpable lump in month ago in the upper right breast which he no longer can feel. Patient is due for annual follow-up mammography. COMPARISON: 01/17/2024 through 10/18/2015 TECHNIQUE: Digital breast tomosynthesis CC and MLO views of the BILATERAL breast and True lateral of the BILATERAL breast were obtained with computer-aided detection to assist in interpretation of the study. A radiopaque skin marker was placed over the area of RIGHT breast palpable lump. FINDINGS: There are scattered areas of fibroglandular density. There are no suspicious masses, calcifications, architectural distortion or any other abnormality in either breast. No suspicious mammographic abnormality correlates to the radiopaque skin marker. BILATERAL BREAST ULTRASOUND FINDINGS: There is a prominent lymph node at 10:00, 10 cm from the nipple that correlates to the area of palpable lump identified by the patient. IMPRESSION: Prominent lymph node correlates to the palpable lump area in the right breast. No mammographic evidence of malignancy in the left breast. RECOMMENDATION: Consider ultrasound-guided core needle biopsy of the palpable prominent lymph node to establish pathologic diagnosis. BI-RADS 4, SUSPICIOUS Reviewed, dictated and finalized at location B. IMPRESSION: Prominent lymph node correlates to the palpable lump area in the right breast. No mammographic evidence of malignancy in the left breast. RECOMMENDATION: Consider ultrasound-guided core needle biopsy of the palpable prominent lymph n ode to establish pathologic diagnosis. BI-RADS 4, SUSPICIOUS
--- OUTSIDE RECORDS SUMMARY | 2025-05-22 11:09 | XMS_ITS | Encounter Summary ---
Author Organization [facility] Address [address] [facility] [address] Care Team Providers Care Glazier Stained Glass Name Role Phone Unavailable Primary Care Provider Unavailabl e Encounter Details Date Type Department Care Team (Late st Contact Info) Description 07/05/2023 Lab Requisition [facility] - DermPath Lab [address] [facility], [place] [address] Liseth Mckeon MD [address] [facility] 3 [place] [address] Social History Tobacco Use Types Packs/Day Years Used Date Smoking Tobacco: Never Assessed Comments Unknown Sex and Gender Information Value Date Recorded Sex Assigned at Not on file Legal Sex Female 7:13 PM JOB HONER Gender Identity Not on file Sexual Orientation Not on file documented as of this encounter Plan of Treatment Not on file documented as of this encounter Procedures Procedure Name Priority Date/Time Associated Diagnosis Comments DERMATOPATHOLOGY Routine 07/05/2023 2:50 PM CDT documented in this encounter Results * DERMATOPATHOLOGY (07/05/2023 2:50 PM CDT) Case Report Dermatopathology Report Case: [id number] Authorizing Provider: Liseth Mckeon MD Collected: 07/05/2023 02:50 PM Ordering Location: [facility] DermPath Lab Received: 07/06/2023 11:13 AM Pathologist: Kalie Chu MD Specimen: Skin, left upper lip 3 4:18 PM CDT DERMATOPATHOLOGY LABORATORY Final Diagnosis Specimen A. 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 Linda Garcia. These tests need not be, and therefore are not, approved by the [place] Food and Drug Administration. The tests are used for clinical purposes. Billing Codes Specimen Charges Stain Charges 52549 1 3 4:18 PM CDT DERMATOPATHOLOGY LABORATORY Embedded Images 3 4:18 PM CDT DERMATOPATHOLOGY LABORATORY Pathology/Cytolo gy TISSUE SPECIMEN FROM SKIN / Unknown 07/05/2023 2:50 PM CDT 07/06/2023 11:13 AM CDT us Liseth Mckeon MD LAB - PATHOLOGY/CYTOLOGY ORD ERABLES Final Result DERMATOPATHOLOGY LABORATORY [facility] - Department of Dermatology [address], [address] [phone] documented in this encounter Visit Diagnoses Not on filedocumented in this encounter
--- OUTSIDE RECORDS SUMMARY | 2025-05-22 11:09 | XMS_ITS | Encounter Summary ---
Author Organization [facility] Address [address] [facility] [place] [address] Care Team Providers Care Nuclear Fuels Research Engineer Name Role Phone Unavailable Primary Care Provider Unavailabl e Encounter Details Date Type Department Care Team (Late st Contact Info) Description 08/16/2020 Lab Requisition [facility] DermPath Lab [address] [facility], [place] [phone] Liseth Mckeon MD [address] [facility] 3 [place] [address] Social History Tobacco Use Types Packs/Day Years Used Date Smoking Tobacco: Never Assessed Comments Unknown Sex and Gender Information Value Date Recorded Sex Assigned at Not on file Legal Sex Female 7:13 PM CASING RUNNER Gender Identity Not on file Sexual Orientation Not on file documented as of this encounter Plan of Treatment Not on file documented as of this encounter Procedures Procedure Name Priority Date/Time Associated Diagnosis Comments DERMATOPATHOLOGY Routine 08/15/2020 12:0 0 AM CASING RUNNER documented in this encounter Results * DERMATOPATHOLOGY (08/15/2020 12:00 AM CASING RUNNER) Case Report Dermatopathology Report Case: [id number] Authorizing Provider: Liseth Mckeon MD Collected: 08/15/2020 12:00 AM Ordering Location: [facility] DermPath Lab Received: 08/16/2020 09:00 AM Pathologist: Akua Shah MD Specimen: Skin, left medial canthus 0 1:44 PM CASING RUNNER DERMATOPATHOLOGY LABORATORY Final Diagnosis Specimen A. SKIN, left medial canthus: HYPERPLASTIC (HYPERTROPHIC) ACTINIC KERATOSIS (L57.0) (see microscopic description) 0 1:44 PM CASING RUNNER DERMATOPATHOLOGY LABORATORY at 1344 CASING RUNNER Clinical History [place] papule, [place], BCC, ISK. 0 1:44 PM CASING RUNNER DERMATOPATHOLOGY LABORATORY Gross Description Specimen A: Received is one formalin filled container labeled with the patient's name and designated left medial canthus. The specimen consists of a shave measuring [id number]. Jar 0. 0 1:44 PM [facility] [...] by the Dermatopathology Laboratory at [facility], directed by Dr. Linda Garcia. These tests need not be, and therefore are not, approved by the [place] Food and Drug Administration. The tests are used for clinical purposes. Billing Codes Specimen Charges Stain Charges 19309 1 0 1:44 PM CASING RUNNER DERMATOPATHOLOGY LABORATORY Embedded Images 0 1:44 PM [facility] DERMATOPATHOLOGY LABORATORY Pathology/Cytolog y TISSUE SPECIMEN FROM SKIN / Unknown 08/15/2020 08/16/2020 9:00 AM CASING RUNNER us Liseth Mckeon MD LAB - PATHOLOGY/CYTOLOGY ORD ERABLES Final Result DERMATOPATHOLOGY LABORATORY [facility] - Department of Dermatology [address] [place] [address], [facility] [phone] documented in this encounter Visit Diagnoses Not on filedocumented in this encounter
--- OUTSIDE RECORDS SUMMARY | 2025-05-22 11:09 | XMS_ITS | Encounter Summary ---
Author Organization [facility] Address [address] [facility] [place] [address] Care Team Providers Care Fur Weigher Name Role Phone Unavailable Primary Care Provider Unavailabl e Encounter Details Date Type Department Care Team (Late st Contact Info) Description 09/01/2019 Lab Requisition [facility] DermPath Lab [address] [facility], [place] [phone] Liseth Mckeon MD [address] [facility] 3 [place] [address] Social History Tobacco Use Types Packs/Day Years Used Date Smoking Tobacco: Never Assessed Comments Unknown Sex and Gender Information Value Date Recorded Sex Assigned at Not on file Legal Sex Female 7:13 PM MAINTENANCE TRAINER Gender Identity Not on file Sexual Orientation Not on file documented as of this encounter Plan of Treatment Not on file documented as of this encounter Procedures Procedure Name Priority Date/Time Associated Diagnosis Comments DERMATOPATHOLOGY Routine 08/31/2019 12:0 0 AM MAINTENANCE TRAINER documented in this encounter Results * DERMATOPATHOLOGY (08/31/2019 12:00 AM MAINTENANCE TRAINER) Case Report Dermatopathology Report Case: [id number] Authorizing Provider: Liseth Mckeon MD Collected: 08/31/2019 12:00 AM Ordering Location: [facility] DermPath Lab Received: 09/01/2019 06:10 AM Pathologist: Akua Shah MD Specimen: Skin, left thigh 9 11:39 AM MAINTENANCE TRAINER DERMATOPATHOLOGY LABORATORY Final Diagnosis Specimen A. SKIN, left thigh: SEBORRHEIC KERATOSIS, MACULAR (L82.1) 9 11:39 AM MAINTENANCE TRAINER DERMATOPATHOLOGY LABORATORY at 1139 MAINTENANCE TRAINER Clinical History MM,SK,Lentigo 11:39 AM [facility] DERMATOPATHOLOGY LABORATORY Gross Description Specimen A: Received is one formalin filled container labeled with the patient's name and designated left thigh. The specimen consists of a shave biopsy measuring 10x8x1 mm. Jar 0. 11:39 AM [facility] DERMATOPATHOLOGY LABORATORY Microscopic Description Specimen A. SKIN, left thigh: Sections show a relatively broad, flat proliferation of small keratinocytes. The surface is gently papillated, and there is increased basilar pigmentation. 11:39 AM [facility] DERMATOPATHOLOGY LABORATORY Disclaimer An external and internal positive and negative controls are appropriate for the histochemical, immunohistochemical and immunofluorescence stain(s) in this case (if any), except where stated explicitly. The performance characteristics of the stain(s) cited in this report were developed and its performance characteristic determined by the Dermatopathology Laboratory at [facility], directed by Dr. Linda Garcia. These tests need not be, and therefore are not, approved by the [place] Food and Drug Administration. The tests are used for clinical purposes. Billing Codes Specimen Charges Stain Charges 77572 1 11:39 AM [facility] DERMATOPATHOLOGY LABORATORY Embedded Images 11:39 AM [facility] DERMATOPATHOLOGY LABORATORY Pathology/Cytolog y TISSUE SPECIMEN FROM SKIN / Unknown 08/31/2019 09/01/2019 6:10 AM [facility] us Liseth Mckeon MD LAB - PATHOLOGY/CYTOLOGY ORD ERABLES Final Result DERMATOPATHOLOGY LABORATORY [facility] - Department of Dermatology [facility] [facility] 5th Floor Lab [address] [place], [place] [address] [phone] documented in this encounter Visit Diagnoses Not on filedocumented in this encounter
--- OUTSIDE RECORDS SUMMARY | 2025-05-22 11:09 | XMS_ITS | Encounter Summary ---
Author Organization [facility] Address [address] [place] [address] Care Team Providers Care And Taxi Instructor Bus Trolley Name Role Phone Unavailable Primary Care Provider Unavailabl e Encounter Details Date Type Department Care Team (Late st Contact Info) Description 02/18/2019 Abstract SFL CONVERSION [address] [place] [address] , Generic Conversion, Social History [...]
--- OUTSIDE RECORDS SUMMARY | 2025-05-22 11:09 | XMS_ITS | Encounter Summary ---
Author Organization [facility] Address [address] [facility] [place] [address] Care Team Providers Care Manager Of Supply Chain Name Role Phone Unavailable Primary Care Provider Unavailabl e Encounter Details Date Type Department Care Team (Late st Contact Info) Description 02/29/2024 Lab Requisition [facility] - DermPath Lab [address] [facility], [place] [address] Liseth Mckeon MD [address] [facility] 3 [place] [address] Social History Tobacco Use Types Packs/Day Years Used Date Smoking Tobacco: Never Assessed Comments Unknown Sex and Gender Information Value Date Recorded Sex Assigned at Not on file Legal Sex Female 7:13 PM ALUMNI RELATIONS OFFICER Gender Identity Not on file Sexual Orientation Not on file documented as of this encounter Plan of Treatment Not on file documented as of this encounter Procedures Procedure Name Priority Date/Time Associated Diagnosis Comments DERMATOPATHOLOGY Routine 02/29/2024 1:23 PM CDT documented in this encounter Results * DERMATOPATHOLOGY (02/29/2024 1:23 PM CDT) Case Report Dermatopathology Report Case: [id number] Authorizing Provider: Liseth Mckeon MD Collected: 02/29/2024 01:23 PM Ordering Location: [facility] [employer] - Received: 03/02/2024 [...] 1418 CDT Clinical History [place] vs BCC; [place] Papule 4 2:18 PM CDT DERMATOPATHOLOGY LABORATORY [...] characteristic determined by the Dermatopathology Laboratory at [facility], directed by Dr. Linda Garcia. These tests need not be, and therefore are not, approved by the [place] Food and Drug Administration. The tests are used for clinical purposes. Billing Codes Specimen Charges Stain Charges 27008 1 4 2:18 PM CDT DERMATOPATHOLOGY LABORATORY Embedded Images 4 2:18 PM CDT DERMATOPATHOLOGY LABORATORY Pathology/Cytolo gy TISSUE SPECIMEN FROM SKIN / Unknown 02/29/2024 1:23 PM CDT 03/02/2024 5:38 AM CDT us Liseth Mckeon MD LAB - PATHOLOGY/CYTOLOGY ORD ERABLES Final Result DERMATOPATHOLOGY LABORATORY [facility] - Department of Dermatology [facility] Specialized Medicine [facility] [facility], 3rd Floor [address] [phone] documented in this encounter Visit Diagnoses Not on filedocumented in this encounter
--- OUTSIDE RECORDS SUMMARY | 2025-05-22 11:09 | XMS_ITS | Encounter Summary ---
Author Organization [facility] Address [address] [place] [address] Care Team Providers Care Tick Sewer Name Role Phone Unavailable Primary Care Provider Unavailabl e Encounter Details Date Type Department Care Team (Late st Contact Info) Description 06/09/2018 Lab Requisition [facility] Care DermPath Lab [address] 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 Jar 0. [facility] Dermatopathology Laboratory performed the technical component only. 8 10:14 AM T DERMATOPATHOLOGY LABORATORY Embedded Images 8 10:14 AM [facility] DERMATOPATHOLOGY LABORATORY DISCLAIMER An external and internal positive and negative controls are appropriate for the histochemical, immunohistochemical and immunofluorescence stain(s) in this case (if any), except where stated explicitly. The performance characteristics of the stain(s) cited in this report were developed and its performance characteristic determined by the Dermatopathology Laboratory at [facility]. These tests need not be, and therefore are not, approved by the [place] Food and Drug Administration. The tests are used for clinical purposes. 8 10:14 AM [facility] DERMATOPATHOLOGY LABORATORY at 1014 CDT Pathology/Cytolog y TISSUE SPECIMEN FROM SKIN / Unknown 06/08/2018 06/09/2018 6:34 AM CDT Liseth Mckeon MD LAB - PATHOLOGY/CYTOLOGY ORD ERABLES Final Result DERMATOPATHOLOGY LABORATORY [facility] - Department of Dermatology [facility] [facility], 5th [place] [address], [facility] [phone] documented in this encounter Visit Diagnoses Not on filedocumented in this encounter
--- OUTSIDE RECORDS SUMMARY | 2025-05-22 11:09 | XMS_ITS | Encounter Summary ---
Author Organization [facility] Address [address] [facility] [place] [address] Care Team Providers Care Supervisor [place] Name Role Phone Unavailable Primary Care Provider Unavailabl e Encounter Details Date Type Department Care Team (Late st Contact Info) Description 10/10/2024 Lab Requisition [facility] - DermPath Lab [address] [facility] [place] [address] Adelaida Parra MD [address] [facility] [address] [place] [address] Social History Tobacco Use Types Packs/Day Years Used Date Smoking Tobacco: Never Assessed Comments Unknown Sex and Gender Information Value Date Recorded Sex Assigned at Not on file Legal Sex Female 7:13 PM GREEN BUILDING MATERIALS DISTRIBUTOR Gender Identity Not on file Sexual Orientation Not on file documented as of this encounter Plan of Treatment Not on file documented as of this encounter Procedures Procedure Name Priority Date/Time Associated Diagnosis Comments DERMATOPATHOLOGY Routine 10/10/2024 11:1 0 AM GREEN BUILDING MATERIALS DISTRIBUTOR documented in this encounter Results * DERMATOPATHOLOGY (10/10/2024 11:10 AM GREEN BUILDING MATERIALS DISTRIBUTOR) Case Report Dermatopathology Report Case: [id number] Authorizing Provider: Adelaida Parra MD Collected: 10/10/2024 11:10 AM Ordering Location: [facility] - Received: 10/11/2024 12:47 PM DermPath Lab Pathologist: Marly Yao MD Specimen: Skin, left mid back 5 2:12 PM GREEN BUILDING MATERIALS DISTRIBUTOR DERMATOPATHOLOGY LABORATORY Final Diagnosis Specimen A. SKIN, left mid back: LICHEN PLANUS-LIKE KERATOSIS (BENIGN LICHENOID KERATOSIS) (L82.1) 5 2:12 PM GREEN BUILDING MATERIALS DISTRIBUTOR DERMATOPATHOLOGY LABORATORY at 1412 GREEN BUILDING MATERIALS DISTRIBUTOR Clinical History R/O NMSC; Irritated 2:12 PM GREEN BUILDING MATERIALS DISTRIBUTOR DERMATOPATHOLOGY LABORATORY Gross Description Specimen A: Received is one formalin filled container labeled with the patient's name and designated left mid back. The specimen consists of a shave biopsy measuring 8x8x1 mm. Jar 0. 2:12 PM [facility] DERMATOPATHOLOGY LABORATORY Microscopic Description Specimen A. SKIN, left mid back: The epidermis is mildly acanthotic. There is a lichenoid infiltrate with vacuolar changes of basilar keratinocytes and scattered necrotic keratinocytes. 2:12 PM [facility] DERMATOPATHOLOGY LABORATORY Disclaimer An external and internal positive and negative controls are appropriate for the histochemical, immunohistochemical and immunofluorescence stain(s) in this case (if any), except where stated explicitly. The performance characteristics of the stain(s) cited in this report were developed and its performance characteristic determined by the Dermatopathology Laboratory at [facility], directed by Dr. Linda Garcia. These tests need not be, and therefore are not, approved by the [place] Food and Drug Administration. The tests are used for clinical purposes. Billing Codes Specimen Charges Stain Charges 07467 1 2:12 PM GREEN BUILDING MATERIALS DISTRIBUTOR DERMATOPATHOLOGY LABORATORY Embedded Images 2:12 PM [facility] DERMATOPATHOLOGY LABORATORY Pathology/Cytolo gy TISSUE SPECIMEN FROM SKIN / Unknown 10/10/2024 11:10 AM GREEN BUILDING MATERIALS DISTRIBUTOR 10/11/2024 12:47 PM GREEN BUILDING MATERIALS DISTRIBUTOR Adelaida Parra MD LAB - PATHOLOGY/CYTOLOGY OR DERABLES Final Result DERMATOPATHOLOGY LABORATORY [facility] - Department of Dermatology [address] [place] [address], [facility] [phone] documented in this encounter Visit Diagnoses Not on filedocumented in this encounter
--- OUTSIDE RECORDS SUMMARY | 2025-05-22 11:09 | XMS_ITS | Clinical Summary ---
Author Organization [facility] Address [facility] [place] [address] Care Team Providers Care Processing Inspector Name Role Phone Unavailable Primary Care [...] COVID-19 Vaccine ( - 2023-2 5 season) 2025 RSV Immunization or 60+ Years (1 - [...]
--- OUTSIDE RECORDS SUMMARY | 2025-05-22 11:09 | XMS_ITS | Clinical Summary ---
Author Organization [facility] Address [address] [place] [address] Care Team Providers Care Health Commissioner Name Role Phone Unavailable Primary Care Provider Unavailabl e Source Comments [facility],non-owned Affiliates and Associated Physician Practices is amultiple site organization consisting of ambulatory clinics and hospital sitesin [place], [place], [place] and [place]. This disclosure is being madepursuant to the Care Everywhere program and may not contain all information available regarding this patient. Last updated 18.[facility] Social History Tobacco Use Types Packs/Day Years Used Date Smoking Tobacco: Never Assessed Comments Unknown Sex and Gender Information Value Date Recorded Sex Assigned at Not on file Legal Sex Female 7:13 PM INVESTIGATIVE WRITER Gender Identity Not on file Sexual Orientation [...] 2006 ZOSTER VACCINE (1 of 2) 2006 DEPRESSION SCREENING 09/13/2024 MEDICARE AWV CALENDAR YEAR 2024 COVID-19 VACCINE (1 - 2023-2 5 season) 2025 INFLUENZA VACCINE (#1) 2025 Respiratory Syncytial Virus [...] Subscriber ID:Not on file (Home) Address: [address] [place] [address] Payer ID:Not on file Group ID:Not on file Type:Self Pay Address: [place], [place]
--- OUTSIDE RECORDS SUMMARY | 2025-05-22 11:09 | XMS_ITS | Clinical Summary ---
Author Organization [facility] Address [address] [place] [address] Care Team Providers Care Machine Whitener Name Role Phone Dominguez Pena MD Primary Care Provider + [phone] Allergies Active Allergy Reactions Criticality Noted Date [...] on file Legal Sex Female 4:17 AM INSTRUMENT INSPECTOR Gender Identity Not on file Sexual Orientation [...] Plan of Treatment Not on file [facility] Care Teams Machine Whitener Relationship Specialty Start Date End Date Dominguez Pena MD PCP - General Family Medicine 10/23/21
== END 2025-05-22 09:52 | disposition home or self-care (01) ==
PROVIDERS: PCP Family Medicine; Visit Provider Obstetrics & Gynecology Gynecology
DX: N63.10 Unspecified lump in the right breast, unspecified quadrant (principal); R92.8 Other abnormal and inconclusive findings on diagnostic imaging of breast
CPT/HCPCS: 76642; 77062; 77066; G0279